=== PATIENT | female | born 1955 | race Caucasian/White ===

== ENCOUNTER 2017-11-25 13:11 | Emergency (ER) | payer OTHER, SELFPAY ==
--- NOTE | 2017-11-25 14:10 | XR_ITS ---
XR foot LT min 3V HISTORY: Left foot pain ITS.REASON: NO INJURY/PAIN ORDERING PHYSICIAN: Germán Penn PATIENT AGE: 62 years COMPARISON: 11/22/2013 FINDINGS: There is an old fracture of the proximal phalanx of the great toe distally. No acute fracture or dislocation. No lytic or blastic change. No fracture or dislocation.. There is a well-circumscribed oval lucency in the navicular which has developed since the previous exam. No other significant anomalies are evident. IMPRESSION: 1. Interval development of an 11 x 15 mm lucent lesion within the navicular bone. The lesion is well circumscribed but has developed since 11/22/2013. CT initially may be of further value to determine as there is any internal matrix and to better evaluate the margins of the lesion.. 2. Old proximal phalanx fracture of the great toe.
--- NOTE | 2017-11-25 14:11 | XR_ITS ---
XR ankle LT min 3V HISTORY: ITS.REASON: NO INJURY/PAIN ORDERING PHYSICIAN: Germán Penn PATIENT AGE: 62 years COMPARISON: None FINDINGS: No fracture or dislocation. No lytic or blastic change. There is normal mineralization.. The joint spaces are well-preserved. No significant degenerative/arthritic changes. No erosive changes evident. There is a well-circumscribed lucent lesion of the navicular as described in the foot report. IMPRESSION: 1. No acute finding of the ankle. 2. Cystic lesion of the navicular
--- NOTE | 2017-11-25 14:12 | XR_ITS ---
XR tibia fibula LT 2V CLINICAL INDICATION: ITS.REASON: NO INJURY/PAIN ORDERING PHYSICIAN: Germán Penn PATIENT AGE: 62 years COMPARISON: None FINDINGS: There are moderate osteoarthritic changes of the medial compartment and patellofemoral joint with mild osteoarthritis of the lateral compartment. The tibia and fibula have an otherwise unremarkable appearance. IMPRESSION: Osteoarthritis of the knee otherwise negative
[2017-11-25 14:43] VITALS: BP 113/72; PULSE 64; RESP 20; TEMP 37.1; O2SAT 97; BMI 43.8
--- NOTE | 2017-11-25 14:59 | HMH.EDUTC ---
[facility] [place] Disposition Clinical Impression: Lytic lesion of bone on x-ray Disposition: Still a Patient Condition on Discharge: Good Time of Disposition: 15:00 Medical Decision Making Vital Signs: 11/25/17 14:43 Temperature 98.7 F Temperature Source Temporal Artery Scan Pulse Rate [Left Radial] 64 Respiratory Rate 20 Blood Pressure [Right Arm] 113/72 Blood Pressure Mean [Right Arm] 85 02 Sat by Pulse Oximetry 97 Oxygen Delivery Method Room Air - Radiology Data #1 Image(s): Tib/Fib, Ankle, Foot/Toes Image Reviewed: Yes I have reviewed radiologist's interpretation Preliminary Findings: Abnormal lucent lesion within navicular bone. CT may be of further value to determine internal matrix and margins. - Maulik Inquiry Pt receiving controlled substance: No - Reevaluation(s) Time: 14:48 Reevaluation #1: Discussed abnormal xray with pt, spouse and daughter (an [facility] central sterile tech). Discussed CT. They want CT today and not outpatient. Aware that can not be ordered here in [facility] and would require transfer to ER and therefore, ER bill. Request transfer to ER. Report called to C.C. as no nurse available. Room 8 available. I then walked over and gave verbal report to Dr. Manjarrez, ER [facility] [place] HPI - General Stated complaint: left foot pain, no ao Time Seen by Provider: 11/25/17 14:45 Mode of Arrival: Wheelchair Source of Information: Patient Limitations: No Limitations Description of Symptoms (Recalled from Triage Doc. by RN): pt c/o left foot pain that started last night. pt denies injury. HEENT Symptoms (Recalled from RN notes): No Resp Symptoms (Recalled from RN notes): No Skin Symptoms (Recalled from RN notes): No MS Symptoms (Recalled from RN notes): Yes (left foot pain) Functional Status (Recalled from RN notes): na - History of Present Illness Provider Complaint: c/o pain center of left foot starting last night. Unable to bear weight due to severe pain that radiated up into leg. Denies N/T. Mild swelling on top of foot where pain primarily located. - Related Data Home Medications Medication Instructions Recorded Confirmed aspirin 81 mg tablet,delayed 81 mg PO tab 11/19/17 release dapagliflozin 10 mg tablet 10 mg PO QAM 11/19/17 ergocalciferol (vitamin D2) 50,000 50,000 unit PO 28 Days cap 11/19/17 unit capsule gabapentin 600 mg tablet 600 mg PO 30 Days tab 11/19/17 insulin aspar prot-insulin aspart 20 unit SUB-Q TID ml 11/19/17 100 unit/mL (70-30) subcutaneous pen isosorbide mononitrate ER 30 mg PO 30 Days #30 11/19/17 tablet,extended release 24 hr levothyroxine 75 mcg capsule 75 mcg PO cap 11/19/17 rosuvastatin 10 mg tablet 10 mg PO 30 Days tab 11/19/17 valsartan 160 1 tab PO ONCE 11/19/17 mg-hydrochlorothiazide 12.5 mg tablet Allergies Allergy/AdvReac Type Severity Reaction Status Date / Time No Known Allergies Allergy Verified 11/25/17 14:25 - Worker's Comp Is this a Worker's Comp case?: No [facility] History I have reviewed the patient's past medical history: Yes Medical History: Reports:: Diabetes Mellitus Type 2, Hyperlipidemia, Hypertension Denies:: Asthma, Atrial Fibrillation, Cancer, Congestive Heart Failure, Chronic Obstructive Pulmonary Disease (COPD), Diabetes Mellitus Type 1, MRSA, Osteoporosis, Renal Disease, Renal Insufficiency Other Medical History: Reports: Arthritis, Hypothyroidism, Other (neuropathy). Denies: Osteoporosis Laterality Cases: Right: Cataract, Total Knee Replacement, Bilateral: Tonsillectomy Amputation: No Fractures: No - Social History Smoking Status: Never smoker Alcohol Intake: never Occupational Status: retired - Psychiatric History Expresses thoughts of harming self/others: None Suicide Plan Description: No Plan Family Hx:: Heart Attack, Diabetes, Hyperlipidemia, Hypertension ROS Obtained: Yes Systems reviewed as appropriate & no additional complaints - Constitutional Constitutional: Denies fatigue, Denies
--- NOTE | 2017-11-25 15:03 | ED_ITS ---
[facility] [place] Disposition Clinical Impression: Lytic lesion of bone on x-ray Disposition: Still a Patient Condition on Discharge: Good Time of Disposition: 15:00 Medical Decision Making Vital Signs: 11/25/17 14:43 Temperature 98.7 F Temperature Source Temporal Artery Scan Pulse Rate [Left Radial] 64 Respiratory Rate 20 Blood Pressure [Right Arm] 113/72 Blood Pressure Mean [Right Arm] 85 02 Sat by Pulse Oximetry 97 Oxygen Delivery Method Room Air - Radiology Data #1 Image(s): Tib/Fib, Ankle, Foot/Toes Image Reviewed: Yes I have reviewed radiologist's interpretation Preliminary Findings: Abnormal lucent lesion within navicular bone. CT may be of further value to determine internal matrix and margins. - Maulik Inquiry Pt receiving controlled substance: No - Reevaluation(s) Time: 14:48 Reevaluation #1: Discussed abnormal xray with pt, spouse and daughter (an [facility] tax technician). Discussed CT. They want CT today and not outpatient. Aware that can not be ordered here in [facility] and would require transfer to ER and therefore, ER bill. Request transfer to ER. Report called to C.C. as no nurse available. Room 8 available. I then walked over and gave verbal report to Dr. Manjarrez, ER [facility] [place] HPI - General Stated complaint: left foot pain, no ao Time Seen by Provider: 11/25/17 14:45 Mode of Arrival: Wheelchair Source of Information: Patient Limitations: No Limitations Description of Symptoms (Recalled from Triage Doc. by RN): pt c/o left foot pain that started last night. pt denies injury. HEENT Symptoms (Recalled from RN notes): No Resp Symptoms (Recalled from RN notes): No Skin Symptoms (Recalled from RN notes): No MS Symptoms (Recalled from RN notes): Yes (left foot pain) Functional Status (Recalled from RN notes): na - History of Present Illness Provider Complaint: c/o pain center of left foot starting last night. Unable to bear weight due to severe pain that radiated up into leg. Denies N/T. Mild swelling on top of foot where pain primarily located. - Related Data Home Medications Medication Instructions Recorded Confirmed aspirin 81 mg tablet,delayed 81 mg PO tab 11/19/17 release dapagliflozin 10 mg tablet 10 mg PO QAM 11/19/17 ergocalciferol (vitamin D2) 50,000 50,000 unit PO 28 Days cap 11/19/17 unit capsule gabapentin 600 mg tablet 600 mg PO 30 Days tab 11/19/17 insulin aspar prot-insulin aspart 20 unit SUB-Q TID ml 11/19/17 100 unit/mL (70-30) subcutaneous pen isosorbide mononitrate ER 30 mg PO 30 Days #30 11/19/17 tablet,extended release 24 hr levothyroxine 75 mcg capsule 75 mcg PO cap 11/19/17 rosuvastatin 10 mg tablet 10 mg PO 30 Days tab 11/19/17 valsartan 160 1 tab PO ONCE 11/19/17 mg-hydrochlorothiazide 12.5 mg tablet Allergies Allergy/AdvReac Type Severity Reaction Status Date / Time No Known Allergies Allergy Verified 11/25/17 14:25 - Worker's Comp Is this a Worker's Comp case?: No [facility] History I have reviewed the patient's past medical history: Yes Medical History: Reports:: Diabetes Mellitus Type 2, Hyperlipidemia, Hypertension Denies:: Asthma, Atrial Fibrillation, Cancer, Congestive Heart Failure, Chronic Obstructive Pulmonary Disease (COPD), Diabetes Mellitus Type 1, MRSA, Osteoporosis, Renal D
[2017-11-25 15:28] VITALS: BP 113/72; PULSE 64; RESP 20; TEMP 37.1; O2SAT 97; BMI 43.8
--- NOTE | 2017-11-25 15:48 | CT_ITS ---
CT foot LT wo con INDICATION: Left foot pain with inability to bear weight ITS.REASON: UNABLE TO BEAR WEIGHT ON LT. FOOT. ORDERING PHYSICIAN: Germán Penn PATIENT AGE: 62 years COMPARISON: Foot films from the same day TECHNIQUE: Axial images are obtained without contrast. Sagittal and coronal reformatted images are reviewed as well. FINDINGS: There is a well circumscribed lucent lesion involving the distal aspect of the talus. This measures 6 x 4 mm. In addition, there is a well-circumscribed cystic lesion involving the mid aspect of the navicular bone as seen on the plain films measuring 14 x 10 mm. The margins are well-circumscribed and geographic. There is no calcified internal matrix and no associated soft tissue abnormality. These lesions have a benign appearance. No fracture or dislocation. No aggressive lytic process is evident. There is an old fracture of the proximal phalanx of the great toe distally. Fracture line is still visible although there is some overlying callus formation. Fracture line does extend into the articular surface of the interphalangeal joint. No acute fracture or dislocation is evident. No evidence of abscess or abnormal soft tissue swelling. IMPRESSION: 1. Benign-appearing cystic lesions involving the distal aspect of the talus and the navicular bone as described above. 2. Healing fracture of the distal aspect of the proximal phalanx of the great toe. 3. No acute bony anomalies.
[2017-11-25 16:33] VITALS: BP 116/70; PULSE 87; RESP 189; O2SAT 97
--- NOTE | 2017-11-25 17:12 | HMH.EDGENADL ---
ED Disposition Clinical Impression: Bone cyst Foot pain Qualifiers: Laterality: left Qualified Code(s): M79.672 - Pain in left foot Disposition: Home, Self-Care Condition on Discharge: Good Instructions: DI for Foot Pain Referrals: Meka Waterman [Primary Care Provider] - Kathleen Lundberg DPM [Physician] - (Call tomorrow to schedule earliest available appointment) - Critical Care Critical Care Time: No Attestation: On 11/25/17, the high probability of a clinically significant, sudden or life threatening deterioration of the following system(s) required my full and direct attention, intervention and personal management. The time I documented below is in addition to time spent performing reported procedures but includes the following listed in this critical care notation. Medical Decision Making Vital Signs: 11/25/17 14:43 11/25/17 15:28 11/25/17 16:33 Temperature 98.7 F 98.7 F Temperature Source Temporal Artery Scan Temporal Artery Scan Pulse Rate [Left Radial] 64 64 87 Respiratory Rate 20 20 189 H Blood Pressure [Right Arm] 113/72 113/72 116/70 Blood Pressure Mean [Right Arm] 85 85 85 Blood Pressure Source [Right Arm] Automatic Cuff Automatic Cuff Blood Pressure Position [Right Arm] Sitting Sitting 02 Sat by Pulse Oximetry 97 97 97 Oxygen Delivery Method Room Air Room Air Room Air - CT Data CT Scan: Other (Foot) Time Received: 17:[address] Reviewed: Yes: I have viewed the radiologist's interpretation Findings Narrative: Benign appearing cystic lesions of talus and navicular. Healing fracture of proximal phalanx of great toe. - Maulik Inquiry Pt receiving controlled substance: No General Adult HPI - General Chief complaint: PAIN Stated complaint: left foot pain, no ao Time Seen by Provider: 11/25/17 14:45 Mode of Arrival: Wheelchair Limitations: No Limitations Description of Symptoms (Recalled from ER Triage Doc. by RN): pt states she has had left foot pain since lastnight. pt denies injury. - History of Present Illness HPI narrative: Patient is sent from the urgent treatment center where she was evaluated for foot pain. She had x-rays done which showed a questionable lesion and a CT was recommended. Patient complains of pain in her midfoot when she puts weight on it. 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 - Related Data Home Medications Medication Instructions Recorded Confirmed aspirin 81 mg tablet,delayed 81 mg PO DAILY tab 11/19/17 11/25/17 release dapagliflozin 10 mg tablet 10 mg PO QAM 11/19/17 11/25/17 ergocalciferol (vitamin D2) 50,000 50,000 unit PO DAILY 28 Days cap 11/19/17 11/25/17 unit capsule gabapentin 600 mg tablet 600 mg PO DAILY 30 Days tab 11/19/17 11/25/17 insulin aspar prot-insulin aspart 20 unit SUB-Q TID ml 11/19/17 11/25/17 100 unit/mL (70-30) subcutaneous pen isosorbide mononitrate ER 30 mg 30 mg PO DAILY 30 Days #30 11/19/17 11/25/17 tablet,extended release 24 hr levothyroxine 75 mcg capsule 75 mcg PO DAILY cap 11/19/17 11/25/17 rosuvastatin 10 mg tablet 10 mg PO DAILY 30 Days tab 11/19/17 11/25/17 valsartan 160 1 tab PO ONCE 11/19/17 11/25/17 mg-hydrochlorothiazide 12.5 mg tablet Allergies Allergy/AdvReac Type Severity Reaction Status Date / Time No Known Allergies Allergy Verified 11/25/17 14:25 [facility] History I have reviewed the patient's past medical history: Yes Medical History: Reports:: Diabetes Mellitus Type 2, Hyperlipidemia, Hypertension Denies:: Asthma, Atrial Fibrillation, Cancer, Congestive Heart Failure, Chronic Obstructive Pulmonary Disease (COPD), Diabetes Mellitus Type 1, MRSA, Osteoporosis, Renal Disease, Renal Insufficiency Other Medical History: Reports: Arthritis, Hypothyroidism, Other (neuropathy). Denies: Osteoporosis Laterality Cases: Right: Cataract, Total Knee Replacement, Bilateral: Tonsillectomy Amputation: No Fractures:
--- NOTE | 2017-11-25 17:15 | ED_ITS ---
ED Disposition Clinical Impression: Bone cyst Foot pain Qualifiers: Laterality: left Qualified Code(s): M79.672 - Pain in left foot Disposition: Home, Self-Care Condition on Discharge: Good Instructions: DI for Foot Pain Referrals: Meka Waterman [Primary Care Provider] - Kathleen Lundberg DPM [Physician] - (Call tomorrow to schedule earliest available appointment) - Critical Care Critical Care Time: No Attestation: On 11/25/17, the high probability of a clinically significant, sudden or life threatening deterioration of the following system(s) required my full and direct attention, intervention and personal management. The time I documented below is in addition to time spent performing reported procedures but includes the following listed in this critical care notation. Medical Decision Making Vital Signs: 11/25/17 14:43 11/25/17 15:28 11/25/17 16:33 Temperature 98.7 F 98.7 F Temperature Source Temporal Artery Scan Temporal Artery Scan Pulse Rate [Left Radial] 64 64 87 Respiratory Rate 20 20 189 H Blood Pressure [Right Arm] 113/72 113/72 116/70 Blood Pressure Mean [Right Arm] 85 85 85 Blood Pressure Source [Right Arm] Automatic Cuff Automatic Cuff Blood Pressure Position [Right Arm] Sitting Sitting 02 Sat by Pulse Oximetry 97 97 97 Oxygen Delivery Method Room Air Room Air Room Air - CT Data CT Scan: Other (Foot) Time Received: 17:[address] Reviewed: Yes: I have viewed the radiologist's interpretation Findings Narrative: Benign appearing cystic lesions of talus and navicular. Healing fracture of proximal phalanx of great toe. - Maulik Inquiry Pt receiving controlled substance: No General Adult HPI - General Chief complaint: PAIN Stated complaint: left foot pain, no ao Time Seen by Provider: 11/25/17 14:45 Mode of Arrival: Wheelchair Limitations: No Limitations Description of Symptoms (Recalled from ER Triage Doc. by RN): pt states she has had left foot pain since lastnight. pt denies injury. - History of Present Illness HPI narrative: Patient is sent from the urgent treatment center where she was evaluated for foot pain. She had x-rays done which showed a questionable lesion and a CT was recommended. Patient complains of pain in her midfoot when she puts weight on it. 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 - Related Data Home Medications Medication Instructions Recorded Confirmed aspirin 81 mg tablet,delayed 81 mg PO DAILY tab 11/19/17 11/25/17 release dapagliflozin 10 mg tablet 10 mg PO QAM 11/19/17 11/25/17 ergocalciferol (vitamin D2) 50,000 50,000 unit PO DAILY 28 Days cap 11/19/17 unit capsule gabapentin 600 mg tablet 600 mg PO DAILY 30 Days tab 11/19/17 11/25/17 insulin aspar prot-insulin aspart 20 unit SUB-Q TID ml 11/19/17 11/25/17 100 unit/mL (70-30) subcutaneous pen isosorbide mononitrate ER 30 mg 30 mg PO DAILY 30 Days #30 11/19/17 11/25/17 tablet,extended release 24 hr levothyroxine 75 mcg capsule 75 mcg PO DAILY cap 11/19/17 11/25/17 rosuvastatin 10 mg tablet 10 mg PO DAILY 30 Days tab 11/19/17 11/25/17 valsartan 160 1 tab PO ONCE 11/19/17 11/25/17 mg-hydrochlorothiazide 12.5 mg tablet Allergies Allergy/AdvReac Type Sev
[2017-11-25 17:33] VITALS: BP 128/75; PULSE 60; RESP 18; TEMP 36.6; O2SAT 96
== END 2017-11-25 17:33 | disposition home or self-care (01) ==
LOC: UTC 15:00 → ER 15:02
PROVIDERS: Emergency Provider Nurse Practitioner Family; PCP Family Medicine
DX: M85.60 Other cyst of bone, unspecified site (principal); M79.672 Pain in left foot; E11.9 Type 2 diabetes mellitus without complications; Z79.4 Long term (current) use of insulin; I10 Essential (primary) hypertension; E78.5 Hyperlipidemia, unspecified; E03.9 Hypothyroidism, unspecified; Z79.82 Long term (current) use of aspirin; Z96.651 Presence of right artificial knee joint
CPT/HCPCS: 73590; 73610; 73630; 73700; 99283

== ENCOUNTER → 2018-04-15 13:20 | Outpatient (CLI) | payer SELFPAY ==
[2018-04-15 15:05] LABS: Erythrocyte Sedimentation Rate 21 mm/hr (0-30)
[2018-04-15 16:09] LABS: C-Reactive Protein 0.3 mg/L (0.0-0.9)
== END ==
PROVIDERS: Visit Provider Nurse Practitioner Family
DX: M35.3 Polymyalgia rheumatica (principal)
CPT/HCPCS: 36415; 85651; 86140

== ENCOUNTER → 2018-06-29 09:51 | Outpatient (CLI) | payer OTHER, SELFPAY ==
--- NOTE | 2018-06-29 09:55 | MM_ITS ---
MM Dig screening mamm BI w/CAD ORDERING PHYSICIAN : Meka Waterman PATIENT AGE: 62 years GENDER: Female COMPARISON: Outside studies from [facility] have arrived dated June 2015, July 2016, April 2014 INDICATION: ITS.REASON: SCREENING no hormones. No new complaints. Family history noncontributory TECHNIQUE: Standard CC and MLO images were obtained. R2 CAD reviewed. FINDINGS: Large breasts with diffuse fatty replacement. . No significant new findings. Scattered axillary nodes both breasts appears stable. No suspicious mass nor dominant mass, nor suspicious calcifications, nor architectural distortion. RIGHT BREAST: A few punctate benign-appearing calcifications at the deep breast and axillary breast.. Benign appearance these can be followed. Recommend recommended and encouraged follow up one year LEFT BREAST:No significant new findings at the left breast.. Follow-up in one year IMPRESSION: ... No new areas of significant concern. No suspicious new findings. . Generalized fatty replacement with lower density breast. A few tiny punctate benign-appearing calcifications right breast. Recommend and encourage follow-up in one year BI-RADS Category: 2 Benign Finding(s) RECOMMENDED FOLLOW-UP: 1YR 1 YEAR FOLLOW-UP (A letter has been sent to the patient regarding results of the study.)
== END ==
PROVIDERS: PCP Family Medicine; Visit Provider Family Medicine
DX: Z12.31 Encounter for screening mammogram for malignant neoplasm of breast (principal)
CPT/HCPCS: 77067

== ENCOUNTER → 2018-08-20 11:11 | Outpatient (CLI) | payer OTHER, SELFPAY | PROVIDERS: PCP Family Medicine; Visit Provider Family Medicine | DX: R06.02 Shortness of breath (principal); R05 Cough | CPT/HCPCS: 94060; 94640; 94726; 94729 ==

== ENCOUNTER → 2018-09-07 12:59 | Outpatient (CLI) | payer OTHER, SELFPAY | PROVIDERS: PCP Family Medicine; Visit Provider Family Medicine | DX: R06.81 Apnea, not elsewhere classified (principal); I51.7 Cardiomegaly; R06.02 Shortness of breath ==

== ENCOUNTER → 2018-09-15 11:07 | Outpatient (CLI) | payer OTHER, SELFPAY | PROVIDERS: PCP Family Medicine; Visit Provider Family Medicine | DX: R06.81 Apnea, not elsewhere classified (principal); I51.7 Cardiomegaly; R06.02 Shortness of breath | CPT/HCPCS: 95806 ==

== ENCOUNTER 2018-09-22 15:01 | Inpatient (IN) ==
--- NOTE | 2018-09-22 15:08 | Emergency Department Note ---
ED Disposition Clinical Impression: Delirium Community acquired pneumonia Qualifiers: Laterality: right Lung location: lower lobe of lung Qualified Code(s): J18.1 - Lobar pneumonia, unspecified organism Disposition: Still a Patient Condition on Discharge: Serious Instructions: DI for Altered Mental Status Referrals: Provider,Referral, [Referring] - - Critical Care Critical Care Time: No Attestation: On , the high probability of a clinically significant, sudden or life threatening deterioration of the following system(s) required my full and direct attention, intervention and personal management. The time I documented below is in addition to time spent performing reported procedures but includes the following listed in this critical care notation. Medical Decision Making - Maulik Inquiry Pt receiving controlled substance: No Vital Signs: 09/22/18 15:01 09/22/18 15:23 09/22/18 15:31 Temperature 101.2 F H Temperature Source Oral Pulse Rate 115 H Pulse Rate [Left Radial] 64 107 H Respiratory Rate 20 Blood Pressure [Right Arm] 202/92 H 189/97 H Blood Pressure Mean [Right Arm] 128 127 Blood Pressure Source [Right Arm] Automatic Cuff Automatic Cuff Blood Pressure Position [Right Arm] Sitting Sitting 02 Sat by Pulse Oximetry 97 93 L Oxygen Delivery Method Room Air - Lab Data Lab Results 09/22/18 15:15: WBC 12.3 H, RBC 4.38, Hgb 13.2, Hct 40.9, MCV 93.4, MCH 30.1, MCHC 32.2, RDW 13.2, Plt Count 273, MPV 7.4, Neut % (Auto) 87.5 H, Lymph % (Auto) 6.7 L, [place] % (Auto) 5.1, Eos % (Auto) 0.2, Baso % (Auto) 0.5, Neut # (Auto) 10.8 H, Lymph # (Auto) 0.8, [place] # (Auto) 0.6, Eos # (Auto) 0.0, Baso # (Auto) 0.1, Total Counted 100, Neutrophils % (Manual) 83 H, Lymphocytes % (Manual) 9 L, Atypical Lymphs % 2.0, Monocytes % (Manual) 6, Platelet Estimate N ormal, RBC Morphology Normal 09/22/18 15:15: Sodium 136, Potassium 3.3 L, Chloride 96 L, Carbon Dioxide 28, Anion Gap 15.3 H, BUN 11, Creatinine 1.19 H, Estimated Creat Clear 46, Estimated GFR 46 L, Est GFR ( Amer) 55 L, Glucose 230 H, Calcium 8.7, Total Bilirubin 0.5, AST 16, ALT 23, Alkaline Phosphatase 98, Troponin I 0.04, Total Protein 7.2, Albumin 3.2 L, Globulin 4.0 H, Albumin/Globulin Ratio 0.8 L, Amylase 27, Acetone Level None detected 09/22/18 15:15: Lactate 3.3 H 09/22/18 15:28: Specimen Source L brachial, O2 % 3lpm, ABG pH 7.49 H, ABG pCO2 37.7, ABG pO2 63.1 L, ABG HCO3 28.3 H, ABG Total CO2 29.5 H, ABG O2 Saturation 93, ABG Base Excess 5.1 H 09/22/18 15:55: Influenza Type A Ag Positive A, Influenza Type B Ag Negative 09/22/18 16:47: Urine Color Yellow, Urine Appearance Sl cloudy, Urine pH 6.0, Ur Specific [place] >= 1.030, Urine Protein 1+, Urine Glucose (UA) 1+, Urine Ketones 1+, Urine Blood 1+, Urine Nitrate Positive, Urine Bilirubin Negative, Urine Urobilinogen 0.2, Ur Leukocyte Esterase Negative Result diagrams: 09/22/18 15:15 09/22/18 15:15 Orders (Tests/Meds): ED MEDICATIONS Generic Name Dose Route Start Last Admin Trade Name Freq PRN Reason Stop Dose Admin Ceftriaxone Sodium 1 gm/ 50 mls @ 100 mls/hr 09/22/18 16:00 09/22/18 15:45 Sodium Chloride IV 10/06/18 15:59 100 mls/hr Q24H LORENA Administration Protocol Azithromycin 500 mg/ Sodium 250 mls @ 250 mls/hr 09/22/18 16:00 09/22/18 16:10 Chloride IV 10/06/18 15:59 250 mls/hr Q24H LORENA Administration Protocol Sodium Chloride 4,080 mls @ 2,040 mls/hr 09/22/18 16:48 Sod Chlor 0.9% 1000ml Bag 30 ml/kg infuse over 2 hr (4080 ml) 09/22/18 18:47 IV .Q2H ONE Sodium Chloride 3 ml 09/22/18 15:30 Sodium Chloride 3% 15ml [facility] 10/22/18 15:29 ONCE PRN INDUCE SPUTUM COLLECTION Discontinued Medications Generic Name Dose Route Start Last Admin Trade Name Jessica PRN Reason Stop Dose Admin Acetaminophen 650 mg 09/22/18 15:17 09/22/18 15:32 Acetaminophen 325mg Tab PO 09/22/18 15:18 650 mg ONCE ONE Administration Albuterol/Ipratropium 3 ml 09/22/18 15:23 09/22/18 15:23 Duoneb 3ml [facility] 09/22/18 15:24 3 ml ONCE ONE Administration ORDERS Category Date Time Status UA [Urinalysis and Microscopic] Stat Lab 09/22/18 16:47 Ordered Blood Culture Stat Micro 09/22/18 15:16 Ordered Sputum Culture & Gram Stain Stat Micro 09/22/18 15:31 Ordered - Radiology Data #1 Image(s): Chest Image Reviewed: Yes I reviewed the patient's radiology image, Yes I discussed the image results w/the radiologist Poor inspiration. Right perihilar infiltrate. - ECG Data Tracing #1 EKG interpreted by Travis Manjarrez MD: Rhythm: sinus tachycardia Rate: 117 [place]: normal Ectopy: none Conduction: normal ST Segment Changes: none T Wave Changes: Nonspecific Q Waves: none No evidence of acute ischemia or injury - Tissue Perfus/Sepsis Re-Eval Reperfusion Exam Performed: Yes Date Performed: 09/22/18 Time Performed: 16:52 Sepsis Follow-Up: Yes: Respiratory exam, Cardiovascular exam, Capillary refill, Peripheral pulse strength, Peripheral pulse location, Skin exam, Vital Signs General Adult HPI - General Chief complaint: Altered Mental Status Stated complaint: AMS Time Seen by Provider: 09/22/18 15:30 Mode of Arrival: Ambulatory Limitations: No Limitations Description of Symptoms (Recalled from ER Triage Doc. by RN): states that pt was talking out of her head earlier and just wasnt herself. States her sugar was in the 300s about 1 hour ago. Has had a cough and congestion and has started coughing up mucus - History of Present Illness HPI narrative: Patient is confused and is therefore a poor historian. does not know much about her condition or what has been going on with her as he has been at work the past couple of days. most information is obtained from the . 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 She is supposed to see a wire wrapping machine operator in October. She has been getting worse and for the past couple of days he says she has a bad cough, markedly increased sputum production. During the night he heard her get up and thought that she was talking out of her head. That has persisted today. He says that she went back to bed after getting up this morning and when he got her up again he noticed that she felt hot. Not medicated for fever at home. She has had a slight sore throat. No rhinorrhea. No vomiting or diarrhea although he thinks that she was nauseated and trying to vomit during the night. He says that she did not use her insulin at all last night and does not think that she used it today, because she did not feel well. He gave her 30 units of insulin before bringing her to the emergency room. No urinary symptoms that he is aware of except that he believes that she did not urinate during the night, which is not normal for her. Her primary care doctors in [facility]. states that when she gets admitted here Dr. Solomon normally takes care of her. - Related Data Home Medications Medication Instructions Recorded Confirmed aspirin 81 mg tablet,delayed 81 mg PO DAILY tab 11/19/17 09/16/18 release dapagliflozin 10 mg tablet 10 mg PO DAILY 11/19/17 09/16/18 ergocalciferol (vitamin D2) 50,000 50,000 unit PO DAILY 28 Days cap 11/19/17 09/16/18 unit capsule gabapentin 600 mg tablet 600 mg PO DAILY 30 Days tab 11/19/17 09/16/18 insulin aspar prot-insulin aspart 20 unit SUB-Q TID ml 11/19/17 09/16/18 100 unit/mL (70-30) subcutaneous pen isosorbide mononitrate ER 30 mg 30 mg PO DAILY 30 Days #30 11/19/17 09/16/18 tablet,extended release 24 hr levothyroxine 75 mcg capsule 75 mcg PO DAILY cap 11/19/17 09/16/18 rosuvastatin 10 mg tablet 10 mg PO DAILY 30 Days tab 11/19/17 09/16/18 valsartan 160 1 tab PO DAILY 11/19/17 09/16/18 mg-hydrochlorothiazide 12.5 mg tablet prednisone 5 mg tablet 5 mg PO DAILY 19 Days #60 04/01/18 09/16/18 Previous Rx's Medication Instructions Recorded Potassium Chloride 20 meq PO DAILY #5 tablet.er 05/07/18 Allergies Allergy/AdvReac Type Severity Reaction Status Date / Time No Known Allergies Allergy Verified 09/16/18 11:00 [facility] History - Hepatitis A Screen Drug use history?: No High risk sexual behaviors?: No History of sexually transmitted infection?: No Currently employed?: No Childcare worker?: No Do you have indoor plumbing?: No Do you have electricity?: No Attestation statement:: This patient has been screened for Hepatitis A risk factors. I have reviewed the patient's past medical history: Yes Medical History: Reports:: Diabetes Mellitus Type 2, Hyperlipidemia, Hypertension Denies:: Asthma, Atrial Fibrillation, Cancer, Congestive Heart Failure, Chronic Obstructive Pulmonary Disease (COPD), Diabetes Mellitus Type 1, MRSA, Osteoporosis, Renal Disease, Renal Insufficiency Other Medical History: Reports: Arthritis, Hypothyroidism, Other (neuropathy). Denies: Osteoporosis Comment: Stents Laterality Cases: Bilateral: Tonsillectomy Other Surgeries: Yes: Amputation: No Fractures: No Comment: 1 STENT HEART, CHOLECYSTECTOMY, - Social History Smoking Status: Current every day smoker Alcohol Intake: never Alcohol Intake Frequency:: other Occupational Status: retired - Psychiatric History Expresses thoughts of harming self/others: None Suicide Plan Description: No Plan Family Hx:: Heart Attack, Diabetes, Hyperlipidemia, Hypertension ROS Obtained: Yes unobtainable due to mental status Physical Exam - General General appearance: alert Comment: Awake and alert, but disoriented - Head Head exam: atraumatic, normocephalic - Eye Eye exam: Present: PERRL, EOMI - ENT ENT exam: Present: normal exam, mucous membranes moist, TM's normal bilaterally - Neck Neck exam: Present: normal inspection, trachea midline. Absent: meningismus - Chest Chest inspection: Present: normal inspection, symmetric chest wall rise - Respiratory Respiratory exam: Present: normal lung sounds bilaterally. Absent: respiratory distress - Cardiovascular Cardiovascular exam: Present: regular rate, normal rhythm, normal heart sounds - Abdominal Exam Abdominal exam: Present: soft. Absent: distention, tenderness - Extremities Exam Extremities exam: Present: normal inspection - Neurological Exam Neurological exam: Present: alert, CN II-XII intact. Absent: oriented X3, motor sensory deficit - Psychiatric Psychiatric exam: Present: anxious - Skin Skin exam: Present: warm, dry
[2018-09-22 15:30] LABS: ABG Base Excess 5.1 mmol/L (-2.4-2.3); ABG HCO3 28.3 mmhg (22.0-26.0); ABG Oxygen Saturation 93 % (90-100); ABG PCO2 37.7 mmhg (35.0-45.0); ABG PH 7.49 mmol/L (7.35-7.45); ABG PO2 63.1 mmhg (80-100); ABG TCO2 29.5 mmhg (23-27)
[2018-09-22 15:32] LABS: Oxygen 3LPM %
[2018-09-22 15:34] LABS: Basophils # 0.1 K/mm3 (0-0.2); Basophils % 0.5 % (0.1-2.0); Eosinophils % 0.2 % (0.1-12.0); Hematocrit 40.9 % (37.0-47.0); Hemoglobin 13.2 g/dL (12.2-16.2); Lymphocytes # 0.8 K/mm3 (0.7-4.5); Lymphocytes % 6.7 % (10-50); Mean Corpuscular HGB Conc 32.2 g/dL (31.8-35.4); Mean Corpuscular Hemoglobin 30.1 pg (27.0-31.2); Mean Corpuscular Volume 93.4 fl (81-99); Mean Platelet Volume 7.4 fl (7.4-10.4); Monocytes # 0.6 K/mm3 (0.1-1.0); Monocytes % 5.1 % (1.7-9.3); Neutrophils # 10.8 K/mm3 (1.8-7.8); Neutrophils % 87.5 % (37.0-80.0); Platelet Count 273 K/mm3 (142-424); Red Blood Count 4.38 M/mm3 (4.20-5.40); Red Cell Distribution Width 13.2 % (11.5-17.5); White Blood Count 12.3 K/mm3 (4.8-10.8)
[2018-09-22 15:46] LABS: Lymphocytes % 9 % (10-50); Monocytes % 6 % (2-9); Neutrophils % 83 % (42-76); RBC Morphology Normal; Total Cells Counted 100
[2018-09-22 15:51] LABS: Alanine Aminotransferase 23 U/L (12-78); Albumin Level 3.2 gm/dL (3.4-5.0); Albumin/Globulin Ratio 0.8 (1.1-1.8); Alkaline Phosphatase 98 U/L (46-116); Amylase 27 U/L (25-115); Anion Gap 15.3 mEq/L (5-15); Aspartate Amino Transferase 16 U/L (15-37); Bilirubin,Total 0.5 mg/dL (0.2-1.0); Blood Urea Nitrogen 11 mg/dL (7-18); Calcium 8.7 mg/dL (8.5-10.1); Carbon Dioxide 28 mmol/L (21.0-32.0); Chloride 96 mmol/L (98-107); Glucose 230 mg/dL (74-106); Potassium 3.3 mmoL/L (3.5-5.1); Sodium 136 mmol/L (136-145); Total Protein,Serum 7.2 gm/dL (6.4-8.2)
[2018-09-22 15:53] LABS: Acetone, Serum (Rapid) None Detected (None Detect)
[2018-09-22 16:49] LABS: Microscopic, Urine URINE MICROSCOPIC (MICROSCOPIC)
[2018-09-22 16:51] LABS: Appearance,Urine SL CLOUDY (Clear); Bilirubin,Urine Negative (Negative); Blood, Urine 1+ (Negative); Color,Urine YELLOW (Yellow); Glucose,Urine (UA) 1+ (Negative); Ketones,Urine 1+ (Negative); Leukocyte Esterase,Urine Negative (Negative); Protein,Urine 1+ (Negative); Specific Gravity, Urine >= 1.030 (1.005-1.030); Urobilinogen,Urine 0.2 EU/dl (0.2)
[2018-09-22 17:20] LABS: Amorphous Sediment,Urine 3+ /lpf; RBC,Urine Occasional #/hpf (0-3); WBC,Urine Occasional #/hpf (0-3)
[2018-09-22 17:29] LABS: Free Thyroxine Index 2.8 ug/dL (5.93-13.13); Thyroid Stimulating Hormone 1.09 uIU/ml (0.358-3.740)
--- NOTE | 2018-09-23 07:49 | Pharmacy Consult Notes ---
[facility] Pharmacy VTE Monitoring - Patient Demographics Admission date: 09/22/18 Report Date: 09/23/18 Time: 07:49 Allergies/Adverse Reactions: Patient Allergies No Known Allergies Allergy (Verified 09/16/18 11:00) Height: 1.7 m Weight: 142.116 kg Patient Problems: Current Active Problems Community acquired pneumonia (Acute) Delirium (Acute) - VTE Risk Labs: VTE Related Lab Results Hgb 13.2 g/dL (12.2-16.2) 09/22/18 15:15 Hct 40.9 % (37.0-47.0) 09/22/18 15:15 Plt Count 273 K/mm3 (142-424) 09/22/18 15:15 BUN 11 mg/dL (7-18) 09/22/18 15:15 Creatinine 1.19 mg/dL (0.55-1.02) H 09/22/18 15:15 Estimated Creat Clear 46 mL/min (50-200) 09/22/18 15:15 Was VTE Risk Assessment Performed: Yes VTE Score: 6 VTE Risk Level: Moderate Risk - Prophylaxis VTE Prophylaxis Ordered?: Yes Types of VTE Prophylaxis: TEDS Knee High Location of Applied Device: Bilateral Lower Extremeties - VTE Diagnosis Confirmed Treatment or plan recommended: Continue Current Treatment
--- NOTE | 2018-09-23 09:53 | History & Physical Report ---
*Admission Date: 09/22/18 *Chief complaint: MS changes, pneumonia *History of present illness: 63-year-old white female who is afflicted with morbid obesity and chronic immunodeficiency and a host of other medical problems who saw her primary care physician in [place], [place] and was diagnosed with bronchitis on Thursday of this week. She was placed on azithromycin but did not start the medication and that night became somewhat obtunded, febrile and had chills. Her finally persuaded her to come to the emergency department early this morning and she was admitted with pulmonary infiltrates and a positive influenza serologic test for influenza A. Of note she reports taking influenza vaccination in July of this year. After IV fluids and antibiotics she felt much better and this morning is alert and oriented. [facility] History I have reviewed the patient's past medical history: Yes Medical History: Reports:: Diabetes Mellitus Type 2, Hyperlipidemia, Hypertension Denies:: Asthma, Atrial Fibrillation, Cancer, Congestive Heart Failure, Chronic Obstructive Pulmonary Disease (COPD), Diabetes Mellitus Type 1, MRSA, Osteoporosis, Renal Disease, Renal Insufficiency Other Medical History: Reports: Arthritis, Hypothyroidism, Other (neuropathy). Denies: Osteoporosis Laterality Cases: Right: Arthroscopy Knee, Bilateral: Tonsillectomy Other Surgeries: Yes: Cholecystectomy, Amputation: No Fractures: No - *Social History Educational Level: Completed High School Smoking Status: Never smoker Alcohol Intake: never Alcohol Intake Frequency:: other Occupational Status: retired Household Members: spouse - Psychiatric History Expresses thoughts of harming self/others: None Suicide Plan Description: No Plan *Family Hx:: Heart Attack, Diabetes, Hyperlipidemia, Hypertension Review of Systems - Review of Systems Review of systems:: pertinent systems reviewed and negative unless documented below - Constitutional Reports chills, Reports lack of energy, Reports malaise, Denies anorexia, Denies body ache(s) - Eyes Denies blind spots, Denies blurry vision, Denies change in vision - ENT Denies abnormal hearing, Denies bleeding gums - *Cardiovascular Reports shortness of breath, Reports shortness of breath with activity, Denies chest pain, Denies chest pain at rest, Denies irregular heart rhythm, Denies leg swelling - *Respiratory Reports change in phlegm color, Reports chest congestion, Reports cough - *Gastrointestinal Denies abdominal pain, Denies belching, Denies bloating - *Musculoskeletal Reports abnormal walking, Reports joint pain, Denies decreased muscle mass - Integumentary/Breasts Denies hair loss, Denies bleeding lesions - *Neurologic Reports abnormal walking, Reports behavioral changes, Reports dizziness Meds Home Medications Medication Instructions Recorded Confirmed Type aspirin 81 mg tablet,delayed 81 mg PO DAILY tab 11/19/17 09/22/18 History release ergocalciferol (vitamin D2) 50,000 50,000 unit PO DAILY 28 Days cap 11/19/17 09/22/18 History unit capsule gabapentin 600 mg tablet 600 mg PO DAILY 30 Days tab 11/19/17 09/22/18 History insulin aspar prot-insulin aspart 20 unit SUB-Q TID ml 11/19/17 09/22/18 History 100 unit/mL (70-30) subcutaneous pen isosorbide mononitrate ER 30 mg 30 mg PO DAILY 30 Days #30 11/19/17 09/22/18 His tory tablet,extended release 24 hr levothyroxine 75 mcg capsule 75 mcg PO DAILY cap 11/19/17 09/22/18 History rosuvastatin 10 mg tablet 10 mg PO HS 30 Days tab 11/19/17 09/22/18 History valsartan 160 1 tab PO DAILY 11/19/17 09/22/18 History mg-hydrochlorothiazide 12.5 mg tablet prednisone 5 mg tablet 5 mg PO DAILY 19 Days #60 04/01/18 09/22/18 History Allergies Allergy/AdvReac Type Severity Reaction Status Date / Time No Known Allergies Allergy Verified 09/16/18 11:00 Exam Vital signs and Labs for Last 24 Hours: Temp Pulse Resp BP Pulse Ox 98.2 F 100 H 20 166/81 H 94 L 09/23/18 08:00 09/23/18 08:00 09/23/18 08:00 09/23/18 08:00 09/23/18 08:00 Laboratory Results - last 24 hr 09/22/18 15:15: WBC 12.3 H, RBC 4.38, Hgb 13.2, Hct 40.9, MCV 93.4, MCH 30.1, MCHC 32.2, RDW 13.2, Plt Count 273, MPV 7.4, Neut % (Auto) 87.5 H, Lymph % (Auto) 6.7 L, [place] % (Auto) 5.1, Eos % (Auto) 0.2, Baso % (Auto) 0.5, Neut # (Auto) 10.8 H, Lymph # (Auto) 0.8, [place] # (Auto) 0.6, Eos # (Auto) 0.0, Baso # (Auto) 0.1, Total Counted 100, Neutrophils % (Manual) 83 H, Lymphocytes % (Manual) 9 L, Atypical Lymphs % 2.0, Monocytes % (Manual) 6, Platelet Estimate Normal, RBC Morphology Normal 09/22/18 15:15: Sodium 136, Potassium 3.3 L, Chloride 96 L, Carbon Dioxide 28, Anion Gap 15.3 H, BUN 11, Creatinine 1.19 H, Estimated Creat Clear 46, Estimated GFR 46 L, Est GFR ( Amer) 55 L, Glucose 230 H, Calcium 8.7, Total Bilirubin 0.5, AST 16, ALT 23, Alkaline Phosphatase 98, Troponin I 0.04, Total Protein 7.2, Albumin 3.2 L, Globulin 4.0 H, Albumin/Globulin Ratio 0.8 L, Amylase 27, Acetone Level None detected 09/22/18 15:15: Lactate 3.3 H 09/22/18 15:15: TSH 1.09 D, Free T4 Index 2.8 L, Thyroxine (T4) 8.0, T3 Uptake 35 09/22/18 15:28: Specimen Source L brachial, O2 % 3lpm, ABG pH 7.49 H, ABG pCO2 37.7, ABG pO2 63.1 L, ABG HCO3 28.3 H, ABG Total CO2 29.5 H, ABG O2 Saturation 93, ABG Base Excess 5.1 H 09/22/18 15:55: Influenza Type A Ag Positive A, Influenza Type B Ag Negative 09/22/18 16:47: Urine Color Yellow, Urine Appearance Sl cloudy, Urine pH 6.0, Ur Specific [place] >= 1.030, Urine Protein 1+, Urine Glucose (UA) 1+, Urine Ketones 1+, Urine Blood 1+, Urine Nitrate Positive, Urine Bilirubin Negative, Urine Urobilinogen 0.2, Ur Leukocyte Esterase Negative, Urine RBC Occasional, Urine WBC Occasional, Ur Squamous Epith Cells 10-20, Amorphous Sediment 3+ 09/22/18 19:34: Lactate 1.7 09/22/18 20:51: POC Glucose 271 H 09/23/18 06:28: POC Glucose 300 H I & O for Last 24 hours: Intake & Output 09/20/18 09/21/18 09/22/18 09/23/18 11:59 11:59 11:59 11:59 Output Total 3175 / 3175 Balance -3175 / -3175 Weight 313 lb 5 oz Narrative: Morbid obesity limits her exam accuracy and complicates all aspects of her care. Lungs have some rhonchi but she has symmetric air entry. Heart rate is regular. Abdomen is obese but soft. She has no ankle edema. Moves all extremities well. Is alert, oriented x3. Assessment and Plan (1) Influenza A with pneumonia Current visit: Yes Status: Acute Category: Medical Code(s): J09.X1 - Influenza due to identified novel influenza A virus with pneumonia Begin Tamiflu given her immune compromised status. Patient has improved with supportive care. Potentially discharge tomorrow (2) Community acquired pneumonia Current visit: Yes Status: Acute Qualifiers: Laterality: right Lung location: lower lobe of lung Qualified Code(s): J18.1 - Lobar pneumonia, unspecified organism Category: Medical Code(s): J18.9 - Pneumonia, unspecified organism Continue treatment for community acquired pneumonia but most likely etiology is influenza. (3) Delirium Current visit: Yes Status: Resolved Category: Medical Code(s): R41.0 - Disorientation, unspecified Improving with supportive care (4) Hypoglycemia Current visit: No Status: Acute Category: Medical Code(s): E16.2 - Hypoglycemia, unspecified Improving with supportive care
[2018-09-24 06:21] LABS: Hemoglobin 12.2 g/dL (12.2-16.2); Lymphocytes # 0.6 K/mm3 (0.7-4.5); Lymphocytes % 2.4 % (10-50); Mean Corpuscular HGB Conc 31.3 g/dL (31.8-35.4); Mean Corpuscular Hemoglobin 30.4 pg (27.0-31.2); Mean Corpuscular Volume 97.1 fl (81-99); Mean Platelet Volume 7.5 fl (7.4-10.4); Monocytes # 0.5 K/mm3 (0.1-1.0); Neutrophils # 24.7 K/mm3 (1.8-7.8); Neutrophils % 95.6 % (37.0-80.0); Platelet Count 316 K/mm3 (142-424); Red Blood Count 4.01 M/mm3 (4.20-5.40); Red Cell Distribution Width 13.2 % (11.5-17.5); White Blood Count 25.9 K/mm3 (4.8-10.8)
[2018-09-24 06:27] LABS: Albumin Level 2.7 gm/dL (3.4-5.0); Albumin/Globulin Ratio 0.7 (1.1-1.8); Anion Gap 11.6 mEq/L (5-15); Bilirubin,Total 0.3 mg/dL (0.2-1.0); Globulin 3.7 gm/dl (1.3-3.2); Potassium 3.6 mmoL/L (3.5-5.1); Total Protein,Serum 6.4 gm/dL (6.4-8.2)
[2018-09-24 06:44] LABS: Calcium 7.7 mg/dL (8.5-10.1)
--- NOTE | 2018-09-24 08:08 | Discharge Summary ---
General - General Admission date:: 09/22/18 Discharge date: 09/24/18 HPI HPI: 63-year-old white female who is afflicted with morbid obesity and chronic immunodeficiency and a host of other medical problems who saw her primary care physician in [place], [place] and was diagnosed with bronchitis on Thursday of this week. She was placed on azithromycin but did not start the medication and that night became somewhat obtunded, febrile and had chills. Her finally persuaded her to come to the emergency department early this morning and she was admitted with pulmonary infiltrates and a positive influenza serologic test for influenza A. Of note she reports taking influenza vaccination in July of this year. After IV fluids and antibiotics she felt much better and this morning is alert and oriented. Hospital Course Hospital Course: Patient was admitted to hospital. Started on appropriate antibiotics for community-acquired pneumonia but noted to have a positive influenza A serology certainly would explain her symptoms of sudden onset of pneumonitis. I started Tamiflu although she was slightly out of the 48-hour window given her significant illness and mental status change I felt this would be beneficial. She is tolerated the medication well and over the last 24 hours has improved nicely. She did have a significant leukocytosis this morning, but I feel this is from D marginalization/steroid effect and do not feel this reference worsening infection. The patient looks much better today. Alert, oriented, doing a lot of self-care activities. Has a cough but has no respiratory distress. She does have a minimal oxygen requirement. We will assess her need for home O2 before discharge. Of note our respiratory therapy folks have told me that her primary physician in [place] had worked her up for sleep apnea and that she had a strongly positive sleep study. We will make sure that she is hooked up with the appropriate CPAP supplies for home use. Plan will be to discharge home on Tamiflu, nonnarcotic-based cough suppressant and finishing up her antibiotics previously prescribed. I will have her see her physician 4-5 days. I would recommend that she have a repeat CBC and BMP at that visit to document which direction her white count is going. Objective Vital signs: Temp Pulse Resp BP Pulse Ox 97.7 F 67 20 123/63 92 L 09/24/18 04:03 09/24/18 07:05 09/24/18 04:03 09/24/18 04:03 09/24/18 07:05 Narrative: Patient is up in the chair. Alert. Pleasant. Talkative. Morbid obesity limits her exam accuracy. Lungs sound much better with excellent air movement. Only minimal rhonchi, vastly improved. Oropharynx clear. No JVD. Heart rate regular. No edema, close cyanosis, no visible rash. Moves all extremities well. No cranial nerve deficits. Results Labs on day of discharge: Labs from last 24 hours 09/24/18 09/24/18 09/24/18 05:35 05:29 05:29 WBC 25.9 H* D RBC 4.01 L Hgb 12.2 Hct 39.0 MCV 97.1 MCH 30.4 MCHC 31.3 L RDW 13.2 Plt Count 316 MPV 7.5 Neut % (Auto) 95.6 H Lymph % (Auto) 2.4 L [place] % (Auto) 2.0 Eos % (Auto) 0.0 L Baso % (Auto) 0.0 L Neut # (Auto) 24.7 H Lymph # (Auto) 0.6 L [place] # (Auto) 0.5 Eos # (Auto) 0.0 Baso # (Auto) 0.0 Sodium 135 L Potassium 3.6 Chloride 99 Carbon Dioxide 28 Anion Gap 11.6 BUN 28 H D Creatinine 1.20 H Estimated Creat Clear 46 Estimated GFR 45 L Est GFR ( Amer) 55 L Glucose 397 H POC Glucose 376 H* Calcium 7.7 L D Total Bilirubin 0.3 AST 31 D ALT 26 Alkaline Phosphatase 88 Total Protein 6.4 Albumin 2.7 L Globulin 3.7 H Albumin/Globulin Ratio 0.7 L 09/23/18 09/23/18 09/23/18 20:56 16:48 12:14 WBC RBC Hgb Hct MCV MCH MCHC RDW Plt Count MPV Neut % (Auto) Lymph % (Auto) [place] % (Auto) Eos % (Auto) Baso % (Auto) Neut # (Auto) Lymph # (Auto) [place] # (Auto) Eos # (Auto) Baso # (Auto) Sodium Potassium Chloride Carbon Dioxide Anion Gap BUN Creatinine Estimated Creat Clear Estimated GFR Est GFR ( Amer) Glucose POC Glucose 389 H* 455 H* 435 H* Calcium Total Bilirubin AST ALT Alkaline Phosphatase Total Protein Albumin Globulin Albumin/Globulin Ratio DS: Diagnosis - Discharge Diagnosis (1) Influenza A with pneumonia Status: Acute (2) Community acquired pneumonia Status: Acute (3) Delirium Status: Resolved (4) Hypoglycemia Status: Acute Discharge Plan - Patient Discharge Instructions ACTIVITY: Continue current activity DIET: continue same diet - Follow up Plan Follow up with: Meka Waterman [Primary Care Provider] - 09/29/18 Disposition: Home, Self-Half-Way Medications: Home Medications Medication Instructions Recorded Confirmed Type aspirin 81 mg tablet,delayed 81 mg PO DAILY tab 11/19/17 09/22/18 History release ergocalciferol (vitamin D2) 50,000 50,000 unit PO DAILY 28 Days cap 11/19/17 09/22/18 History unit capsule gabapentin 600 mg tablet 600 mg PO TID 30 Days tab 11/19/17 09/23/18 History insulin aspar prot-insulin aspart 20 unit SUB-Q TID ml 11/19/17 09/22/18 History 100 unit/mL (70-30) subcutaneous pen isosorbide mononitrate ER 30 mg 30 mg PO DAILY 30 Days #30 11/19/17 09/22/18 History tablet,extended release 24 hr prednisone 5 mg tablet 5 mg PO DAILY 19 Days #60 04/01/18 09/22/18 History Levothyroxine Sodium 75 mcg PO DAILY 09/23/18 09/23/18 History [Levothyroxine 75mcg (0.075mg) Tab] Losartan/Hydrochlorothiazide 1 tab PO DAILY 09/23/18 09/23/18 History [Losartan-Hctz 100-12.5 mg Tab] Rosuvastatin Calcium [Crestor] 10 mg PO HS 09/23/18 09/23/18 History Benzonatate [Tessalon Perle 100mg 200 mg PO TIDP PRN #30 cap 09/24/18 Rx Cap] Oseltamivir Phosphate [Tamiflu 75 mg PO BID #10 capsule 09/24/18 Rx 75mg Capsule] Prescriptions/Medication Reconciliation: New Benzonatate [Tessalon Perle 100mg Cap] 200 mg PO TIDP PRN #30 cap PRN Reason: Cough Oseltamivir Phosphate [Tamiflu 75mg Capsule] 75 mg PO BID #10 capsule Continue gabapentin 600 mg tablet 600 mg PO TID 30 Days tab ergocalciferol (vitamin D2) 50,000 unit capsule 50,000 unit PO DAILY 28 Days cap aspirin 81 mg tablet,delayed release 81 mg PO DAILY tab isosorbide mononitrate ER 30 mg tablet,extended release 24 hr 30 mg PO DAILY 30 Days #30 prednisone 5 mg tablet 5 mg PO DAILY 19 Days #60 Losartan/Hydrochlorothiazide [Losartan-Hctz 100-12.5 mg Tab] 1 tab PO DAILY Rosuvastatin Calcium [Crestor] 10 mg PO HS Levothyroxine Sodium [Levothyroxine 75mcg (0.075mg) Tab] 75 mcg PO DAILY No Action insulin aspar prot-insulin aspart 100 unit/mL (70-30) subcutaneous pen 20 unit SUB-Q TID ml
[2018-09-24 09:31] LABS: Lymphocytes % 3 % (10-50); Monocytes % 1 % (2-9); Neutrophils % 96 % (42-76); RBC Morphology Normal; Total Cells Counted 100
== END 2018-09-24 13:08 | disposition home or self-care (01) ==
LOC: ER 15:01 → 2ND 15:01 → OBSVTOIN 18:41 → 2ND 18:43
PROVIDERS: ADMIT Emergency Medicine; ATTEND Internal Medicine Adolescent Medicine

== ENCOUNTER → 2018-09-30 11:54 | Outpatient (CLI) | payer OTHER, SELFPAY ==
--- NOTE | 2018-09-30 11:59 | XR_ITS ---
XR chest 2V HISTORY: ITS.REASON: COUGH,PNA,SOB ORDERING PHYSICIAN: Meka Waterman PATIENT AGE: 63 years Technique: ... PA and lateral chest COMPARISON: May 07, 2018. Also January 2017 . CTA chest June 2017 FINDINGS:. Slight increased markings in density density towards the right infrahilar region and right lung base noted but I believe are stable since prior studies from May 2018. Previous CT showed some generous vascular structures in this region and into density towards right base similar appearance also seen January 2017 CXR Thus I believe overall stable baseline character towards right base with no definitive acute infiltrate or features otherwise.. No pleural effusion. No pneumothorax. Mild hyperexpansion most evident at the upper lung [place]. Mild cardiomegaly again noted but no CHF. Louise and mediastinal structures appear similar, stable. Chest wall unremarkable. T-spine unchanged mild degenerative features. IMPRESSION Nothing definitely acute Mild chronic changes most evident toward right base Mild cardiomegaly .
== END ==
PROVIDERS: PCP Family Medicine; Visit Provider Family Medicine
DX: R05 Cough (principal); R06.02 Shortness of breath; J18.9 Pneumonia, unspecified organism
CPT/HCPCS: 71046

== ENCOUNTER → 2018-10-01 15:00 | Outpatient (CLI) | payer OTHER, SELFPAY ==
--- NOTE | 2018-10-01 | CT_ITS ---
CT angio chest Ordering Physician: Meka Waterman Patient Age: 63 years: Female HISTORY: ITS.REASON: COUGH, SOA Short of breathcough several weeks. TECHNIQUE: Helical CT scanning performed at of the chest following bolus administration of 70 cc Isovue-370 followed x 40 mL normal saline. The acquired thin sections reconstructed axial images as well as thick MIP P. Avinash and sagittal images performedAll on independent workstation CT scans at this facility used one or more dose reduction techniques , viz: automatic exposure control, ma/Kv adjustment per patient's size, (including targeted exam where dose matched to the indication; i.e. head); or iterative reconstruction technique COMPARISON :June 2017 CTA chest. FINDINGS The pulmonary arteries are fairly well-visualized with no pulmonary embolism identified. No intraluminal thrombus evident no discrete filling defects. Aorta is normal in caliber with no aneurysm or dissection. Mild Atherosclerotic calcification aortic arch in the descending aorta. Near sternum. No mediastinal adenopathy or mass. No significant hilar adenopathy. Heart.. Mild cardiomegaly.. Scant pericardial fluid along its inferior anterior margin similar to the 2017 study. Minimal. Minimal coronary artery calcification at the left main. Generous caliber LAD. Probable stent at the right coronary No focal pneumonia [Borderline airway thickening. Only very slight pulmonary prominence. But No overt CHF.. No pleural effusion. Trace pleural thickening at the posterior sulcus and posterior left chest is stable. . Uppermost abdomen. Adrenals stable with slightly small benign adrenal nodule on right 11 mm. No significant change. Visualized portions of the liver spleen and pancreas unremarkable. Cholecystectomy. Osseous structures. Mild ductal scoliosis T-spine Vertebral bodies satisfactory with no discrete lesion evident. Anterior marginal osteophytes the throughout spine . IMPRESSION: No pulmonary embolism evident. Satisfactory enhancement & appearance of pulmonary arteries Aorta satisfactory as well No pneumonia evident . Borderline airway thickening could reflect mild bronchitis. . cardiomegaly again observed Only minor subtle vascular engorgement. No overt CHF . No pleural effusion. Scant stable pericardial effusion again noted .
--- NOTE | 2018-10-01 15:04 | NVE_ITS ---
Venous Exam Indications: 729.5 Pain in limb. 782.3 Edema. IMPRESSIONS 1. There is no evidence of significant Reflux. 2. No evidence of deep or superficial vein thrombosis involving the right lower extremity and left lower extremity Complete lower extremity venous duplex evaluation. Doppler flow study including spectral analysis, color and polanco scale imaging. Location: Vascular laboratory. Patient status: Outpatient. CRITICAL FINDINGS - Reported to: dr cuadra - Read back and verified. - 10/01/18 - 1550 - Neg Tables: Venous flow and imaging: + +-------+ + Location Overall Flow properties + +-------+ + Right common femoral Patent Normal phasicity; spontaneous; normal augmentation; compressible + +-------+ + Right saphenofemoral junction Patent Compressible + +-------+ + Right profunda femoral Patent Compressible + +-------+ + Right femoral Patent Normal phasicity; spontaneous; normal augmentation; compressible; no reflux + +-------+ + Right greater saphenous Patent Normal phasicity; spontaneous; normal augmentation; compressible + +-------+ + Right popliteal Patent Normal phasicity; spontaneous; normal augmentation; compressible + +-------+ + Right posterior tibial Patent Compressible + +-------+ + Right peroneal Patent Compressible + +-------+ + Right gastrocnemius Patent Compressible + +-------+ + Right soleal Patent Compressible + +-------+ + Left common femoral Patent Normal phasicity; spontaneous; normal augmentation; compressible + +-------+ + Left saphenofemoral junction Patent Compressible + +-------+ + Left profunda femoral Patent Compressible + +-------+ + Left femoral Patent Normal phasicity; spontaneous; normal augmentation; compressible + +-------+ + Left greater saphenous Patent Normal phasicity; spontaneous; normal augmentation; compressible + +-------+
== END ==
PROVIDERS: PCP Family Medicine; Visit Provider Family Medicine
DX: R07.9 Chest pain, unspecified (principal); R60.9 Edema, unspecified; R06.02 Shortness of breath; R79.1 Abnormal coagulation profile
CPT/HCPCS: 71275; 93970; Q9967

== ENCOUNTER → 2018-11-02 11:05 | Outpatient (POV) | payer OTHER, SELFPAY ==
[2018-11-02 11:17] VITALS: BP 116/59; PULSE 91; RESP 18; O2SAT 99
--- NOTE | 2018-11-02 12:34 | HMH.PMCON ---
Assessment and Plan (1) Back pain Current visit: Yes Status: Chronic Category: Medical Code(s): M54.9 - Dorsalgia, unspecified - Assessment and plan all Dx Assessment and Plan for all problems:: We will get an MRI to determine pathology however symptomology eludes to spinal stenosis with neurogenic claudication. Patient may be a vertical flex candidate. Dr. Kinsey has reviewed this note and agrees with this plan of care. This note was dictated using voice recognition software and may contain errors or omissions HPI - Data of Consult Consult date: 11/02/18 Requesting Physician: Shante Vizcarra APRN Primary Care Provider: Meka Waterman - Consult Narrative Reason for consult: Back pain History of present illness: Ms. Bahena is a 63 year old female who presents today for consultation in regards to her low back and leg pain. Patient states when she sitting she does not have any pain however whenever she is walking she finds herself having to lean forward. Patient is unable to walk for long periods of time. She denies any numbness and tingling in her bilateral extremities. Patient has done chiropractic therapy with limited results. Patient also had gabapentin with limited results. Patient rates her pain a 5 out of 10 today. Any increased activity makes it worse well rest decreases it. Patient does not have any current imaging. CC: Shante Vizcarra APRN [facility] History I have reviewed the patient's past medical history: Yes Medical History: Reports:: Diabetes Mellitus Type 2, Hyperlipidemia, Hypertension Denies:: Asthma, Atrial Fibrillation, Cancer, Congestive Heart Failure, Chronic Obstructive Pulmonary Disease (COPD), Diabetes Mellitus Type 1, MRSA, Osteoporosis, Renal Disease, Renal Insufficiency Have you ever received a pneumonia vaccine?: No Have you received a flu vaccine this season?: No Other Medical History: Reports: Arthritis, Hypothyroidism, Other (neuropathy). Denies: Osteoporosis Laterality Cases: Right: Arthroscopy Knee, Bilateral: Tonsillectomy Other Surgeries: Yes: Cholecystectomy, Amputation: No Fractures: No - *Social History Smoking Status: Never smoker Alcohol Intake: never Alcohol Intake Frequency:: other Occupational Status: retired Housing: house Household Members: spouse Travel in the last 8 weeks: None - Psychiatric History Expresses thoughts of harming self/others: None Suicide Plan Description: No Plan *Family Hx:: Heart Attack, Diabetes, Hyperlipidemia, Hypertension Review of Systems - Review of Systems ROS General: no recent weight change, no fever, no sleep disturbances Respiratory: no cough, no shortness of air, no recurring pulmonary infections Cardiovascular/Peripheral Vascular: No chest pain, No palpitations, no edema, no shortness of breath. Gastrointestinal: no incontinence, normal bowel movements reported Genitourinary: no incontinence Musculoskeletal: Back pain, leg pain Psychiatric: normal mood/ affect Neurological: [denies weakness in extremities], [denies balance issues] Meds Home Medications Medication Instructions Recorded Confirmed Type aspirin 81 mg tablet,delayed 81 mg PO DAILY tab 11/19/17 09/22/18 History release ergocalciferol (vitamin D2) 50,000 50,000 unit PO DAILY 28 Days cap 11/19/17 09/22/18 History unit capsule gabapentin 600 mg tablet 600 mg PO TID 30 Days tab 11/19/17 09/23/18 History insulin aspar prot-insulin aspart 20 unit SUB-Q TID ml 11/19/17 09/22/18 History 100 unit/mL (70-30) subcutaneous pen isosorbide mononitrate ER 30 mg 30 mg PO DAILY 30 Days #30 11/19/17 09/22/18 History tablet,extended release 24 hr prednisone 5 mg tablet 5 mg PO DAILY 19 Days #60 04/01/18 09/22/18 History Levothyroxine Sodium 75 mcg PO DAILY 09/23/18 09/23/18 History [Levothyroxine 75mcg (0.075mg) Tab] Losartan/Hydrochlorothiazide 1 tab PO DAILY 09/23/18 09/23/18 History [Losartan-Hctz 100-12.5 mg Tab]
--- NOTE | 2018-11-02 12:37 | P.CONS_ITS ---
Assessment and Plan (1) Back pain Current visit: Yes Status: Chronic Category: Medical Code(s): M54.9 - Dorsalgia, unspecified - Assessment and plan all Dx Assessment and Plan for all problems:: We will get an MRI to determine pathology however symptomology eludes to spinal stenosis with neurogenic claudication. Patient may be a vertical flex candidate. Dr. Kinsey has reviewed this note and agrees with this plan of care. This note was dictated using voice recognition software and may contain errors or omissions HPI - Data of Consult Consult date: 11/02/18 Requesting Physician: Shante Vizcarra APRN Primary Care Provider: Meka Waterman - Consult Narrative Reason for consult: Back pain History of present illness: Ms. Bahena is a 63 year old female who presents today for consultation in regards to her low back and leg pain. Patient states when she sitting she does not have any pain however whenever she is walking she finds herself having to lean forward. Patient is unable to walk for long periods of time. She denies any numbness and tingling in her bilateral extremities. Patient has done chiropractic therapy with limited results. Patient also had gabapentin with limited results. Patient rates her pain a 5 out of 10 today. Any increased activity makes it worse well rest decreases it. Patient does not have any current imaging. CC: Shante Vizcarra APRN [facility] History I have reviewed the patient's past medical history: Yes Medical History: Reports:: Diabetes Mellitus Type 2, Hyperlipidemia, Hypertension Denies:: Asthma, Atrial Fibrillation, Cancer, Congestive Heart Failure, Chronic Obstructive Pulmonary Disease (COPD), Diabetes Mellitus Type 1, MRSA, Osteoporosis, Renal Disease, Renal Insufficiency Have you ever received a pneumonia vaccine?: No Have you received a flu vaccine this season?: No Other Medical History: Reports: Arthritis, Hypothyroidism, Other (neuropathy). Denies: Osteoporosis Laterality Cases: Right: Arthroscopy Knee, Bilateral: Tonsillectomy Other Surgeries: Yes: Cholecystectomy, Amputation: No Fractures: No - *Social History Smoking Status: Never smoker Alcohol Intake: never Alcohol Intake Frequency:: other Occupational Status: retired Housing: house Household Members: spouse Travel in the last 8 weeks: None - Psychiatric History Expresses thoughts of harming self/others: None Suicide Plan Description: No Plan *Family Hx:: Heart Attack, Diabetes, Hyperlipidemia, Hypertension Review of Systems - Review of Systems ROS General: no recent weight change, no fever, no sleep disturbances Respiratory: no cough, no shortness of air, no recurring pulmonary infections Cardiovascular/Peripheral Vascular: No chest pain, No palpitations, no edema, no shortness of breath. Gastrointestinal: no incontinence, normal bowel movements reported Genitourinary: no incontinence Musculoskeletal: Back pain, leg pain Psychiatric: normal mood/ affect Neurological: [denies weakness in extremities], [denies balance issues] Meds Home Medications Medication Instructions Recorded Confirmed Type aspirin 81 mg tablet,delayed 81 mg PO DAILY tab 11/19/17 09/22/18 History release ergocalciferol (vitamin D2) 50,000 50,000 unit PO DAILY 28 Days cap 11/19/17 09/22/18 History unit capsule gabapentin 600 mg tablet 600 mg PO TID 30 Days tab 11/19/17 09/23/18 History insulin aspar prot-ins
== END ==
PROVIDERS: PCP Family Medicine; Visit Provider Clinical Nurse Specialist Family Health
DX: M54.9 Dorsalgia, unspecified (principal)
CPT/HCPCS: 99202

== ENCOUNTER → 2018-12-07 09:39 | Outpatient (POV) | payer OTHER, SELFPAY ==
[2018-12-07 09:58] VITALS: BP 157/78; PULSE 84; RESP 18; O2SAT 98; BMI 47.0
--- NOTE | 2018-12-07 10:10 | XR_ITS ---
EXAM: XR lumbar spine min 4V HISTORY: ITS.REASON: WORSENING BACK PAIN ORDERING PHYSICIAN: Shante Vizcarra PATIENT AGE: 63 years COMPARISON: None FINDINGS: Normal alignment. No fracture or dislocation. No lytic or blastic change. The disc spaces are well-preserved. There are mild facet arthritic/sclerotic changes at L5-S1:. Surgical clips are present in the right upper quadrant. Incidental vascular calcification noted IMPRESSION: Mild facet arthritic changes at L5-S1 otherwise negative
--- NOTE | 2018-12-07 10:10 | XR_ITS ---
XR pelvis 1-2V HISTORY: Worsening pain ITS.REASON: WORSENING BACK PAIN ORDERING PHYSICIAN: Shante Vizcarra PATIENT AGE: 63 years Comparison: None FINDINGS: No fracture or dislocation is evident. No significant degenerative change. No lytic or blastic change. The SI joints have an unremarkable appearance. Unremarkable soft tissues. IMPRESSION: Negative pelvis.
--- NOTE | 2018-12-07 12:21 | HMH.PAINSOAP ---
[facility] Pain Management SOAP Note Subjective:: Patient is a pleasant 63-year-old white female who presents today for follow-up. Patient was denied by her insurance for an MRI. Patient is having significant pain in her low back and down her legs. Patient is finding it difficult to walk even short distances. Patient finds herself always bending forward for relief. Patient is unable to do her daily activity. She rates her pain a 9 out of 10. Patient is continuing a home stretching program at home she is also been seen by chiropractor. Patient has been doing this for over 3 months. With no relief she is also on anti-inflammatories however it is not beneficial at this time. She is also been on these for over 3 months. Patient's not on any anticoagulation therapy. ROS General: no recent weight change, no fever, no sleep disturbances Respiratory: no cough, no shortness of air, no recurring pulmonary infections Cardiovascular/Peripheral Vascular: No chest pain, No palpitations, no edema, no shortness of breath. Gastrointestinal: no incontinence, normal bowel movements reported Genitourinary: no incontinence Musculoskeletal: Back pain, leg pain Psychiatric: normal mood/ affect Neurological: [denies weakness in extremities], [denies balance issues] Objective:: Physical Exam General: Alert and oriented x3, no acute distress, pleasant and cooperative, [on room air] Lungs: Resps E/U, Symmetrical chest expansion, Eyes: PERRL Musculoskeletal: Flexion and extension of lumbar spine somewhat guarded secondary to pain, deep tendon reflexes normal, strength in upper and left lower extremities [5/5] and right lower extremity 4/5, [abnormal gait noted] Neurological: speech clear, 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 If it is not I believe it would be beneficial to have an MRI. I will follow-up with the patient after her injection.
--- NOTE | 2018-12-07 12:24 | P.CONS_ITS ---
[facility] Pain Management SOAP Note Subjective:: Patient is a pleasant 63-year-old white female who presents today for follow-up. Patient was denied by her insurance for an MRI. Patient is having significant pain in her low back and down her legs. Patient is finding it difficult to walk even short distances. Patient finds herself always bending forward for relief. Patient is unable to do her daily activity. She rates her pain a 9 out of 10. Patient is continuing a home stretching program at home she is also been seen by chiropractor. Patient has been doing this for over 3 months. With no relief she is also on anti-inflammatories however it is not beneficial at this time. She is also been on these for over 3 months. Patient's not on any anticoagulation therapy. ROS General: no recent weight change, no fever, no sleep disturbances Respiratory: no cough, no shortness of air, no recurring pulmonary infections Cardiovascular/Peripheral Vascular: No chest pain, No palpitations, no edema, no shortness of breath. Gastrointestinal: no incontinence, normal bowel movements reported Genitourinary: no incontinence Musculoskeletal: Back pain, leg pain Psychiatric: normal mood/ affect Neurological: [denies weakness in extremities], [denies balance issues] Objective:: Physical Exam General: Alert and oriented x3, no acute distress, pleasant and cooperative, [on room air] Lungs: Resps E/U, Symmetrical chest expansion, Eyes: PERRL Musculoskeletal: Flexion and extension of lumbar spine somewhat guarded secondary to pain, deep tendon reflexes normal, strength in upper and left lower extremities [5/5] and right lower extremity 4/5, [abnormal gait noted] Neurological: speech clear, 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 If it is not I believe it would be beneficial to have an MRI. I will follow-up with the patient after her injection.
== END ==
PROVIDERS: PCP Family Medicine; Visit Provider Clinical Nurse Specialist Family Health
DX: M51.16 Intervertebral disc disorders with radiculopathy, lumbar region (principal); M54.9 Dorsalgia, unspecified
CPT/HCPCS: 72110; 72170; 99213

== ENCOUNTER → 2018-12-21 13:58 | Outpatient (CLI) | payer OTHER, SELFPAY | PROVIDERS: PCP Family Medicine; Visit Provider Specialist | DX: G47.33 Obstructive sleep apnea (adult) (pediatric) (principal) | CPT/HCPCS: 94762 ==

== ENCOUNTER 2018-12-31 12:37 | Observation (INO) ==
--- NOTE | 2018-12-31 13:03 | Emergency Department Note ---
ED Disposition Clinical Impression: Elevated troponin I level, Chest pain, HHD (hypertensive heart disease) Disposition: Admitted as Observation Condition on Discharge: Fair Time of Disposition: 14:35 - Critical Care Critical Care Time: No Attestation: On 12/31/18, the high probability of a clinically significant, sudden or life threatening deterioration of the following system(s) required my full and direct attention, intervention and personal management. The time I documented below is in addition to time spent performing reported procedures but includes the following listed in this critical care notation. Medical Decision Making - Medical Records Medical records reviewed: Yes: I reviewed the patient's medical records. - Maulik Inquiry Pt receiving controlled substance: No Maulik was queried for this patient: No Vital Signs: 12/31/18 12:51 Temperature 98 F Temperature Source Oral Pulse Rate [Left Radial] 74 Respiratory Rate 22 Blood Pressure [Right Arm] 167/96 H Blood Pressure Mean [Right Arm] 119 Blood Pressure Source [Right Arm] Automatic Cuff Blood Pressure Position [Right Arm] Sitting 02 Sat by Pulse Oximetry 94 L Oxygen Delivery Method Room Air - Lab Data Lab results reviewed: Yes: I reviewed the patient's lab results. Lab Results 12/31/18 13:05: WBC 9.8, RBC 4.18 L, Hgb 12.5, Hct 39.3, MCV 94.0, MCH 29.8, MCHC 31.7 L, RDW 13.8, Plt Count 301, MPV 7.4, Neut % (Auto) 77.0, Lymph % (Auto) 15.7, [place] % (Auto) 4.4, Eos % (Auto) 1.9, Baso % (Auto) 0.9, Neut # (Auto) 7.6, Lymph # (Auto) 1.5, [place] # (Auto) 0.4, Eos # (Auto) 0.2, Baso # (Auto) 0.1 12/31/18 13:05: Sodium 142, Potassium 4.0, Chloride 104, Carbon Dioxide 28, Anion Gap 14.0, BUN 16, Creatinine 1.11 H, Estimated Creat Clear 50, Estimated GFR 49 L, Est GFR ( Amer) 60, Glucose 235 H, Calcium 9.2, Troponin I 0.14 H 12/31/18 13:05: B-Natriuretic Peptide 19 Result diagrams: 12/31/18 13:05 12/31/18 13:05 Orders (Tests/Meds): ED MEDICATIONS Generic Name Dose Route Start Last Admin Trade Name Freq PRN Reason Stop Dose Admin Diphenhydramine HCl 50 mg 12/31/18 14:34 Benadryl 50mg/1ml Vial IV 12/31/18 14:35 ONCE ONE Fentanyl Citrate 50 mcg 12/31/18 14:34 Fentanyl 100mcg/2ml Vial IV 01/01/19 14:35 Q3MINP PRN Moderate to Severe Pain Fentanyl Citrate 25 mcg 12/31/18 14:34 Fentanyl 100mcg/2ml Vial IV 01/01/19 14:35 Q3MINP PRN Moderate to Severe Pain Flumazenil 0.2 mg 12/31/18 14:34 Romazicon 0.1mg/Ml 5ml Vial IV 12/31/18 23:00 NEEDED PRN Sedation Heparin Sodium (Porcine) 10,000 unit 12/31/18 14:34 Heparin 1,000 Units/Ml 10ml Vial (Industrial Maintenance Electrician) IV 12/31/18 18:34 NEEDED PRN Emergency Box Aircraft Landing Gear Inspector Heparin Sodium/Sodium Chloride 3,000 unit 12/31/18 14:34 Heparin 1000 Units/500ml Ns (Industrial Maintenance Electrician) IV 12/31/18 14:35 ONCE ONE Sodium Chloride 1,000 mls @ 25 mls/hr 12/31/18 14:45 Sod Chlor 0.9% 1000ml Bag IV 01/01/19 14:34 .Q25H LORENA Lidocaine HCl 20 ml 12/31/18 14:34 Lidocaine 1% 20ml Mdv IJ 12/31/18 14:35 ONCE ONE Midazolam HCl 1 mg 12/31/18 14:34 Midazolam 2mg/2ml Vial IV 01/01/19 14:34 Q3MINP PRN Sedation Midazolam HCl 1 mg 12/31/18 14:34 Midazolam 1mg/Ml 5ml Vial IV 01/01/19 14:34 Q3MINP PRN Sedation Naloxone HCl 0.4 mg 12/31/18 14:34 Narcan 0.4mg/Ml Vial IV 01/01/19 14:34 Q5MINP PRN Decreased respirations Nitroglycerin 800 mcg 12/31/18 14:34 Nitroglycerin 800mcg/8ml Syr (Industrial Maintenance Electrician) IV 01/01/19 14:34 NEEDED PRN Emergency Box Aircraft Landing Gear Inspector Sodium Chloride 10 ml 12/31/18 14:34 Saline Flush 10ml Syringe IV 01/30/19 14:33 NEEDED PRN Maintain IV Site Sodium Chloride 10 ml 12/31/18 14:34 Saline Flush 10ml Syringe IV 01/30/19 14:33 NEEDED PRN Maintain IV Site Verapamil HCl 2.5 mg 12/31/18 14:34 Verapamil 2.5mg/Ml 2ml Vial IV 12/31/18 14:35 ONCE ONE Discontinued Medications Generic Name Dose Route Start Last Admin Trade Name Jessica PRN Reason Stop Dose Admin Aspirin 324 mg 12/31/18 14:02 12/31/18 14:21 Aspirin 81mg Chewable Tablet PO 12/31/18 14:03 324 mg ONCE ONE Administration Nitroglycerin 1 gm 12/31/18 14:34 Nitroglycerin 1 Inch Oint Udp TD 12/31/18 14:35 ONCE ONE General Adult HPI - General Chief complaint: Chest Pain Stated complaint: swollen feet, heavy chest, headache, soa Time Seen by Provider: 12/31/18 13:20 Mode of Arrival: Ambulatory Source of Information: Patient Limitations: No Limitations Description of Symptoms (Recalled from ER Triage Doc. by RN): to ed per pvt car with c/o chest heaviness starting today. pt also c/o lower extremity swelling, h/a and sob states seen patient access registrar for same thursday and given new medication. pt denies any radiation of chest heaviness, nausea, or diaphoresis. cpta 81 mg asa - Related Data Home Medications Medication Instructions Recorded Confirmed aspirin 81 mg tablet,delayed 81 mg PO DAILY tab 11/19/17 12/31/18 release ergocalciferol (vitamin D2) 50,000 50,000 unit PO DAILY 28 Days cap 11/19/17 12/31/18 unit capsule gabapentin 600 mg tablet 600 mg PO TID 30 Days tab 11/19/17 12/31/18 isosorbide mononitrate ER 30 mg 30 mg PO DAILY 30 Days #30 11/19/17 12/31/18 tablet,extended release 24 hr Levothyroxine Sodium 75 mcg PO DAILY 09/23/18 12/31/18 [Levothyroxine 75mcg (0.075mg) Tab] Losartan/Hydrochlorothiazide 1 tab PO DAILY 09/23/18 12/31/18 [Losartan-Hctz 100-12.5 mg Tab] Rosuvastatin Calcium [Crestor] 10 mg PO HS 09/23/18 12/31/18 insulin aspar prot-insulin aspart 85 unit SQ AM ml 12/27/18 12/31/18 100 unit/mL (70-30) subcutaneous pen prednisone 1 mg tablet 1 mg PO BID 30 Days #60 tab 12/27/18 12/31/18 Bisoprolol Fumarate [Bisoprolol 5 mg PO HS 12/31/18 12/31/18 5mg Tablet] Allergies Allergy/AdvReac Type Severity Reaction Status Date / Time No Known Allergies Allergy Verified 12/27/18 11:54 [facility] History - Hepatitis A Screen Drug use history?: No High risk sexual behaviors?: No History of sexually transmitted infection?: No Currently employed?: No Childcare worker?: No Do you have indoor plumbing?: Yes Do you have electricity?: Yes Attestation statement:: This patient has been screened for Hepatitis A risk factors. Medical History: Reports:: Coronary Artery Disease, Diabetes Mellitus Type 2, Hyperlipidemia, Hypertension Other Medical History: Reports: Arthritis, Hypothyroidism, Other (neuropathy) Comment: ROSS Laterality Cases: Right: Arthroscopy Knee, Bilateral: Tonsillectomy Other Surgeries: Yes: Cardiac Catheterization, Cardiac Surgery, Cholecystectomy, Coronary Stent, Amputation: No Fractures: No Comment: 1 STENT HEART, CHOLECYSTECTOMY, - Social History Smoking Status: Never smoker Alcohol Intake: never Alcohol Intake Frequency:: other Substance Use Type: denies use Occupational Status: retired Housing: house Household Members: spouse - Psychiatric History Expresses thoughts of harming self/others: None Suicide Plan Description: No Plan Family Hx:: Heart Attack, Diabetes, Hyperlipidemia, Hypertension, Coronary Artery Disease Comment: Father- of [place]@62 ROS Obtained: Yes All systems reviewed & no additional complaints Physical Exam - General General appearance: alert, in no apparent distress, obese - Head Head exam: atraumatic, normocephalic, normal inspection - Eye Eye exam: Present: normal appearance - ENT ENT exam: Present: normal exam - Chest Chest inspection: Present: normal inspection, symmetric chest wall rise. A bsent: tenderness - Respiratory Respiratory exam: Present: normal lung sounds bilaterally. Absent: respiratory distress - Cardiovascular Cardiovascular exam: Present: regular rate, normal rhythm. Absent: JVD - Abdominal Exam Abdominal exam: Present: soft, normal bowel sounds. Absent: distention, tenderness, guarding - Extremities Exam Extremities exam: Present: pedal edema - Neurological Exam Neurological exam: Present: alert - Psychiatric Psychiatric exam: Present: normal affect, normal mood - Skin Skin exam: Present: warm, dry, intact, normal color
[2018-12-31 13:26] LABS: Basophils # 0.1 K/mm3 (0-0.2); Basophils % 0.9 % (0.1-2.0); Eosinophils # 0.2 K/mm3 (0.0-0.4); Eosinophils % 1.9 % (0.1-12.0); Hematocrit 39.3 % (37.0-47.0); Hemoglobin 12.5 g/dL (12.2-16.2); Lymphocytes # 1.5 K/mm3 (0.7-4.5); Lymphocytes % 15.7 % (10-50); Mean Corpuscular HGB Conc 31.7 g/dL (31.8-35.4); Mean Corpuscular Hemoglobin 29.8 pg (27.0-31.2); Mean Platelet Volume 7.4 fl (7.4-10.4); Monocytes # 0.4 K/mm3 (0.1-1.0); Monocytes % 4.4 % (1.7-9.3); Neutrophils # 7.6 K/mm3 (1.8-7.8); Platelet Count 301 K/mm3 (142-424); Red Blood Count 4.18 M/mm3 (4.20-5.40); Red Cell Distribution Width 13.8 % (11.5-17.5); White Blood Count 9.8 K/mm3 (4.8-10.8)
[2018-12-31 13:44] LABS: Calcium 9.2 mg/dL (8.5-10.1)
--- NOTE | 2018-12-31 14:43 | Consult Report ---
Addendum entered and electronically signed by SEN Miranda 12/31/18 16:30: Cardiac cath with RCA stent placement today. DAPT with ASA and brilinta. Continue BB and ARB with diuretic therapy. If symptoms of SOA continue then consider CTA of Chest to rule out PE. Recommend overnight stay due to elevated troponin and stent placement. Original Note: History of Present Illness Consult date: 12/31/18 Consult reason: chest pain Chief complaint: chest pain Additional Medical History:: 1. CAD A. History of RCA stent B. Abnormal stress myoview, 11/2015, anterior ischemia with EF 68% C. Cardiac cath, 11/2015, The left main artery normal. 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 The circumflex artery nondominant and normal. The right coronary artery is a dominant vessel and has a stent in the proximal segment which is widely patent free of in-stent restenosis. 2. DM 3. Obesity 4. History of supraventricular tachycardia, controlled on beta edyta therapy 5. Hyperlipidemia 6. Pulmonary problems, on steroids for one year, 2018 History of present illness: 63-year-old white female with known coronary artery disease, diabetes mellitus and pulmonary problems with steroid use for a year presented to the emergency department for continued chest discomfort with exertional pain and shortness of breath at about 15 feet. Patient relates symptoms have been present for about 4 months but increasingly problematic over the last week. She was seen earlier this week in our office with plans to obtain an echocardiogram and Lexiscan Myoview with institution of beta-edyta therapy. Initial EKG showed sinus rhythm with nonspecific ST-T abnormalities. Initial troponin noted to be elevated at 0.14 with patient complaining of continued chest discomfort. Cardiology consulted. Patient was given 4 baby aspirins and started on an inch of Nitropaste. Cardiac Surface To Air Weapons Officer was activated for cardiac catheterization today. [facility] History Medical History: Reports:: Coronary Artery Disease, Diabetes Mellitus Type 2, Hyperlipidemia, Hypertension *Have you ever received a pneumonia vaccine?: No *Have you received a flu vaccine this season?: No Other Medical History: Reports: Arthritis, Hypothyroidism, Other (neuropathy) Laterality Cases: Right: Arthroscopy Knee, Bilateral: Tonsillectomy Other Surgeries: Yes: Cardiac Catheterization, Cardiac Surgery, Cholecystectomy, Coronary Stent, Amputation: No Fractures: No - *Social History Smoking Status: Never smoker Alcohol Intake: never Alcohol Intake Frequency:: other Substance Use Type: denies use *Occupational Status:: retired Housing: house Household Members: spouse *Travel in the last 8 weeks: None - Psychiatric History Expresses thoughts of harming self/others: None Suicide Plan Description: No Plan Family Hx:: Heart Attack, Diabetes, Hyperlipidemia, Hypertension, Coronary Artery Disease Meds Home Medications Medication Instructions Recorded Confirmed Type aspirin 81 mg tablet,delayed 81 mg PO DAILY tab 11/19/17 12/31/18 History release ergocalciferol (vitamin D2) 50,000 50,000 unit PO DAILY 28 Days cap 11/19/17 12/31/18 History unit capsule gabapentin 600 mg tablet 600 mg PO TID 30 Days tab 11/19/17 12/31/18 History isosorbide mononitrate ER 30 mg 30 mg PO DAILY 30 Days #30 11/19/17 12/31/18 History tablet,extended release 24 hr Levothyroxine Sodium 75 mcg PO DAILY 09/23/18 12/31/18 History [Levothyroxine 75mcg (0.075mg) Tab] Losartan/Hydrochlorothiazide 1 tab PO DAILY 09/23/18 12/31/18 History [Losartan-Hctz 100-12.5 mg Tab] Rosuvastatin Calcium [Crestor] 10 mg PO HS 09/23/18 12/31/18 History insulin aspar prot-insulin aspart 85 unit SQ AM ml 12/27/18 12/31/18 History 100 unit/mL (70-30) subcutaneous pen prednisone 1 mg tablet 1 mg PO BID 30 Days #60 tab 12/27/18 12/31/18 History Bisoprolol Fumarate [Bisoprolol 5 mg PO HS 12/31/18 12/31/18 History 5mg Tablet] Allergies Allergy/AdvReac Type Severity Reaction Status Date / Time No Known Allergies Allergy Verified 12/27/18 11:54 Review of Systems - *Cardiovascular Reports chest pain, Reports chest pain with activity, Reports shortness of breath with activity - *Respiratory Reports shortness of breath, Reports shortness of breath with activity - *Gastrointestinal Denies abdominal pain, Denies loose stools - *Genitourinary Denies blood in urine - *Musculoskeletal Reports joint pain, Reports back pain - *Neurologic Reports dizziness, Reports headache(s), Denies unsteadiness Exam Vital signs and Labs for Last 24 Hours: Temp Pulse Resp BP Pulse Ox 98 F 74 22 167/96 H 94 L 12/31/18 12:51 12/31/18 12:51 12/31/18 12:51 12/31/18 12:51 12/31/18 12:51 Laboratory Results - last 24 hr 12/31/18 13:05: WBC 9.8, RBC 4.18 L, Hgb 12.5, Hct 39.3, MCV 94.0, MCH 29.8, MCHC 31.7 L, RDW 13.8, Plt Count 301, MPV 7.4, Neut % (Auto) 77.0, Lymph % (Auto) 15.7, [place] % (Auto) 4.4, Eos % (Auto) 1.9, Baso % (Auto) 0.9, Neut # (Auto) 7.6, Lymph # (Auto) 1.5, [place] # (Auto) 0.4, Eos # (Auto) 0.2, Baso # (Auto) 0.1 12/31/18 13:05: Sodium 142, Potassium 4.0, Chloride 104, Carbon Dioxide 28, A nion Gap 14.0, BUN 16, Creatinine 1.11 H, Estimated Creat Clear 50, Estimated GFR 49 L, Est GFR ( Amer) 60, Glucose 235 H, Calcium 9.2, Troponin I 0.14 H 12/31/18 13:05: B-Natriuretic Peptide 19 I & O for Last 24 hours: Intake & Output 12/29/18 12/30/18 12/31/18 01/01/19 11:59 11:59 11:59 11:59 Weight 300 lb - *Routine Neck Exam Present: supple. Absent: JVD, carotid bruit - *Routine Respiratory Exam Present: CTA bilaterally. Absent: accessory muscle use, rales, rhonchi, wheezes - *Routine Cardiovascular Exam Present: RRR. Absent: murmur, gallop, rubs - *Routine Abdominal Exam Present: soft. Absent: tenderness, distended, guarding - *Routine Extremities Exam Present: edema. Absent: calf tenderness - *Routine Neurological Exam Present: alert, oriented X3, moving all extremities Assessment and Plan (1) Non-ST elevation [place] (NSTEMI) Current visit: Yes Status: Acute Category: Medical Code(s): I21.4 - Non-ST elevation (NSTEMI) myocardial infarction (2) Morbid obesity with BMI of 45.0-49.9, adult Current visit: Yes Status: Acute Category: Medical Code(s): E66.01 - Morbid (severe) obesity due to excess calories; Z68.42 - Body mass index (BMI) 45.0-49.9, adult (3) Diabetes mellitus with polyneuropathy Current visit: No Status: Acute Category: Medical Code(s): E11.42 - Type 2 diabetes mellitus with diabetic polyneuropathy (4) Edema Current visit: No Status: Acute Qualifiers: Edema type: localized Qualified Code(s): R60.0 - Localized edema Category: Medical Code(s): R60.9 - Edema, unspecified (5) CAD (coronary artery disease) Current visit: No Status: Chronic Qualifiers: Coronary Disease-Associated Artery/Lesion type: [place] artery [place] vs. transplanted heart: [place] heart Associated angina: without angina Qualified Code(s): I25.10 - Atherosclerotic heart disease of [place] coronary artery without angina pectoris Category: Medical Code(s): I25.10 - Atherosclerotic heart disease of [place] coronary artery without angina pectoris (6) HLD (hyperlipidemia) Current visit: No Status: Chronic Qualifiers: Hyperlipidemia type: mixed hyperlipidemia Qualified Code(s): E78.2 - Mixed hyperlipidemia Category: Medical Code(s): E78.5 - Hyperlipidemia, unspecified (7) History of paroxysmal supraventricular tachycardia Current visit: No Status: Chronic Category: Medical Code(s): Z86.79 - Personal history of other diseases of the circulatory system - Assessment and plan all Dx Assessment and Plan for all problems:: 1. Left heart catheterization today with further recommendations to follow.
--- NOTE | 2018-12-31 16:15 | Pharmacy Consult Notes ---
[facility] Pharmacy VTE Monitoring - Patient Demographics Admission date: 12/31/18 Report Date: 12/31/18 Time: 16:15 Allergies/Adverse Reactions: Patient Allergies No Known Allergies Allergy (Verified 12/27/18 11:54) Height: 1.7 m Weight: 136.078 kg Patient Problems: Current Active Problems Elevated troponin I level (Acute) Chest pain (Acute) Non-ST elevation [place] (NSTEMI) (Acute) Morbid obesity with BMI of 45.0-49.9, adult (Acute) HHD (hypertensive heart disease) (Chronic) - VTE Risk Labs: VTE Related Lab Results Hgb 12.5 g/dL (12.2-16.2) 12/31/18 13:05 Hct 39.3 % (37.0-47.0) 12/31/18 13:05 Plt Count 301 K/mm3 (142-424) 12/31/18 13:05 BUN 16 mg/dL (7-18) 12/31/18 13:05 Creatinine 1.11 mg/dL (0.55-1.02) H 12/31/18 13:05 Estimated Creat Clear 50 mL/min (50-200) 12/31/18 13:05 - Prophylaxis VTE Prophylaxis Ordered?: Yes Types of VTE Prophylaxis: TEDS Knee High, Pharmacological Location of Applied Device: Bilateral Lower Extremeties Pharmacologic Type: Other (BRILINTA) - VTE Diagnosis Confirmed Treatment or plan recommended: Continue Current Treatment
--- NOTE | 2018-12-31 16:38 | History & Physical Report ---
*Admission Date: 12/31/18 <Marcie Bedoya - 12/31/18 16:43> *Chief complaint: chest pain <Marcie Bedoya 12/31/18 16:43> *History of present illness: Further to the dictated history and for clarification, the patient does NOT have an autoimmune pulmonary disease but has been on long-term steroid treatment for polymyalgia rheumatica. She follows with a payment processor and has recently weaned down to prednisone 1 mg daily. <Johny Vargas - 12/31/18 17:29> Ms. Bahena is a 63-year-old white female with known coronary artery disease, diabetes mellitus, and an autoimmune pulmonary disease with steroid use for a year who presented to the emergency department for continued chest discomfort with exertional pain and shortness of breath. She states the symptoms have been present for about 4 months but increasingly problematic over the last week. She was seen by cardiology on Thursday and was started on bisoprolol and an echocardiogram and Lexiscan Myoview were ordered. She states the chest "heaviness" became so bad this am that she went to the ER. Her initial EKG showed sinus rhythm with nonspecific ST-T abnormalities. Her initial troponin was elevated at 0.14. Cardiology was consulted and took her directly for a heart cath. She received one stent. <Marcie Bedoya 12/31/18 16:43> [facility] History Medical History: Reports:: Atrial Fibrillation, Coronary Artery Disease, Diabetes Mellitus Type 2, Hyperlipidemia, Hypertension Denies:: Cancer, Diabetes Mellitus Type 1, MRSA <Marcie Bedoya 12/31/18 16:43> *Have you ever received a pneumonia vaccine?: Yes <Marcie Bedoya 12/31/18 16:43> *Have you received a flu vaccine this season?: Yes <Marcie Bedoya 12/31/18 16:43> Other Medical History: Reports: Other (Polymyalgia rheumatica) <Johny Vargas - 12/31/18 17:29> Reports: Arthritis, Hypothyroidism, Other (neuropathy, autoimmune pulmonary disease) <Marcie Bedoya 12/31/18 16:43> Laterality Cases: Right: Arthroscopy Knee, Bilateral: Cataract, Tonsillectomy <Marcie Bedoya 12/31/18 16:43> Other Surgeries: Yes: Cardiac Catheterization, Cardiac Surgery, Cholecystectomy, Coronary Stent, <Marcie Bedoya 12/31/18 16:43> Amputation: No <Marcie Bedoya 12/31/18 16:43> Fractures: No <AurelianoMarcie 12/31/18 16:43> - *Social History Educational Level: Completed High School <Marcie Bedoya 12/31/18 16:43> Smoking Status: Never smoker <Marcie Bedoya 12/31/18 16:43> Alcohol Intake: never <Marcie Bedoya 12/31/18 16:43> Alcohol Intake Frequency:: other <Marcie Bedoya 12/31/18 16:43> Substance Use Type: denies use <Marcie Bedoya 12/31/18 16:43> *Occupational Status:: retired <Marcie Bedoya 12/31/18 16:43> Housing: house <Marcie Bedoya 12/31/18 16:43> Household Members: spouse <Marcie Bedoya 12/31/18 16:43> *Travel in the last 8 weeks: None <AurelianoMarcie 12/31/18 16:43> - Psychiatric History Expresses thoughts of harming self/others: None <aMrcie Bedoya 12/31/18 16:43> Suicide Plan Description: No Plan <Marcie Bedoya 12/31/18 16:43> Family Hx:: Heart Attack, Diabetes, Hyperlipidemia, Hypertension, Coronary Artery Disease <Marcie Bedoya 12/31/18 16:43> Review of Systems - Constitutional Reports weakness, Denies chills, Denies fever(s) <Marcie Bedoya 12/31/18 16:43> - Eyes Denies blurry vision, Denies double vision <Marcie Bedoya 12/31/18 16:43> - ENT Denies nasal congestion, Denies sore throat <Marcie Bedoya 12/31/18 16:43> - *Cardiovascular Reports chest pain, Reports shortness of breath with activity <Marcie Bedoya 12/31/18 16:43> - *Respiratory Reports shortness of breath, Denies cough <Marcie Bedoya 12/31/18 16:43> - *Gastrointestinal Denies abdominal pain, Denies loose stools, Denies nausea, Denies vomiting <Marcie Bedoya - 12/31/18 16:43> - *Genitourinary Denies difficulty urinating, Denies painful urination <Marcie Bedoya - 12/31/18 16:43> - *Musculoskeletal Denies joint pain <Marcie Bedoya - 12/31/18 16:43> - *Neurologic Reports dizziness, Reports headache(s), Denies unsteadiness <Marcie Bedoya - 12/31/18 16:43> Meds Home Medications Medication Instructions Recorded Confirmed Type aspirin 81 mg tablet,delayed 81 mg PO DAILY tab 11/19/17 12/31/18 History release ergocalciferol (vitamin D2) 50,000 50,000 unit PO DAILY 28 Days cap 11/19/17 12/31/18 History unit capsule gabapentin 600 mg tablet 600 mg PO TID 30 Days tab 11/19/17 12/31/18 History isosorbide mononitrate ER 30 mg 30 mg PO DAILY 30 Days #30 11/19/17 12/31/18 History tablet,extended release 24 hr Levothyroxine Sodium 75 mcg PO DAILY 09/23/18 12/31/18 History [Levothyroxine 75mcg (0.075mg) Tab] Losartan/Hydrochlorothiazide 1 tab PO DAILY 09/23/18 12/31/18 History [Losartan-Hctz 100-12.5 mg Tab] Rosuvastatin Calcium [Crestor] 10 mg PO HS 09/23/18 12/31/18 History insulin aspar prot-insulin aspart 85 unit SQ AM ml 12/27/18 12/31/18 History 100 unit/mL (70-30) subcutaneous pen prednisone 1 mg tablet 1 mg PO BID 30 Days #60 tab 12/27/18 12/31/18 History Bisoprolol Fumarate [Bisoprolol 5 mg PO HS 12/31/18 12/31/18 History 5mg Tablet] <Johny Vargas - 12/31/18 17:29> Allergies Allergy/AdvReac Type Severity Reaction Status Date / Time No Known Allergies Allergy Verified 12/27/18 11:54 <Johny Vargas - 12/31/18 17:29> Exam Vital signs and Labs for Last 24 Hours: Temp Pulse Resp BP Pulse Ox 98 F 65 16 97/61 L 95 12/31/18 14:42 12/31/18 15:45 12/31/18 15:45 12/31/18 15:45 12/31/18 15:45 Laboratory Results - last 24 hr 12/31/18 13:05: WBC 9.8, RBC 4.18 L, Hgb 12.5, Hct 39.3, MCV 94.0, MCH 29.8, MCHC 31.7 L, RDW 13.8, Plt Count 301, MPV 7.4, Neut % (Auto) 77.0, Lymph % (Auto) 15.7, [place] % (Auto) 4.4, Eos % (Auto) 1.9, Baso % (Auto) 0.9, Neut # (Auto) 7.6, Lymph # (Auto) 1.5, [place] # (Auto) 0.4, Eos # (Auto) 0.2, Baso # (Auto) 0.1 12/31/18 13:05: Sodium 142, Potassium 4.0, Chloride 104, Carbon Dioxide 28, Anion Gap 14.0, BUN 16, Creatinine 1.11 H, Estimated Creat Clear 50, Estimated GFR 49 L, Est GFR ( Amer) 60, Glucose 235 H, Calcium 9.2, Troponin I 0.14 H 12/31/18 13:05: B-Natriuretic Peptide 12/31/18 13:05: D-Dimer 287 <Johny Vargas - 12/31/18 17:29> Temp Pulse Resp BP Pulse Ox 98 F 65 16 97/61 L 95 12/31/18 14:42 12/31/18 15:45 12/31/18 15:45 12/31/18 15:45 12/31/18 15:45 Laboratory Results - last 24 hr 12/31/18 13:05: WBC 9.8, RBC 4.18 L, Hgb 12.5, Hct 39.3, MCV 94.0, MCH 29.8, MCHC 31.7 L, RDW 13.8, Plt Count 301, MPV 7.4, Neut % (Auto) 77.0, Lymph % (Auto) 15.7, [place] % (Auto) 4.4, Eos % (Auto) 1.9, Baso % (Auto) 0.9, Neut # (Auto) 7.6, Lymph # (Auto) 1.5, [place] # (Auto) 0.4, Eos # (Auto) 0.2, Baso # (Auto) 0.1 12/31/18 13:05: Sodium 142, Potassium 4.0, Chloride 104, Carbon Dioxide 28, Anion Gap 14.0, BUN 16, Creatinine 1.11 H, Estimated Creat Clear 50, Estimated GFR 49 L, Est GFR ( Amer) 60, Glucose 235 H, Calcium 9.2, Troponin I 0.14 H 12/31/18 13:05: B-Natriuretic Peptide 19 [facility] 12/[facility] 16:43> I & O for Last 24 hours: Intake & Output 12/29/18 12/30/18 12/31/18 01/01/19 11:59 11:59 11:59 11:59 Weight 300 lb <Johny Vargas - 12/31/18 17:29> Intake & Output 12/29/18 12/30/18 12/31/18 01/01/19 11:59 11:59 11:59 11:59 Weight 300 lb [facility] 12/31/18 16:43> - Constitutional no acute distress <[facility] 12/31/18 16:43> - *Routine HEENT Exam Head: Present: normocephalic <[facility] 12/31/18 16:43> Eye: Present: EOMI, PERRL <[facility] 12/31/18 16:43> ENT: Present: mucous membranes moist [facility] 16:43> - *Routine Neck Exam Present: supple. Absent: lymphadenopathy [facility] 12/31/18 16:43> - *Routine Respiratory Exam Present: decreased breath sounds, CTA bilaterally [facility] 12/31/18 16:43> - *Routine Cardiovascular Exam Present: RRR [facility] 12/31/18 16:43> - *Routine Abdominal Exam Present: soft, normoactive bowel sounds. Absent: tenderness <Marcie Bedoya 12/31/18 16:43> - *Routine Extremities Exam Present: edema (trace bilateral LE's). Absent: cyanosis, clubbing <Marcie Bedoya 12/31/18 16:43> - *Routine Skin Exam Present: warm. Absent: rash <Marcie eBdoya 12/31/18 16:43> - *Routine Neurological Exam Present: alert, oriented X3 <Marcie Bedoya 12/31/18 16:43> H&P: Result - Impressions CXR - Limited study with underpenetration of the lung bases with cardiomegaly Cardiac Cath 1. Elevated troponin and acute coronary syndrome with infarct vessel most likely being the distal dominant right coronary artery with successful stenting of this vessel with culprit stenosis reduced to 0% with 1 drug-eluting stent 2. Normal ejection fraction 3. Mildly elevated LVEDP PLAN: 1. Brilinta and aspirin 2. LDL less than 55 3. I would consider evaluating patient for pulmonary embolism with a PA CTA gram 4. Cardiac rehabilitation 5. Low-dose diuretics for diastolic dysfunction 6. Avoidance of tobacco products 7. Beta blockers yanick inhibitors should be started if hemodynamically tolerable <Marcie Bedoya 12/31/18 16:43> Assessment and Plan (1) Non-ST elevation [place] (NSTEMI) Current visit: Yes Status: Acute Category: Medical Code(s): I21.4 - Non-ST elevation (NSTEMI) myocardial infarction (2) Morbid obesity with BMI of 45.0-49.9, adult Current visit: Yes Status: Acute Category: Medical Code(s): E66.01 - Morbid (severe) obesity due to excess calories; Z68.42 - Body mass index (BMI) 45.0-49.9, adult (3) Diabetes mellitus with polyneuropathy Current visit: No Status: Acute Category: Medical Code(s): E11.42 - Type 2 diabetes mellitus with diabetic polyneuropathy (4) Edema Current visit: No Status: Acute Qualifiers: Edema type: localized Qualified Code(s): R60.0 - Localized edema Category: Medical Code(s): R60.9 - Edema, unspecified (5) CAD (coronary artery disease) Current visit: No Status: Chronic Qualifiers: Coronary Disease-Associated Artery/Lesion type: [place] artery [place] vs. transplanted heart: [place] heart Associated angina: without angina Qualified Code(s): I25.10 - Atherosclerotic heart disease of [place] coronary artery without angina pectoris Category: Medical Code(s): I25.10 - Atherosclerotic heart disease of [place] coronary artery without angina pectoris (6) HLD (hyperlipidemia) Current visit: No Status: Chronic Qualifiers: Hyperlipidemia type: mixed hyperlipidemia Qualified Code(s): E78.2 - Mixed hyperlipidemia Category: Medical Code(s): E78.5 - Hyperlipidemia, unspecified (7) History of paroxysmal supraventricular tachycardia Current visit: No Status: Chronic Category: Medical Code(s): Z86.79 - Personal history of other diseases of the circulatory system (8) Status post coronary artery stent placement Current visit: Yes Status: Acute Category: Surgical Code(s): Z95.5 - Presence of coronary angioplasty implant and graft (9) Pulmonary disease Current visit: Yes Status: Chronic Category: Medical Code(s): J98.4 - Other disorders of lung (10) SOB (shortness of breath) Current visit: No Status: Acute Category: Medical Code(s): R06.02 - Shortness of breath <Marcie Bedoya - 12/31/18 16:35> (1) Non-ST elevation [place] (NSTEMI) Current visit: Yes Status: Acute Category: Medical Code(s): I21.4 - Non-ST elevation (NSTEMI) myocardial infarction (2) Morbid obesity with BMI of 45.0-49.9, adult Current visit: Yes Status: Acute Category: Medical Code(s): E66.01 - Morbid (severe) obesity due to excess calories; Z68.42 - Body mass index (BMI) 45.0-49.9, adult (3) Diabetes mellitus with polyneuropathy Current visit: No Status: Acute Category: Medical Code(s): E11.42 - Type 2 diabetes mellitus with diabetic polyneuropathy (4) Edema Current visit: No Status: Acute Qualifiers: Edema type: localized Qualified Code(s): R60.0 - Localized edema Category: Medical Code(s): R60.9 - Edema, unspecified (5) CAD (coronary artery disease) Current visit: No Status: Chronic Qualifiers: Coronary Disease-Associated Artery/Lesion type: [place] artery [place] vs. transplanted heart: [place] heart Associated angina: without angina Qualified Code(s): I25.10 - Atherosclerotic heart disease of [place] coronary artery without angina pectoris Category: Medical Code(s): I25.10 - Atherosclerotic heart disease of [place] coronary artery without angina pectoris (6) HLD (hyperlipidemia) Current visit: No Status: Chronic Qualifiers: Hyperlipidemia type: mixed hyperlipidemia Qualified Code(s): E78.2 - Mixed hyperlipidemia Category: Medical Code(s): E78.5 - Hyperlipidemia, unspecified (7) History of paroxysmal supraventricular tachycardia Current visit: No Status: Chronic Category: Medical Code(s): Z86.79 - Personal history of other diseases of the circulatory system (8) Status post coronary artery stent placement Current visit: Yes Status: Acute Category: Surgical Code(s): Z95.5 - Presence of coronary angioplasty implant and graft (9) SOB (shortness of breath) Current visit: No Status: Acute Category: Medical Code(s): R06.02 - Shortness of breath (10) Polymyalgia rheumatica Current visit: Yes Status: Acute Category: Medical Code(s): M35.3 - Polymyalgia rheumatica (11) Obstructive sleep apnea Current visit: Yes Status: Acute Category: Medical Code(s): G47.33 - Obstructive sleep apnea (adult) (pediatric) <Johny Vargas - 12/31/18 17:29> - Assessment and plan all Dx Assessment and Plan for all problems:: Patient is seen and examined. History is reviewed and clarified above. She does not have an autoimmune pulmonary disease but is seeing a payment processor for polymyalgia rheumatica. At present she denies shortness of breath at rest. O2 sat is 100% with nasal oxygen. She does use CPAP at night and her family will bring in her unit. We will await results of her d-dimer and if her hypoxia persists, consider pulmonary CTA. <Johny Vargas - 12/31/18 17:29> Cardiology recommends DAPT with ASA and Brilinta and the patient has already been given a rx for the brilinta. They felt she should continue her BB and ARB with diuretic therapy. They also felt if her symptoms of SOA continued, she may need a CTA to r/o PE. Will get a D-dimer from the blood drawn in the ER. She will need to stay overnight for monitoring. <Marcie Bedoya - 12/31/18 16:43>
[2019-01-01 05:56] LABS: Basophils # 0.1 K/mm3 (0-0.2); Basophils % 0.7 % (0.1-2.0); Eosinophils # 0.2 K/mm3 (0.0-0.4); Eosinophils % 2.4 % (0.1-12.0); Hematocrit 37.8 % (37.0-47.0); Hemoglobin 12.1 g/dL (12.2-16.2); Lymphocytes # 1.5 K/mm3 (0.7-4.5); Lymphocytes % 14.6 % (10-50); Mean Corpuscular HGB Conc 32.1 g/dL (31.8-35.4); Mean Corpuscular Hemoglobin 29.5 pg (27.0-31.2); Mean Platelet Volume 7.3 fl (7.4-10.4); Monocytes # 0.4 K/mm3 (0.1-1.0); Monocytes % 3.9 % (1.7-9.3); Neutrophils # 7.9 K/mm3 (1.8-7.8); Neutrophils % 78.4 % (37.0-80.0); Platelet Count 259 K/mm3 (142-424); Red Blood Count 4.11 M/mm3 (4.20-5.40); Red Cell Distribution Width 13.6 % (11.5-17.5)
[2019-01-01 06:09] LABS: Anion Gap 12.8 mEq/L (5-15); Calcium 8.7 mg/dL (8.5-10.1); Chol/HDL Ratio 4.5 (1-3.5); Potassium 3.8 mmoL/L (3.5-5.1)
--- NOTE | 2019-01-01 09:04 | Progress Note ---
Internal Medicine - PN: Subj Interval history: She is sitting up in the chair this morning and feels fairly well. She remains on 1 L of nasal oxygen with sats in the upper 90s. She had an episode early in the night of shortness of breath when she was up to the bathroom but attributed this to anxiety as her O2 sats and vital signs remained normal. Dr. Sarmiento was contacted and prescribed a dose of oxazepam. Following this she slept fairly well. She has no unusual complaints this morning. Exam Vital signs and Labs for Last 24 Hours: Temp Pulse Resp BP Pulse Ox 98.4 F 61 18 153/86 H 96 01/01/19 04:00 01/01/19 06:00 01/01/19 06:00 01/01/19 06:00 01/01/19 06:00 Laboratory Results - last 24 hr 12/31/18 13:05: WBC 9.8, RBC 4.18 L, Hgb 12.5, Hct 39.3, MCV 94.0, MCH 29.8, MCHC 31.7 L, RDW 13.8, Plt Count 301, MPV 7.4, Neut % (Auto) 77.0, Lymph % (Auto) 15.7, [place] % (Auto) 4.4, Eos % (Auto) 1.9, Baso % (Auto) 0.9, Neut # (Auto) 7.6, Lymph # (Auto) 1.5, [place] # (Auto) 0.4, Eos # (Auto) 0.2, Baso # (Auto) 0.1 12/31/18 13:05: Sodium 142, Potassium 4.0, Chloride 104, Carbon Dioxide 28, Anion Gap 14.0, BUN 16, Creatinine 1.11 H, Estimated Creat Clear 50, Estimated GFR 49 L, Est GFR ( Amer) 60, Glucose 235 H, Calcium 9.2, Troponin I 0.14 H 12/31/18 13:05: B-Natriuretic Peptide 19 12/31/18 13:05: D-Dimer 287 12/31/18 19:01: POC Glucose 191 H 12/31/18 20:13: POC Glucose 176 H 01/01/19 05:40: Sodium 144, Potassium 3.8, Chloride 105, Carbon Dioxide 30, Anion Gap 12.8, BUN 14, Creatinine 1.06 H, Estimated Creat Clear 52, Estimated GFR 52 L, Est GFR ( Amer) 63, Glucose 172 H D, Calcium 8.7, Triglycerides 283 H, Cholesterol 116 L, LDL Cholesterol 33, VLDL Cholesterol 57 H, HDL Cholesterol 26 L, Cholesterol/HDL Ratio 4.5 H 01/01/19 05:40: WBC 10.0, RBC 4.11 L, Hgb 12.1 L, Hct 37.8, MCV 92.0, MCH 29.5, MCHC 32.1, RDW 13.6, Plt Count 259, MPV 7.3 L, Neut % (Auto) 78.4, Lymph % (Auto) 14.6, [place] % (Auto) 3.9, Eos % (Auto) 2.4, Baso % (Auto) 0.7, Neut # (Auto) 7.9 H, Lymph # (Auto) 1.5, [place] # (Auto) 0.4, Eos # (Auto) 0.2, Baso # (Auto) 0.1 I & O for Last 24 hours: Intake & Output 12/29/18 12/30/18 12/31/18 01/01/19 11:59 11:59 11:59 11:59 Intake Total 1318 / 1318 Balance 1318 / 1318 Weight 300 lb Narrative: She is sitting up in the chair and is alert and oriented. Color is normal. Lungs are clear to auscultation. Heart tones are distant but regular. Lower extremities show trace pretibial edema with ARIANNA hose in place. Assessment and Plan (1) Non-ST elevation [place] (NSTEMI) Current visit: Yes Status: Acute Category: Medical Code(s): I21.4 - Non-ST elevation (NSTEMI) myocardial infarction (2) Morbid obesity with BMI of 45.0-49.9, adult Current visit: Yes Status: Acute Category: Medical Code(s): E66.01 - Morbid (severe) obesity due to excess calories; Z68.42 - Body mass index (BMI) 45.0-49.9, adult (3) Diabetes mellitus with polyneuropathy Current visit: No Status: Acute Category: Medical Code(s): E11.42 - Type 2 diabetes mellitus with diabetic polyneuropathy (4) Edema Current visit: No Status: Acute Qualifiers: Edema type: localized Qualified Code(s): R60.0 - Localized edema Category: Medical Code(s): R60.9 - Edema, unspecified (5) CAD (coronary artery disease) Current visit: No Status: Chronic Qualifiers: Coronary Disease-Associated Artery/Lesion type: [place] artery [place] vs. transplanted heart: [place] heart Associated angina: without angina Qualified Code(s): I25.10 - Atherosclerotic heart disease of [place] coronary artery without angina pectoris Category: Medical Code(s): I25.10 - Atherosclerotic heart disease of [place] coronary artery without angina pectoris (6) HLD (hyperlipidemia) Current visit: No Status: Chronic Qualifiers: Hyperlipidemia type: mixed hyperlipidemia Qualified Code(s): E78.2 - Mixed hyperlipidemia Category: Medical Code(s): E78.5 - Hyperlipidemia, unspecified (7) History of paroxysmal supraventricular tachycardia Current visit: No Status: Chronic Category: Medical Code(s): Z86.79 - Personal history of other diseases of the circulatory system (8) Status post coronary artery stent placement Current visit: Yes Status: Acute Category: Surgical Code(s): Z95.5 - Presence of coronary angioplasty implant and graft (9) SOB (shortness of breath) Current visit: No Status: Acute Category: Medical Code(s): R06.02 - Shortness of breath (10) Polymyalgia rheumatica Current visit: Yes Status: Acute Category: Medical Code(s): M35.3 - Polymyalgia rheumatica (11) Obstructive sleep apnea Current visit: Yes Status: Acute Category: Medical Code(s): G47.33 - Obstructive sleep apnea (adult) (pediatric) - Assessment and plan all Dx Assessment and Plan for all problems:: Her blood pressure is a bit elevated this morning but has not had her morning meds. She will be weaned to room air this morning and allowed to ambulate in the room to monitor her O2 saturations. If she desaturates, we will consider a pulmonary CTA. Of note her d-dimer was normal last night.
--- NOTE | 2019-01-02 13:33 | Discharge Summary ---
General - General Admission date:: 12/31/18 <Johny Vargas - 01/05/19 09:11> 12/31/18 <Marcie Bedoya - 01/02/19 13:40> Discharge date: 01/01/19 <Marcie Bedoya - 01/02/19 13:40> HPI HPI: Ms. Bahena is a 63-year-old white female with known coronary artery disease, diabetes mellitus, and polymyalgia rheumatica with steroid use for a year who presented to the emergency department for continued chest discomfort with exertional pain and shortness of breath. 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 She states the symptoms have been present for about 4 months but increasingly problematic over the last week. She was seen by cardiology on Thursday and was started on bisoprolol and an echocardiogram and Lexiscan Myoview were ordered. She states the chest "heaviness" became so bad this am that she went to the ER. Her initial EKG showed sinus rhythm with nonspecific ST-T abnormalities. Her initial troponin was elevated at 0.14. Cardiology was consulted and took her directly for a heart cath. She received one stent. <Marcie Bedoya - 01/02/19 13:40> Hospital Course Hospital Course: Cardiology recommended DAPT with ASA and Brilinta and the patient was already been given a rx for the brilinta. They felt she should continue her BB and ARB with diuretic therapy. They also felt if her symptoms of SOA continued, she may need a CTA to r/o PE. A d-dimer was ordered. She was kept overnight for monitoring. Her d-dimer was normal. They next day she was sitting up in the chair feeling fairly well. She remained on 1 L of nasal oxygen with sats in the upper 90s. She had an episode early in the night of shortness of breath when she was up to the bathroom but attributed this to anxiety as her O2 sats and vital signs remained normal. Dr. Sarmiento was contacted and prescribed a dose of oxazepam. Following this she slept fairly well. She had no unusual complaints and was able to be weaned to room air with oxgyen sats in the mid 90's and no SOA. She tolerated activity in the room and was stable for discharged. She will f/u with Dr. Ramesh in 1 week. <Marcie Bedoya - 01/02/19 13:40> Objective Vital signs: Temp Pulse Resp BP Pulse Ox 98.4 F 64 22 123/74 94 L 01/01/19 04:00 01/01/19 10:00 01/01/19 10:00 01/01/19 10:00 01/01/19 10:00 <Johny Vargas - 01/05/19 09:11> Temp Pulse Resp BP Pulse Ox 98.4 F 64 22 123/74 94 L 01/01/19 04:00 01/01/19 10:00 01/01/19 10:00 01/01/19 10:00 01/01/19 10:00 <Marcie Bedoya - 01/02/19 13:40> Narrative: - Constitutional no acute distress - *Routine HEENT Exam Head: Present: normocephalic Eye: Present: EOMI, PERRL ENT: Present: mucous membranes moist - *Routine Neck Exam Present: supple. Absent: lymphadenopathy - *Routine Respiratory Exam Present: decreased breath sounds, CTA bilaterally - *Routine Cardiovascular Exam Present: RRR - *Routine Abdominal Exam Present: soft, normoactive bowel sounds. Absent: tenderness - *Routine Extremities Exam Present: edema (trace bilateral LE's). Absent: cyanosis, clubbing - *Routine Skin Exam Present: warm. Absent: rash - *Routine Neurological Exam Present: alert, oriented X3 <Marcie Bedoya - 01/02/19 13:40> DS: Diagnosis - Discharge Diagnosis (1) Non-ST elevation RI (NSTEMI) Status: Acute (2) Morbid obesity with BMI of 45.0-49.9, adult Status: Acute (3) Diabetes mellitus with polyneuropathy Status: Acute (4) Edema Status: Acute (5) CAD (coronary artery disease) Status: Chronic (6) HLD (hyperlipidemia) Status: Chronic (7) History of paroxysmal supraventricular tachycardia Status: Chronic (8) Status post coronary artery stent placement Status: Acute (9) SOB (shortness of breath) Status: Acute (10) Polymyalgia rheumatica Status: Acute (11) Obstructive sleep apnea Status: Acute <AurelianoMarcie - 01/02/19 13:26> (1) Non-ST elevation RI (NSTEMI) Status: Acute (2) Morbid obesity with BMI of 45.0-49.9, adult Status: Acute (3) Diabetes mellitus with polyneuropathy Status: Acute (4) Edema Status: Acute (5) CAD (coronary artery disease) Status: Chronic (6) HLD (hyperlipidemia) Status: Chronic (7) History of paroxysmal supraventricular tachycardia Status: Chronic (8) Status post coronary artery stent placement Status: Acute (9) SOB (shortness of breath) Status: Acute (10) Polymyalgia rheumatica Status: Acute (11) Obstructive sleep apnea Status: Acute <Johny Vargas - 01/05/19 09:11> Discharge Plan - Patient Discharge Instructions ACTIVITY: Continue current activity <Marcie Bedoya - 01/02/19 13:40> DIET: continue same diet <Marcie Bedoya - 01/02/19 13:40> Patient Instructions: DI for Heart Attack, Heart-Healthy Diet, DI for Cardiac Catheterization, DI for Coronary Stenting, DI for Surgical Site Infection <Johny Vargas - 01/05/19 09:11> Forms: <Johny Vargas - 01/05/19 09:11> - Follow up Plan Follow up with: Meka Waterman [Primary Care Provider] - ( ) Meño Ramesh MD [Staff Physician] - 1 week <Johny Vargas - 01/05/19 09:11> Disposition: Home, Self-Care <Johny Vargas - 01/05/19 09:11> Home Medications: Home Medications Medication Instructions Recorded Confirmed Type aspirin 81 mg tablet,delayed 81 mg PO DAILY tab 11/19/17 12/31/18 History release ergocalciferol (vitamin D2) 50,000 50,000 unit PO DAILY 28 Days cap 11/19/17 12/31/18 History unit capsule gabapentin 600 mg tablet 600 mg PO TID 30 Days tab 11/19/17 12/31/18 History isosorbide mononitrate ER 30 mg 30 mg PO DAILY 30 Days #30 11/19/17 12/31/18 History tablet,extended release 24 hr RX: Levothyroxine Sodium 75 mcg PO DAILY 09/23/18 12/31/18 History [Levothyroxine 75mcg (0.075mg) Tab] RX: Losartan/Hydrochlorothiazide 1 tab PO DAILY 09/23/18 12/31/18 History [Losartan-Hctz 100-12.5 mg Tab] RX: Rosuvastatin Calcium [Crestor] 10 mg PO HS 09/23/18 12/31/18 History insulin aspar prot-insulin aspart 85 unit SQ AM ml 12/27/18 12/31/18 History 100 unit/mL (70-30) subcutaneous pen prednisone 1 mg tablet 1 mg PO DAILY 30 Days #60 tab 12/27/18 12/31/18 History RX: Bisoprolol Fumarate 5 mg PO HS 12/31/18 12/31/18 History [Bisoprolol 5mg Tablet] ticagrelor 90 mg tablet 90 mg PO BID #60 tab 01/03/19 Rx <Johny Vargas - 01/05/19 09:11> Prescriptions/Medication Reconciliation: Continue gabapentin 600 mg tablet 600 mg PO TID 30 Days tab ergocalciferol (vitamin D2) 50,000 unit capsule 50,000 unit PO DAILY 28 Days cap aspirin 81 mg tablet,delayed release 81 mg PO DAILY tab prednisone 1 mg tablet 1 mg PO DAILY 30 Days #60 tab insulin aspar prot-insulin aspart 100 unit/mL (70-30) subcutaneous pen 85 unit SQ AM ml isosorbide mononitrate ER 30 mg tablet,extended release 24 hr 30 mg PO DAILY 30 Days #30 RX: Losartan/Hydrochlorothiazide [Losartan-Hctz 100-12.5 mg Tab] 1 tab PO DAILY RX: Rosuvastatin Calcium [Crestor] 10 mg PO HS RX: Levothyroxine Sodium [Levothyroxine 75mcg (0.075mg) Tab] 75 mcg PO DAILY RX: Bisoprolol Fumarate [Bisoprolol 5mg Tablet] 5 mg PO HS No Action ticagrelor 90 mg tablet 90 mg PO BID #60 tab <Johny Vargas - 01/05/19 09:11> - Additional Information Additional Information: Concur with above plan for discharge. <Johny Vargas - 01/05/19 09:11>
== END 2019-01-01 11:43 | disposition home or self-care (01) ==
LOC: ER 12:37 → CATHLAB 14:34 → INTOOBSV 15:47 → 2ND 15:47
PROVIDERS: ADMIT Family Medicine; ATTEND Family Medicine
CPT/HCPCS: 36415; 71010; 71045; 80048; 80061; 82962; 83880; 84484; 85025; 85378; 92928; 93005; 93458; 99152; 99153; 99284; C1725; C1769; C1876; C9600; G0378; J1644; Q9967

== ENCOUNTER → 2019-01-06 11:41 | Outpatient (CLI) | payer OTHER, SELFPAY ==
[2019-01-06 12:03] LABS: Hematocrit 39.6 % (37.0-47.0); Hemoglobin 12.7 g/dL (12.2-16.2)
[2019-01-06 14:14] LABS: Blood Urea Nitrogen 16 mg/dL (7-18); Creatinine,Serum 1.16 mg/dL (0.55-1.02); Estimated Glomerular Filt Rate 47 ml/min (>60); GFR (African American) 57 ML/MIN (>60)
== END ==
PROVIDERS: Visit Provider Internal Medicine
DX: R06.02 Shortness of breath (principal); R60.0 Localized edema; I50.31 Acute diastolic (congestive) heart failure; I27.20 Pulmonary hypertension, unspecified
CPT/HCPCS: 36415; 82565; 84520; 85014; 85018

== ENCOUNTER 2019-01-13 08:56 | Outpatient (RCR) | payer OTHER, SELFPAY | END 2019-04-15 13:14 | disposition home or self-care (01) | LOC: PT 08:56 | PROVIDERS: Visit Provider Internal Medicine | DX: Z95.5 Presence of coronary angioplasty implant and graft (principal) | CPT/HCPCS: 93798 ==

== ENCOUNTER → 2019-01-25 13:34 | Outpatient (CLI) | payer OTHER, SELFPAY ==
--- NOTE | 2019-01-25 13:35 | CA_ITS ---
PROCEDURE: 2-D M-mode and color Doppler study INDICATIONS FOR THE TEST: Chest pain COPDX Heart Murmur Tobacco Smoking Palpitations Fatigue Syncope EdemaX HypertensionXDiabetes MellitusX Rheumatic Fever SOBXDOE ObesityXHyperlipidemiaX Family History HD Additional History MORBID OBESITY,ROSS,SVT,AF,PHTN,CHF PATIENT INFORMATION HEIGHT: 67 WEIGHT:318 GENDER: Female B/P:154/70 2-D/M-MODE INTERPRETATION: 2-D MEASUREMENTS OBSERVED VALUES IN CMS Right Ventricular Dimension (RVDd) 3.2 Interventricular Septum (Thickness)(IVsd) 1.2 Left Ventricular Internal Dimensions(LVIDd) 6.0 Left Ventricular Posterior Wall (Thickness)(LVPWd) 1.1 Aortic Root 2.5 Aortic Cusp Separation 1.5 Left Atrial Dimensions (LAD) 3.3 2D 1. Left atrium is mildly enlarged, left ventricle is mildly dilated, mild concentric left ventricular hypertrophy, visually estimated ejection fraction 55% with no regional wall motion abnormality. 2. The right atrium and right ventricle are mildly enlarged with normal contractility. 3. The aortic valve is minimally thickened and fibrosed. 4. The mitral valve has mitral calcification, leaflets are minimally thickened. 5. The tricuspid valve is grossly normal. 6. The pulmonic valve is poorly visualized. 7. No significant pericardial effusion noted. DOPPLER INTERROGATION: Doppler interrogation of the aortic, mitral and tricuspid valvular presence of mild mitral and tricuspid regurgitation, tricuspid regurgitation jet velocity is inadequate for calculation of the systolic pressure, grade 1 diastolic dysfunction seen with tissue Doppler evidence of raised left atrial pressure. CONCLUSION: 1. Mildly enlarged left atrium, mildly dilated left ventricle, mild concentric left ventricular hypertrophy, visually estimated ejection fraction of 55% with no regional wall motion abnormality, grade 1 diastolic dysfunction seen with tissue Doppler evidence of raised left atrial pressure. 2. Mildly enlarged right ventricle with normal contractility. 3. Mild mitral and tricuspid regurgitation 4. No significant pericardial effusion noted.
== END ==
PROVIDERS: PCP Family Medicine; Visit Provider Internal Medicine
DX: R06.02 Shortness of breath (principal); R07.89 Other chest pain; I25.10 Atherosclerotic heart disease of native coronary artery without angina pectoris
CPT/HCPCS: 93306

== ENCOUNTER → 2019-02-03 13:21 | Outpatient (CLI) | payer OTHER, SELFPAY ==
[2019-02-03 14:47] LABS: Anion Gap 9.9 mEq/L (5-15); Blood Urea Nitrogen 17 mg/dL (7-18); Calcium 9.1 mg/dL (8.5-10.1); Carbon Dioxide 34 mmol/L (21.0-32.0); Chloride 101 mmol/L (98-107); Creatinine,Serum 1.23 mg/dL (0.55-1.02); Estimated Glomerular Filt Rate 44 ml/min (>60); GFR (African American) 53 ML/MIN (>60); Glucose 208 mg/dL (74-106); Potassium 3.9 mmoL/L (3.5-5.1); Sodium 141 mmol/L (136-145)
== END ==
PROVIDERS: Visit Provider Nurse Practitioner Family
DX: R06.02 Shortness of breath (principal); I11.9 Hypertensive heart disease without heart failure; I25.10 Atherosclerotic heart disease of native coronary artery without angina pectoris; R60.9 Edema, unspecified
CPT/HCPCS: 36415; 80048; 83880

== ENCOUNTER 2019-02-28 19:14 | Emergency (ER) | payer OTHER, SELFPAY ==
[2019-02-28 19:20] VITALS: BP 136/65; PULSE 90; RESP 15; TEMP 36.8; O2SAT 94; BMI 47.0
[2019-02-28 19:23] VITALS: BP 136/65; PULSE 90; RESP 18; TEMP 36.8; O2SAT 95; BMI 22.6
--- NOTE | 2019-02-28 19:32 | HMH.EDUTC ---
[facility] [place] Clinical Impression: Cough Sinusitis Qualifiers: Sinusitis location: unspecified location Chronicity: unspecified Qualified Code(s): J32.9 - Chronic sinusitis, unspecified Disposition: Home, Self-Care Condition on Discharge: Good Instructions: Sinusitis, Sinus Headache, Cough, DI for Sinusitis, Doxycycline, Benzonatate Additional Instructions: *Monitor Temp, Over the counter Motrin or Tylenol as directed/as needed Tylenol every 4 hours and Motrin every 6 hours (as long as your family doctor has told you that you can take it) for fever or pain. and straight to ER if unable to lower temp less than 101.0 after medication given *Warm salt water gargles may help to soothe the throat *Throat Lozenges *Warm fluids *Sleep elevated *Humidifier/Vaporizer will help with cough and throat irritation *Flonase 2 sprays in each nostril daily but be aware that it may take 2-3 days before you notice improvement Stop taking amoxicillin Start Doxycycline as prescribed Tessalone Perrles as prescribed for cough Return if needed Follow up with family doctor if no improvement or any worsening of symptoms in the next 48-72 hours or sooner Follow up IMMEDIATELY for new or worsening symptoms or no Noticeable improvement over the next 48-72 hours. 911 for difficulty breathing or swallowing Prescriptions: Doxycycline Monohydrate [Doxycycline [place] 100mg Tab] 100 mg PO BID 7 Days #14 tab Benzonatate [Tessalon Perle 100mg Cap] 100 mg PO BID PRN #10 cap PRN Reason: Cough Referrals: Meka Waterman [Primary Care Provider] - As needed Time of Disposition: 19:50 Medical Decision Making - Maulik Inquiry Pt receiving controlled substance: No Maulik was queried for this patient: No Vital Signs: 02/28/19 19:20 02/28/19 19:23 Temperature 98.3 F 98.3 F Temperature Source Oral Oral Pulse Rate [Right Brachial] 90 90 Respiratory Rate 15 18 Blood Pressure [Right Arm] 136/65 136/65 Blood Pressure Mean [Right Arm] 88 88 02 Sat by Pulse Oximetry 94 L 95 Oxygen Delivery Method Room Air [place] [facility] [place] - General Stated complaint: cough,chest congestion,ears Time Seen by Provider: 02/28/19 19:33 Mode of Arrival: Ambulatory Source of Information: Patient Limitations: No Limitations Description of Symptoms (Recalled from Triage Doc. by RN): PT C/O COUGH, CONGESTION, MARIE, DIZZINESS HEENT Symptoms (Recalled from RN notes): Yes Resp Symptoms (Recalled from RN notes): Yes Skin Symptoms (Recalled from RN notes): No MS Symptoms (Recalled from RN notes): No Functional Status (Recalled from RN notes): N/A - History of Present Illness Provider Complaint: Patient state that she was seen by her family doctor and started on Amoxicillin State that she has been having sinus pain and pressure along with sinus headache and dry cough and feeling like she has fluid in her ears State that when she moves quickly sometimes the fluid in her ears feels like it moves and makes her dizzy State that she has been using flonase but feels like it isn't helping much and feels like the antibiotic isn't working - Related Data Home Medications Medication Instructions Recorded Confirmed aspirin 81 mg tablet,delayed 81 mg PO DAILY tab 11/19/17 01/07/19 release ergocalciferol (vitamin D2) 50,000 50,000 unit PO DAILY 28 Days cap 11/19/17 01/07/19 unit capsule gabapentin 600 mg tablet 600 mg PO TID 30 Days tab 11/19/17 01/07/19 Levothyroxine Sodium 75 mcg PO DAILY 09/23/18 01/07/19 [Levothyroxine 75mcg (0.075mg) Tab] Rosuvastatin Calcium [Crestor] 10 mg PO HS 09/23/18 01/07/19 insulin aspar prot-insulin aspart 85 unit SQ AM ml 12/27/18 01/07/19 100 unit/mL (70-30) subcutaneous pen Previous Rx's Medication Instructions Recorded clopidogrel 75 mg tablet 75 mg PO DAILY #30 tab 01/07/19 furosemide 40 mg tablet 40 mg PO DAILY #30 tab 01/07/19 losartan 100 mg tablet 100 mg PO DAILY #30 tab 01/07/19 metoprolol succinate ER 25 mg 25 mg
--- NOTE | 2019-02-28 19:40 | ED_ITS ---
[facility] [place] Disposition Clinical Impression: Cough Sinusitis Qualifiers: Sinusitis location: unspecified location Chronicity: unspecified Qualified Code(s): J32.9 - Chronic sinusitis, unspecified Disposition: Home, Self-Care Condition on Discharge: Good Instructions: Sinusitis, Sinus Headache, Cough, DI for Sinusitis, Doxycycline, Benzonatate Additional Instructions: *Monitor Temp, Over the counter Motrin or Tylenol as directed/as needed Tylenol every 4 hours and Motrin every 6 hours (as long as your family doctor has told you that you can take it) for fever or pain. and straight to ER if unable to lower temp less than 101.0 after medication given *Warm salt water gargles may help to soothe the throat *Throat Lozenges *Warm fluids *Sleep elevated *Humidifier/Vaporizer will help with cough and throat irritation *Flonase 2 sprays in each nostril daily but be aware that it may take 2-3 days before you notice improvement Stop taking amoxicillin Start Doxycycline as prescribed Tessalone Perrles as prescribed for cough Return if needed Follow up with family doctor if no improvement or any worsening of symptoms in the next 48-72 hours or sooner Follow up IMMEDIATELY for new or worsening symptoms or no Noticeable improvement over the next 48-72 hours. 911 for difficulty breathing or swallowing Prescriptions: Doxycycline Monohydrate [Doxycycline [place] 100mg Tab] 100 mg PO BID 7 Days #14 tab Benzonatate [Tessalon Perle 100mg Cap] 100 mg PO BID PRN #10 cap PRN Reason: Cough Referrals: Meka Waterman [Primary Care Provider] - As needed Time of Disposition: 19:50 Medical Decision Making - Maulik Inquiry Pt receiving controlled substance: No Maulik was queried for this patient: No Vital Signs: 02/28/19 19:20 02/28/19 19:23 Temperature 98.3 F 98.3 F Temperature Source Oral Oral Pulse Rate [Right Brachial] 90 90 Respiratory Rate 15 18 Blood Pressure [Right Arm] 136/65 136/65 Blood Pressure Mean [Right Arm] 88 88 02 Sat by Pulse Oximetry 94 L 95 Oxygen Delivery Method Room Air Room Air [facility] [place] HPI - General Stated complaint: cough,chest congestion,ears Time Seen by Provider: 02/28/19 19:33 Mode of Arrival: Ambulatory Source of Information: Patient Limitations: No Limitations Description of Symptoms (Recalled from Triage Doc. by RN): PT C/O COUGH, CONGESTION, MARIE, DIZZINESS HEENT Symptoms (Recalled from RN notes): Yes Resp Symptoms (Recalled from RN notes): Yes Skin Symptoms (Recalled from RN notes): No MS Symptoms (Recalled from RN notes): No Functional Status (Recalled from RN notes): N/A - History of Present Illness Provider Complaint: Patient state that she was seen by her family doctor and started on Amoxicillin State that she has been having sinus pain and pressure along with sinus headache and dry cough and feeling like she has fluid in her ears State that when she moves quickly sometimes the fluid in her ears feels like it moves and makes her dizzy State that she has been using flonase but feels like it isn't helping much and feels like the antibiotic isn't working - Related Data Home Medications Medication Instructions Recorded Confirmed aspirin 81 mg tablet,delayed 81 mg PO DAILY tab 11/19/17 01/07/19 release ergocalciferol (vitamin D2) 50,000 50,000 unit PO DAILY 28 Days cap 11/19/17 01/07/19 unit capsule gabapentin 600
[2019-02-28 20:04] VITALS: BP 126/66; PULSE 65; RESP 18; TEMP 36.6; O2SAT 100
== END 2019-02-28 20:04 | disposition home or self-care (01) ==
LOC: UTC 19:50
PROVIDERS: Emergency Provider Nurse Practitioner; PCP Family Medicine
DX: J32.9 Chronic sinusitis, unspecified (principal); E11.9 Type 2 diabetes mellitus without complications; I48.91 Unspecified atrial fibrillation; J44.9 Chronic obstructive pulmonary disease, unspecified; E03.9 Hypothyroidism, unspecified; I10 Essential (primary) hypertension; E78.5 Hyperlipidemia, unspecified
CPT/HCPCS: 99201

== ENCOUNTER → 2019-03-10 14:43 | Outpatient (CLI) | payer OTHER, SELFPAY ==
[2019-03-10 18:20] LABS: Anion Gap 14.1 mEq/L (5-15); Blood Urea Nitrogen 25 mg/dL (7-18); Calcium 9.5 mg/dL (8.5-10.1); Carbon Dioxide 29 mmol/L (21.0-32.0); Chloride 100 mmol/L (98-107); Creatinine,Serum 1.24 mg/dL (0.55-1.02); Estimated Glomerular Filt Rate 44 ml/min (>60); GFR (African American) 53 ML/MIN (>60); Glucose 362 mg/dL (74-106); Potassium 4.1 mmoL/L (3.5-5.1); Sodium 139 mmol/L (136-145)
== END ==
PROVIDERS: Visit Provider Nurse Practitioner Family
DX: I25.10 Atherosclerotic heart disease of native coronary artery without angina pectoris (principal); I50.32 Chronic diastolic (congestive) heart failure
CPT/HCPCS: 36415; 80048

== ENCOUNTER → 2019-03-18 08:12 | Outpatient (CLI) | payer OTHER, SELFPAY ==
[2019-03-18 09:39] LABS: Anion Gap 11.5 mEq/L (5-15); Blood Urea Nitrogen 22 mg/dL (7-18); Calcium 8.6 mg/dL (8.5-10.1); Carbon Dioxide 29 mmol/L (21.0-32.0); Chloride 99 mmol/L (98-107); Creatinine,Serum 1.29 mg/dL (0.55-1.02); Estimated Glomerular Filt Rate 42 ml/min (>60); GFR (African American) 50 ML/MIN (>60); Glucose 236 mg/dL (74-106); Potassium 4.5 mmoL/L (3.5-5.1); Sodium 135 mmol/L (136-145)
== END ==
PROVIDERS: Visit Provider Urology
DX: I10 Essential (primary) hypertension (principal)
CPT/HCPCS: 36415; 80048

== ENCOUNTER 2019-05-04 23:48 | Observation (INO) ==
[2019-05-05 00:14] LABS: Basophils # 0.1 K/mm3 (0-0.2); Basophils % 0.5 % (0.1-2.0); Eosinophils # 0.2 K/mm3 (0.0-0.4); Eosinophils % 1.6 % (0.1-12.0); Hematocrit 40.8 % (37.0-47.0); Hemoglobin 12.6 g/dL (12.2-16.2); Lymphocytes # 2.2 K/mm3 (0.7-4.5); Lymphocytes % 15.6 % (10-50); Mean Corpuscular HGB Conc 30.9 g/dL (31.8-35.4); Mean Platelet Volume 7.6 fl (7.4-10.4); Monocytes # 0.5 K/mm3 (0.1-1.0); Monocytes % 3.7 % (1.7-9.3); Neutrophils # 11.1 K/mm3 (1.8-7.8); Neutrophils % 78.6 % (37.0-80.0); Platelet Count 521 K/mm3 (142-424); Red Blood Count 4.44 M/mm3 (4.20-5.40); Red Cell Distribution Width 13.9 % (11.5-17.5); White Blood Count 14.1 K/mm3 (4.8-10.8)
[2019-05-05 00:26] LABS: Anion Gap 11.3 mEq/L (5-15); Blood Urea Nitrogen 18 mg/dL (7-18); Calcium 8.9 mg/dL (8.5-10.1); Carbon Dioxide 30 mmol/L (21.0-32.0); Chloride 98 mmol/L (98-107); Glucose 259 mg/dL (74-106); Sodium 136 mmol/L (136-145)
--- NOTE | 2019-05-05 01:24 | Emergency Department Note ---
ED Disposition Clinical Impression: Morbid obesity with BMI of 45.0-49.9, adult Chest pain Qualifiers: Chest pain type: precordial pain Qualified Code(s): R07.2 - Precordial pain CAD (coronary artery disease) Qualifiers: Coronary Disease-Associated Artery/Lesion type: unspecified vessel or lesion type [place] vs. transplanted heart: [place] heart Associated angina: angina presence unspecified Qualified Code(s): I25.10 - Atherosclerotic heart disease of [place] coronary artery without angina pectoris Diabetes mellitus with polyneuropathy Qualifiers: Diabetes mellitus type: type 1 Qualified Code(s): E10.42 - Type 1 diabetes mellitus with diabetic polyneuropathy Disposition: Admitted as Observation Condition on Discharge: Good - Critical Care Critical Care Time: No Attestation: On 05/04/19, the high probability of a clinically significant, sudden or life threatening deterioration of the following system(s) required my full and direct attention, intervention and personal management. The time I documented below is in addition to time spent performing reported procedures but includes the following listed in this critical care notation. Medical Decision Making - Medical Records Medical records reviewed: Yes: I reviewed the patient's medical records. - Maulik Inquiry Pt receiving controlled substance: No Vital Signs: 05/04/19 23:49 05/04/19 23:59 05/05/19 00:24 Temperature 98.3 F Temperature Source Oral Pulse Rate [Right] 100 H 97 H 91 H Respiratory Rate 18 18 20 Blood Pressure [Right Arm] 129/100 H 94/52 L 117/60 Blood Pressure Mean [Right Arm] 109 66 79 Blood Pressure Source [Right Arm] Automatic Cuff Automatic Cuff Blood Pressure Position [Right Arm] Supine Sitting 02 Sat by Pulse Oximetry 96 90 L 95 Oxygen Delivery Method Room Air Room Air 05/05/19 00:37 05/05/19 01:19 Temperature Temperature Source Pulse Rate [Right] 86 84 Respiratory Rate 22 18 Blood Pressure [Right Arm] 117/60 132/75 Blood Pressure Mean [Right Arm] 79 94 Blood Pressure Source [Right Arm] Automatic Cuff Blood Pressure Position [Right Arm] Sitting 02 Sat by Pulse Oximetry 94 L 97 Oxygen Delivery Method Room Air Room Air - Lab Data Lab results reviewed: Yes: I reviewed the patient's lab results. Lab Results 05/05/19 00:00: WBC 14.1 H, RBC 4.44, Hgb 12.6, Hct 40.8, MCV 92.0, MCH 28.4, MCHC 30.9 L, RDW 13.9, Plt Count 521 H, MPV 7.6, Neut % (Auto) 78.6, Lymph % (Auto) 15.6, Vance % (Auto) 3.7, Eos % (Auto) 1.6, Baso % (Auto) 0.5, Neut # (Auto) 11.1 H, Lymph # (Auto) 2.2, Vance # (Auto) 0.5, Eos # (Auto) 0.2, Baso # (Auto) 0.1 05/05/19 00:00: Sodium 136, Potassium 3.3 L, Chloride 98, Carbon Dioxide 30, Anion Gap 11.3, BUN 18, Creatinine 1.29 H, Estimated Creat Clear 43, Estimated GFR 42 L, Est GFR ( Amer) 50 L, Glucose 259 H, Calcium 8.9, Troponin I < 0.02 Result diagrams: 05/05/19 00:00 05/05/19 00:00 Orders (Tests/Meds): ED MEDICATIONS Generic Name Dose Route Start Last Admin Trade Name Freq PRN Reason Stop Dose Admin Sodium Chloride 1,000 mls @ 999 mls/hr 05/05/19 00:15 05/05/19 00:07 Sod Chlor 0.9% 1000ml Bag IV 05/05/19 01:15 999 mls/hr .Q1H1M LORENA Administration Discontinued Medications Generic Name Dose Route Start Last Admin Trade Name Freq PRN Reason Stop Dose Admin Aspirin 243 mg 05/05/19 00:05 05/05/19 00:07 Aspirin 81mg Chewable Tablet PO 05/05/19 00:06 243 mg ONCE ONE Administration Nitroglycerin 0.4 mg 05/05/19 00:04 05/05/19 00:07 Nitrostat 0.4mg Sl Tablet SL 05/05/19 00:05 1 tab ONCE ONE Administration Nitroglycerin 1 gm 05/05/19 00:44 05/05/19 00:47 Nitroglycerin 1 Inch Oint Udp TD 05/05/19 00:45 1 gm ONCE ONE Administration ORDERS Category Date Time Status XR chest 2V Stat Exams 05/05/19 00:01 Taken - Radiology Data #1 Image(s): Chest Image Reviewed: Yes I reviewed the patient's radiology image Preliminary Findings: Abnormal (cm) - ECG Data Tracing #1 Normal Sinus Rhythm: Yes Ischemic changes: non-specific ST-T wave changes ECG compared to prior tracings: there are no significant changes Chest Pain HPI - General Chief Complaint: Chest Pain Stated Complaint: chest pain Time Seen by Provider: 05/05/19 00:00 Mode of Arrival: Ambulatory Source of Information: Patient, Spouse, Medical Record Limitations: No Limitations Description of Symptoms (Recalled from ER Triage Doc. by RN): Pt states she started having Chest Pain about 2300 tonight - History of Present Illness HPI narrative: acute onset of lt ant chest pain with hx of cad with stents - MD complaint: chest pain indicative of cardiac Onset (ago): hour(s) Duration: now resolved Activity at onset: during rest Pain location: left chest Severity: moderate Quality: heaviness Relieving factors: nitroglycerin Associated symptoms: nausea Risk Factors for CAD: Family Hx of CAD Treatments prior to or on arrival for Cardiac Chest Pain: none - BENJAMIN Score for Non-Stemi Age of Patient: 60-69 years old Heart Rate: 90-109 bpm Systolic Blood Pressure: 120-139 mmhg Serum Creatinine: 1.20-1.59 mg/dl CHF [place] Class: I-No CHF Other Risk Factors: None Non-Stemi Risk Score: 117 - Related Data Prior Cardiac Testing/Procedures: Stenting On Oral Contraceptives: No Home Medications Medication Instructions Recorded Confirmed aspirin 81 mg tablet,delayed 81 mg PO DAILY tab 11/19/17 05/05/19 release ergocalciferol (vitamin D2) 50,000 50,000 unit PO DAILY 28 Days cap 11/19/17 05/05/19 unit capsule gabapentin 600 mg tablet 600 mg PO TID 30 Days tab 11/19/17 05/05/19 Levothyroxine Sodium 75 mcg PO DAILY 09/23/18 05/05/19 [Levothyroxine 75mcg (0.075mg) Tab] Rosuvastatin Calcium [Crestor] 10 mg PO HS 09/23/18 05/05/19 insulin aspar prot-insulin aspart 85 unit SQ BID ml 12/27/18 05/05/19 100 unit/mL (70-30) subcutaneous pen Clopidogrel Bisulfate [Plavix 75mg 75 mg PO DAILY 05/05/19 05/05/19 Tab] Loratadine [Allergy Relief] 10 mg PO DAILY 05/05/19 05/05/19 Losartan Potassium 100 mg PO DAILY 05/05/19 05/05/19 Meclizine HCl [Meclizine 25mg Tab] 25 mg PO QID PRN 05/05/19 05/05/19 Metoprolol Succinate 25 mg PO HS 05/05/19 05/05/19 Potassium Chloride [Pot Chlor 8 8 meq PO DAILY 05/05/19 05/05/19 mEq Tab] Spironolactone [Spironolactone 25 mg PO DAILY 05/05/19 05/05/19 25mg Tablet] Allergies Allergy/AdvReac Type Severity Reaction Status Date / Time No Known Allergies Allergy Verified 03/21/19 15:55 [facility] History - Hepatitis A Screen Drug use history?: No High risk sexual behaviors?: No History of sexually transmitted infection?: No Currently employed?: No Childcare worker?: No Do you have indoor plumbing?: Yes Do you have electricity?: Yes Attestation statement:: This patient has been screened for Hepatitis A risk factors. I have reviewed the patient's past medical history: Yes Medical History: Reports:: Atherosclerotic Heart Disease, Atrial Fibrillation, Chronic Obstructive Pulmonary Disease (COPD), Coronary Artery Disease, Diabetes Mellitus Type 2, Hyperlipidemia, Hypertension Denies:: Asthma, Cancer, Congestive Heart Failure, Diabetes Mellitus Type 1, MRSA, Osteoporosis, Renal Disease, Renal Insufficiency Other Medical History: Reports: Arthritis, Hypothyroidism, Other (Polymyalgia rheumatica). Denies: Osteoporosis Comment: ROSS Laterality Cases: Right: Arthroscopy Knee, Bilateral: Tonsillectomy Other Surgeries: Yes: Cardiac Catheterization, Cardiac Surgery, Cholecystectomy, Coronary Stent, Amputation: No Fractures: No Comment: 1 STENT HEART, CHOLECYSTECTOMY, - Social History Smoking Status: Never smoker Alcohol Intake: never Alcohol Intake Frequency:: other Substance Use Type: denies use Occupational Status: retired Housing: house Household Members: spouse Family Hx:: Heart Attack, Diabetes, Hyperlipidemia, Hypertension, Coronary Artery Disease Comment: Father- of [place]@62 ROS Obtained: Yes All systems reviewed & no additional complaints - Constitutional Constitutional: Denies fever(s) - Eyes Eyes: Denies change in vision - ENT Ears, Nose, Mouth, and Throat: Denies sore throat - Cardiovascular Cardiovascular: Reports as per HPI, Reports chest pain - Respiratory Respiratory: No cough - Gastrointestinal Gastrointestingal: Denies: abdominal pain - Genitourinary Female Genitourinary: Denies hematuria - Musculoskeletal Musculoskeletal: Denies joint pain - Integumentary/Breasts Skin/Breast: Denies rash - Neurologic Neurologic: Denies seizure-like activity Physical Exam - General General appearance: alert, obese - Head Head exam: normocephalic - Eye Eye exam: Present: PERRL, EOMI. Absent: scleral icterus - ENT ENT exam: Present: mucous membranes dry - Neck Neck exam: Present: trachea midline - Respiratory Respiratory exam: Present: normal lung sounds bilaterally. Absent: respiratory distress - Cardiovascular Cardiovascular exam: Present: regular rate, systolic murmur, +S4 - Abdominal Exam Abdominal exam: Present: soft - Extremities Exam Extremities exam: Absent: tenderness - Neurological Exam Neurological exam: Present: alert, oriented X3, CN II-XII intact - Psychiatric Psychiatric exam: Present: normal affect - Skin Skin exam: Absent: rash
[2019-05-05 05:27] LABS: Chol/HDL Ratio 4.8 (1-3.5)
--- NOTE | 2019-05-05 08:01 | Pharmacy Consult Notes ---
[facility] Pharmacy VTE Monitoring - Patient Demographics Admission date: 05/05/19 Report Date: 05/05/19 Time: 08:00 Allergies/Adverse Reactions: Patient Allergies No Known Allergies Allergy (Verified 03/21/19 15:55) Height: 1.7 m Weight: 138.034 kg Patient Problems: Current Active Problems Chest pain (Acute) Morbid obesity with BMI of 45.0-49.9, adult (Chronic) CAD (coronary artery disease) (Chronic) Diabetes mellitus with polyneuropathy (Chronic) - VTE Risk Labs: VTE Related Lab Results Hgb 12.6 g/dL (12.2-16.2) 05/05/19 00:00 Hct 40.8 % (37.0-47.0) 05/05/19 00:00 Plt Count 521 K/mm3 (142-424) H 05/05/19 00:00 BUN 18 mg/dL (7-18) 05/05/19 00:00 Creatinine 1.29 mg/dL (0.55-1.02) H 05/05/19 00:00 Estimated Creat Clear 43 mL/min (50-200) 05/05/19 00:00 VTE Score: 4 VTE Risk Level: Low Risk - Prophylaxis VTE Prophylaxis Ordered?: Yes Types of VTE Prophylaxis: TEDS Knee High Location of Applied Device: Bilateral Lower Extremeties - VTE Diagnosis Confirmed Treatment or plan recommended: Continue Current Treatment
--- NOTE | 2019-05-05 10:02 | Cardiology Report ---
PROCEDURE: 2-D M-mode and color Doppler study INDICATIONS FOR THE TEST: Chest pain X COPD Heart Murmur Tobacco Smoking Palpitations Fatigue Syncope Edema HypertensionXDiabetes Mellitus Rheumatic Fever SOB [place] ObesityXHyperlipidemiaX Family History HD Additional History TDS MORBID OBESITY PATIENT INFORMATION HEIGHT: 67 WEIGHT:295 GENDER: Female B/P:117/60 2-D/M-MODE INTERPRETATION: 2-D MEASUREMENTS OBSERVED VALUES IN CMS Right Ventricular Dimension (RVDd) 3.4 Interventricular Septum (Thickness)(IVsd) 1.3 Left Ventricular Internal Dimensions(LVIDd) 4.8 Left Ventricular Posterior Wall (Thickness)(LVPWd) 1.3 Aortic Root 3.7 Aortic Cusp Separation 1.6 Left Atrial Dimensions (LAD) 3.5 2D 1. Technically difficult study because of the patient's factor and poor acoustic windows 2. Left atrium is mildly enlarged, left ventricle is normal size, mild concentric left ventricular hypertrophy, visually estimated ejection fraction 55% with no regional wall motion abnormality. 3. The right atrium and right ventricle are mildly enlarged with normal contractility. 4. The mitral and tricuspid valve leaflets are grossly normal. 5. The pulmonic valve is poorly visualized. 6. No significant pericardial effusion noted. DOPPLER INTERROGATION: Doppler interrogation of the aortic, mitral and tricuspid valvular presence of mild mitral and tricuspid regurgitation, tricuspid regurgitation jet velocity is inadequate for calculation of the right ventricular systolic pressure, Doppler evidence of impaired LV relaxation seen, there is no tissue Doppler performed. CONCLUSION: 1. Technically difficult study because of the patient's factor and poor acoustic windows 2. Mild biatrial enlargement, normal left ventricular size, mild concentric left ventricular hypertrophy, visually estimated ejection fraction 55% with no regional wall motion abnormality. Doppler evidence of impaired LV relaxation seen 3. Mildly enlarged right ventricle with normal contractility. 4. No significant pericardial effusion noted.
--- NOTE | 2019-05-05 10:03 | Consult Report ---
History of Present Illness Consult date: 05/05/19 Chief complaint: chest pain Additional Medical History:: 1. CAD A. History of RCA stent B. Abnormal stress myoview, 11/2015, anterior ischemia with EF 68% C. Cardiac cath, 11/2015, The left main artery normal. The left anterior de scending artery is a large vessel and has no atherosclerotic disease however has a mid vessel myocardial bridge causing 50-60% systolic compression at rest. The circumflex artery nondominant and normal. The right coronary artery is a dominant vessel and has a stent in the proximal segment which is widely patent free of in- stent restenosis. D. NSTEMI, 12/2018, with cardiac cath, ANGIOGRAPHIC RESULTS: 1. The left main artery normal 2. The left anterior descending artery has a proximal eccentric 30% stenosis proximal to a large first diagonal artery. The remaining LAD is widely patent and normal 3. The circumflex artery is a nondominant vessel and normal 4. The right coronary artery is a large dominant vessel and has proximal 20% stenoses followed by a distal eccentric 60% stenosis preceded by a 30% stenosis 5. The DELEON ventriculogram reveals normal 65% 6. The left ventricular end-diastolic pressure 20 mmHg IMPRESSION: 1. Elevated troponin and acute coronary syndrome with infarct vessel most likely being the distal dominant right coronary artery with successful stenting of this vessel with culprit stenosis reduced to 0% with 1 drug-eluting stent 2. Normal ejection fraction 3. Mildly elevated LVEDP PLAN: 1. Brilinta and aspirin 2. LDL less than 55 3. I would consider evaluating patient for pulmonary embolism with a PA CTA gram 4. Cardiac rehabilitation 5. Low-dose diuretics for diastolic dysfunction 6. Avoidance of tobacco products 7. Beta blockers yanick inhibitors should be started if hemodynamically tolerable 2. DM 3. Obesity 4. History of supraventricular tachycardia, controlled on beta edyta therapy 5. Hyperlipidemia 6. Pulmonary problems, on steroids for one year, 2018 A. CTA of chest, 09/2018, No pulmonary embolism evident. Satisfactory enhancement & appearance of pulmonary arteries Aorta satisfactory as well No pneumonia evident. Borderline airway thickening could reflect mild bronchitis. cardiomegaly again observed Only minor subtle vascular engorgement. No overt CHF . No pleural effusion. Scant stable pericardial effusion again noted History of present illness: 63-year-old white female with known history of coronary artery disease was preparing to go to bed last evening when she developed substernal chest discomfort radiating right to left and back to the right side without associated shortness of breath, diaphoresis or nausea. Symptoms persisted despite changing position and patient became concerned enough to come to the ER for further evaluation. She has a recent diagnosis of a viral inner ear infection for which she was placed on meclizine. She denies any fever, chills, nausea or vomiting. She does have a nonproductive cough. She denies any GERD symptoms. Patient's activity is limited due to back pain for which she is awaiting clearance for epidural injections later this year. Due to her recent myocardial infarction in December of this year and subsequent right coronary artery stenting she must wait at least 6 months before holding aspirin and Plavix for the procedure. Patient was admitted for observation after being given a sublingual nitroglycerin with improvement but not resolution of symptoms. Nitroglycerin paste was applied and during the night the symptoms have resolved. Patient's troponins have returned normal x3 and EKG is sinus with no acute changes. Chest x-ray shows no evidence of congestive heart failure. Cardiology consulted for evaluation recommendations After the nitroglycerin is given patient's blood pressure did drop to the point of IV fluids were given with quick response to blood pressure. Patient is on metoprolol at home along with aspirin, Plavix and Avapro. [facility] History Medical History: Reports:: Atherosclerotic Heart Disease, Atrial Fibrillation, Chronic Obstructive Pulmonary Disease (COPD), Coronary Artery Disease, Diabetes Mellitus Type 2, Hyperlipidemia, Hypertension Denies:: Asthma, Cancer, Congestive Heart Failure, Diabetes Mellitus Type 1, MRSA, Osteoporosis, Renal Disease, Renal Insufficiency *Have you ever received a pneumonia vaccine?: Yes *Have you received a flu vaccine this season?: Yes Other Medical History: Reports: Arthritis, Hypothyroidism, Other (Polymyalgia rheumatica). Denies: Osteoporosis Laterality Cases: Right: Arthroscopy Knee, Bilateral: Tonsillectomy Other Surgeries: Yes: Cardiac Catheterization, Cardiac Surgery, Cholecystectomy, Coronary Stent, Amputation: No Fractures: No - *Social History Educational Level: Completed High School Smoking Status: Never smoker Alcohol Intake: never Alcohol Intake Frequency:: other Substance Use Type: denies use *Occupational Status:: retired Housing: house Household Members: spouse *Travel in the last 8 weeks: None - Psychiatric History Expresses thoughts of harming self/others: None Suicide Plan Description: No Plan Family Hx:: Cancer, Coronary Artery Disease, Heart Attack Meds Home Medications Medication Instructions Recorded Confirmed Type aspirin 81 mg tablet,delayed 81 mg PO DAILY tab 11/19/17 05/05/19 History release ergocalciferol (vitamin D2) 50,000 50,000 unit PO DAILY 28 Days cap 11/19/17 05/05/19 History unit capsule gabapentin 600 mg tablet 600 mg PO TID 30 Days tab 11/19/17 05/05/19 History Levothyroxine Sodium 75 mcg PO DAILY 09/23/18 05/05/19 History [Levothyroxine 75mcg (0.075mg) Tab] Clopidogrel Bisulfate [Plavix 75mg 75 mg PO DAILY 05/05/19 05/05/19 History Tab] Furosemide [Furosemide 40MG tAB] 40 mg PO DAILY 05/05/19 05/05/19 History Insulin NPH Hum/Reg Insulin Hm 80 units SQ BID 05/05/19 05/05/19 History [Novolin 70-30 100 Unit/ml Vial] Loratadine [Allergy Relief] 10 mg PO DAILY 05/05/19 05/05/19 History Losartan Potassium 100 mg PO DAILY 05/05/19 05/05/19 History Meclizine HCl [Meclizine 25mg Tab] 25 mg PO QID PRN 05/05/19 05/05/19 History Metoprolol Succinate 25 mg PO HS 05/05/19 05/05/19 History Potassium Chloride [Pot Chlor 8 8 meq PO DAILY 05/05/19 05/05/19 History mEq Tab] Rosuvastatin Calcium 10 mg PO DAILY 05/05/19 05/05/19 History Spironolactone [Spironolactone 25 mg PO DAILY 05/05/19 05/05/19 History 25mg Tablet] Allergies Allergy/AdvReac Type Severity Reaction Status Date / Time No Known Allergies Allergy Verified 03/21/19 15:55 Review of Systems - *Cardiovascular Reports chest pain, Reports shortness of breath with activity - *Respiratory Reports cough, Reports shortness of breath with activity - *Gastrointestinal Denies abdominal pain, Denies nausea, Denies vomiting - *Genitourinary Denies blood in urine - *Musculoskeletal Reports back pain - *Neurologic Denies seizure-like activity Exam Vital signs and Labs for Last 24 Hours: Temp Pulse Resp BP Pulse Ox 97.5 F L 72 17 110/60 93 L 05/05/19 08:00 05/05/19 08:00 05/05/19 08:00 05/05/19 08:00 05/05/19 08:00 Laboratory Results - last 24 hr 05/05/19 00:00: WBC 14.1 H, RBC 4.44, Hgb 12.6, Hct 40.8, MCV 92.0, MCH 28.4, MCHC 30.9 L, RDW 13.9, Plt Count 521 H, MPV 7.6, Neut % (Auto) 78.6, Lymph % (Auto) 15.6, Bradford % (Auto) 3.7, Eos % (Auto) 1.6, Baso % (Auto) 0.5, Neut # (Auto) 11.1 H, Lymph # (Auto) 2.2, Bradford # (Auto) 0.5, Eos # (Auto) 0.2, Baso # (Auto) 0.1 05/05/19 00:00: Sodium 136, Potassium 3.3 L, Chloride 98, Carbon Dioxide 30, Anion Gap 11.3, BUN 18, Creatinine 1.29 H, Estimated Creat Clear 43, Estimated GFR 42 L, Est GFR ( Amer) 50 L, Glucose 259 H, Calcium 8.9, Troponin I < 0.02 05/05/19 04:35: Troponin I < 0.02 05/05/19 04:35: Triglycerides 166, Cholesterol 86 L, LDL Cholesterol 35, VLDL Cholesterol 33, HDL Cholesterol 18 L, Cholesterol/HDL Ratio 4.8 H 05/05/19 06:19: POC Glucose 258 H 05/05/19 07:28: Troponin I < 0.02 I & O for Last 24 hours: Intake & Output 05/02/19 05/03/19 05/04/19 05/05/19 11:59 11:59 11:59 11:59 Intake Total 1000 / 1000 Output Total 200 / 200 Balance 800 / 800 Weight 304 lb 5 oz - *Routine HEENT Exam Head: Present: normocephalic Eye: Present: EOMI, PERRL ENT: Present: mucous membranes moist - *Routine Neck Exam Present: supple. Absent: JVD, carotid bruit - *Routine Respiratory Exam Present: CTA bilaterally. Absent: accessory muscle use, rales, rhonchi, wheezes - *Routine Cardiovascular Exam Present: RRR. Absent: murmur, gallop, rubs - *Routine Abdominal Exam Present: soft. Absent: tenderness, distended, guarding - *Routine Extremities Exam Absent: edema, calf tenderness - *Routine Neurological Exam Present: alert, oriented X3, moving all extremities Assessment and Plan (1) Chest pain Current visit: Yes Status: Acute Qualifiers: Chest pain type: precordial pain Qualified Code(s): R07.2 - Precordial pain Category: Medical Code(s): R07.9 - Chest pain, unspecified (2) CAD (coronary artery disease) Current visit: Yes Status: Chronic Qualifiers: Coronary Disease-Associated Artery/Lesion type: unspecified vessel or lesion type [place] vs. transplanted heart: [place] heart Associated angina: angina presence unspecified Qualified Code(s): I25.10 - Atherosclerotic heart disease of [place] coronary artery without angina pectoris Category: Medical Code(s): I25.10 - Atherosclerotic heart disease of [place] coronary artery without angina pectoris (3) Diabetes mellitus with polyneuropathy Current visit: Yes Status: Chronic Qualifiers: Diabetes mellitus type: type 1 Qualified Code(s): E10.42 - Type 1 diabetes mellitus with diabetic polyneuropathy Category: Medical Code(s): E11.42 - Type 2 diabetes mellitus with diabetic polyneuropathy (4) Morbid obesity with BMI of 45.0-49.9, adult Current visit: Yes Status: Chronic Category: Medical Code(s): E66.01 - Morbid (severe) obesity due to excess calories; Z68.42 - Body mass index (BMI) 45.0-49.9, adult (5) Cough Current visit: No Status: Acute Category: Medical Code(s): R05 - Cough (6) Back pain Current visit: No Status: Chronic Category: Medical Code(s): M54.9 - Dorsalgia, unspecified (7) HHD (hypertensive heart disease) Current visit: No Status: Chronic Qualifiers: Heart failure presence: with heart failure Heart failure type: diastolic Heart failure chronicity: acute Qualified Code(s): I11.0 - Hypertensive heart disease with heart failure; I50.31 - Acute diastolic (congestive) heart failure Category: Medical Code(s): I11.9 - Hypertensive heart disease without heart failure (8) HLD (hyperlipidemia) Current visit: No Status: Chronic Qualifiers: Hyperlipidemia type: mixed hyperlipidemia Qualified Code(s): E78.2 - Mixed hyperlipidemia Category: Medical Code(s): E78.5 - Hyperlipidemia, unspecified (9) Obstructive sleep apnea Current visit: No Status: Chronic Category: Medical Code(s): G47.33 - Obstructive sleep apnea (adult) (pediatric) (10) Pulmonary hypertension Current visit: No Status: Chronic Category: Medical Code(s): I27.20 - Pulmonary hypertension, unspecified (11) Status post coronary artery stent placement Current visit: No Status: Chronic Category: Surgical Code(s): Z95.5 - Presence of coronary angioplasty implant and graft - Assessment and plan all Dx Assessment and Plan for all problems:: 1. Chest pain with normal troponins x3 and EKG without acute changes. Suspect that her chest pain is related to esophageal spasm or GERD. Will recommend discontinuing nitroglycerin paste due to headache and affect on blood pressure. We will give a GI cocktail, start on a PPI and add Ranexa 500 mg twice daily. If the patient has recurrent chest pain on these medications then we would proceed directly to cardiac catheterization. Lexiscan Myoview would be the only stress test option and would not be a good choice in this obese patient with back pain that limits her activity and ability to stay in one position for prolonged period of time. 2. Discussed with Dr[address] Rowe.
--- NOTE | 2019-05-05 14:14 | H&P/Discharge Summary ---
General - General Admission date:: 05/05/19 Discharge date: 05/05/19 *Admission Date: 05/05/19 *History of present illness: 63-year-old female patient sitting up in bed this sitting up on the side of bed this morning, denies any further chest pain during the night, does report shortness of breath during the night that quickly resolved and no further issues. She has had no further chest pain and is agreeable to discharge home today with follow-up with Dr. Ramesh and her primary care physician. 63-year-old white female with known history of coronary artery disease was preparing to go to bed last evening when she developed substernal chest discomfort radiating right to left and back to the right side without associated shortness of breath, diaphoresis or nausea. Symptoms persisted despite changing position and patient became concerned enough to come to the ER for further evaluation. She has a recent diagnosis of a viral inner ear infection for which she was placed on meclizine. She denies any fever, chills, nausea or vomiting. She does have a nonproductive cough. She denies any GERD symptoms. Patient's activity is limited due to back pain for which she is awaiting clearance for epidural injections later this year. Due to her recent myocardial infarction in December of this year and subsequent right coronary artery stenting she must wait at least 6 months before holding aspirin and Plavix for the procedure. Patient was admitted for observation after being given a sublingual nitroglycerin with improvement but not resolution of symptoms. Nitroglycerin paste was applied and during the night the symptoms have resolved. Patient's troponins have returned normal x3 and EKG is sinus with no acute changes. Chest x-ray shows no evidence of congestive heart failure. Cardiology consulted for evaluation recommendations After the nitroglycerin is given patient's blood pressure did drop to the point of IV fluids were given with quick response to blood pressure. Patient is on metoprolol at home along with aspirin, Plavix and Avapro. (Per Ulises Britt) [facility] History Medical History: Reports:: Atherosclerotic Heart Disease, Atrial Fibrillation, Chronic Obstructive Pulmonary Disease (COPD), Coronary Artery Disease, Diabetes Mellitus Type 2, Hyperlipidemia, Hypertension Denies:: Asthma, Cancer, Congestive Heart Failure, Diabetes Mellitus Type 1, MRSA, Osteoporosis, Renal Disease, Renal Insufficiency *Have you ever received a pneumonia vaccine?: Yes *Have you received a flu vaccine this season?: Yes Other Medical History: Reports: Arthritis, Hypothyroidism, Other (Polymyalgia rheumatica). Denies: Osteoporosis Laterality Cases: Right: Arthroscopy Knee, Bilateral: Tonsillectomy Other Surgeries: Yes: Cardiac Catheterization, Cardiac Surgery, Cholecystectomy, Coronary Stent, Amputation: No Fractures: No - *Social History Educational Level: Completed High School Smoking Status: Never smoker Alcohol Intake: never Alcohol Intake Frequency:: other Substance Use Type: denies use *Occupational Status:: retired Housing: house Household Members: spouse *Travel in the last 8 weeks: None - Psychiatric History Expresses thoughts of harming self/others: None Suicide Plan Description: No Plan Family Hx:: Cancer, Coronary Artery Disease, Heart Attack Review of Systems - Review of Systems Review of systems:: pertinent systems reviewed and negative unless documented below - Constitutional Denies body ache(s), Denies fever(s) - Eyes Denies blurry vision, Denies double vision - ENT Denies difficulty swallowing, Denies facial pain, Denies nasal discharge, Denies sinus pressure - *Cardiovascular Reports chest pain, Reports chest pain at rest, Reports shortness of breath with activity - *Respiratory Reports cough, Reports shortness of breath with activity - *Gastrointestinal Denies abdominal pain, Denies change in stools, Denies nausea, Denies vomiting - *Neurologic Denies seizure-like activity - Psychiatric Denies abnormal sleep pattern, Denies difficulty concentrating - Endocrine Denies cold intolerance, Denies heat intolerance - Hematologic/Lymphatic Denies enlarged lymph nodes Exam Vital signs and Labs for Last 24 Hours: Temp Pulse Resp BP Pulse Ox 98.0 F 71 18 115/54 L 95 05/05/19 11:56 05/05/19 11:56 05/05/19 11:56 05/05/19 11:56 05/05/19 11:56 Laboratory Results - last 24 hr 05/05/19 00:00: WBC 14.1 H, RBC 4.44, Hgb 12.6, Hct 40.8, MCV 92.0, MCH 28.4, MCHC 30.9 L, RDW 13.9, Plt Count 521 H, MPV 7.6, Neut % (Auto) 78.6, Lymph % (Auto) 15.6, [place] % (Auto) 3.7, Eos % (Auto) 1.6, Baso % (Auto) 0.5, Neut # (Auto) 11.1 H, Lymph # (Auto) 2.2, [place] # (Auto) 0.5, Eos # (Auto) 0.2, Baso # (Auto) 0.1 05/05/19 00:00: Sodium 136, Potassium 3.3 L, Chloride 98, Carbon Dioxide 30, Anion Gap 11.3, BUN 18, Creatinine 1.29 H, Estimated Creat Clear 43, Estimated GFR 42 L, Est GFR ( Amer) 50 L, Glucose 259 H, Calcium 8.9, Troponin I < 0.02 05/05/19 04:35: Troponin I < 0.02 05/05/19 04:35: Triglycerides 166, Cholesterol 86 L, LDL Cholesterol 35, VLDL Cholesterol 33, HDL Cholesterol 18 L, Cholesterol/HDL Ratio 4.8 H 05/05/19 06:19: POC Glucose 258 H 05/05/19 07:28: Troponin I < 0.02 05/05/19 11:46: POC Glucose 194 H I & O for Last 24 hours: Intake & Output 05/02/19 05/03/19 05/04/19 05/05/19 23:59 23:59 23:59 23:59 Intake Total 1240 / 1240 Output Total 200 / 200 Balance 1040 / 1040 Weight 295 lb 304 lb 5 oz - Constitutional no acute distress, cooperative - *Routine HEENT Exam Head: Present: normocephalic, atraumatic Eye: Present: EOMI, PERRL, normal accommodation ENT: Present: mucous membranes moist - *Routine Neck Exam Present: supple, full ROM. Absent: JVD - *Routine Respiratory Exam Present: CTA bilaterally. Absent: accessory muscle use, rhonchi, wheezes - *Routine Cardiovascular Exam Present: murmur - *Routine Abdominal Exam Present: soft, normoactive bowel sounds. Absent: tenderness, guarding - *Routine Extremities Exam Present: edema, full ROM. Absent: tenderness - Routine Back/Spine/Pelvis Exam Back/Spine: Present: full ROM. Absent: CVA tenderness, pain with flexion - *Routine Skin Exam Present: intact, warm, normal turgor. Absent: jaundice, ecchymosis - *Routine Neurological Exam Present: alert, oriented X3, CN II-XII intact - Routine Psychiatric Exam Present: normal affect. Absent: auditory hallucinations, visual hallucinations Hospital Course Hospital Course: 63-year-old female patient presented to the ED on 05/04/2019 with complaints of midsternal chest pain radiating into bilateral right/left chest. She reports she was going to bed sit down on the side of the bed and experienced chest pain, she does report she was slightly diaphoretic at that time and a little short of breath. After that she presented to the ED was given 1 nitro blood pressure was slightly hypotensive received fluid to resolve. She reports no further chest pain after that episode. Her EKG has been normal and her troponins x 3 have been negative. She was seen this morning, sitting on the side of the bed and denied further chest pain. She does report that she had some short of breath during the night which quickly resolved and no further episodes. She does have an extensive history of CAD a NSTEMI in December 2018 with a cardiac catheterization and receiving a stent in her right coronary artery. Cardiology has seen and the recommendations are started on a PPI and add Ranexa 500 mg twice daily if she does have recurrent chest pain she will proceed directly to cardiac catheterization. Her discharge was discussed with her and she is agreeable to being discharged today to home with follow-up with Dr. Ramesh in 2 weeks and her primary care physician within 2 weeks. 05/04/2019 CXR: IMPRESSION: Cardiomegaly without failure. 9 mm nodular opacity right midlung. Suggest follow-up chest x-ray. If this persists, CT may be needed for further evaluation.. Dictated By: Fady Franco MD 05/05/2019 2-D ECHO: CONCLUSION: 1. Technically difficult study because of the patient's factor and poor acoustic windows 2. Mild biatrial enlargement, normal left ventricular size, mild concentric left ventricular hypertrophy, visually estimated ejection fraction 55% with no regional wall motion abnormality. Doppler evidence of impaired LV relaxation seen 3. Mildly enlarged right ventricle with normal contractility. 4. No significant pericardial effusion noted. Dictated By: Dudley Rowe MD Results Labs on day of discharge: Labs from last 24 hours 05/05/19 05/05/19 05/05/19 11:46 07:28 06:19 WBC RBC Hgb Hct MCV MCH MCHC RDW Plt Count MPV Neut % (Auto) Lymph % (Auto) [place] % (Auto) Eos % (Auto) Baso % (Auto) Neut # (Auto) Lymph # (Auto) [place] # (Auto) Eos # (Auto) Baso # (Auto) Sodium Potassium Chloride Carbon Dioxide Anion Gap BUN Creatinine Estimated Creat Clear Estimated GFR Est GFR ( Amer) Glucose POC Glucose 194 H 258 H Calcium Troponin I < 0.02 Triglycerides Cholesterol LDL Cholesterol VLDL Cholesterol HDL Cholesterol Cholesterol/HDL Ratio 05/05/19 05/05/19 05/05/19 04:35 04:35 00:00 WBC RBC Hgb Hct MCV MCH MCHC RDW Plt Count MPV Neut % (Auto) Lymph % (Auto) [place] % (Auto) Eos % (Auto) Baso % (Auto) Neut # (Auto) Lymph # (Auto) [place] # (Auto) Eos # (Auto) Baso # (Auto) Sodium 136 Potassium 3.3 L Chloride 98 Carbon Dioxide 30 Anion Gap 11.3 BUN 18 Creatinine 1.29 H Estimated Creat Clear 43 Estimated GFR 42 L Est GFR ( Amer) 50 L Glucose 259 H POC Glucose Calcium 8.9 Troponin I < 0.02 < 0.02 Triglycerides 166 Cholesterol 86 L LDL Cholesterol 35 VLDL Cholesterol 33 HDL Cholesterol 18 L Cholesterol/HDL Ratio 4.8 H 05/05/19 00:00 WBC 14.1 H RBC 4.44 Hgb 12.6 Hct 40.8 MCV 92.0 MCH 28.4 MCHC 30.9 L RDW 13.9 Plt Count 521 H MPV 7.6 Neut % (Auto) 78.6 Lymph % (Auto) 15.6 [place] % (Auto) 3.7 Eos % (Auto) 1.6 Baso % (Auto) 0.5 Neut # (Auto) 11.1 H Lymph # (Auto) 2.2 [place] # (Auto) 0.5 Eos # (Auto) 0.2 Baso # (Auto) 0.1 Sodium Potassium Chloride Carbon Dioxide Anion Gap BUN Creatinine Estimated Creat Clear Estimated GFR Est GFR ( Amer) Glucose POC Glucose Calcium Troponin I Triglycerides Cholesterol LDL Cholesterol VLDL Cholesterol HDL Cholesterol Cholesterol/HDL Ratio DS: Diagnosis - Discharge Diagnosis (1) Chest pain Status: Acute (2) CAD (coronary artery disease) Status: Chronic (3) Diabetes mellitus with polyneuropathy Status: Chronic (4) Morbid obesity with BMI of 45.0-49.9, adult Status: Chronic (5) Cough Status: Acute (6) Back pain Status: Chronic (7) HHD (hypertensive heart disease) Status: Chronic (8) HLD (hyperlipidemia) Status: Chronic (9) Obstructive sleep apnea Status: Chronic (10) Pulmonary hypertension Status: Chronic (11) Status post coronary artery stent placement Status: Chronic Discharge Plan - Patient Discharge Instructions ACTIVITY: Continue current activity DIET: continue same diet Patient Instructions: Coronary Artery Disease, Angina, DI for Angina, DI for Coronary Artery Disease - Follow up Plan Follow up with: Meño Ramesh MD [Staff Physician] - 2 weeks Disposition: Home, Self-Longterm Medications: Home Medications Medication Instructions Recorded Confirmed Type aspirin 81 mg tablet,delayed 81 mg PO DAILY tab 11/19/17 05/05/19 History release ergocalciferol (vitamin D2) 50,000 50,000 unit PO DAILY 28 Days cap 11/19/17 05/05/19 History unit capsule gabapentin 600 mg tablet 600 mg PO TID 30 Days tab 11/19/17 05/05/19 History Levothyroxine Sodium 75 mcg PO DAILY 09/23/18 05/05/19 History [Levothyroxine 75mcg (0.075mg) Tab] Clopidogrel Bisulfate [Plavix 75mg 75 mg PO DAILY 05/05/19 05/05/19 History Tab] Furosemide [Furosemide 40MG tAB] 40 mg PO DAILY 05/05/19 05/05/19 History Insulin NPH Hum/Reg Insulin Hm 80 units SQ BID 05/05/19 05/05/19 History [Novolin 70-30 100 Unit/ml Vial] Loratadine [Allergy Relief] 10 mg PO DAILY 05/05/19 05/05/19 History Losartan Potassium 100 mg PO DAILY 05/05/19 05/05/19 History Meclizine HCl [Meclizine 25mg Tab] 25 mg PO QID PRN 05/05/19 05/05/19 History Metoprolol Succinate 25 mg PO HS 05/05/19 05/05/19 History Omeprazole Magnesium [Prilosec Otc 20 mg PO DAILY 30 Days #30 tab 05/05/19 Rx 20mg Tab] Potassium Chloride [Pot Chlor 8 8 meq PO DAILY 05/05/19 05/05/19 History mEq Tab] Ranolazine [Ranexa 500mg ER tablet] 500 mg PO BID 30 Days #60 05/05/19 Rx tab.er.12h Rosuvastatin Calcium 10 mg PO DAILY 05/05/19 05/05/19 History Spironolactone [Spironolactone 25 mg PO DAILY 05/05/19 05/05/19 History 25mg Tablet] Prescriptions/Medication Reconciliation: New Omeprazole Magnesium [Prilosec Otc 20mg Tab] 20 mg PO DAILY 30 Days #30 tab Ranolazine [Ranexa 500mg ER tablet] 500 mg PO BID 30 Days #60 tab.er.12h Continued gabapentin 600 mg tablet 600 mg PO TID 30 Days tab ergocalciferol (vitamin D2) 50,000 unit capsule 50,000 unit PO DAILY 28 Days cap aspirin 81 mg tablet,delayed release 81 mg PO DAILY tab Levothyroxine Sodium [Levothyroxine 75mcg (0.075mg) Tab] 75 mcg PO DAILY Loratadine [Allergy Relief] 10 mg PO DAILY Metoprolol Succinate 25 mg PO HS Spironolactone [Spironolactone 25mg Tablet] 25 mg PO DAILY Potassium Chloride [Pot Chlor 8 mEq Tab] 8 meq PO DAILY Meclizine HCl [Meclizine 25mg Tab] 25 mg PO QID PRN PRN Reason: dizzy Insulin NPH Hum/Reg Insulin Hm [Novolin 70-30 100 Unit/ml Vial] 80 units SQ BID Rosuvastatin Calcium 10 mg PO DAILY Furosemide [Furosemide 40MG tAB] 40 mg PO DAILY Clopidogrel Bisulfate [Plavix 75mg Tab] 75 mg PO DAILY Losartan Potassium 100 mg PO DAILY
== END 2019-05-05 17:04 | disposition home or self-care (01) ==
LOC: 2ND 23:48 → ER 23:48 → 2ND 05-05 02:08
PROVIDERS: ADMIT Emergency Medicine; ATTEND Emergency Medicine
CPT/HCPCS: 36415; 71020; 71046; 80048; 80061; 82962; 84484; 85025; 93005; 93306; 96365; 99284; G0378

== ENCOUNTER → 2019-05-16 12:40 | Outpatient (CLI) | payer OTHER, SELFPAY ==
--- NOTE | 2019-05-16 12:44 | XR_ITS ---
XR chest 2V HISTORY: ITS.REASON: COUGH, FU ABNORMAL CXR ORDERING PHYSICIAN: Meka Waterman PATIENT AGE: 63 years COMPARISON: 05/05/2019 FINDINGS: Mild cardiomegaly without failure. Previously noted nodularity in the right infrahilar region once again noted but may be due to overlapping vessel less apparent on one of the 2 PA views obtained. Lungs are otherwise clear. There are degenerative changes in the thoracic spine. IMPRESSION: Cardiomegaly, no acute finding. Nodular density previously noted in the right infrahilar region probably related to overlapping vessel
== END ==
PROVIDERS: PCP Family Medicine; Visit Provider Family Medicine
DX: R05 Cough (principal)
CPT/HCPCS: 71046

== ENCOUNTER → 2019-05-20 09:08 | Outpatient (CLI) | payer OTHER, SELFPAY ==
[2019-05-20 09:39] LABS: Basophils # 0.1 K/mm3 (0-0.2); Basophils % 0.6 % (0.1-2.0); Eosinophils # 0.3 K/mm3 (0.0-0.4); Eosinophils % 2.8 % (0.1-12.0); Hematocrit 36.9 % (37.0-47.0); Hemoglobin 11.8 g/dL (12.2-16.2); Lymphocytes # 1.6 K/mm3 (0.7-4.5); Lymphocytes % 16.4 % (10-50); Mean Corpuscular Hemoglobin 28.8 pg (27.0-31.2); Mean Corpuscular Volume 90.1 fl (81-99); Mean Platelet Volume 6.4 fl (7.4-10.4); Monocytes # 0.5 K/mm3 (0.1-1.0); Monocytes % 5.5 % (1.7-9.3); Neutrophils # 7.3 K/mm3 (1.8-7.8); Neutrophils % 74.8 % (37.0-80.0); Platelet Count 547 K/mm3 (142-424); Red Cell Distribution Width 14.2 % (11.5-17.5); White Blood Count 9.7 K/mm3 (4.8-10.8)
[2019-05-20 10:54] LABS: Ferritin 172 ng/mL (8-388)
[2019-05-21 08:20] LABS: Iron 56 ug/dL (27-139); UIBC 188 ug/dL (118-369)
[2019-05-22 16:29] LABS: Vitamin D 25 Hydroxy 42.8 ng/mL (30.0-100.0)
[2019-05-22 16:31] LABS: Iron Saturation 23 % (15-55)
[2019-05-22 16:33] LABS: Folate 4.9 ng/mL (>3.0); Vitamin B12 458 pg/mL (232-1245)
== END ==
PROVIDERS: Visit Provider Family Medicine
DX: D64.9 Anemia, unspecified (principal); R53.83 Other fatigue
CPT/HCPCS: 36415; 82607; 82652; 82728; 82746; 83540; 83550; 85025

== ENCOUNTER → 2019-06-06 08:31 | Outpatient (CLI) | payer OTHER, SELFPAY ==
[2019-06-06 08:37] LABS: Microscopic, Urine URINE MICROSCOPIC (MICROSCOPIC)
[2019-06-06 09:07] LABS: Appearance,Urine CLEAR (Clear); Bilirubin,Urine Negative (Negative); Blood, Urine Negative (Negative); Color,Urine YELLOW (Yellow); Glucose,Urine (UA) Negative (Negative); Ketones,Urine Negative (Negative); Leukocyte Esterase,Urine TRACE (Negative); Nitrate,Urine Negative (Negative); Protein,Urine Negative (Negative); Urobilinogen,Urine 0.2 EU/dl (0.2)
[2019-06-06 09:16] LABS: Anion Gap 15.4 mEq/L (5-15); Blood Urea Nitrogen 17 mg/dL (7-18); Calcium 9.1 mg/dL (8.5-10.1); Carbon Dioxide 28 mmol/L (21.0-32.0); Chloride 101 mmol/L (98-107); Creatinine,Serum 1.15 mg/dL (0.55-1.02); Estimated Glomerular Filt Rate 48 ml/min (>60); GFR (African American) 57 ML/MIN (>60); Glucose 220 mg/dL (74-106); Potassium 4.4 mmoL/L (3.5-5.1); Sodium 140 mmol/L (136-145)
[2019-06-06 10:48] LABS: Occult Blood,Stool Negative (Negative)
[2019-06-06 11:00] LABS: Bacteria,Urine Trace /lpf
== END ==
PROVIDERS: PCP Family Medicine; Visit Provider Internal Medicine Cardiovascular Disease
DX: D64.9 Anemia, unspecified (principal); E66.01 Morbid (severe) obesity due to excess calories; E78.5 Hyperlipidemia, unspecified; I11.9 Hypertensive heart disease without heart failure; I25.10 Atherosclerotic heart disease of native coronary artery without angina pectoris; I27.20 Pulmonary hypertension, unspecified; I50.30 Unspecified diastolic (congestive) heart failure; R60.9 Edema, unspecified; Z68.42 Body mass index [BMI] 45.0-49.9, adult; Z95.5 Presence of coronary angioplasty implant and graft
CPT/HCPCS: 36415; 80048; 81001; 82272; G0328

== ENCOUNTER → 2019-06-22 20:11 | Outpatient (CLI) | payer OTHER, SELFPAY | PROVIDERS: PCP Family Medicine; Visit Provider Nurse Practitioner Family | DX: G47.33 Obstructive sleep apnea (adult) (pediatric) (principal); I10 Essential (primary) hypertension; I25.9 Chronic ischemic heart disease, unspecified; I50.9 Heart failure, unspecified | CPT/HCPCS: 95811 ==

== ENCOUNTER → 2019-07-06 15:45 | Outpatient (CLI) | payer MEDICARE, SELFPAY | PROVIDERS: Visit Provider Nurse Practitioner Family | DX: G47.33 Obstructive sleep apnea (adult) (pediatric) (principal) | CPT/HCPCS: 94762 ==

== ENCOUNTER → 2019-09-15 13:14 | Outpatient (CLI) | payer MEDICARE, SELFPAY ==
[2019-09-15 15:30] LABS: Anion Gap 16.4 mEq/L (5-15); Blood Urea Nitrogen 23 mg/dL (7-18); Carbon Dioxide 27 mmol/L (21.0-32.0); Chloride 104 mmol/L (98-107); Creatinine,Serum 1.22 mg/dL (0.55-1.02); Estimated Glomerular Filt Rate 44 ml/min (>60); GFR (African American) 54 ML/MIN (>60); Glucose 111 mg/dL (74-106); Potassium 4.4 mmoL/L (3.5-5.1); Sodium 143 mmol/L (136-145)
== END ==
PROVIDERS: Visit Provider Internal Medicine Cardiovascular Disease
DX: I11.0 Hypertensive heart disease with heart failure (principal); I25.10 Atherosclerotic heart disease of native coronary artery without angina pectoris
CPT/HCPCS: 36415; 80048

== ENCOUNTER 2019-09-29 21:55 | Emergency (ER) | payer MEDICARE, OTHER, SELFPAY ==
[2019-09-29 22:02] VITALS: BP 148/71; PULSE 88; RESP 20; TEMP 36.7; O2SAT 98; BMI 46.6
--- NOTE | 2019-09-29 22:09 | CT_ITS ---
PROCEDURE: CT ABDOMEN PELVIS WO CON CLINICAL HISTORY: abd pain COMPARISON: No exams were available for comparison TECHNIQUE: Axial images obtained with sagittal and coronal reformats. All CT scans at the facility use one or more dose reduction, viz: automated exposure control, ma/kV adjustment per patient size (including targeted exams where dose is matched to indication, i.e. head), or iterative reconstruction technique. FINDINGS: In visualized lower lung [place] are clear. There is a small pericardial effusion primarily along the posterior aspect. Liver is normal. There are clips from cholecystectomy. Pancreas is normal except there is a mottled density likely some debris within a duodenal diverticula at the level of the head of the pancreas. There is no pancreatic or biliary ductal dilatation. Spleen and adrenal glands are normal. Left kidney shows a 1 millimeter upper pole stone, and 2 millimeter stones in the mid and lower pole of the left kidney. There are no right-sided renal stones and no hydroureter or ureteral stone. There is however moderate perirenal stranding bilaterally. There is a left anterior lower abdominal wall/pelvic wall hernia containing fat and loops of small bowel. There is some stranding adjacent to the loop of small bowel. There is no definite bowel wall thickening, free air or dilatation. The fat containing hernia has a transverse diameter of 8.5 centimeters with the abdominal wall defect transverse diameter measuring 3.2 centimeters. There is a punctate urinary bladder air density. Uterus is unremarkable. There is a hypodense 4.3 centimeter right adnexal lesion. There is no acute osseous process. IMPRESSION: Anterior pelvic wall hernia which could be mildly complicated with some edema adjacent to the herniated loops of small bowel. Correlate with site of symptoms. Cholecystectomy. Nonobstructing left nephrolithiasis. There is evidence of bilateral perirenal stranding which could be from dependent edema although correlate to rule out acute diff right S bilaterally. Nonspecific possible cystic lesion right ovary measuring 4.3 centimeters. Because of the patient's age suggest follow-up ultrasound in 6 weeks. Urinary bladder punctate air density could be iatrogenic although correlate to rule out gas producing infection. Dictated by: Chao Fernández 09/30/2019 12:07 Electronically signed by Chao Fernández in [place] 09/30/2019 12:07
[2019-09-29 22:19] LABS: Basophils # 0.1 K/mm3 (0-0.2); Basophils % 0.4 % (0.1-2.0); Eosinophils # 0.2 K/mm3 (0.0-0.4); Hematocrit 40.8 % (37.0-47.0); Lymphocytes # 1.5 K/mm3 (0.7-4.5); Lymphocytes % 9.6 % (10-50); Mean Corpuscular Hemoglobin 29.8 pg (27.0-31.2); Mean Corpuscular Volume 93.3 fl (81-99); Mean Platelet Volume 7.2 fl (7.4-10.4); Monocytes # 0.6 K/mm3 (0.1-1.0); Monocytes % 3.5 % (1.7-9.3); Neutrophils # 13.5 K/mm3 (1.8-7.8); Neutrophils % 85.5 % (37.0-80.0); Platelet Count 415 K/mm3 (142-424); Red Blood Count 4.37 M/mm3 (4.20-5.40); Red Cell Distribution Width 14.8 % (11.5-17.5); White Blood Count 15.8 K/mm3 (4.8-10.8)
[2019-09-29 22:28] LABS: MANUAL DIFFERENTIAL MANUAL DIFFERENTIAL (MANUAL DIFF)
[2019-09-29 22:31] LABS: Amylase 32 U/L (25-115)
[2019-09-29 22:33] LABS: Alanine Aminotransferase 16 U/L (12-78); Albumin Level 3.3 gm/dL (3.4-5.0); Albumin/Globulin Ratio 0.8 (1.1-1.8); Alkaline Phosphatase 101 U/L (46-116); Anion Gap 15.6 mEq/L (5-15); Aspartate Amino Transferase 17 U/L (15-37); Bilirubin,Total 0.2 mg/dL (0.2-1.0); Blood Urea Nitrogen 22 mg/dL (7-18); Carbon Dioxide 29 mmol/L (21.0-32.0); Chloride 101 mmol/L (98-107); Creatinine Clearance Estimated 47 mL/min (50-200); Creatinine,Serum 1.15 mg/dL (0.55-1.02); Estimated Glomerular Filt Rate 47 ml/min (>60); GFR (African American) 57 ML/MIN (>60); Globulin 4.3 gm/dl (1.3-3.2); Glucose 139 mg/dL (74-106); Lipase 146 u/L (73-393); Potassium 4.6 mmoL/L (3.5-5.1); Sodium 141 mmol/L (136-145); Total Protein,Serum 7.6 gm/dL (6.4-8.2)
[2019-09-29 22:39] LABS: Hypersegmented Neutrophils 1+; Lymphocytes % 9 % (10-50); Monocytes % 1 % (2-9); Neutrophils % 89 % (42-76); Platelet Estimate Normal; RBC Morphology Normal; Total Cells Counted 100
[2019-09-29 22:56] LABS: Microscopic, Urine URINE MICROSCOPIC (MICROSCOPIC)
[2019-09-29 22:58] LABS: Appearance,Urine CLEAR (Clear); Bilirubin,Urine Negative (Negative); Blood, Urine Negative (Negative); Color,Urine YELLOW (Yellow); Glucose,Urine (UA) Negative (Negative); Ketones,Urine Negative (Negative); Leukocyte Esterase,Urine Negative (Negative); Nitrate,Urine Negative (Negative); PH,Urine 8.5 (5.0-8.5); Protein,Urine Negative (Negative); Specific Gravity, Urine 1.015 (1.005-1.030)
[2019-09-29 23:09] LABS: Squamous Epithelial Cell,Urine 50-100 #/hpf (0-5)
[2019-09-29 23:42] VITALS: BP 146/78; PULSE 84; RESP 18; O2SAT 96
--- NOTE | 2019-09-30 00:05 | HMH.EDNVD ---
ED Disposition Clinical Impression: Incarcerated ventral hernia Disposition: Home, Self-Care Condition on Discharge: Good Instructions: DI for Acute Abdomen Additional Instructions: see pcp and surg for follow up Referrals: Meka Waterman [Primary Care Provider] - - Critical Care Critical Care Time: No Attestation: On 09/29/19, the high probability of a clinically significant, sudden or life threatening deterioration of the following system(s) required my full and direct attention, intervention and personal management. The time I documented below is in addition to time spent performing reported procedures but includes the following listed in this critical care notation. Medical Decision Making - Medical Records Medical records reviewed: Yes: I reviewed the patient's medical records. - Maulik Inquiry Pt receiving controlled substance: No Vital Signs: 09/29/19 22:02 09/29/19 23:42 Temperature 98.0 F Temperature Source Oral Pulse Rate [Right Brachial] 88 84 Respiratory Rate 20 18 Blood Pressure [Right Arm] 148/71 H 146/78 H Blood Pressure Mean [Right Arm] 96 100 Blood Pressure Source [Right Arm] Automatic Cuff Automatic Cuff Blood Pressure Position [Right Arm] Sitting Sitting 02 Sat by Pulse Oximetry 98 96 Oxygen Delivery Method Room Air Room Air - Lab Data Lab results reviewed: Yes: I reviewed the patient's lab results. Lab Results 09/29/19 22:10: Amylase 32 09/29/19 22:10: WBC 15.8 H, RBC 4.37, Hgb 13.0, Hct 40.8, MCV 93.3, MCH 29.8, MCHC 32.0, RDW 14.8, Plt Count 415, MPV 7.2 L, Neut % (Auto) 85.5 H, Lymph % (Auto) 9.6 L, [place] % (Auto) 3.5, Eos % (Auto) 1.0, Baso % (Auto) 0.4, Neut # (Auto) 13.5 H, Lymph # (Auto) 1.5, [place] # (Auto) 0.6, Eos # (Auto) 0.2, Baso # (Auto) 0.1, Total Counted 100, Neutrophils % (Manual) 89 H, Band Neutrophils % 1.0, Lymphocytes % (Manual) 9 L, Monocytes % (Manual) 1 L, Hypersegmented Neuts 1+, Platelet Estimate Normal, RBC Morphology Normal 09/29/19 22:10: Sodium 141, Potassium 4.6, Chloride 101, Carbon Dioxide 29, Anion Gap 15.6 H, BUN 22 H, Creatinine 1.15 H, Estimated Creat Clear 47, Estimated GFR 47 L, Est GFR ( Amer) 57 L, Glucose 139 H, Calcium 9.0, Total Bilirubin 0.2, AST 17, ALT 16, Alkaline Phosphatase 101, Total Protein 7.6, Albumin 3.3 L, Globulin 4.3 H, Albumin/Globulin Ratio 0.8 L, Lipase 146 09/29/19 22:50: Urine Color Yellow, Urine Appearance Clear, Urine pH 8.5, Ur Specific [place] 1.015, Urine Protein Negative, Urine Glucose (UA) Negative, Urine Ketones Negative, Urine Blood Negative, Urine Nitrate Negative, Urine Bilirubin Negative, Urine Urobilinogen 1.0, Ur Leukocyte Esterase Negative, Urine WBC 3-5, Ur Squamous Epith Cells 50-100 Result diagrams: 09/29/19 22:10 09/29/19 22:10 Orders (Tests/Meds): ED MEDICATIONS Generic Name Dose Route Start Last Admin Trade Name Freq PRN Reason Stop Dose Admin Sodium Chloride 1,000 mls @ 999 mls/hr 09/29/19 22:15 09/29/19 22:35 Sod Chlor 0.9% 1000ml Bag IV 09/29/19 23:15 999 mls/hr .[id number] LORENA Administration Discontinued Medications Generic Name Dose Route Start Last Admin Trade Name Freq PRN Reason Stop Dose Admin Ketorolac Tromethamine 30 mg 09/29/19 22:10 09/29/19 22:34 Toradol 30mg/Ml Vial IV 09/29/19 22:11 30 mg ONCE ONE Administration Ondansetron HCl 4 mg 09/29/19 22:10 09/29/19 22:34 Zofran 4mg/2ml Vial IV 09/29/19 22:11 4 mg ONCE ONE Administration ORDERS Category Date Time Status CT abdomen pelvis wo con Stat Cat Scan 09/29/19 22:09 Taken Lactic Acid Stat Lab 09/30/19 00:30 Received - CT Data CT Scan: Abdomen, Pelvis Time Received: 00:[address] Reviewed: Yes: I have viewed the radiologist's interpretation Preliminary Findings: Abnormal (incarcerated ventral hernia ) - Physician Consults Physician Consulted: gianni Reason -: Pt condition Nausea/Vomiting/Diarrhea HPI - General Chief complaint: Abdominal Pain Stated complaint: Abd p
[2019-09-30 02:20] VITALS: BP 137/86; PULSE 84; RESP 17; TEMP 36.7; O2SAT 97
== END 2019-09-30 02:20 | disposition home or self-care (01) ==
PROVIDERS: Emergency Provider Emergency Medicine; PCP Family Medicine
DX: K43.9 Ventral hernia without obstruction or gangrene (principal); I25.10 Atherosclerotic heart disease of native coronary artery without angina pectoris; J44.9 Chronic obstructive pulmonary disease, unspecified; E78.5 Hyperlipidemia, unspecified; I10 Essential (primary) hypertension; I48.20 Chronic atrial fibrillation, unspecified; Z90.09 Acquired absence of other part of head and neck; Z90.49 Acquired absence of other specified parts of digestive tract; Z95.5 Presence of coronary angioplasty implant and graft; E11.65 Type 2 diabetes mellitus with hyperglycemia; Z79.4 Long term (current) use of insulin; Z79.899 Other long term (current) drug therapy
CPT/HCPCS: 74176; 80053; 81001; 82150; 83605; 83690; 85007; 85025; 96365; 96375; 99283; J2405

== ENCOUNTER → 2019-10-10 15:06 | Outpatient (CLI) | payer MEDICARE, OTHER, SELFPAY ==
[2019-10-10 15:59] LABS: Basophils # 0.1 K/mm3 (0-0.2); Basophils % 0.7 % (0.1-2.0); Eosinophils # 0.3 K/mm3 (0.0-0.4); Eosinophils % 2.1 % (0.1-12.0); Hemoglobin 12.5 g/dL (12.2-16.2); Lymphocytes % 15.9 % (10-50); Mean Corpuscular HGB Conc 30.4 g/dL (31.8-35.4); Mean Corpuscular Hemoglobin 29.4 pg (27.0-31.2); Mean Corpuscular Volume 96.5 fl (81-99); Mean Platelet Volume 7.4 fl (7.4-10.4); Monocytes # 0.5 K/mm3 (0.1-1.0); Neutrophils # 9.9 K/mm3 (1.8-7.8); Neutrophils % 77.4 % (37.0-80.0); Platelet Count 460 K/mm3 (142-424); Red Blood Count 4.25 M/mm3 (4.20-5.40); Red Cell Distribution Width 14.3 % (11.5-17.5); White Blood Count 12.8 K/mm3 (4.8-10.8)
[2019-10-10 16:35] LABS: Anion Gap 16.4 mEq/L (5-15); Blood Urea Nitrogen 23 mg/dL (7-18); Calcium 8.9 mg/dL (8.5-10.1); Carbon Dioxide 28 mmol/L (21.0-32.0); Chloride 101 mmol/L (98-107); Creatinine,Serum 1.39 mg/dL (0.55-1.02); Estimated Glomerular Filt Rate 38 ml/min (>60); GFR (African American) 46 ML/MIN (>60); Glucose 118 mg/dL (74-106); Potassium 4.4 mmoL/L (3.5-5.1); Sodium 141 mmol/L (136-145)
== END ==
PROVIDERS: Visit Provider Physician Assistant
DX: E78.5 Hyperlipidemia, unspecified (principal); I11.9 Hypertensive heart disease without heart failure; I25.10 Atherosclerotic heart disease of native coronary artery without angina pectoris; I27.20 Pulmonary hypertension, unspecified; I50.30 Unspecified diastolic (congestive) heart failure; R53.83 Other fatigue; R60.9 Edema, unspecified; K43.6 Other and unspecified ventral hernia with obstruction, without gangrene
CPT/HCPCS: 36415; 80048; 85025

== ENCOUNTER → 2020-01-03 13:36 | Outpatient (CLI) | payer MEDICARE, OTHER, SELFPAY | PROVIDERS: Visit Provider Nurse Practitioner Family | DX: G47.33 Obstructive sleep apnea (adult) (pediatric) (principal) | CPT/HCPCS: 94762 ==

== ENCOUNTER → 2020-03-19 12:44 | Outpatient (POV) | payer MEDICARE, OTHER, SELFPAY ==
--- NOTE | 2020-03-19 13:24 | HMH.PAINSOAP ---
[facility] Pain Management SOAP Note Subjective:: Patient is a pleasant 64-year-old white female who presents today for follow-up. Patient has low back pain rating it a 9 out of 10. She has difficulty walking and difficulty with activities of daily living. Patient's been to [facility] where she received medial branch blocks and trigger point injections with no relief. Most of her pain is in her low back radiating into her legs. She does not have an MRI. Patient and I discussed ordering an MRI to help determine pathology. ROS General: no recent weight change, no fever, no sleep disturbances Respiratory: no cough, no shortness of air, no recurring pulmonary infections Cardiovascular/Peripheral Vascular: No chest pain, No palpitations, no edema, no shortness of breath. Gastrointestinal: no new onset incontinence, normal bowel movements reported Genitourinary: no new onset incontinence Musculoskeletal: Back pain, leg pain Psychiatric: normal mood/ affect Neurological: [denies new onset weakness in extremities], [denies new onset balance issues] Objective:: Physical Exam General: Alert and oriented x3, no acute distress, pleasant and cooperative, [on room air] Lungs: Resps E/U, Symmetrical chest expansion, Eyes: PERRL Musculoskeletal: Flexion and extension of lumbar spine somewhat guarded secondary to pain, deep tendon reflexes normal, strength in upper and lower extremities [5/5], [abnormal gait noted] Neurological: speech clear, manager wind equal, no gross sensory deficits Assessment:: Degenerative disc disease lumbar spine lumbar radiculopathy, back pain Plan:: We will schedule the patient for a lumbar MRI to help determine pathology. I will follow-up with her afterwards reassess her symptoms at that time she has been instructed to call the office if she has any issues prior to her next appointment. Dr. Kinsey has reviewed this note and agrees with this plan of care. This note was dictated using voice recognition software and may contain errors or omissions [facility] History I have reviewed the patient's past medical history: Yes Medical History: Reports:: Atherosclerotic Heart Disease, Atrial Fibrillation, Chronic Obstructive Pulmonary Disease (COPD), Coronary Artery Disease, Diabetes Mellitus Type 2, Hyperlipidemia, Hypertension, Osteoporosis Denies:: Asthma, Cancer, Congestive Heart Failure, Diabetes Mellitus Type 1, MRSA, Renal Disease, Renal Insufficiency *Have you ever received a pneumonia vaccine?: Yes *Have you received a flu vaccine this season?: Yes Other Medical History: Reports: Arthritis, Hypothyroidism, Osteoporosis, Other (Polymyalgia rheumatica) Laterality Cases: Right: Arthroscopy Knee, Bilateral: Tonsillectomy Other Surgeries: Yes: Cardiac Catheterization, Cardiac Surgery, Cholecystectomy, Coronary Stent, Amputation: No Fractures: No - *Social History Smoking Status: Never smoker Alcohol Intake: never Alcohol Intake Frequency:: other Substance Use Type: denies use *Occupational Status:: other Housing: house Household Members: spouse *Travel in the last 8 weeks: None Family Hx:: Cancer, Coronary Artery Disease, Heart Attack
[2020-03-19 13:42] VITALS: BP 116/57; PULSE 98; RESP 18; TEMP 36.8; O2SAT 99; BMI 42.5
== END ==
PROVIDERS: PCP Family Medicine; Visit Provider Clinical Nurse Specialist Family Health
DX: M51.16 Intervertebral disc disorders with radiculopathy, lumbar region (principal)
CPT/HCPCS: 99212

== ENCOUNTER → 2020-03-26 07:56 | Outpatient (CLI) | payer MEDICARE, OTHER, SELFPAY ==
--- NOTE | 2020-03-26 08:02 | MR_ITS ---
PROCEDURE: MR LUMBAR SPINE WO CON CLINICAL INDICATION: BACK PAIN COMPARISON: [id number] XR lumbar spine min 4V from 12/07/2018 TECHNIQUE: Standard multiplanar multiecho sequences are performed without contrast. 3-D MIP and myelographic images are also rendered and reviewed FINDINGS: There is good alignment of bony structures. There is uniform fat marrow signal hyperintensity. The spinal cord and conus medullaris is unremarkable. At the T11-T12 disc space there is no significant spinal stenosis. At the T12-L1 disc space there is no significant spinal stenosis. At the L1-2 disc space there is no significant spinal stenosis. At the L2-3 disc space there is mild facet arthropathy without significant spinal stenosis. At the L3-4 disc space there is mild facet arthropathy without significant spinal stenosis. At the L4-5 disc space there is mild facet arthropathy without significant spinal stenosis. At the L5-S1 disc space there is mild facet arthropathy without significant spinal stenosis The sacrum and bilateral paravertebral structures are unremarkable. IMPRESSION: No significant spinal stenosis. Dictated by: Singh Cruz 03/26/2020 17:14 Electronically signed by Singh Cruz in [place] 03/26/2020 17:14
== END ==
PROVIDERS: PCP Family Medicine; Visit Provider Clinical Nurse Specialist Family Health
DX: M54.5 Low back pain (principal)
CPT/HCPCS: 72148; 76376

== ENCOUNTER → 2020-03-29 11:15 | Outpatient (POV) | payer MEDICARE, OTHER, SELFPAY ==
[2020-03-29 11:21] VITALS: BP 97/51; PULSE 68; RESP 18; O2SAT 99; BMI 42.5
--- NOTE | 2020-03-29 11:50 | HMH.PAINSOAP ---
[facility] Pain Management SOAP Note Subjective:: Patient is a pleasant 64-year-old white female who presents today for medication refills. She has been treated for low back pain with lumbar radiculopathy symptoms. Patient rates her pain a 5 out of 10 today. She has undergone multiple injective therapies at different pain management clinics. Patient did try to get approval with injective therapy within our clinic, however, due to insurance, issues she did follow-up at another clinic. She was also unable to get an MRI approved at the other pain management clinic and has since returned to our clinic. We did get approval for an MRI and she would like to review her MRI results today. The patient complains of mostly low back pain with radiation into her right leg. She says her right leg is heavy with weakness. She also has intermittent heaviness and weakness in her left leg. Patient says that she is having difficulty walking due to being worried that her legs are going to give out . She has had medial branch blocks and RFA's which did not give her any relief. She is continuing with water aerobics. She has tried physical therapy and continues with a home stretching program. She is also using ice and heat therapies. Patient is on Plavix that is prescribed per Dr. Ramesh's office. Patient says that she is willing to try injective therapy to try to get some relief. Patient says she was expecting to see spinal stenosis on her MRI, however, she says she has already reviewed her MRI and would like to discuss possible options. Review of Systems General: No recent weight changes, no fever, no sleep disturbances Respiratory: No cough, no shortness of air, no recurring pulmonary infections Cardiovascular/peripheral vascular: No chest pain, no palpitations, no edema, no shortness of breath Gastrointestinal: No new onset incontinence, normal bowel movements reported Genitourinary: No new onset incontinence Musculoskeletal: Low back pain, right leg pain Psychiatric: Normal mood/affect Neurological: [Denies weakness in extremities], [denies balance issues] Objective:: Physical exam General: Alert and oriented x3, no acute distress, pleasant and cooperative, [on room air] Lungs: Respirations even and unlabored, symmetrical chest expansion Eyes: PERRL Musculoskeletal: Flexion and extension of lumbar spine somewhat guarded secondary to pain, deep tendon reflexes normal, strength in upper and lower extremities [5/5], [abnormal gait noted] Neurological: Speech clear, mammography technologist equal, no gross sensory deficit Assessment:: Degenerative disc disease lumbar spine with lumbar radiculopathy symptoms, facet arthropathy Plan:: We will plan for a lumbar epidural steroid injection at L4-L5 with an epidurogram. Patient I did discuss her results of her MRI today. Patient would like to proceed with the injection. She is on anticoagulation therapy. We will seek approval per Dr. Ramesh's office to hold her Plavix for her procedure. She will continue with water aerobics and a home stretching program as well as ice and heat therapies. Patient does not take anti-inflammatories because she is on Plavix. She is also managed with gabapentin by her primary care provider. The patient and I specifically discussed risk factors for COVID19. These risks include, but are not limited to age greater than 60, heart or lung disease, diabetes, immunosuppression, and travel. We also discussed NSAIDs may worsen COVID19 infection or symptoms. Patient should not use NSAIDs to treat COVID19 signs or symptoms. Patient was also informed that any type of corticosteroid of any form (oral or injection) will decrease the patient's immune system response and may increase the likelihood of COVID19 infection and symptoms. Given the risks and benefits of the injection, the patient would still like to proceed with the injection. She has been instructed to contact the office if she has an
== END ==
PROVIDERS: PCP Family Medicine; Visit Provider Clinical Nurse Specialist Family Health
DX: M51.16 Intervertebral disc disorders with radiculopathy, lumbar region (principal); M12.88 Other specific arthropathies, not elsewhere classified, other specified site
CPT/HCPCS: 99212

== ENCOUNTER 2020-04-13 09:51 | Day surgery (SDC) | payer MEDICARE, OTHER, SELFPAY ==
[2020-04-13 10:25] VITALS: BP 144/58; PULSE 72; RESP 18; TEMP 36.7; O2SAT 97; BMI 42.3
[2020-04-13 10:44] LABS: POC Glucose,Bedside 226 (70-110)
--- NOTE | 2020-04-13 10:57 | HMH.PMPROC ---
- Procedure Date: 04/13/20 Time: 10:57 Anesthesiologist:: Fei Kinsey MD Complications:: None Pre-procedure Diagnosis:: Degenerative disc disease of lumbar spine with lumbar spondylosis and lumbar radiculopathy symptoms with spinal stenosis and neurogenic claudication symptoms Post-procedure Diagnosis:: Same Indications for Procedure:: Patient is a pleasant 64-year-old white female who we are treating for low back pain with lumbar radicular symptoms with spinal stenosis and neurogenic claudication symptoms. She has increasing pain while walking and standing. Her right leg is heavy with weakness. She does have intermittent heaviness of her left leg while walking. We will do lumbar epidural steroid injection to help her with her pain symptoms and epidurogram to assess stenosis today. Procedure Details:: Lumbar epidural Informed consent was obtained and the risk and benefits of the procedure was explained to the patient. The patient was taken to the procedure room. The patient was placed prone on the procedure table. The patient was prepped and draped in sterile fashion. C-arm fluoroscopy was used to view the lumbar spine. Skin and subcutaneous tissues were anesthetized using lidocaine. I placed an 18-gauge epidural needle and advanced into the L4-L5 interspace using fluoroscopic guidance and [id number] to air. After confirmation of needle placement in the epidural space with dye I injected 2 mL of lidocaine 1.5% with Depo-Medrol 80 mg. Patient tolerated the procedure well with no complications. Plan and Disposition:: Based on epidurogram she does have severe stenosis at L3-L4 and L4-L5. We will seek approval for minimally invasive lumbar decompression of L3-4 and L4-5 bilaterally.
[2020-04-13 10:58] VITALS: BP 144/58; PULSE 85; RESP 18
[2020-04-13 11:00] VITALS: BP 132/85; PULSE 79; RESP 18; O2SAT 98
[2020-04-13 11:15] VITALS: BP 166/72; PULSE 78; RESP 20; O2SAT 97
== END 2020-04-13 11:15 | disposition home or self-care (01) ==
LOC: SC.PAINP 09:52
PROVIDERS: PCP Family Medicine; Visit Provider Anesthesiology
DX: M51.16 Intervertebral disc disorders with radiculopathy, lumbar region (principal); M48.062 Spinal stenosis, lumbar region with neurogenic claudication; M47.816 Spondylosis without myelopathy or radiculopathy, lumbar region; I10 Essential (primary) hypertension; E78.5 Hyperlipidemia, unspecified; Z95.818 Presence of other cardiac implants and grafts; D89.89 Other specified disorders involving the immune mechanism, not elsewhere classified; Z87.39 Personal history of other diseases of the musculoskeletal system and connective tissue; Z90.89 Acquired absence of other organs; Z90.49 Acquired absence of other specified parts of digestive tract; Z79.82 Long term (current) use of aspirin; Z79.899 Other long term (current) drug therapy
CPT/HCPCS: 62323; 82962; J1040; Q9966

== ENCOUNTER → 2020-04-19 08:08 | Outpatient (CLI) | payer MEDICARE, OTHER, SELFPAY ==
[2020-04-19 08:31] LABS: Basophils # 0.1 K/mm3 (0-0.2); Basophils % 0.6 % (0.1-2.0); Eosinophils # 0.2 K/mm3 (0.0-0.4); Eosinophils % 1.2 % (0.1-12.0); Hematocrit 40.1 % (37.0-47.0); Hemoglobin 12.7 g/dL (12.2-16.2); Lymphocytes # 2.3 K/mm3 (0.7-4.5); Lymphocytes % 16.2 % (10-50); Mean Corpuscular HGB Conc 31.7 g/dL (31.8-35.4); Mean Corpuscular Volume 97.7 fl (81-99); Mean Platelet Volume 7.6 fl (7.4-10.4); Monocytes # 0.5 K/mm3 (0.1-1.0); Monocytes % 3.6 % (1.7-9.3); Neutrophils # 11.3 K/mm3 (1.8-7.8); Neutrophils % 78.4 % (37.0-80.0); Platelet Count 370 K/mm3 (142-424); White Blood Count 14.4 K/mm3 (4.8-10.8)
[2020-04-19 09:09] LABS: Anion Gap 11.6 mEq/L (5-15); Blood Urea Nitrogen 43 mg/dl (7-17); Calcium 8.7 mg/dl (8.4-10.2); Carbon Dioxide 29 mmol/L (22.0-30.0); Chloride 101 mmol/L (98-107); Estimated Glomerular Filt Rate 41 ml/min (>60); GFR (African American) 50 ML/MIN (>60); Glucose 264 mg/dl (74-100); Potassium 4.6 mmoL/L (3.5-5.1); Sodium 137 mmol/L (136-145)
[2020-04-19 09:23] LABS: Coronavirus 19 IgG Antibody Negative (Negative); Coronavirus 19 IgM Antibody Negative (Negative)
== END ==
PROVIDERS: Visit Provider Anesthesiology
DX: Z01.818 Encounter for other preprocedural examination (principal); M48.00 Spinal stenosis, site unspecified
CPT/HCPCS: 36415; 80048; 85025; 86328

== ENCOUNTER 2020-04-20 08:13 | Day surgery (SDC) | payer MEDICARE, OTHER, SELFPAY ==
[2020-04-20 08:29] VITALS: BMI 42.5
[2020-04-20 08:30] VITALS: BP 132/48; PULSE 65; RESP 18; TEMP 36.3; O2SAT 95
[2020-04-20 08:51] LABS: POC Glucose,Bedside 167 (70-110)
--- NOTE | 2020-04-20 09:04 | HMH.ANESCL ---
[facility] Anesthesia Checklist - Patient Identification Patient Identification: Arm Band - Structural Data Admitted From: Home Planned Operative Procedure/s: MILD Procedure under fluoroscopy Consent for Planned Operative Procedure(s) Verified: Yes Verified Documents: Surgical Consent, History and Physical - NPO Status Verified Time NPO: 00:00 - Additional verifications Anesthesia Reactions: No Hx Blood Transfusions: No - Airway Assessment C-Spine Mobility Assessed: Yes (mp2) TMJ Mobility Assessed: Yes Dentition: Good Dentition - Neurological Assessment Level of Consciousness: Awake, Alert - Anesthesia Plan Anesthesia Risk discussed: Yes Anesthesia Plan: Verified ASA Class: III Anesthesia Type: MAC [facility] History I have reviewed the patient's past medical history: Yes Medical History: Reports:: Atherosclerotic Heart Disease, Atrial Fibrillation, Chronic Obstructive Pulmonary Disease (COPD), Coronary Artery Disease, Diabetes Mellitus Type 2, Hyperlipidemia, Hypertension, Osteoporosis Denies:: Asthma, Cancer, Congestive Heart Failure, Diabetes Mellitus Type 1, MRSA, Renal Disease, Renal Insufficiency, Seizures *Have you ever received a pneumonia vaccine?: Yes *Have you received a flu vaccine this season?: Yes Other Medical History: Reports: Arthritis, Hypothyroidism, Osteoporosis, Other (Polymyalgia rheumatica) Anesthesia experience/problems:: nac Laterality Cases: Right: Arthroscopy Knee, Bilateral: Tonsillectomy Other Surgeries: Yes: Cardiac Catheterization, Cardiac Surgery, Cholecystectomy, Coronary Stent, Amputation: No Fractures: No - *Social History Last grade of school completed: High school graduate Smoking Status: Never smoker Alcohol Intake: never Alcohol Intake Frequency:: other Substance Use Type: denies use *Occupational Status:: retired Housing: house Household Members: spouse *Travel in the last 8 weeks: None Family Hx:: Cancer, Coronary Artery Disease, Heart Attack
--- NOTE | 2020-04-20 09:19 | P.OP_ITS ---
Date of procedure: 04/20/20 Pre-op Diagnosis:: Degenerative disc disease of lumbar spine with lumbar spondylosis and lumbar radiculopathy symptoms with spinal stenosis and neurogenic claudication symptoms Post-op Diagnosis:: Same Procedure performed:: Minimally invasive lumbar decompression of L3-L4 and L4-L5 bilaterally Surgeon:: Fei Kinsey MD GEOGRAPHIC INFORMATION SYSTEM ANALYST:: Yunier Peterson Anesthesia: MAC Estimated blood loss (mL): 5 Clinical Note:: This patient is a pleasant 64-year-old white female who we have been treating for low back pain with lumbar radicular symptoms with spinal stenosis and neurogenic claudication symptoms. She is failed all previous conservative therapy including physical therapy, injections and she is not a surgical candidate. She has significant pain while standing or walking. Her right leg is heavy with some weakness. She has significant stenosis on MRI and on epidurogram at L3-L4 and L4-L5. We will plan on bilateral minimally invasive lumbar decompression of L3-L4 L4-5 today. Operative findings:: None Operative note:: Informed consent was obtained and the risk and benefits of the procedure was explained to the patient. The patient was taken to the operating room and placed prone on the procedure table. The patient was prepped and draped in sterile fashion. C-arm fluoroscopy was used to view the lumbar spine. The skin and subcutaneous tissues were anesthetized using lidocaine. A epidural needle was inserted and advanced into the L3-L4 interspace. After confirmation of needle placement in the epidural space, dye was injected in a contralateral oblique view. There was an epidurogram seen at L3-L4 and L4-L5. Significant stenosis was seen at L3-L4 and L4-L5. The skin and subcutaneous tissues again were anesthetized using lidocaine. An incision was made and a access trocar was inserted and advanced to contact at the superior aspect of the L4 lamina on the left side. And a contralateral oblique view the side was viewed. Using a bone rongeur and tissue sculptor we debulked bone from the L3-L4 and L4-L5 interspace on the left side. We then used the tissue sculptor to debulk ligament at the L3-L4 and L4-L5 interspace on the left side. We then moved over to the right side and debulked bone and ligament from L3-L4 and L4-L5 on the right side. There is opening of the stenosis at L3-L4 and L4-L5 bilaterally. The access trocar was removed. A total of 3 mL's of dye was used. There is good spread of dye above and below this level as well. We injected 80 mg Depo-Medrol through the epidural needle. The epidural needle was removed and dressings were placed. This encounter for exam is for normal comparison and control in a clinical research program Patient was taken to recovery in stable condition. Patient was discharged home neurologically intact and with good relief of pain symptoms. Plan and disposition: We will follow-up with this patient in 2 weeks. Will reevaluate symptoms at that time. Condition: stable Disposition: PACU Complications:: None
[2020-04-20 10:45] VITALS: BP 105/55; PULSE 87; RESP 18; TEMP 36.8; O2SAT 95
[2020-04-20 11:00] VITALS: BP 113/54; PULSE 76; RESP 18; O2SAT 96
[2020-04-20 11:15] VITALS: BP 107/59; PULSE 69; RESP 18; O2SAT 96
[2020-04-20 11:30] VITALS: BP 109/50; PULSE 61; RESP 18; O2SAT 95
[2020-04-20 11:50] VITALS: BP 102/51; PULSE 61; RESP 18; O2SAT 96
--- NOTE | 2020-04-20 12:37 | PC.NURSE ---
erythromycin ointment applied to eye per MD order. Eye covering applied to protect eye. Pt instructed to use for 24 hrs. Instructed pt to notify her eye dr if symptoms did not improve.
== END 2020-04-20 11:50 | disposition home or self-care (01) ==
LOC: OR 08:15
PROVIDERS: PCP Family Medicine; Visit Provider Anesthesiology
DX: M48.062 Spinal stenosis, lumbar region with neurogenic claudication (principal); Z00.6 Encounter for examination for normal comparison and control in clinical research program; M51.16 Intervertebral disc disorders with radiculopathy, lumbar region; M47.896 Other spondylosis, lumbar region; I25.10 Atherosclerotic heart disease of native coronary artery without angina pectoris; I48.91 Unspecified atrial fibrillation; J44.9 Chronic obstructive pulmonary disease, unspecified; E11.9 Type 2 diabetes mellitus without complications; E78.5 Hyperlipidemia, unspecified; I10 Essential (primary) hypertension; M81.0 Age-related osteoporosis without current pathological fracture; E03.9 Hypothyroidism, unspecified
CPT/HCPCS: 0275T; 82962; 96374; C1889; J1040; J3370; Q9967

== ENCOUNTER → 2020-05-07 11:44 | Outpatient (POV) | payer MEDICARE, OTHER, SELFPAY ==
[2020-05-07 11:55] VITALS: BP 132/88; PULSE 79; RESP 18; O2SAT 98; BMI 43.8
--- NOTE | 2020-05-07 13:10 | P.CONS_ITS ---
[facility] Pain Management SOAP Note Subjective:: Patient is a pleasant 64-year-old white female who presents today for follow-up after minimally invasive lumbar decompression. Patient rates her pain today a 5 out of 10 she is standing better however she still having difficulty with her walking. She seems to have some inflammation in her lower back. Patient has pain when she is sitting and when she is standing. Patient has had epidurals in the past with good relief. We will set her up for a lumbar epidural steroid injection. She is on anticoagulation therapy but she does have permission to come off prior to injective therapy. ROS General: no recent weight change, no fever, no sleep disturbances Respiratory: no cough, no shortness of air, no recurring pulmonary infections Cardiovascular/Peripheral Vascular: No chest pain, No palpitations, no edema, no shortness of breath. Gastrointestinal: no new onset incontinence, normal bowel movements reported Genitourinary: no new onset incontinence Musculoskeletal: Back pain, leg pain Psychiatric: normal mood/ affect Neurological: [denies new onset weakness in extremities], [denies new onset balance issues] Objective:: Physical Exam General: Alert and oriented x3, no acute distress, pleasant and cooperative, [on room air] Lungs: Resps E/U, Symmetrical chest expansion, Eyes: PERRL Musculoskeletal: Flexion and extension of lumbar spine somewhat guarded secondary to pain, deep tendon reflexes normal, strength in upper and lower extremities [5/5], [abnormal gait noted] Neurological: speech clear, wire wrapper machine operator equal, no gross sensory deficits Assessment:: Generative disc disease lumbar spine lumbar radiculopathy spinal stenosis neurogenic claudication Plan:: We will schedule L4-L5 lumbar epidural steroid injection for the patient. I believe given her symptomology it will be beneficial for her. I will follow-up with her afterwards reassess her symptoms at that time she has been instructed to call the office if she has any issues prior to her next appointment. Dr. Kinsey has reviewed this note and agrees with this plan of care. This note was dictated using voice recognition software and may contain errors or omissions [facility] History I have reviewed the patient's past medical history: Yes Medical History: Reports:: Atherosclerotic Heart Disease, Atrial Fibrillation, Chronic Obstructive Pulmonary Disease (COPD), Coronary Artery Disease, Diabetes Mellitus Type 2, Hyperlipidemia, Hypertension, Osteoporosis Denies:: Asthma, Cancer, Congestive Heart Failure, Diabetes Mellitus Type 1, MRSA, Renal Disease, Renal Insufficiency, Seizures *Have you ever received a pneumonia vaccine?: Yes *Have you received a flu vaccine this season?: Yes Other Medical History: Reports: Arthritis, Hypothyroidism, Osteoporosis, Other (Polymyalgia rheumatica) Laterality Cases: Right: Arthroscopy Knee, Bilateral: Tonsillectomy Other Surgeries: Yes: Cardiac Catheterization, Cardiac Surgery, Cholecystectomy, Coronary Stent, Amputation: No Fractures: No - *Social History Smoking Status: Never smoker Alcohol Intake: never Alcohol Intake Frequency:: other Substance Use Type: denies use *Occupational Status:: other Housing: house Household Members: spouse *Travel in the last 8 weeks: None Family Hx:: Cancer, Coronary Artery Disease, Heart Attack
== END ==
PROVIDERS: PCP Family Medicine; Visit Provider Clinical Nurse Specialist Family Health
DX: M51.16 Intervertebral disc disorders with radiculopathy, lumbar region (principal); M48.062 Spinal stenosis, lumbar region with neurogenic claudication
CPT/HCPCS: 99212

== ENCOUNTER 2020-05-11 07:49 | Day surgery (SDC) | payer MEDICARE, OTHER, SELFPAY ==
[2020-05-11] VITALS (11 sets, daily range): BP systolic 98–120; BP diastolic 49–81; PULSE 59–73; RESP 16–20; TEMP 36.6; O2SAT 93–97; BMI 45.1
--- NOTE | 2020-05-11 | IR_ITS ---
APPROVED REPORT Patient Location: Outpatient Messenger Copy: LILY Rueda RT (R) PROCEDURES Right heart catheterization Left heart catheterization Left ventriculogram Selective coronary angiogram INDICATION Pulmonary hypertension, Known coronary artery disease, Typical angina pectoris with acceleration to class III-IV Informed consent was obtained prior to the procedure. COMPLICATIONS none Estimated Blood Loss: less than 10 mls TECHNIQUE One percent lidocaine was used to anesthetize the right anterior aspect of the right wrist. The right radial artery was accessed via the Seldinger technique and a 6 Faroese hydrophilic sheath was placed in the right radial artery. Following this one percent lidocaine was used to anesthetize the right anterior aspect of the right neck. The right internal jugular vein was accessed via the Seldinger technique and a 7 Faroese sheath was placed in the right internal jugular vein. Following this an arterial cocktail was administered using 5000U heparin, 2.5 mg verapamil, 1mg Lidocaine and 800mcg nitroglycerin into the right radial sheath. A trap catheter was used to perform left heart catheterization left ventriculogram and selective coronary angiography while a [place] catheter was used to perform right heart catheterization. Saturations were obtained in the pulmonary artery and right atrium. At the end of the procedure the arterial sheath was removed good hemostasis was achieved using Traclet band. Patient was transferred to the postop holding area in stable condition for venous sheath removal. ANGIOGRAPHIC RESULTS The left main artery Normal The left anterior descending artery Has a smooth eccentric 10 to 20% stenosis immediately proximal to the first diagonal artery. The remaining LAD and diagonal artery is free of atherosclerosis. 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 Distally there is a 20% stenosis along a tortuous bend The DELEON ventriculogram reveals Normal 65% The left ventricular end-diastolic pressure 10 mmHg Right atrial pressure 5 mmHg Pulmonary pressure 25/10 mmHg Pulmonary occlusion pressure 10 mmHg Right atrial saturation 72% Pulmonary artery saturation 73% IMPRESSION Coronary artery disease as described above Normal ejection fraction Essentially normal intra-cardiopulmonary filling pressures PLAN 1. Medical management 2. Consider empiric treatment for endothelial dysfunction 3. The myocardial bridge is clinically insignificant. Electronically signed by : Meño Ramesh, 05/11/2020 10:54:54
[2020-05-11 08:46] LABS: Basophils # 0.1 K/mm3 (0-0.2); Basophils % 0.5 % (0.1-2.0); Eosinophils # 0.5 K/mm3 (0.0-0.4); Eosinophils % 4.3 % (0.1-12.0); Hematocrit 38.5 % (37.0-47.0); Hemoglobin 12.9 g/dL (12.2-16.2); Lymphocytes # 1.8 K/mm3 (0.7-4.5); Lymphocytes % 16.5 % (10-50); Mean Corpuscular HGB Conc 33.4 g/dL (31.8-35.4); Mean Corpuscular Hemoglobin 31.6 pg (27.0-31.2); Mean Corpuscular Volume 94.6 fl (81-99); Mean Platelet Volume 7.4 fl (7.4-10.4); Monocytes # 0.4 K/mm3 (0.1-1.0); Monocytes % 3.9 % (1.7-9.3); Neutrophils # 8.3 K/mm3 (1.8-7.8); Neutrophils % 74.7 % (37.0-80.0); Platelet Count 328 K/mm3 (142-424); Red Blood Count 4.07 M/mm3 (4.20-5.40); Red Cell Distribution Width 13.7 % (11.5-17.5); White Blood Count 11.1 K/mm3 (4.8-10.8)
[2020-05-11 08:48] LABS: Chloride 100 mmol/L (98-107)
[2020-05-11 08:49] LABS: Potassium 4.7 mmoL/L (3.5-5.1); Sodium 137 mmol/L (136-145)
[2020-05-11 08:52] LABS: Anion Gap 15.7 mEq/L (5-15); Blood Urea Nitrogen 42 mg/dl (7-17); Calcium 9.1 mg/dl (8.4-10.2); Carbon Dioxide 26 mmol/L (22.0-30.0); Creatinine Clearance Estimated 34 mL/min (50-200); Estimated Glomerular Filt Rate 32 ml/min (>60); GFR (African American) 39 ML/MIN (>60); Glucose 156 mg/dl (74-100)
[2020-05-11 14:26] LABS: CATHL Arterial O2 SAT 73.4 % (90-100); CATHL Venous O2 SAT 72.2 % (75-80)
== END 2020-05-11 13:37 | disposition home or self-care (01) ==
PROVIDERS: PCP Family Medicine; Visit Provider Internal Medicine
DX: I27.20 Pulmonary hypertension, unspecified (principal); I25.118 Atherosclerotic heart disease of native coronary artery with other forms of angina pectoris; E11.9 Type 2 diabetes mellitus without complications; Z79.4 Long term (current) use of insulin; E78.5 Hyperlipidemia, unspecified; E03.9 Hypothyroidism, unspecified; I11.0 Hypertensive heart disease with heart failure; I50.31 Acute diastolic (congestive) heart failure; Z79.899 Other long term (current) drug therapy
CPT/HCPCS: 80048; 82810; 85025; 93460; 99152; C1725; C1760; C1769; C1894; J1644; Q9967

== ENCOUNTER 2020-05-25 12:29 | Day surgery (SDC) | payer MEDICARE, OTHER, SELFPAY ==
[2020-05-25 13:04] VITALS: BP 178/61; PULSE 77; RESP 18; TEMP 36.5; O2SAT 96; BMI 42.3
[2020-05-25 13:22] VITALS: BP 142/78; PULSE 78; RESP 18
[2020-05-25 13:23] VITALS: BP 138/78; PULSE 74; RESP 18; O2SAT 99
--- NOTE | 2020-05-25 13:26 | P.PCN_ITS ---
- Procedure Date: 05/25/20 Time: 13:26 Anesthesiologist:: Fei Kinsey MD Complications:: None Pre-procedure Diagnosis:: Degenerative disc disease of lumbar spine with lumbar radiculopathy symptoms Post-procedure Diagnosis:: Same Indications for Procedure:: Patient is a pleasant 64-year-old white female who we are treating for low back pain with lumbar radiculopathy symptoms she has increasing pain in her low back and now down her left leg. She is status post minimally invasive lumbar decompression which did help some however she still has some increasing pain while standing and walking. We will do a lumbar epidural steroid injection today to help her with her pain symptoms. She has been off her Plavix for 7 days. Procedure Details:: Lumbar epidural steroid injection under fluoroscopy Informed consent was obtained and the risk and benefits of the procedure was explained to the patient. The patient was taken to the procedure room. The patient was placed prone on the procedure table. The patient was prepped and draped in sterile fashion. C-arm fluoroscopy was used to view the lumbar spine. Skin and subcutaneous tissues were anesthetized using lidocaine. I placed an 18-gauge epidural needle and advanced into the L4-L5 interspace using fluoroscopic guidance and [id number] to air. After confirmation of needle placement in the epidural space with dye I injected 2 mL of lidocaine 1.5% with Depo-Medrol 80 mg. Patient tolerated the procedure well with no complications. Plan and Disposition:: We will follow-up with her in 2 weeks. Will reevaluate her symptoms at that time. She can resume her Plavix tomorrow. This patient may be a candidate for spinal cord stimulation therapy to get some long-term relief of her symptoms. We will go ahead and seek approval for spinal cord stimulator trial to help with her low back pain and leg pain. She will need to be off of her Plavix for 10 to 14 days for the trial. This will be a [employer] spinal cord stimulator trial.
[2020-05-25 13:29] LABS: POC Glucose,Bedside 109 (70-110)
[2020-05-25 13:35] VITALS: BP 128/59; PULSE 81; RESP 20; O2SAT 96
== END 2020-05-25 13:35 | disposition home or self-care (01) ==
LOC: SC.PAINP 12:29
PROVIDERS: PCP Family Medicine; Visit Provider Anesthesiology
DX: M51.16 Intervertebral disc disorders with radiculopathy, lumbar region (principal); E11.8 Type 2 diabetes mellitus with unspecified complications; I10 Essential (primary) hypertension; E78.5 Hyperlipidemia, unspecified; E66.9 Obesity, unspecified; I25.10 Atherosclerotic heart disease of native coronary artery without angina pectoris; Z72.0 Tobacco use; Z95.818 Presence of other cardiac implants and grafts; Z99.81 Dependence on supplemental oxygen; D89.89 Other specified disorders involving the immune mechanism, not elsewhere classified; Z90.89 Acquired absence of other organs; Z87.39 Personal history of other diseases of the musculoskeletal system and connective tissue
CPT/HCPCS: 62323; 82962; J1040; Q9966

== ENCOUNTER 2020-06-08 11:38 | Inpatient (IN) | payer MEDICARE, OTHER, SELFPAY ==
[2020-06-08] VITALS (8 sets, daily range): BP systolic 99–122; BP diastolic 48–71; PULSE 79–94; RESP 18–24; TEMP 36.9–37.2; O2SAT 92–100; BMI 42.3; BMI 44.3
--- NOTE | 2020-06-08 11:47 | HMH.EDGENADL ---
ED Disposition Clinical Impression: Acute kidney injury Community acquired pneumonia Qualifiers: Laterality: right Lung location: lower lobe of lung Qualified Code(s): J18.9 - Pneumonia, unspecified organism Disposition: Admitted As Inpatient Condition on Discharge: Good Referrals: Meka Waterman [Primary Care Provider] - - Critical Care Critical Care Time: No Attestation: On , the high probability of a clinically significant, sudden or life threatening deterioration of the following system(s) required my full and direct attention, intervention and personal management. The time I documented below is in addition to time spent performing reported procedures but includes the following listed in this critical care notation. Medical Decision Making - Medical Records Medical records reviewed: Yes: I reviewed the patient's medical records. - Maulik Inquiry Pt receiving controlled substance: No Vital Signs: 06/08/20 11:39 06/08/20 12:09 06/08/20 12:30 Temperature 98.6 F Temperature Source Oral Pulse Rate [Left Radial] 88 81 94 H Respiratory Rate 19 20 Blood Pressure [Right Arm] 118/60 99/65 L 122/71 Blood Pressure Mean [Right Arm] 79 76 88 Blood Pressure Source [Right Arm] Automatic Cuff Automatic Cuff Blood Pressure Position [Right Arm] Sitting Supine Sitting 02 Sat by Pulse Oximetry 92 L 96 97 Oxygen Delivery Method Room Air Nasal Cannula Nasal Cannula Oxygen Flow Rate (LPM) 2 2 - Lab Data Lab results reviewed: Yes: I reviewed the patient's lab results. Lab Results 06/08/20 11:50: WBC 14.9 H, RBC 3.60 L, Hgb 11.3 L, Hct 33.1 L, MCV 92.0, MCH 31.3 H, MCHC 34.0, RDW 13.2, Plt Count 563 H, MPV 7.2 L, Neut % (Auto) 87.9 H, Lymph % (Auto) 6.8 L, [place] % (Auto) 4.0, Eos % (Auto) 1.0, Baso % (Auto) 0.5, Neut # (Auto) 13.1 H, Lymph # (Auto) 1.0, [place] # (Auto) 0.6, Eos # (Auto) 0.2, Baso # (Auto) 0.1, Total Counted 100, Neutrophils % (Manual) 83 H, Lymphocytes % (Manual) 14, Monocytes % (Manual) 3, Platelet Estimate Marked inc, Giant Platelets 1+, RBC Morphology Normal 06/08/20 11:50: Sodium 135 L, Potassium 4.0, Chloride 101, Carbon Dioxide 25, Anion Gap 13.0, BUN 64 H, Creatinine 2.20 H, Estimated Creat Clear 25, Estimated GFR 22 L, Est GFR ( Amer) 27 L, Glucose 114 H, Calcium 9.1 06/08/20 11:50: Lactate 1.0 Result diagrams: 06/08/20 11:50 06/08/20 11:50 Orders (Tests/Meds): ED MEDICATIONS Generic Name Dose Route Start Last Admin Trade Name Freq PRN Reason Stop Dose Admin Piperacillin Sod/Tazobactam 50 mls @ 100 mls/hr 06/08/20 13:00 Sod 3.375 gm/ Sodium Chloride IV 06/22/20 12:59 Q6H [facility] Protocol Miscellaneous 1 each 06/08/20 13:00 Vancomycin Consult Request * 07/08/20 12:59 [facility] Discontinued Medications Generic Name Dose Route Start Last Admin Trade Name Freq PRN Reason Stop Dose Admin Acetaminophen 650 mg 06/08/20 12:44 06/08/20 12:54 Acetaminophen 325mg Tab PO 06/08/20 12:45 650 mg ONCE ONE Administration Sodium Chloride 1,000 mls @ 999 mls/hr 06/08/20 12:00 06/08/20 11:54 Sod Chlor 0.9% 1000ml Bag IV 06/08/20 13:00 999 mls/hr .Q1H1M [facility] Administration Ondansetron HCl 4 mg 06/08/20 11:50 06/08/20 11:54 Zofran 4mg/2ml Vial IV 06/08/20 11:51 4 mg ONCE ONE Administration Oxycodone HCl 5 mg 06/08/20 13:07 Oxyir 5mg Tablet PO 06/08/20 13:08 ONCE ONE ORDERS Category Date Time Status Urinalysis and Microscopic Stat Lab 06/08/20 11:50 Ordered Blood Culture Stat Micro 06/08/20 11:50 Received Medical Decision Narrative: 64-year-old female presenting with generalized weakness and shortness of breath and outside labs demonstrating leukocytosis and JAMES. Hypoxic to 88% on room air here but satting well on 2 L by nasal cannula. Chest x-ray was obtained and shows a right lower lobe pneumonia. She has a leukocytos here stable white blood cell count as compared to the outside labs and a
--- NOTE | 2020-06-08 11:49 | XR_ITS ---
PROCEDURE: XR CHEST PORTABLE CLINICAL HISTORY: COUGH COMPARISON: CR CXR2V XR chest 2V from 09/30/[address] angio chest from 10/01/2018 CR CXR1VP XR chest portable from 12/31/2018 CR Chest from 05/05/2019 FINDINGS: The lung braswell are fairly well expanded. The patient is slightly rotated to the left however there does appear to be mild generalized cardiomegaly. There is no pulmonary congestion. There is slightly accentuated bronchovascular markings in the right infrahilar region and right lower lobe. This could be a confluence of vascular markings but an early in pneumonic infiltrate cannot be entirely excluded. IMPRESSION: Mild cardiomegaly, possible mild ill-defined pneumonic infiltrate right lower lobe versus confluence of vascular shadows and suggest clinical correlation Dictated by: Dr. Yuval Simons MD 06/08/2020 12:14 Dr. Yuval Simons MD in [place] 06/08/2020 12:14
[2020-06-08 12:04] LABS: Basophils # 0.1 K/mm3 (0-0.2); Basophils % 0.5 % (0.1-2.0); Eosinophils # 0.2 K/mm3 (0.0-0.4); Hematocrit 33.1 % (37.0-47.0); Hemoglobin 11.3 g/dL (12.2-16.2); Lymphocytes % 6.8 % (10-50); Mean Corpuscular Hemoglobin 31.3 pg (27.0-31.2); Mean Platelet Volume 7.2 fl (7.4-10.4); Monocytes # 0.6 K/mm3 (0.1-1.0); Neutrophils # 13.1 K/mm3 (1.8-7.8); Neutrophils % 87.9 % (37.0-80.0); Platelet Count 563 K/mm3 (142-424); Red Cell Distribution Width 13.2 % (11.5-17.5); White Blood Count 14.9 K/mm3 (4.8-10.8)
[2020-06-08 12:09] LABS: Chloride 101 mmol/L (98-107); Sodium 135 mmol/L (136-145)
[2020-06-08 12:12] LABS: Blood Urea Nitrogen 64 mg/dl (7-17); Carbon Dioxide 25 mmol/L (22.0-30.0); Creatinine Clearance Estimated 25 mL/min (50-200); Estimated Glomerular Filt Rate 22 ml/min (>60); GFR (African American) 27 ML/MIN (>60); MANUAL DIFFERENTIAL MANUAL DIFFERENTIAL (MANUAL DIFF)
[2020-06-08 12:13] LABS: Calcium 9.1 mg/dl (8.4-10.2); Glucose 114 mg/dl (74-100)
[2020-06-08 12:21] LABS: Lymphocytes % 14 % (10-50); Monocytes % 3 % (2-9); Neutrophils % 83 % (42-76); Total Cells Counted 100
[2020-06-08 12:22] LABS: Giant Platelets 1+; RBC Morphology Normal
--- NOTE | 2020-06-08 13:06 | PC.NURSE ---
DR KEARNS SPEAKING WITH DR YUAN FOR POSSIBLE ADMISSION FOR P[facility]ONIA
--- NOTE | 2020-06-08 13:11 | PC.NURSE ---
Alexa Mckeon contacted in CM for pt admission
--- NOTE | 2020-06-08 14:28 | PC.NURSE ---
Report called to Amarilys
--- NOTE | 2020-06-08 14:32 | P.CONPHA_ITS ---
- Pharmacy Consult Date: 06/08/20 Time: 14:32 Referring provider: DR. YUAN Reason for Consult:: VANCOMYCIN DOSING Allergies and ADEs:: Allergies Allergy/AdvReac Type Severity Reaction Status Date / Time oxycodone AdvReac Anxiety Verified 06/08/20 13:10 Home Medications:: Home Medications Medication Instructions Recorded Confirmed Type aspirin 81 mg tablet,delayed 81 mg PO DAILY tab 11/19/17 06/08/20 History release gabapentin 600 mg tablet 600 mg PO TID 30 Days tab 11/19/17 06/08/20 History Insulin NPH Hum/Reg Insulin Hm 100 units SQ BID 05/05/19 06/08/20 History [Novolin 70-30 100 Unit/ml Vial] Loratadine [Allergy Relief] 10 mg PO DAILY 05/05/19 06/08/20 History metoprolol succinate 25 mg 25 mg PO HS #90 tab 06/16/19 06/08/20 Rx tablet,extended release 24 hr levothyroxine 88 mcg tablet 88 mcg PO DAILY tab 10/10/19 06/08/20 History Clopidogrel Bisulfate [Plavix 75mg 75 mg PO DAILY 04/13/20 06/08/20 History Tab] atorvastatin 40 mg tablet 40 mg PO DAILY tab 05/04/20 06/08/20 History losartan 100 mg tablet 100 mg PO DAILY tab 05/04/20 06/08/20 History semaglutide 0.5 mg SQ QWEEK ml 05/04/20 06/08/20 History furosemide 40 mg tablet 40 mg PO DAILY #30 tab 05/28/20 06/08/20 Rx Spironolactone [Spironolactone 25 mg PO DAILY 06/08/20 06/08/20 History 25mg Tablet] Height: 1.7 m Weight: 122.47 kg Laboratory Results:: Laboratory Results - last 24 hr 06/08/20 11:50: WBC 14.9 H, RBC 3.60 L, Hgb 11.3 L, Hct 33.1 L, MCV 92.0, MCH 31.3 H, MCHC 34.0, RDW 13.2, Plt Count 563 H, MPV 7.2 L, Neut % (Auto) 87.9 H, Lymph % (Auto) 6.8 L, [place] % (Auto) 4.0, Eos % (Auto) 1.0, Baso % (Auto) 0.5, Neut # (Auto) 13.1 H, Lymph # (Auto) 1.0, [place] # (Auto) 0.6, Eos # (Auto) 0.2, Baso # (Auto) 0.1, Total Counted 100, Neutrophils % (Manual) 83 H, Lymphocytes % (Manual) 14, Monocytes % (Manual) 3, Platelet Estimate Marked inc, Giant Platelets 1+, RBC Morphology Normal 06/08/20 11:50: Sodium 135 L, Potassium 4.0, Chloride 101, Carbon Dioxide 25, Anion Gap 13.0, BUN 64 H, Creatinine 2.20 H, Estimated Creat Clear 25, Estimated GFR 22 L, Est GFR ( Amer) 27 L, Glucose 114 H, Calcium 9.1 06/08/20 11:50: Lactate 1.0 Medical History: Reports:: Atherosclerotic Heart Disease, Atrial Fibrillation, Chronic Obstructive Pulmonary Disease (COPD), Coronary Artery Disease, Diabetes Mellitus Type 2, Hyperlipidemia, Hypertension, Osteoporosis Denies:: Asthma, Cancer, Congestive Heart Failure, Diabetes Mellitus Type 1, MRSA, Renal Disease, Renal Insufficiency, Seizures Assessment and Plan - Assessment and plan all Dx Assessment and Plan for all problems:: STARTING WITH VANCOMYCIN 1500 MG Q24H AT THIS TIME. PATIENT ALSO RECEIVING ZOSYN 3.375 GM Q6H PER ER MD.
[2020-06-08 14:34] LABS: Microscopic, Urine URINE MICROSCOPIC (MICROSCOPIC)
[2020-06-08 14:36] LABS: Appearance,Urine CLOUDY (Clear); Bilirubin,Urine Negative (Negative); Blood, Urine Negative (Negative); Color,Urine YELLOW (Yellow); Glucose,Urine (UA) Negative (Negative); Ketones,Urine Negative (Negative); Leukocyte Esterase,Urine TRACE (Negative); Nitrate,Urine Negative (Negative); PH,Urine 5.5 (5.0-8.5); Protein,Urine Negative (Negative); Urobilinogen,Urine 0.2 EU/dl (0.2)
[2020-06-08 14:46] LABS: Bacteria,Urine 3+ /lpf; Squamous Epithelial Cell,Urine 20-50 #/hpf (0-5); WBC,Urine Occasional #/hpf (0-3)
[2020-06-08 15:13] LABS: Coronavirus 19 IgG Antibody Negative (Negative); Coronavirus 19 IgM Antibody Negative (Negative)
--- NOTE | 2020-06-08 17:16 | HMH.HP ---
*Admission Date: 06/08/20 *Chief complaint: Weakness *History of present illness: 64-year-old female with hypertension, diabetes, vascular disease presented to the emergency department after being instructed by her primary care physician, Dr. Michelle Fierro, to present to an ER due to some abnormal labs drawn in her PCPs office. Patient tells me for the last 3 days she has felt abnormally weak with episodes of chills but no known fever. She had developed shaking in her extremities because she was so weak and became concerned that she was coming down with an acute case of parkinsonism. She saw her primary care physician who ordered some labs. The labs were abnormal and patient was contacted and told she had an elevated white blood cell count concerning for bacterial infection and to either go to the nearest ER or begin taking some strong oral antibiotics. Patient opted to come to the emergency department. Work-up in the emergency department confirmed an elevated white blood cell count along with elevated creatinine indicating acute kidney injury. Patient also had mild oxygen requirement with lowest O2 sat of 88% and responded well to application of nasal cannula at 2 L/min further work-up was highly suspicious for right lower lobe pneumonia and patient was admitted and started on IV antibiotics. Patient herself denies the respiratory symptoms of any nasal congestion, sore throat, cough, shortness of breath, wheezing, chest pain. In addition she denies loss of taste or smell, diarrhea. She does endorse poor appetite due to her malaise. [facility] History I have reviewed the patient's past medical history: Yes Medical History: Reports:: Atherosclerotic Heart Disease, Atrial Fibrillation, Chronic Obstructive Pulmonary Disease (COPD), Coronary Artery Disease, Diabetes Mellitus Type 2, Hyperlipidemia, Hypertension, Osteoporosis Denies:: Asthma, Cancer, Congestive Heart Failure, Diabetes Mellitus Type 1, MRSA, Renal Disease, Renal Insufficiency, Seizures *Have you ever received a pneumonia vaccine?: No *Have you received a flu vaccine this season?: No Other Medical History: Reports: Arthritis, Hypothyroidism, Osteoporosis, Other (Polymyalgia rheumatica) Laterality Cases: Right: Arthroscopy Knee, Bilateral: Tonsillectomy Other Surgeries: Yes: Cardiac Catheterization, Cardiac Surgery, Cholecystectomy, Coronary Stent, Amputation: No Fractures: No - *Social History Last grade of school completed: Advanced degree Smoking Status: Current some day smoker Alcohol Intake: never Alcohol Intake Frequency:: other Substance Use Type: denies use *Occupational Status:: retired Housing: house Household Members: spouse *Travel in the last 8 weeks: None Family Hx:: Unable to obtain Review of Systems - Constitutional Reports anorexia, Reports body ache(s), Reports chills, Denies excessive sweating, Denies fever(s), Denies weakness - *Cardiovascular Denies chest pain, Denies chest pain at rest, Denies shortness of breath, Denies shortness of breath with activity - *Respiratory Denies change in phlegm color, Denies chest congestion, Denies cough, Denies shortness of breath, Denies shortness of breath with activity - *Gastrointestinal Denies abdominal pain Meds Home Medications Medication Instructions Recorded Confirmed Type aspirin 81 mg tablet,delayed 81 mg PO DAILY tab 11/19/17 06/08/20 History release gabapentin 600 mg tablet 600 mg PO TID 30 Days tab 11/19/17 06/08/20 History Insulin NPH Hum/Reg Insulin Hm 100 units SQ BID 05/05/19 06/08/20 History [Novolin 70-30 100 Unit/ml Vial] Loratadine [Allergy Relief] 10 mg PO DAILY 05/05/19 06/08/20 History metoprolol succinate 25 mg 25 mg PO HS #90 tab 06/16/19 06/08/20 Rx tablet,extended release 24 hr levothyroxine 88 mcg tablet 88 mcg PO DAILY tab 10/10/19 06/08/20 History Clopidogrel Bisulfate [Plavix 75mg 75 mg PO DAILY 04/13/20 06/08/20 History Tab] atorvastatin 40 mg tablet 40
--- NOTE | 2020-06-08 17:22 | PC.NURSE ---
pt admitted this shift from ED. Is A&Ox4. Did not trigger for sepsis as she has 1 SIRS and [address] Sexton rounded this evening and ordered 1L NS bolus and then maintenance fluids of NS @ 125mL/hr. No other issues noted.
[2020-06-08 17:29] LABS: NT Pro Brain Natriuretic Pep. 1160 pg/mL (0-125)
[2020-06-08 17:34] LABS: Hemoglobin A1C 7.5 % (4.0-6.0)
--- NOTE | 2020-06-08 19:10 | PC.NURSE ---
report given to noah
[2020-06-08 20:31] LABS: POC Glucose,Bedside 91 (70-110)
[2020-06-09] VITALS (8 sets, daily range): BP systolic 90–141; BP diastolic 52–64; PULSE 80–103; RESP 18–25; TEMP 36.7–37.8; O2SAT 90–96; BMI 45.6
--- NOTE | 2020-06-09 03:26 | PC.NURSE ---
A&OX4. PT HAS TOLERATED 2L NC WELL THROUGHOUT SHIFT. PT HAS WORN HOME CPAP INTERMITTENTLY WHILE SLEEPING. RESPIRATIONS REGULAR AND UNLABORED. LUNG SOUNDS BILATERALLY CLEAR. NO COUGH NOTED. +2 PULSES NOTED. NO EDEMA NOTED. ACTIVE BOWEL SOUNDS HEARD IN ALL 4 QUADRANTS. SOFT AND NONTENDER ABDOMEN. NO BM THUS FAR. PT AMBULATES TO THE RESTROOM W STANDBY ASSISTANCE. CLEAR YELLOW URINE NOTED IN MEASURING HAT. PT HAS REPORTED PAIN 7/10 IN MIDSTERNAL CHEST AND PAIN 8/10 IN POSTERIOR NECK. TRANSCRIBING MACHINE MECHANIC MD WAS NOTIFIED AND ACETAMINOPHEN 500MG WAS ADMINISTERED. PT REPORTED A HEADACHE LATER IN THE SHIFT AND SPIKED A LOW GRADE FEVER OF 100. ACETAMINOPHEN WAS ADMINISTERED AGAIN. PT IS CURRENTLY RESTING WELL IN BED W CALL LIGHT WITHIN REACH. BED IN LOWEST POSITION. VSS. WILL CONTINUE TO MONITOR.
[2020-06-09 05:43] LABS: POC Glucose,Bedside 125 (70-110)
[2020-06-09 06:56] LABS: Basophils # 0.1 K/mm3 (0-0.2); Basophils % 0.4 % (0.1-2.0); Eosinophils # 0.2 K/mm3 (0.0-0.4); Hematocrit 31.1 % (37.0-47.0); Lymphocytes % 6.3 % (10-50); Mean Corpuscular HGB Conc 32.5 g/dL (31.8-35.4); Mean Corpuscular Hemoglobin 31.2 pg (27.0-31.2); Mean Platelet Volume 7.2 fl (7.4-10.4); Monocytes # 0.8 K/mm3 (0.1-1.0); Monocytes % 5.6 % (1.7-9.3); Neutrophils % 86.7 % (37.0-80.0); Platelet Count 445 K/mm3 (142-424); Red Blood Count 3.24 M/mm3 (4.20-5.40); Red Cell Distribution Width 13.2 % (11.5-17.5); White Blood Count 14.9 K/mm3 (4.8-10.8)
[2020-06-09 07:00] LABS: MANUAL DIFFERENTIAL MANUAL DIFFERENTIAL (MANUAL DIFF)
[2020-06-09 07:03] LABS: Chloride 106 mmol/L (98-107); Potassium 4.3 mmoL/L (3.5-5.1); Sodium 136 mmol/L (136-145)
[2020-06-09 07:06] LABS: Anion Gap 10.3 mEq/L (5-15); Blood Urea Nitrogen 54 mg/dl (7-17); Calcium 8.3 mg/dl (8.4-10.2); Carbon Dioxide 24 mmol/L (22.0-30.0); Creatinine Clearance Estimated 29 mL/min (50-200); Estimated Glomerular Filt Rate 28 ml/min (>60); GFR (African American) 34 ML/MIN (>60); Glucose 140 mg/dl (74-100)
--- NOTE | 2020-06-09 07:42 | HMH.ACPN2 ---
Internal Medicine - PN: Subj *Date: 06/09/20 *Time: 07:42 Interval history: Patient had low-grade fever overnight 100 degrees. She used her home CPAP intermittently. While she only has a minor cough and she denies shortness of breath she complains of some neck pain this morning especially when trying to lean forward and headache. Both of her pains respond to Tylenol. Exam Vital signs and Labs for Last 24 Hours: Temp Pulse Resp BP Pulse Ox 98.5 F 80 22 90/57 L 92 L 06/09/20 04:00 06/09/20 04:00 06/09/20 04:00 06/09/20 04:00 06/09/20 04:00 Laboratory Results - last 24 hr 06/08/20 11:10: Hemoglobin A1c 7.5 H 06/08/20 11:10: NT-Pro-B Natriuret Pep 1160 H 06/08/20 11:50: WBC 14.9 H, RBC 3.60 L, Hgb 11.3 L, Hct 33.1 L, MCV 92.0, MCH 31.3 H, MCHC 34.0, RDW 13.2, Plt Count 563 H, MPV 7.2 L, Neut % (Auto) 87.9 H, Lymph % (Auto) 6.8 L, [place] % (Auto) 4.0, Eos % (Auto) 1.0, Baso % (Auto) 0.5, Neut # (Auto) 13.1 H, Lymph # (Auto) 1.0, [place] # (Auto) 0.6, Eos # (Auto) 0.2, Baso # (Auto) 0.1, Total Counted 100, Neutrophils % (Manual) 83 H, Lymphocytes % (Manual) 14, Monocytes % (Manual) 3, Platelet Estimate Marked inc, Giant Platelets 1+, RBC Morphology Normal 06/08/20 11:50: Sodium 135 L, Potassium 4.0, Chloride 101, Carbon Dioxide 25, Anion Gap 13.0, BUN 64 H, Creatinine 2.20 H, Estimated Creat Clear 25, Estimated GFR 22 L, Est GFR ( Amer) 27 L, Glucose 114 H, Calcium 9.1 06/08/20 11:50: Urine Color Yellow, Urine Appearance Cloudy, Urine pH 5.5, Ur Specific [place] 1.020, Urine Protein Negative, Urine Glucose (UA) Negative, Urine Ketones Negative, Urine Blood Negative, Urine Nitrate Negative, Urine Bilirubin Negative, Urine Urobilinogen 0.2, Ur Leukocyte Esterase Trace, Urine WBC Occasional, Ur Squamous Epith Cells 20-50, Urine Bacteria 3+ 06/08/20 11:50: Lactate 1.0 06/08/20 11:50: SARS-CoV-2 IgG Ab (Rapid) Negative, SARS-CoV-2 IgM Ab (Rapid) Negative 06/08/20 20:11: POC Glucose 91 06/09/20 05:15: POC Glucose 125 H 06/09/20 06:29: WBC 14.9 H, RBC 3.24 L, Hct 31.1 L, MCV 96.0, MCH 31.2, MCHC 32.5, RDW 13.2, Plt Count 445 H, MPV 7.2 L, Neut % (Auto) 86.7 H, Lymph % (Auto) 6.3 L, [place] % (Auto) 5.6, Eos % (Auto) 1.0, Baso % (Auto) 0.4, Neut # (Auto) 13.0 H, Lymph # (Auto) 1.0, [place] # (Auto) 0.8, Eos # (Auto) 0.2, Baso # (Auto) 0.1 06/09/20 06:29: Sodium 136, Potassium 4.3, Chloride 106, Carbon Dioxide 24, Anion Gap 10.3, BUN 54 H, Creatinine 1.80 H, Estimated Creat Clear 29, Estimated GFR 28 L, Est GFR ( Amer) 34 L D, Glucose 140 H D, Calcium 8.3 L I & O for Last 24 hours: Intake & Output 06/06/20 06/07/20 06/08/20 06/09/20 11:59 11:59 11:59 11:59 Intake Total 4251 / 4251 Output Total 800 / 800 Balance 3451 / 3451 Weight 270 lb 290 lb 8 oz Microbiology Reports for the Last 24 Hours: Microbiology 06/08/20 11:50 Urine,Clean Catch Urine Culture - Preliminary Narrative: Patient does not look ill, but does look tired. Neck exam reveals bilateral trapezius tenderness, with reproducible pain with cervical flexion. Lungs have faint rales in the right posterior lateral base. Heart has a regular rate and rhythm. Abdomen is soft. Assessment and Plan (1) Community acquired pneumonia Current visit: Yes Status: Acute Qualifiers: Laterality: right Lung location: lower lobe of lung Qualified Code(s): J18.9 - Pneumonia, unspecified organism Category: Medical Code(s): J18.9 - Pneumonia, unspecified organism Continue Rocephin and azithromycin. Repeat CBC in a.m. (2) Acute kidney injury Current visit: Yes Status: Acute Category: Medical Code(s): N17.9 - Acute kidney failure, unspecified Creatinine improving. Decrease IV fluid rate. (3) BMI 40.0-44.9, adult Current visit: Yes Status: Acute Category: Medical Code(s): Z68.41 - Body mass index (BMI) 40.0-44.9, adult (4) Type 2 diabetes mellitus Current visit: No Status: Chronic Qualifiers: Diabetes m
[2020-06-09 09:00] LABS: Eosinophils % 3 % (0-3); Lymphocytes % 13 % (10-50); Monocytes % 4 % (2-9); Neutrophils % 80 % (42-76); Platelet Estimate Normal; RBC Morphology Normal; Total Cells Counted 100
--- NOTE | 2020-06-09 09:28 | P.CONPHA_ITS ---
[facility] Pharmacy VTE Monitoring - Patient Demographics Admission date: 06/08/20 Report Date: 06/09/20 Time: 09:28 Allergies/Adverse Reactions: Patient Allergies oxycodone Adverse Reaction (Verified 06/08/20 13:10) Anxiety Height: 1.7 m Weight: 131.769 kg Patient Problems: Current Active Problems Community acquired pneumonia (Acute) Acute kidney injury (Acute) BMI 40.0-44.9, adult (Acute) - VTE Risk Labs: VTE Related Lab Results Hgb 11.3 g/dL (12.2-16.2) L 06/08/20 11:50 Hct 31.1 % (37.0-47.0) L 06/09/20 06:29 Plt Count 445 K/mm3 (142-424) H 06/09/20 06:29 BUN 54 mg/dl (7-17) H 06/09/20 06:29 Creatinine 1.80 mg/dl (0.52-1.04) H 06/09/20 06:29 Estimated Creat Clear 29 mL/min (50-200) 06/09/20 06:29 Was VTE Risk Assessment Performed: No VTE Score: 3 VTE Risk Level: Low Risk - Prophylaxis VTE Prophylaxis Ordered?: Yes Types of VTE Prophylaxis: TEDS Knee High Location of Applied Device: Bilateral Lower Extremeties
[2020-06-09 09:40] LABS: Hemoglobin 10.1 g/dL (12.2-16.2)
--- NOTE | 2020-06-09 09:55 | HMH.PHAINT ---
HOME MEDICATIONS RECONCILED FROM CLINIC PHARMACY FILL LIST.
[2020-06-09 12:06] LABS: POC Glucose,Bedside 227 (70-110)
[2020-06-09 15:48] LABS: POC Glucose,Bedside 120 (70-110)
--- NOTE | 2020-06-09 16:23 | PC.NURSE ---
PT IS RESTING IN BED. TOLERATED SITTING UP IN THE CHAIR SEVERAL HOURS THIS SHIFT. ALERT AND ORIENTED X4. 02 SATURATION HAS MAINTAINED IN THE MID 90'S ON 2 L NC. LUNG SOUNDS HAVE FINE CRACKLES IN THE RT MIDDLE LOBE. BOWEL SOUNDS NORMAL. PT HAS BEEN AMBULATING TO THE BATHROOM. PT STATES SHE DOES NOT HAVE AN APPETITE BUT IS TOLERATING LIQUIDS. THIS MORNING PT ASKED IF SHE COULD HAVE SOMETHING FOR NAUSEA. PCP NOTIFIED AND ORDERED PHENERGAN 12.5 MG IV Q6H PRN. WILL CONTINUE TO MONITOR.
[2020-06-09 20:41] LABS: POC Glucose,Bedside 123 (70-110)
--- NOTE | 2020-06-09 23:44 | INFXCTL.NOTE ---
Pt stated she was lightheaded and disoriented during assessment. Pt educated on side effects of phenergan. Pt stated I do not want anymore of it . Pt does not c/o SOA, MAIRE, CP, or N/V. notified and gave orders for Zofran. Will monitor.
[2020-06-10] VITALS (7 sets, daily range): BP systolic 100–130; BP diastolic 54–77; PULSE 83–100; RESP 17–20; TEMP 36.7–38.3; O2SAT 90–100; BMI 45.6
--- NOTE | 2020-06-10 04:08 | PC.NURSE ---
Pt c/o being lightheaded and disoriented at start of shift. Pt educated on adverse effects of phenergan and pt stated she no longer wanted it. Pt was x2 assist to BSC d/t unsteady gait. tunnel elastic operator chainstitch paged and gave orders for zofran and to d/c phenergan.
--- NOTE | 2020-06-10 06:16 | PC.NURSE ---
Addendum entered by Lauro Barros RN 06/10/20 06:42: Pt unable to produce a sputum sample this shift. Will pass along in report to oncoming RN. Addendum entered by Lauro Barros RN 06/10/20 06:38: No acute changes since start of shift. Pt educated on use of IS. Best of 750 this shift. Pt states she is feeling much better this am. Original Note: pt showered at this time
[2020-06-10 06:54] LABS: Basophils # 0.1 K/mm3 (0-0.2); Basophils % 0.4 % (0.1-2.0); Eosinophils # 0.2 K/mm3 (0.0-0.4); Eosinophils % 0.9 % (0.1-12.0); Hematocrit 32.7 % (37.0-47.0); Lymphocytes # 1.1 K/mm3 (0.7-4.5); Lymphocytes % 6.6 % (10-50); Mean Corpuscular HGB Conc 33.8 g/dL (31.8-35.4); Mean Corpuscular Hemoglobin 31.7 pg (27.0-31.2); Mean Corpuscular Volume 93.7 fl (81-99); Mean Platelet Volume 7.5 fl (7.4-10.4); Monocytes # 0.7 K/mm3 (0.1-1.0); Monocytes % 3.8 % (1.7-9.3); Neutrophils # 15.1 K/mm3 (1.8-7.8); Neutrophils % 88.2 % (37.0-80.0); Platelet Count 507 K/mm3 (142-424); Red Blood Count 3.49 M/mm3 (4.20-5.40); Red Cell Distribution Width 13.3 % (11.5-17.5); White Blood Count 17.1 K/mm3 (4.8-10.8)
[2020-06-10 07:07] LABS: MANUAL DIFFERENTIAL MANUAL DIFFERENTIAL (MANUAL DIFF)
[2020-06-10 07:14] LABS: Anion Gap 13.1 mEq/L (5-15); Blood Urea Nitrogen 38 mg/dl (7-17); Carbon Dioxide 24 mmol/L (22.0-30.0); Chloride 107 mmol/L (98-107); Creatinine Clearance Estimated 35 mL/min (50-200); Estimated Glomerular Filt Rate 35 ml/min (>60); GFR (African American) 42 ML/MIN (>60); Potassium 4.1 mmoL/L (3.5-5.1); Sodium 140 mmol/L (136-145)
--- NOTE | 2020-06-10 07:14 | XR_ITS ---
PROCEDURE: XR CHEST 2V CLINICAL HISTORY: f/u right lower lobe pneumonia, increasing wbc COMPARISON: CT [facility]GCHEST CT angio chest from 10/01/2018 CR CXR1VP XR chest portable from 12/31/2018 CR Chest from 05/05/2019 CR XR CHEST PORTABLE from 06/08/2020 FINDINGS: The lung [place] are well expanded. Ill-defined pneumonic infiltrate is seen in the right perihilar region and right lower lobe. The left lung base is obscured by the enlarged left ventricle. There is moderate generalized cardiomegaly however there is no pulmonary congestion. The lateral chest film shows increased opacification in the retrocardiac location more so than would be expected for the ill-defined infiltrate right lower lobe and very likely is pneumonia involving the left lower lobe obscured on the PA projection by the large left ventricle. There is no definite pleural fluid. IMPRESSION: Persistent ill-defined right lower lobe pneumonic infiltrate with probable left lower lobe infiltrate as well in view of the rather diffuse and prominent opacity in the retrocardiac location on the lateral chest film, stable generalized cardiomegaly Dictated by: Dr. Yuval Simons MD 06/10/2020 09:01 Dr. Yuval Simons MD in [place] 06/10/2020 09:01
[2020-06-10 07:18] LABS: Glucose 95 mg/dl (74-100)
--- NOTE | 2020-06-10 07:22 | HMH.ACPN2 ---
Internal Medicine - PN: Subj *Date: 06/10/20 *Time: 07:22 Interval history: Patient reports feeling better. She has noticed improvement in the weakness she was experiencing that was causing slight tremors in her upper extremities. She still has shortness of breath with exertion. She has been unable to produce a quality sputum. She has been afebrile over the last 24 hours. Lowest recorded oxygen saturation is 90% Exam Vital signs and Labs for Last 24 Hours: Temp Pulse Resp BP Pulse Ox 98.0 F 87 17 124/77 90 L 06/10/20 04:00 06/10/20 04:00 06/10/20 04:00 06/10/20 04:00 06/10/20 04:15 Laboratory Results - last 24 hr 06/09/20 06:29: Hgb 10.1 L D, Total Counted 100, Neutrophils % (Manual) 80 H, Lymphocytes % (Manual) 13, Monocytes % (Manual) 4, Eosinophils % (Manual) 3, Platelet Estimate Normal, RBC Morphology Normal 06/09/20 11:57: POC Glucose 227 H 06/09/20 15:40: POC Glucose 120 H 06/09/20 20:30: POC Glucose 123 H 06/10/20 06:23: WBC 17.1 H, RBC 3.49 L, Hgb 11.0 L, Hct 32.7 L, MCV 93.7, MCH 31.7 H, MCHC 33.8, RDW 13.3, Plt Count 507 H, MPV 7.5, Neut % (Auto) 88.2 H, Lymph % (Auto) 6.6 L, [place] % (Auto) 3.8, Eos % (Auto) 0.9, Baso % (Auto) 0.4, Neut # (Auto) 15.1 H, Lymph # (Auto) 1.1, [place] # (Auto) 0.7, Eos # (Auto) 0.2, Baso # (Auto) 0.1 06/10/20 06:23: Sodium 140, Potassium 4.1, Chloride 107, Carbon Dioxide 24, Anion Gap 13.1, BUN 38 H D, Creatinine 1.50 H, Estimated Creat Clear 35, Estimated GFR 35 L, Est GFR ( Amer) 42 L D, Glucose 95 D, Calcium 9.0 I & O for Last 24 hours: Intake & Output 06/07/20 06/08/20 06/09/20 06/10/20 11:59 11:59 11:59 11:59 Intake Total 4731 / 4731 2555 / 2555 Output Total 800 / 800 1450 / 1450 Balance 3931 / 3931 1105 / 1105 Weight 270 lb 290 lb 8 oz 290 lb 8.014 oz Microbiology Reports for the Last 24 Hours: Microbiology 06/08/20 11:50 Urine,Clean Catch Urine Culture - Preliminary Narrative: Patient is awake and alert. Lungs this morning are clear. Heart has a regular rate and rhythm. Abdomen is soft. White blood cell count has increased to 17,000. Assessment and Plan (1) Community acquired pneumonia Current visit: Yes Status: Acute Qualifiers: Laterality: right Lung location: lower lobe of lung Qualified Code(s): J18.9 - Pneumonia, unspecified organism Category: Medical Code(s): J18.9 - Pneumonia, unspecified organism Rising white count is concerning. Repeat PA and lateral chest x-ray today. Patient continues to require inpatient admission. Await blood cultures (2) Acute kidney injury Current visit: Yes Status: Acute Category: Medical Code(s): N17.9 - Acute kidney failure, unspecified (3) BMI 40.0-44.9, adult Current visit: Yes Status: Acute Category: Medical Code(s): Z68.41 - Body mass index (BMI) 40.0-44.9, adult (4) Type 2 diabetes mellitus Current visit: No Status: Chronic Qualifiers: Diabetes mellitus senior care insulin use: with senior care use Diabetes mellitus complication status: with neurologic complications Diabetes mellitus complication detail: with polyneuropathy Qualified Code(s): E11.42 - Type 2 diabetes mellitus with diabetic polyneuropathy; Z79.4 - nursing home (current) use of insulin Category: Medical Code(s): E11.9 - Type 2 diabetes mellitus without complications (5) CAD (coronary artery disease) Current visit: No Status: Chronic Qualifiers: Coronary Disease-Associated Artery/Lesion type: [place] artery [place] vs. transplanted heart: [place] heart Associated angina: angina presence unspecified Qualified Code(s): I25.10 - Atherosclerotic heart disease of [place] coronary artery without angina pectoris Category: Medical Code(s): I25.10 - Atherosclerotic heart disease of [place] coronary artery without angina pectoris (6) Diabetes mellitus with polyneuropathy Current visit: No Status: Chronic Qualifiers: Diabetes mellitus type: typ
[2020-06-10 07:23] LABS: Lymphocytes % 8 % (10-50); Neutrophils % 86 % (42-76); Platelet Estimate Slight Increase; RBC Morphology Normal; Total Cells Counted 100
--- NOTE | 2020-06-10 18:15 | PC.NURSE ---
PT IS SITTING UP IN THE CHAIR. NO COMPLAINTS OF CP OR SOA. PT STATES SHE IS FEELING BETTER TODAY. O2 SATURATION HAS MAINTAINED 94-98% ON 2 L NC. LUNG SOUNDS DIMINISHED. BOWEL SOUNDS NORMAL. PT STATES SHE HAS NOT HAD A BOWEL MOVEMENT IN 3 DAYS. ABDOMEN SOFT WITH HYPOACTIVE BOWEL SOUNDS. AMBULATES TO THE BATHROOM. PT HAS BEEN USING INCENTIVE SPIROMETER. VSS. WILL CONTINUE TO MONITOR.
[2020-06-10 18:45] LABS: POC Glucose,Bedside 171 (70-110)
[2020-06-10 20:28] LABS: POC Glucose,Bedside 170 (70-110)
[2020-06-10 23:55] LABS: POC Glucose,Bedside 85 (70-110)
[2020-06-11] VITALS (7 sets, daily range): BP systolic 99–132; BP diastolic 52–68; PULSE 80–93; RESP 16–18; TEMP 36.6–38.1; O2SAT 92–95; BMI 44.9
--- NOTE | 2020-06-11 03:42 | PC.NURSE ---
Pt slept a few hours this shift. Pt sat up to chair after awakening. Denies pain, but does exhibit shortness of air with exertion. Os at 2L via nc continues. Pt refused metoprolol at 2099 stating her doctor has told her to hold it due to low blood pressure. BP at 1939 was 109/58.
[2020-06-11 06:13] LABS: POC Glucose,Bedside 74 (70-110)
[2020-06-11 06:38] LABS: Basophils # 0.1 K/mm3 (0-0.2); Basophils % 0.4 % (0.1-2.0); Eosinophils # 0.4 K/mm3 (0.0-0.4); Eosinophils % 2.4 % (0.1-12.0); Hematocrit 33.4 % (37.0-47.0); Hemoglobin 10.7 g/dL (12.2-16.2); Lymphocytes # 1.1 K/mm3 (0.7-4.5); Lymphocytes % 7.5 % (10-50); Mean Corpuscular HGB Conc 32.1 g/dL (31.8-35.4); Mean Corpuscular Hemoglobin 30.4 pg (27.0-31.2); Mean Corpuscular Volume 94.6 fl (81-99); Mean Platelet Volume 7.4 fl (7.4-10.4); Monocytes # 0.8 K/mm3 (0.1-1.0); Monocytes % 5.2 % (1.7-9.3); Neutrophils # 12.2 K/mm3 (1.8-7.8); Neutrophils % 84.5 % (37.0-80.0); Platelet Count 501 K/mm3 (142-424); Red Blood Count 3.53 M/mm3 (4.20-5.40); Red Cell Distribution Width 13.4 % (11.5-17.5); White Blood Count 14.4 K/mm3 (4.8-10.8)
[2020-06-11 06:45] LABS: Chloride 104 mmol/L (98-107); Potassium 3.9 mmoL/L (3.5-5.1); Sodium 138 mmol/L (136-145)
[2020-06-11 06:48] LABS: Blood Urea Nitrogen 32 mg/dl (7-17); Creatinine Clearance Estimated 40 mL/min (50-200); Estimated Glomerular Filt Rate 41 ml/min (>60); GFR (African American) 50 ML/MIN (>60)
[2020-06-11 06:49] LABS: Anion Gap 10.9 mEq/L (5-15); Calcium 8.9 mg/dl (8.4-10.2); Carbon Dioxide 27 mmol/L (22.0-30.0); Glucose 85 mg/dl (74-100)
--- NOTE | 2020-06-11 07:35 | HMH.ACPN2 ---
Internal Medicine - PN: Subj *Date: 06/11/20 *Time: 07:35 Interval history: Patient has no complaints this morning. She denies shortness of breath both at rest and with exertion. She did not sleep very well last night and found herself quite restless. She states she could not get comfortable in the bed. Patient did have a fever to 101 yesterday evening as well. When she had her fever she was noted to be disoriented and slightly confused according to her who is at bedside this morning. After patient's fever antibiotic adjustments were made and she was given Levaquin yesterday evening. Exam Vital signs and Labs for Last 24 Hours: Temp Pulse Resp BP Pulse Ox 97.9 F 80 16 113/61 94 L 06/11/20 04:21 06/11/20 04:21 06/11/20 04:21 06/11/20 04:21 06/11/20 04:21 Laboratory Results - last 24 hr 06/10/20 06:17: POC Glucose 85 06/10/20 17:12: POC Glucose 171 H 06/10/20 20:06: POC Glucose 170 H 06/11/20 06:00: POC Glucose 74 06/11/20 06:27: WBC 14.4 H, RBC 3.53 L, Hgb 10.7 L, Hct 33.4 L, MCV 94.6, MCH 30.4, MCHC 32.1, RDW 13.4, Plt Count 501 H, MPV 7.4, Neut % (Auto) 84.5 H, Lymph % (Auto) 7.5 L, [place] % (Auto) 5.2, Eos % (Auto) 2.4, Baso % (Auto) 0.4, Neut # (Auto) 12.2 H, Lymph # (Auto) 1.1, [place] # (Auto) 0.8, Eos # (Auto) 0.4, Baso # (Auto) 0.1 06/11/20 06:27: Sodium 138, Potassium 3.9, Chloride 104, Carbon Dioxide 27, Anion Gap 10.9, BUN 32 H, Creatinine 1.30 H, Estimated Creat Clear 40, Estimated GFR 41 L, Est GFR ( Amer) 50 L, Glucose 85, Calcium 8.9 I & O for Last 24 hours: Intake & Output 09/0406/09/20 06/10/20 06/11/20 11:59 11:59 11:59 11:59 Intake Total 4731 / 4731 2555 / 2555 350 / 350 Output Total 800 / 800 1450 / 1450 Balance 3931 / 3931 1105 / 1105 350 / 350 Weight 270 lb 290 lb 8 oz 290 lb 8.014 oz 286 lb 4 oz Microbiology Reports for the Last 24 Hours: Microbiology 06/08/20 11:50 Blood Blood Culture - Preliminary NO GROWTH AFTER 48 HOURS 06/08/20 11:50 Blood Blood Culture - Preliminary NO GROWTH AFTER 48 HOURS 06/10/20 10:30 Sputum - Expectorated Sputum Gram Stain - Final 06/08/20 11:50 Urine,Clean Catch Urine Culture - Preliminary Sputum culture showing both gram-positive cocci in chains and clusters - Constitutional no acute distress - *Routine Respiratory Exam Present: rales Comments: Faint and improved in the right lung. - *Routine Cardiovascular Exam Present: RRR Assessment and Plan (1) Community acquired pneumonia Current visit: Yes Status: Acute Qualifiers: Laterality: right Lung location: lower lobe of lung Qualified Code(s): J18.9 - Pneumonia, unspecified organism Category: Medical Code(s): J18.9 - Pneumonia, unspecified organism (2) Acute kidney injury Current visit: Yes Status: Acute Category: Medical Code(s): N17.9 - Acute kidney failure, unspecified (3) BMI 40.0-44.9, adult Current visit: Yes Status: Acute Category: Medical Code(s): Z68.41 - Body mass index (BMI) 40.0-44.9, adult (4) Type 2 diabetes mellitus Current visit: No Status: Chronic Qualifiers: Diabetes mellitus usp insulin use: with remote computer terminal operator use Diabetes mellitus complication status: with neurologic complications Diabetes mellitus complication detail: with polyneuropathy Qualified Code(s): E11.42 - Type 2 diabetes mellitus with diabetic polyneuropathy; 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 transplanted heart: [place] heart Associated angina: angina presence unspecified Qualified Code(s): I25.10 - Atherosclerotic heart disease of [place] coronary artery without angina pectoris Category: Med
--- NOTE | 2020-06-11 08:25 | HMH.PHACONS ---
- Pharmacy Consult Date: 06/11/20 Time: 08:25 Referring provider: DR. YUAN Reason for Consult:: VANCOMYCIN DOSING Allergies and ADEs:: Allergies Allergy/AdvReac Type Severity Reaction Status Date / Time oxycodone AdvReac Anxiety Verified 06/08/20 13:10 Home Medications:: Home Medications Medication Instructions Recorded Confirmed Type aspirin 81 mg tablet,delayed 81 mg PO DAILY tab 11/19/17 06/08/20 History release gabapentin 600 mg tablet 600 mg PO TID 30 Days tab 11/19/17 06/08/20 History Insulin NPH Hum/Reg Insulin Hm 50 units SQ BID 05/05/19 06/09/20 History [Novolin 70-30 100 Unit/ml Vial] Loratadine [Allergy Relief] 10 mg PO DAILY 05/05/19 06/08/20 History levothyroxine 88 mcg tablet 88 mcg PO DAILY tab 10/10/19 06/08/20 History Clopidogrel Bisulfate [Plavix 75mg 75 mg PO DAILY 04/13/20 06/08/20 History Tab] atorvastatin 40 mg tablet 40 mg PO DAILY tab 05/04/20 06/08/20 History losartan 100 mg tablet 100 mg PO DAILY tab 05/04/20 06/08/20 History semaglutide 0.5 mg SQ WEEKLY ml 05/04/20 06/09/20 History furosemide 40 mg tablet 40 mg PO DAILY #30 tab 05/28/20 06/08/20 Rx Spironolactone [Spironolactone 25 mg PO DAILY 06/08/20 06/08/20 History 25mg Tablet] Cefdinir [Omnicef 300mg Capsule] 300 mg PO DAILY 06/09/20 06/09/20 History Metoprolol Succinate [Metoprolol 25 mg PO HS 06/09/20 06/09/20 History Succinate 25mg Tablet*] Promethazine HCl [Phenergan 25mg 12.5 - 25 mg PO Q8HP PRN 06/09/20 06/09/20 History tablet] Height: 1.7 m Weight: 129.841 kg Laboratory Results:: Laboratory Results - last 24 hr 06/10/20 06:17: POC Glucose 85 06/10/20 17:12: POC Glucose 171 H 06/10/20 20:06: POC Glucose 170 H 06/11/20 06:00: POC Glucose 74 06/11/20 06:27: WBC 14.4 H, RBC 3.53 L, Hgb 10.7 L, Hct 33.4 L, MCV 94.6, MCH 30.4, MCHC 32.1, RDW 13.4, Plt Count 501 H, MPV 7.4, Neut % (Auto) 84.5 H, Lymph % (Auto) 7.5 L, [place] % (Auto) 5.2, Eos % (Auto) 2.4, Baso % (Auto) 0.4, Neut # (Auto) 12.2 H, Lymph # (Auto) 1.1, [place] # (Auto) 0.8, Eos # (Auto) 0.4, Baso # (Auto) 0.1 06/11/20 06:27: Sodium 138, Potassium 3.9, Chloride 104, Carbon Dioxide 27, Anion Gap 10.9, BUN 32 H, Creatinine 1.30 H, Estimated Creat Clear 40, Estimated GFR 41 L, Est GFR ( Amer) 50 L, Glucose 85, Calcium 8.9 Medical History: Reports:: Atherosclerotic Heart Disease, Atrial Fibrillation, Chronic Obstructive Pulmonary Disease (COPD), Coronary Artery Disease, Diabetes Mellitus Type 2, Hyperlipidemia, Hypertension, Osteoporosis Denies:: Asthma, Cancer, Congestive Heart Failure, Diabetes Mellitus Type 1, MRSA, Renal Disease, Renal Insufficiency, Seizures Assessment and Plan (1) Community acquired pneumonia Current visit: Yes Status: Acute Qualifiers: Laterality: right Lung location: lower lobe of lung Qualified Code(s): J18.9 - Pneumonia, unspecified organism Category: Medical Code(s): J18.9 - Pneumonia, unspecified organism (2) Acute kidney injury Current visit: Yes Status: Acute Category: Medical Code(s): N17.9 - Acute kidney failure, unspecified (3) BMI 40.0-44.9, adult Current visit: Yes Status: Acute Category: Medical Code(s): Z68.41 - Body mass index (BMI) 40.0-44.9, adult (4) Type 2 diabetes mellitus Current visit: No Status: Chronic Qualifiers: Diabetes mellitus fdc insulin use: with meterman use Diabetes mellitus complication status: with neurologic complications Diabetes mellitus complication detail: with polyneuropathy Qualified Code(s): E11.42 - Type 2 diabetes mellitus with diabetic polyneuropathy; Z79.4 - remote computer terminal operator (current) use of insulin Category: Medical Code(s): E11.9 - Type 2 diabetes mellitus without complications (5) CAD (coronary artery disease) Current visit: No Status: Chronic Qualifiers: Coronary Disease-Associated Artery/Lesion type: [place] artery [place] vs. transplanted heart: [place] heart Associated angina: angina prese
[2020-06-11 10:17] LABS: POC Glucose,Bedside 151 (70-110)
[2020-06-11 10:17] LABS: POC Glucose,Bedside 125 (70-110)
--- NOTE | 2020-06-11 15:25 | PC.NURSE ---
A&OX4. PT HAS TOLERATED 2L NC WELL THROUGHOUT SHIFT. RESPIRATIONS REGULAR AND UNLABORED. LUNG SOUNDS DIMINISHED THROUGHOUT. NO COUGH NOTED. ACTIVE BOWEL SOUNDS HEARD IN ALL 4 QUADRANTS. SOFT AND NONTENDER ABDOMEN. PT REPORTS HAVING HARD FORMED BM TODAY. PT VOIDS PER TOILET INDEPENDENTLY. STEADY GAIT NOTED. PT HAS REMAINED AFEBRILE THUS FAR. NO REPORTS OF PAIN OR SOB THUS FAR. PT'S IV STARTED LEAKING AND A NEW ONE WAS INSERTED IN HER LAC. PT'S HAS BEEN AT THE BEDSIDE MOST OF THE DAY. HAND COOKEE EQUAL. +2 PULSES NOTED THROUGHOUT. NONPITTING EDEMA NOTED TO BLE. PT HAS BEEN UP IN HER CHAIR MOST OF THE DAY. PT RECEIVED CEFEPIME AND VANCOMYCIN THIS SHIFT AND TOLERATED WELL. PT IS CURRENTLY SITTING IN HER CHAIR RESTING. CALL LIGHT WITHIN REACH. VSS. WILL CONTINUE TO MONITOR.
[2020-06-11 16:21] LABS: POC Glucose,Bedside 179 (70-110)
--- NOTE | 2020-06-11 17:00 | PC.NURSE ---
PT WAS TURNED DOWN TO 1L NC. PT IS CURRENTLY ON 95% 1L. PT TOLERATING WELL. WILL CONTINUE TO MONITOR.
--- NOTE | 2020-06-11 19:09 | PC.NURSE ---
report given given to noah
[2020-06-11 20:51] LABS: POC Glucose,Bedside 229 (70-110)
[2020-06-12 04:00] VITALS: BP 118/64; PULSE 83; RESP 16; TEMP 36.8; O2SAT 93
--- NOTE | 2020-06-12 04:08 | PC.NURSE ---
pt A&OX4 lungs diminished throughout. pt denies pain, SOA. Pt on 1L NC with sats 93%. pt has remained fever free this shift. pt has ambulated to BR independently. Pt has slept quietly in this shift.
[2020-06-12 05:21] VITALS: BMI 44.7
[2020-06-12 05:25] LABS: POC Glucose,Bedside 61 (70-110)
[2020-06-12 06:51] LABS: Basophils % 0.3 % (0.1-2.0); Eosinophils # 0.3 K/mm3 (0.0-0.4); Eosinophils % 2.1 % (0.1-12.0); Hematocrit 30.8 % (37.0-47.0); Hemoglobin 10.2 g/dL (12.2-16.2); Lymphocytes # 0.7 K/mm3 (0.7-4.5); Lymphocytes % 6.2 % (10-50); Mean Corpuscular HGB Conc 33.3 g/dL (31.8-35.4); Mean Corpuscular Hemoglobin 31.1 pg (27.0-31.2); Mean Corpuscular Volume 93.3 fl (81-99); Mean Platelet Volume 6.9 fl (7.4-10.4); Monocytes # 0.5 K/mm3 (0.1-1.0); Monocytes % 4.5 % (1.7-9.3); Neutrophils # 10.2 K/mm3 (1.8-7.8); Neutrophils % 86.9 % (37.0-80.0); Platelet Count 446 K/mm3 (142-424); Red Cell Distribution Width 13.2 % (11.5-17.5); White Blood Count 11.7 K/mm3 (4.8-10.8)
[2020-06-12 07:00] LABS: MANUAL DIFFERENTIAL MANUAL DIFFERENTIAL (MANUAL DIFF)
[2020-06-12 07:02] LABS: Chloride 102 mmol/L (98-107); Potassium 3.5 mmoL/L (3.5-5.1); Sodium 136 mmol/L (136-145)
[2020-06-12 07:05] LABS: Anion Gap 11.5 mEq/L (5-15); Blood Urea Nitrogen 28 mg/dl (7-17); Calcium 8.7 mg/dl (8.4-10.2); Carbon Dioxide 26 mmol/L (22.0-30.0); Creatinine Clearance Estimated 40 mL/min (50-200); Estimated Glomerular Filt Rate 41 ml/min (>60); GFR (African American) 50 ML/MIN (>60); Glucose 96 mg/dl (74-100)
--- NOTE | 2020-06-12 07:10 | HMH.DCSUM ---
General - General Admission date:: 06/08/20 Discharge date: 06/12/20 HPI HPI: 64-year-old female with hypertension, diabetes, vascular disease presented to the emergency department after being instructed by her primary care physician, Dr. Michelle Fierro, to present to an ER due to some abnormal labs drawn in her PCPs office. Patient tells me for the last 3 days she has felt abnormally weak with episodes of chills but no known fever. She had developed shaking in her extremities because she was so weak and became concerned that she was coming down with an acute case of parkinsonism. She saw her primary care physician who ordered some labs. The labs were abnormal and patient was contacted and told she had an elevated white blood cell count concerning for bacterial infection and to either go to the nearest ER or begin taking some strong oral antibiotics. Patient opted to come to the emergency department. Work-up in the emergency department confirmed an elevated white blood cell count along with elevated creatinine indicating acute kidney injury. Patient also had mild oxygen requirement with lowest O2 sat of 88% and responded well to application of nasal cannula at 2 L/min further work-up was highly suspicious for right lower lobe pneumonia and patient was admitted and started on IV antibiotics. Patient herself denies the respiratory symptoms of any nasal congestion, sore throat, cough, shortness of breath, wheezing, chest pain. In addition she denies loss of taste or smell, diarrhea. She does endorse poor appetite due to her malaise. Hospital Course Hospital Course: Patient was admitted and started on Rocephin and azithromycin for community-acquired pneumonia. Patient seemed to respond to the antibiotic in regards to her breathlessness improved and fevers initially improved. However patient spiked fever on day 3 of admission. Repeat chest x-ray showed persistence of right lower lobe pneumonia and questionable spread to the left lower lung. White count had elevated as well. Patient antibiotics were changed to Levaquin and cefepime. White blood cell count responded and patient continued to note physical improvement. By the day of discharge patient is O2 sats remained in the 90s on either 1 L or room air. While she continued to have a low-grade fever periodically she did not have the associated confusion with her fevers. In addition to this patient was quite uncomfortable in the hospital and requested discharge if possible. On June 12 the patient was discharged home. Patient will follow-up in the office on June 15. Patient had acute kidney injury on admission attributed to her level of illness along with continued use of spironolactone, furosemide, losartan. These medications were held until blood pressure improved and acute kidney injury had resolved. Objective Vital signs: Temp Pulse Resp BP Pulse Ox 98.2 F 83 16 118/64 93 L 06/12/20 04:00 06/12/20 04:00 06/12/20 04:00 06/12/20 04:00 06/12/20 04:00 no acute distress - *Routine Respiratory Exam Present: CTA bilaterally, rales (Bilateral bases with improved aeration) - *Routine Cardiovascular Exam Present: RRR, Normal S1, Normal S2 Results Labs on day of discharge: Labs from last 24 hours 06/12/20 06/12/20 06/12/20 06:15 06:15 05:14 WBC 11.7 H RBC 3.30 L Hgb 10.2 L Hct 30.8 L MCV 93.3 MCH 31.1 MCHC 33.3 RDW 13.2 Plt Count 446 H MPV 6.9 L Neut % (Auto) 86.9 H Lymph % (Auto) 6.2 L [place] % (Auto) 4.5 Eos % (Auto) 2.1 Baso % (Auto) 0.3 Neut # (Auto) 10.2 H Lymph # (Auto) 0.7 [place] # (Auto) 0.5 Eos # (Auto) 0.3 Baso # (Auto) 0.0 Sodium 136 Potassium 3.5 Chloride 102 Carbon Dioxide 26 Anion Gap 11.5 BUN 28 H Creatinine 1.30 H Estimated Creat Clear 40 Estimated GFR 41 L Est GFR ( Amer) 50 L Glucose 96 POC Glucose 6
[2020-06-12 07:42] LABS: Eosinophils % 2 % (0-3); Lymphocytes % 9 % (10-50); Monocytes % 4 % (2-9); Neutrophils % 85 % (42-76); Total Cells Counted 100
[2020-06-12 07:43] LABS: Platelet Estimate Slight Increase; RBC Morphology Normal
[2020-06-12 08:00] VITALS: BP 102/62; PULSE 90; RESP 16; TEMP 36.6; O2SAT 95
--- NOTE | 2020-06-12 08:06 | HMH.PHAINT ---
DISCHARGE COUNSELING COMPLETED.
--- NOTE | 2020-06-12 09:12 | PC.NURSE ---
pt's only IV started leaking around insertion site during infusion of Cefepime. She has gotten 1/2 bag of Cefepime. Dressing changed and IV flushed but it continues to leak. Informed pt that another IV will have to be inserted for her to receive remaining bag of Cefepime and bag of Vancomycin. She refused for me to start another IV. She states, I'm done and I'm going home .
== END 2020-06-12 10:18 | disposition home or self-care (01) | DRG 194 ==
LOC: ER 13:12 → 2ND 13:19
PROVIDERS: Admitting Provider Family Medicine; Emergency Provider Physician Assistant; PCP Family Medicine; Visit Provider Family Medicine
DX: J18.9 Pneumonia, unspecified organism (principal); I50.32 Chronic diastolic (congestive) heart failure; Z68.41 Body mass index [BMI] 40.0-44.9, adult; N17.9 Acute kidney failure, unspecified; I11.0 Hypertensive heart disease with heart failure; E11.42 Type 2 diabetes mellitus with diabetic polyneuropathy; Z79.4 Long term (current) use of insulin; E66.01 Morbid (severe) obesity due to excess calories; Z95.5 Presence of coronary angioplasty implant and graft; I48.91 Unspecified atrial fibrillation; I25.10 Atherosclerotic heart disease of native coronary artery without angina pectoris; J44.9 Chronic obstructive pulmonary disease, unspecified; E03.9 Hypothyroidism, unspecified; Z72.0 Tobacco use; G47.33 Obstructive sleep apnea (adult) (pediatric); I27.20 Pulmonary hypertension, unspecified
CPT/HCPCS: 36415; 71045; 71046; 80048; 81001; 82962; 83036; 83605; 83880; 85007; 85025; 86328; 87040; 87070; 87086; 87205; 96365; 96367; 96375; 99285; J0456; J1956; J2405; J2543; J3370

== ENCOUNTER 2020-06-17 10:52 | Inpatient (IN) | payer MEDICARE, OTHER, SELFPAY ==
[2020-06-17] VITALS (8 sets, daily range): BP systolic 98–117; BP diastolic 49–62; PULSE 73–96; RESP 18–26; TEMP 36.7–37.7; O2SAT 89–100; BMI 43.8; BMI 44.5; BMI 44.6
--- NOTE | 2020-06-17 11:16 | XR_ITS ---
PROCEDURE: XR CHEST PORTABLE CLINICAL HISTORY: sob; recent RLL PNA COMPARISON: CT AGCHEST CT angio chest from 10/01/2018 CR Chest from 05/05/2019 CR XR CHEST PORTABLE from 06/08/2020 CR XR CHEST 2V from 06/10/2020 FINDINGS: The patient is markedly obese somewhat degrading detailed evaluation. The lung [place] are well expanded. There has been interval partial clearing of the ill-defined pneumonic infiltrate right perihilar region and right lower lobe. Again the left lung base is obscured by the enlarged cardiac silhouette. The left upper lung field is clear. IMPRESSION: Interval partial clearing of the ill-defined right lower lobe pneumonia, suspected left lower lobe pneumonic infiltrate not adequately evaluated without a lateral projection Dictated by: Dr. Yuval Simons MD 06/17/2020 12:01 Dr. Yuval Simons MD in [place] 06/17/2020 12:01
--- NOTE | 2020-06-17 11:25 | HMH.EDGENADL ---
ED Disposition Clinical Impression: HCAP (healthcare-associated pneumonia), JAMES (acute kidney injury) Disposition: Admitted As Inpatient Condition on Discharge: Serious Referrals: Juan Sexton MD [Primary Care Provider] - - Critical Care Critical Care Time: No Attestation: On 06/17/20, the high probability of a clinically significant, sudden or life threatening deterioration of the following system(s) required my full and direct attention, intervention and personal management. The time I documented below is in addition to time spent performing reported procedures but includes the following listed in this critical care notation. Medical Decision Making - Medical Records Medical records reviewed: Yes: I reviewed the patient's medical records. - Maulik Inquiry Pt receiving controlled substance: No Vital Signs: 06/17/20 10:54 06/17/20 11:33 06/17/20 12:47 Temperature 99.9 F H Temperature Source Oral Pulse Rate [Left Radial] 96 H 95 H 83 Respiratory Rate 26 H 22 26 H Blood Pressure [Right Arm] 98/58 L 109/62 L 98/49 L Blood Pressure Mean [Right Arm] 71 77 65 Blood Pressure Source [Right Arm] Automatic Cuff Blood Pressure Position [Right Arm] Sitting Sitting Sitting 02 Sat by Pulse Oximetry 94 L 94 L 93 L Oxygen Delivery Method Nasal Cannula Nasal Cannula Oxygen Flow Rate (LPM) 4 4 - Lab Data Lab Results 06/17/20 11:15: WBC 20.5 H*, RBC 3.29 L, Hgb 10.1 L, Hct 30.4 L, MCV 92.2, MCH 30.6, MCHC 33.2, RDW 13.3, Plt Count 616 H, MPV 7.5, Neut % (Auto) 91.3 H, Lymph % (Auto) 2.7 L, [place] % (Auto) 5.3, Eos % (Auto) 0.6, Baso % (Auto) 0.2, Neut # (Auto) 18.8 H, Lymph # (Auto) 0.6 L, [place] # (Auto) 1.1 H, Eos # (Auto) 0.1, Baso # (Auto) 0.0, Total Counted 100, Neutrophils % (Manual) 93 H, Lymphocytes % (Manual) 5 L, Monocytes % (Manual) 2, Platelet Estimate Marked increase, RBC Morphology Normal 06/17/20 11:15: Sodium 130 L, Potassium 4.4, Chloride 96 L, Carbon Dioxide 25, Anion Gap 13.4, BUN 44 H, Creatinine 2.70 H, Estimated Creat Clear 20, Estimated GFR 18 L*, Est GFR ( Amer) 21 L, Glucose 175 H, Calcium 8.4, Total Bilirubin 0.5, AST 68 H, ALT 62, Alkaline Phosphatase 190 H, Troponin I < 0.01, NT-Pro-B Natriuret Pep 2370 H, Total Protein 6.1 L, Albumin 2.8 L, Globulin 3.3 H, Albumin/Globulin Ratio 0.8 L 06/17/20 11:15: Lactate 1.9 06/17/20 11:15: SARS-CoV-2 IgG Ab (Rapid) Negative, SARS-CoV-2 IgM Ab (Rapid) Negative 06/17/20 12:00: Specimen Source Right radial, O2 % 32% nasal cannula, ABG pH 7.46 H, ABG pCO2 34.2 L, ABG pO2 74.9 L, ABG HCO3 23.5, ABG Total CO2 24.6, ABG O2 Saturation 94, ABG Base Excess -0.4, Fady Test Acceptable Result diagrams: 06/17/20 11:15 06/17/20 11:15 Orders (Tests/Meds): ED MEDICATIONS Discontinued Medications Generic Name Dose Route Start Last Admin Trade Name Freq PRN Reason Stop Dose Admin Ondansetron HCl 4 mg 06/17/20 11:38 06/17/20 11:39 Zofran 4mg/2ml Vial IV 06/17/20 11:39 4 mg ONCE ONE Administration ORDERS Category Date Time Status Troponin I Q3H Lab 06/17/20 14:30 Ordered Troponin I Q3H Lab 06/17/20 17:30 Ordered Blood Culture Stat Micro 06/17/20 11:15 Received Arterial Blood Gas Stat RT 06/17/20 11:16 Ordered - CT Data CT Scan: Chest Time Received: 12:[address] Reviewed: Yes: I have reviewed the patient's CT results, I have viewed the radiologist's interpretation Findings Narrative: HEART AND MEDIASTINAL STRUCTURES: Generalized cardiomegaly with left ventricular prominence. There is a small to moderate size pericardial effusion. The pulmonary vascularity is normal. LUNGS AND PLEURAL SPACES: The right lung [place] well expanded. There is very minimal atelectasis right perihilar region otherwise the right lung field is clear. There is focal pleural scarring superior segment right lower lobe. There is no definite right pleural effusion. The left upper lobe is clear. There is dense consolidation left lower lobe prima
--- NOTE | 2020-06-17 11:29 | ECG_ITS ---
APPROVED REPORT Exam: Resting ECG HR:92 bpm ECG Measurements Heart Rate 92 AXES [place] 178 P 39 QRSd 78 QRS 72 QT 416 T 35 QTc 514 <Conclusion> Normal sinus rhythm Low voltage QRS Cannot rule out Anterior infarct, age undetermined Prolonged QT Abnormal ECG Electronically signed by : Juan Fuentes, 06/18/2020 08:35:34
[2020-06-17 11:31] LABS: Basophils % 0.2 % (0.1-2.0); Eosinophils # 0.1 K/mm3 (0.0-0.4); Eosinophils % 0.6 % (0.1-12.0); Hematocrit 30.4 % (37.0-47.0); Hemoglobin 10.1 g/dL (12.2-16.2); Lymphocytes # 0.6 K/mm3 (0.7-4.5); Lymphocytes % 2.7 % (10-50); Mean Corpuscular HGB Conc 33.2 g/dL (31.8-35.4); Mean Corpuscular Hemoglobin 30.6 pg (27.0-31.2); Mean Corpuscular Volume 92.2 fl (81-99); Mean Platelet Volume 7.5 fl (7.4-10.4); Monocytes # 1.1 K/mm3 (0.1-1.0); Monocytes % 5.3 % (1.7-9.3); Neutrophils # 18.8 K/mm3 (1.8-7.8); Neutrophils % 91.3 % (37.0-80.0); Platelet Count 616 K/mm3 (142-424); Red Blood Count 3.29 M/mm3 (4.20-5.40); Red Cell Distribution Width 13.3 % (11.5-17.5); White Blood Count 20.5 K/mm3 (4.8-10.8)
[2020-06-17 11:32] LABS: MANUAL DIFFERENTIAL MANUAL DIFFERENTIAL (MANUAL DIFF)
[2020-06-17 11:39] LABS: Potassium 4.4 mmoL/L (3.5-5.1); Sodium 130 mmol/L (136-145)
[2020-06-17 11:40] LABS: Chloride 96 mmol/L (98-107)
[2020-06-17 11:42] LABS: Alanine Aminotransferase 62 U/L (12-78); Albumin Level 2.8 g/dl (3.5-5.0); Albumin/Globulin Ratio 0.8 (1.1-1.8); Alkaline Phosphatase 190 U/L (38-126); Anion Gap 13.4 mEq/L (5-15); Aspartate Amino Transferase 68 U/L (14-36); Bilirubin,Total 0.5 mg/dl (0.2-1.3); Blood Urea Nitrogen 44 mg/dl (7-17); Calcium 8.4 mg/dl (8.4-10.2); Carbon Dioxide 25 mmol/L (22.0-30.0); Creatinine Clearance Estimated 20 mL/min (50-200); Estimated Glomerular Filt Rate 18 ml/min (>60); GFR (African American) 21 ML/MIN (>60); Globulin 3.3 g/dL (1.3-3.2); Glucose 175 mg/dl (74-100); Total Protein,Serum 6.1 g/dl (6.3-8.2)
[2020-06-17 11:43] LABS: Lactic Acid 1.9 mmol/L (0.7-2.1); Lymphocytes % 5 % (10-50); Monocytes % 2 % (2-9); Neutrophils % 93 % (42-76); Platelet Estimate Marked Increase; RBC Morphology Normal; Total Cells Counted 100
[2020-06-17 11:51] LABS: NT Pro Brain Natriuretic Pep. 2370 pg/mL (0-125)
--- NOTE | 2020-06-17 11:55 | CT_ITS ---
PROCEDURE: CT CHEST WO CON CLINICAL INDICATION: dyspnea SOB; recent RLL CAP; new LLL infilatrate COMPARISON: [facility] from 10/[facility]/2018 TECHNIQUE: Axial images obtained with sagittal and coronal reformats. All CT scans at the facility use one or more dose reduction, viz: automated exposure control, ma/kV adjustment per patient size (including targeted exams where dose is matched to indication, i.e. head), or iterative reconstruction technique. FINDINGS: HEART AND MEDIASTINAL STRUCTURES: Generalized cardiomegaly with left ventricular prominence. There is a small to moderate size pericardial effusion. The pulmonary vascularity is normal. LUNGS AND PLEURAL SPACES: The right lung braswell well expanded. There is very minimal atelectasis right perihilar region otherwise the right lung field is clear. There is focal pleural scarring superior segment right lower lobe. There is no definite right pleural effusion. The left upper lobe is clear. There is dense consolidation left lower lobe primarily posterior basilar segment with air bronchograms and there is a small to moderate size reactive pleural effusion left base and posterior gutter some of which may be partially loculated. BONY STRUCTURES: No acute bony abnormalities apparent. There are mild multilevel degenerate changes of the mid and lower thoracic spine. UPPER ABDOMEN: There is prominent stranding of Gerotas fascia about the visualized portions of the kidneys ADDITIONAL FINDINGS: No other significant abnormalities. IMPRESSION: Generalized cardiomegaly with left ventricular prominence along with small to moderate-sized pericardial effusion. Dense consolidation with air bronchograms posterior basal segment left lower lobe with reactive pleural effusion at the left base Dictated by: Dr. Yuval Simons MD 06/17/2020 12:41 Dr. Yuval Simons MD in [place] 06/17/2020 12:41
[2020-06-17 11:56] LABS: Troponin I < 0.01 ng/ml (0.00-0.034)
[2020-06-17 12:02] LABS: Coronavirus 19 IgG Antibody Negative (Negative); Coronavirus 19 IgM Antibody Negative (Negative)
[2020-06-17 12:08] LABS: ABG Base Excess -0.4 mmol/L (-2.4-2.3); ABG HCO3 23.5 mmhg (22.0-26.0); ABG Oxygen Saturation 94 % (90-100); ABG PCO2 34.2 mmhg (35.0-45.0); ABG PH 7.46 mmol/L (7.35-7.45); ABG PO2 74.9 mmhg (80-100); ABG TCO2 24.6 mmhg (23-27)
[2020-06-17 12:10] LABS: Allen's Test Acceptable; Source Right Radial
--- NOTE | 2020-06-17 12:50 | PC.NURSE ---
Dr Charley pulido
--- NOTE | 2020-06-17 14:26 | HMH.PHACONS ---
- Pharmacy Consult Date: 06/17/20 Time: 14:26 Referring provider: DR. YUAN Reason for Consult:: VANCOMYCIN DOSING Allergies and ADEs:: Allergies Allergy/AdvReac Type Severity Reaction Status Date / Time oxycodone AdvReac Anxiety Verified 06/08/20 13:10 Home Medications:: Home Medications Medication Instructions Recorded Confirmed Type aspirin 81 mg tablet,delayed 81 mg PO DAILY tab 11/19/17 06/17/20 History release gabapentin 600 mg tablet 600 mg PO TID 30 Days tab 11/19/17 06/17/20 History Insulin NPH Hum/Reg Insulin Hm 50 units SQ BID 05/05/19 06/17/20 History [Novolin 70-30 100 Unit/ml Vial] Loratadine [Allergy Relief] 10 mg PO DAILY 05/05/19 06/17/20 History levothyroxine 88 mcg tablet 88 mcg PO DAILY tab 10/10/19 06/17/20 History Clopidogrel Bisulfate [Plavix 75mg 75 mg PO DAILY 04/13/20 06/17/20 History Tab] atorvastatin 40 mg tablet 40 mg PO DAILY tab 05/04/20 06/17/20 History losartan 100 mg tablet 100 mg PO DAILY tab 05/04/20 06/17/20 History semaglutide 0.5 mg SQ WEEKLY ml 05/04/20 06/17/20 History furosemide 40 mg tablet 40 mg PO DAILY #30 tab 05/28/20 06/17/20 Rx Spironolactone [Spironolactone 25 mg PO DAILY 06/08/20 06/17/20 History 25mg Tablet] Metoprolol Succinate [Metoprolol 25 mg PO HS 06/09/20 06/17/20 History Succinate 25mg Tablet*] Promethazine HCl [Phenergan 25mg 12.5 - 25 mg PO Q8HP PRN 06/09/20 06/17/20 History tablet] levoFLOXacin [Levofloxacin 750MG 750 mg PO DAILY 06/17/20 06/17/20 History Tablet] Height: 1.7 m Weight: 128.934 kg Laboratory Results:: Laboratory Results - last 24 hr 06/17/20 11:15: WBC 20.5 H*, RBC 3.29 L, Hgb 10.1 L, Hct 30.4 L, MCV 92.2, MCH 30.6, MCHC 33.2, RDW 13.3, Plt Count 616 H, MPV 7.5, Neut % (Auto) 91.3 H, Lymph % (Auto) 2.7 L, [place] % (Auto) 5.3, Eos % (Auto) 0.6, Baso % (Auto) 0.2, Neut # (Auto) 18.8 H, Lymph # (Auto) 0.6 L, [place] # (Auto) 1.1 H, Eos # (Auto) 0.1, Baso # (Auto) 0.0, Total Counted 100, Neutrophils % (Manual) 93 H, Lymphocytes % (Manual) 5 L, Monocytes % (Manual) 2, Platelet Estimate Marked increase, RBC Morphology Normal 06/17/20 11:15: Sodium 130 L, Potassium 4.4, Chloride 96 L, Carbon Dioxide 25, Anion Gap 13.4, BUN 44 H, Creatinine 2.70 H, Estimated Creat Clear 20, Estimated GFR 18 L*, Est GFR ( Amer) 21 L, Glucose 175 H, Calcium 8.4, Total Bilirubin 0.5, AST 68 H, ALT 62, Alkaline Phosphatase 190 H, Troponin I < 0.01, NT-Pro-B Natriuret Pep 2370 H, Total Protein 6.1 L, Albumin 2.8 L, Globulin 3.3 H, Albumin/Globulin Ratio 0.8 L 06/17/20 11:15: Lactate 1.9 06/17/20 11:15: SARS-CoV-2 IgG Ab (Rapid) Negative, SARS-CoV-2 IgM Ab (Rapid) Negative 06/17/20 12:00: Specimen Source Right radial, O2 % 32% nasal cannula, ABG pH 7.46 H, ABG pCO2 34.2 L, ABG pO2 74.9 L, ABG HCO3 23.5, ABG Total CO2 24.6, ABG O2 Saturation 94, ABG Base Excess -0.4, Fady Test Acceptable Medical History: Reports:: Atherosclerotic Heart Disease, Atrial Fibrillation, Chronic Obstructive Pulmonary Disease (COPD), Coronary Artery Disease, Diabetes Mellitus Type 2, Hyperlipidemia, Hypertension, Osteoporosis Denies:: Asthma, Cancer, Congestive Heart Failure, Diabetes Mellitus Type 1, MRSA, Renal Disease, Renal Insufficiency, Seizures Assessment and Plan - Assessment and plan all Dx Assessment and Plan for all problems:: BASED ON PATIENT'S FACTORS, RECOMMEND STARTING WITH VANCOMYCIN 2000 MG Q36H AT THIS TIME. PHARMACY WILL FOLLOW DAILY AND ADJUST APPROPRIATE.
--- NOTE | 2020-06-17 15:10 | P.CONPHA_ITS ---
[facility] Pharmacy VTE Monitoring - Patient Demographics Admission date: 06/17/20 Report Date: 06/17/20 Time: 15:10 Allergies/Adverse Reactions: Patient Allergies oxycodone Adverse Reaction (Verified 06/08/20 13:10) Anxiety Height: 1.7 m Weight: 128.934 kg Patient Problems: Current Active Problems HCAP (healthcare-associated pneumonia) (Acute) JAMES (acute kidney injury) (Acute) - VTE Risk Labs: VTE Related Lab Results Hgb 10.1 g/dL (12.2-16.2) L 06/17/20 11:15 Hct 30.4 % (37.0-47.0) L 06/17/20 11:15 Plt Count 616 K/mm3 (142-424) H 06/17/20 11:15 BUN 44 mg/dl (7-17) H 06/17/20 11:15 Creatinine 2.70 mg/dl (0.52-1.04) H 06/17/20 11:15 Estimated Creat Clear 20 mL/min (50-200) 06/17/20 11:15 VTE Score: 6 VTE Risk Level: Moderate Risk - Prophylaxis Types of VTE Prophylaxis: TEDS Knee High (ARIANNA HOSE ORDER PLACED)
--- NOTE | 2020-06-17 17:16 | PC.NURSE ---
PT O2 SAT ON 3LNC 98%. O2 TITRATED TO 2LNC AT THIS TIME, CURRENTLY 95% WITH NO S/S OF DYSPNEA NOTED WILL CONTINUE TO MONITOR.
[2020-06-17 20:07] LABS: POC Glucose,Bedside 141 (70-110)
[2020-06-17 20:21] LABS: POC Glucose,Bedside 165 (70-110)
[2020-06-18] VITALS: BP 122/62; PULSE 82; RESP 16; TEMP 36.9; O2SAT 96
[2020-06-18 01:11] LABS: POC Glucose,Bedside 121 (70-110)
[2020-06-18 04:00] VITALS: BP 109/67; PULSE 80; RESP 18; TEMP 37.1; O2SAT 94
--- NOTE | 2020-06-18 04:22 | PC.NURSE ---
Pt A&OX4 lungs diminished in bases. pt on 1L NC sats 95%. pt denies SOA or pain. BS active in all quads. Pt sat in chair for several hours at beginning of shift. pt ambulated to BR with standy by assistance. Pt has rested quietly this shift VSS
[2020-06-18 05:00] VITALS: BMI 45.0
[2020-06-18 05:18] LABS: POC Glucose,Bedside 142 (70-110)
--- NOTE | 2020-06-18 07:07 | HMH.HP ---
*Admission Date: 06/17/20 *Chief complaint: Weakness *History of present illness: 64-year-old female with recent hospitalization at this facility for community-acquired pneumonia of the right lower lobe that progressed to the left lower lobe presented to the emergency department with increasing weakness and fatigue as well as increasing shortness of breath on exertion with low-grade fevers. Patient had been discharged from this facility on June 12 in stable condition. In follow-up in my office on June 15 patient reported low-grade fevers of unknown degree as well as periods of weakness. White blood cell count had risen compared to discharge from the hospital at that time. Antibiotic adjustments were made. On June 17 patient's weakness and shortness of breath had progressed and she returned to the hospital. Chest x-ray and CT scanning shows a left lower lobe pneumonia with clearing of the right lower lobe pneumonia seen previously. White count had increased to 20,000. Patient reports little to no sputum production. Shortness of breath is present on exertion. Patient was also found to have acute kidney injury again. [facility] History I have reviewed the patient's past medical history: Yes Medical History: Reports:: Arrhythmia, Atherosclerotic Heart Disease, Atrial Fibrillation, Congestive Heart Failure, Chronic Obstructive Pulmonary Disease (COPD), Coronary Artery Disease, Diabetes Mellitus Type 2, Hyperlipidemia, Hypertension, Osteoporosis Denies:: Asthma, Cancer, Diabetes Mellitus Type 1, MRSA, Renal Disease, Renal Insufficiency, Seizures *Have you ever received a pneumonia vaccine?: No *Have you received a flu vaccine this season?: Yes Other Medical History: Reports: Anemia, Arthritis, Cataracts, Hormone Therapy, Hypothyroidism, Osteoporosis, Other (Polymyalgia rheumatica) Laterality Cases: Right: Arthroscopy Knee, Bilateral: Tonsillectomy Other Surgeries: Yes: Cardiac Catheterization, Cardiac Surgery, Cholecystectomy, Coronary Stent, Amputation: No Fractures: No - *Social History Last grade of school completed: High school graduate Smoking Status: Current some day smoker Alcohol Intake: never Alcohol Intake Frequency:: other Substance Use Type: denies use *Occupational Status:: retired Housing: house Household Members: children *Travel in the last 8 weeks: None Family Hx:: Cancer, Diabetes, Heart Attack, Hyperlipidemia, Hypertension, Stroke Review of Systems - Constitutional Reports fatigue, Reports lack of energy, Reports malaise, Denies chills - *Cardiovascular Denies chest pain - *Respiratory Reports cough, Reports shortness of breath, Reports shortness of breath with activity, Denies coughing up blood, Denies pain with cough, Denies wheezing - *Gastrointestinal Denies abdominal pain - *Musculoskeletal Denies abnormal walking, Denies joint pain - Integumentary/Breasts Denies changing lesions, Denies lesions, Denies skin ulcer - *Neurologic Denies dizziness, Denies localized weakness, Denies frequent falls, Denies headache(s) - Psychiatric Reports change in appetite, Denies behavioral changes - Endocrine Denies cold intolerance, Denies excessive sweating, Denies flushing - Hematologic/Lymphatic Denies easy bleeding, Denies easy bruising - Allergic/Immunologic Denies itchy eyes, Denies lip swelling, Denies seasonal runny nose Meds Home Medications Medication Instructions Recorded Confirmed Type aspirin 81 mg tablet,delayed 81 mg PO DAILY tab 11/19/17 06/17/20 History release gabapentin 600 mg tablet 600 mg PO TID 30 Days tab 11/19/17 06/17/20 History Insulin NPH Hum/Reg Insulin Hm 50 units SQ BID 05/05/19 06/17/20 History [Novolin 70-30 100 Unit/ml Vial] Loratadine [Allergy Relief] 10 mg PO DAILY 05/05/19 06/17/20 History levothyroxine 88 mcg tablet 88 mcg PO DAILY tab 10/10/19 06/17/20 History Clopidogrel Bisulfate [Plavix 75mg 75 mg PO DAILY 04/13/20 06/17/20 History Tab*
[2020-06-18 07:15] LABS: Adenovirus F 40/41, stool Not Detected (NotDetected); Astrovirus Not Detected (NotDetected); Campylobacter Not Detected (NotDetected); Clostridium Difficile A/B, PCR Not Detected (NotDetected); Cryptosporidium Not Detected (NotDetected); Cyclospora Cayetanesis Not Detected (NotDetected); Entamoeba histolytica Not Detected (NotDetected); Enteroaggregative E coli Not Detected (NotDetected); Enteropathogenic E coli Not Detected (NotDetected); Enterotoxigenic E coli Not Detected (NotDetected); Giardia lamblia Not Detected (NotDetected); Norovirus Not Detected (NotDetected); Plesimonas Shigalloides, PCR Not Detected (NotDetected); Rotavirus A Not Detected (NotDetected); Salmonella, PCR Not Detected (NotDetected); Sapovirus Not Detected (NotDetected); Shiga-like toxin E coli Not Detected (NotDetected); Shigella Enterovasive E coli Not Detected (NotDetected); Vibrio Cholerae Not Detected (NotDetected); Vibrio, PCR Not Detected (NotDetected); Yersinia Entercolitica, PCR Not Detected (NotDetected)
[2020-06-18 07:45] VITALS: O2SAT 92
[2020-06-18 07:49] LABS: Chloride 99 mmol/L (98-107)
[2020-06-18 07:50] LABS: Potassium 4.3 mmoL/L (3.5-5.1); Sodium 131 mmol/L (136-145)
[2020-06-18 07:53] LABS: Anion Gap 14.3 mEq/L (5-15); Blood Urea Nitrogen 49 mg/dl (7-17); Calcium 8.3 mg/dl (8.4-10.2); Carbon Dioxide 22 mmol/L (22.0-30.0); Creatinine Clearance Estimated 28 mL/min (50-200); Estimated Glomerular Filt Rate 27 ml/min (>60); GFR (African American) 32 ML/MIN (>60); Glucose 188 mg/dl (74-100)
[2020-06-18 07:54] LABS: Basophils % 0.1 % (0.1-2.0); Eosinophils # 0.1 K/mm3 (0.0-0.4); Eosinophils % 0.3 % (0.1-12.0); Hematocrit 34.1 % (37.0-47.0); Lymphocytes # 0.4 K/mm3 (0.7-4.5); Lymphocytes % 1.6 % (10-50); Mean Corpuscular HGB Conc 32.7 g/dL (31.8-35.4); Mean Corpuscular Hemoglobin 30.5 pg (27.0-31.2); Mean Corpuscular Volume 93.2 fl (81-99); Mean Platelet Volume 7.2 fl (7.4-10.4); Monocytes # 0.8 K/mm3 (0.1-1.0); Monocytes % 3.3 % (1.7-9.3); Neutrophils # 21.7 K/mm3 (1.8-7.8); Neutrophils % 94.5 % (37.0-80.0); Platelet Count 651 K/mm3 (142-424); Red Blood Count 3.66 M/mm3 (4.20-5.40); Red Cell Distribution Width 13.2 % (11.5-17.5); White Blood Count 22.9 K/mm3 (4.8-10.8)
[2020-06-18 07:58] VITALS: BP 104/57; PULSE 101; RESP 18; TEMP 36.8; O2SAT 92
[2020-06-18 08:07] LABS: Hemoglobin 11.2 g/dL (12.2-16.2); MANUAL DIFFERENTIAL MANUAL DIFFERENTIAL (MANUAL DIFF)
--- NOTE | 2020-06-18 08:08 | HMH.PHAINT ---
MEDICATION RECONCILIATION COMPLETED ON PATIENT USING EXTERNAL FILL HISTORY FROM PHARMACY. -ELENI MOMIN, JANETHD
[2020-06-18 09:06] LABS: Hypochromasia 1+; Lymphocytes % 3 % (10-50); Monocytes % 3 % (2-9); Neutrophils % 89 % (42-76); Platelet Estimate Normal; Total Cells Counted 100
[2020-06-18 11:22] LABS: POC Glucose,Bedside 193 (70-110)
[2020-06-18 16:00] VITALS: BP 100/50; PULSE 89; RESP 18; TEMP 36.9; O2SAT 96
[2020-06-18 16:20] LABS: POC Glucose,Bedside 174 (70-110)
--- NOTE | 2020-06-18 16:35 | PC.NURSE ---
REASSESSMENT PERFORMED AT THIS TIME. A/0 X4. LUNGS DIMINISHED AND BOWEL SOUNDS ACTIVE X4. PULSES 2+ AND 2+ PITTING EDEMA NOTED TO BLE. TEDS OFF AT THIS TIME PER PATIENT REQUEST. PT REPORTS THAT HER RIGHT LEG KEEPS JERKING. IV INFUSING WITHOUT DIFFICULTY. REPORTS A COUGH, BUT NO SPUTUM PRODUCTION. CALL LIGHT WITHIN REACH. WILL CONTINUE TO MONITOR.
--- NOTE | 2020-06-18 19:15 | PC.NURSE ---
report given to noah
[2020-06-18 20:00] VITALS: BP 94/56; PULSE 72; RESP 18; TEMP 36.4; O2SAT 94
[2020-06-19] VITALS (10 sets, daily range): BP systolic 92–143; BP diastolic 52–68; PULSE 70–90; RESP 16–20; TEMP 36.5–37.1; O2SAT 90–95; BMI 46.0
[2020-06-19 00:41] LABS: POC Glucose,Bedside 156 (70-110)
--- NOTE | 2020-06-19 02:33 | PC.NURSE ---
Pt is A&Ox4 and has ambulated to the BR a few times this shift and tolerated well. Pt reports the most recent ambulation did not cause any SOB or fatigue. At the beginning of the shift, pt was very fatigued and fell asleep in between care. Pt's IV infiltrated and a new IV was successful placed after several attempts. Pt began to cry and visibly upset. Pt states I am so tired and frustrated with how weak and tired I am. The swelling won't go down in my feet. I know I need the IV but I just wish my veins were better. Therapeutic listening and comfort given to pt. Educated pt on the need for IV placement, encouraged IS usage. Pt exceeded goal 1,500ml and obtained several 2,000ml on IS. Pt encouraged to keep legs elevated d/t 2+ pitting edema. Pt will alternate BLE up and dependent d/t chronic back pain, Tylenol administered. IVF & ABX infusing gently d/t new IV placed of #22g RUE in attempt to keep new IV from collapsing or infiltrating. On lung auscultation, R side is clear, L lower has fine crackles and L anterior is diminished. Pt has continued on room air with SaO2 93-94%, and pt denies any SOB at rest or exertion thus far. VSS, call light within reach.
--- NOTE | 2020-06-19 04:56 | PC.NURSE ---
shift summary, no acute changes since prior nurse's note, on lung auscultation right side is clear, left side remains diminished, pt has rested on and off with eyes closed, pt did complain of swelling in feet, encouraged elevation, remains in chair with BLE elevated, pt has remained on room air, pt denies any SOB
[2020-06-19 06:09] LABS: POC Glucose,Bedside 150 (70-110)
[2020-06-19 06:10] LABS: Basophils % 0.2 % (0.1-2.0); Eosinophils # 0.1 K/mm3 (0.0-0.4); Eosinophils % 0.7 % (0.1-12.0); Hematocrit 31.2 % (37.0-47.0); Hemoglobin 10.2 g/dL (12.2-16.2); Lymphocytes # 0.6 K/mm3 (0.7-4.5); Lymphocytes % 3.1 % (10-50); Mean Corpuscular HGB Conc 32.8 g/dL (31.8-35.4); Mean Corpuscular Hemoglobin 30.8 pg (27.0-31.2); Mean Corpuscular Volume 93.9 fl (81-99); Mean Platelet Volume 6.9 fl (7.4-10.4); Monocytes # 0.9 K/mm3 (0.1-1.0); Neutrophils # 16.8 K/mm3 (1.8-7.8); Platelet Count 552 K/mm3 (142-424); Red Blood Count 3.32 M/mm3 (4.20-5.40); Red Cell Distribution Width 13.3 % (11.5-17.5); White Blood Count 18.4 K/mm3 (4.8-10.8)
[2020-06-19 06:16] LABS: MANUAL DIFFERENTIAL MANUAL DIFFERENTIAL (MANUAL DIFF)
[2020-06-19 06:19] LABS: Chloride 100 mmol/L (98-107); Potassium 3.9 mmoL/L (3.5-5.1); Sodium 132 mmol/L (136-145)
[2020-06-19 06:22] LABS: Anion Gap 11.9 mEq/L (5-15); Blood Urea Nitrogen 48 mg/dl (7-17); Carbon Dioxide 24 mmol/L (22.0-30.0); Creatinine Clearance Estimated 38 mL/min (50-200); Estimated Glomerular Filt Rate 38 ml/min (>60); GFR (African American) 46 ML/MIN (>60)
[2020-06-19 06:23] LABS: Calcium 8.4 mg/dl (8.4-10.2); Glucose 163 mg/dl (74-100)
--- NOTE | 2020-06-19 07:04 | HMH.ACPN2 ---
Internal Medicine - PN: Subj *Date: 06/19/20 *Time: 07:04 Interval history: Patient reports she feels better this morning. She is stronger when ambulating. She reports improvement in shortness of breath. Cough remains dry. Exam Vital signs and Labs for Last 24 Hours: Temp Pulse Resp BP Pulse Ox 97.9 F 83 16 108/60 L 94 L 06/19/20 04:00 06/19/20 04:00 06/19/20 04:00 06/19/20 04:00 06/19/20 04:00 Laboratory Results - last 24 hr 06/17/20 07:05: Stl Aeromonas (PCR) Not detected, Stl C. cayetanensis PCR Not detected, Stool Rotavirus (PCR) Not detected, Stl Adenov F 40/41 PCR Not detected, Stool Astrovirus (PCR) Not detected, Stool Campylobacter PCR Not detected, Stl C.difficile Tox PCR Not detected, Stool Cryptosporidium PCR Not detected, Stl E.coli Shiga Tox PCR Not detected, Stool E coli O157 PCR Not detected, Stl Enterotoxigenic E PCR Not detected, Stool EPEC (PCR) Not detected, Stool EAEC (PCR) Not detected, Stl E. histolytica PCR Not detected, Stool Giardia Lamblia PCR Not detected, Stool Salmonella PCR Not detected, Stool Sapovirus (PCR) Not detected, Stl P. shigelloides PCR Not detected, Stl Shigella/EIEC PCR Not detected, St Y.enterocolitica PCR Not detected, Stool Vibrio (PCR) Not detected, Stl Vibrio cholerae PCR Not detected, Stl Norovirus GI/GII PCR Not detected 06/18/20 07:38: WBC 22.9 H*, RBC 3.66 L, Hgb 11.2 L D, Hct 34.1 L, MCV 93.2, MCH 30.5, MCHC 32.7, RDW 13.2, Plt Count 651 H, MPV 7.2 L, Neut % (Auto) 94.5 H, Lymph % (Auto) 1.6 L, [place] % (Auto) 3.3, Eos % (Auto) 0.3, Baso % (Auto) 0.1, Neut # (Auto) 21.7 H, Lymph # (Auto) 0.4 L, [place] # (Auto) 0.8, Eos # (Auto) 0.1, Baso # (Auto) 0.0, Total Counted 100, Neutrophils % (Manual) 89 H, Band Neutrophils % 5.0, Lymphocytes % (Manual) 3 L, Monocytes % (Manual) 3, Platelet Estimate Normal, RBC Morphology Not Reportable, Hypochromasia 1+ 06/18/20 07:38: Sodium 131 L, Potassium 4.3, Chloride 99, Carbon Dioxide 22, Anion Gap 14.3, BUN 49 H, Creatinine 1.90 H D, Estimated Creat Clear 28, Estimated GFR 27 L, Est GFR ( Amer) 32 L D, Glucose 188 H, Calcium 8.3 L 06/18/20 10:59: POC Glucose 193 H 06/18/20 16:06: POC Glucose 174 H 06/18/20 21:21: POC Glucose 156 H 06/19/20 05:49: POC Glucose 150 H 06/19/20 05:50: WBC 18.4 H, RBC 3.32 L, Hgb 10.2 L, Hct 31.2 L, MCV 93.9, MCH 30.8, MCHC 32.8, RDW 13.3, Plt Count 552 H, MPV 6.9 L, Neut % (Auto) 91.0 H, Lymph % (Auto) 3.1 L, [place] % (Auto) 5.0, Eos % (Auto) 0.7, Baso % (Auto) 0.2, Neut # (Auto) 16.8 H, Lymph # (Auto) 0.6 L, [place] # (Auto) 0.9, Eos # (Auto) 0.1, Baso # (Auto) 0.0 06/19/20 05:50: Sodium 132 L, Potassium 3.9, Chloride 100, Carbon Dioxide 24, Anion Gap 11.9, BUN 48 H, Creatinine 1.40 H D, Estimated Creat Clear 38, Estimated GFR 38 L, Est GFR ( Amer) 46 L D, Glucose 163 H, Calcium 8.4 I & O for Last 24 hours: Intake & Output 06/16/20 06/17/20 06/18/20 06/19/20 11:59 11:59 11:59 11:59 Intake Total 2288 / 2288 2321 / 2321 Output Total 700 / 700 Balance 1588 / 1588 2321 / 2321 Weight 280 lb 287 lb 293 lb Narrative: Patient is sitting up in the chair and appears in no distress. Lung exam reveals decreased breath sounds at the left base consistent with the small pleural effusion seen on chest x-ray. Heart has a regular rate and rhythm. 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
[2020-06-19 07:55] LABS: Lymphocytes % 1 % (10-50); Monocytes % 1 % (2-9); Neutrophils % 97 % (42-76); Platelet Estimate Slight Increase; RBC Morphology Normal; Total Cells Counted 100
[2020-06-19 11:23] LABS: POC Glucose,Bedside 213 (70-110)
[2020-06-19 16:36] LABS: POC Glucose,Bedside 163 (70-110)
[2020-06-19 22:28] LABS: POC Glucose,Bedside 179 (70-110)
--- NOTE | 2020-06-20 03:40 | PC.NURSE ---
Pt is A&Ox4 and has ambulated to the a few times this shift and tolerated well. Pt denies any SOB with exertion on trips to BR or ambulating in room. On lung auscultation, R is clear and L is diminished, no crackles noted this shift. Pt has continued to utilize the IS goal met of 1750ml. Pt continues on room air with SaO2 90-94% this shift. ABD is soft, non-tender and active BS noted. Pt has remained up to chair t/o shift. Legs elevated as much as pt will tolerate d/t 2+ pitting edema to feet and lower legs. Tylenol administered 1x this shift for generalized discomfort. VSS, call light within reach, will continue to monitor.
[2020-06-20 04:00] VITALS: BP 109/58; PULSE 82; RESP 17; TEMP 37; O2SAT 93
[2020-06-20 05:00] VITALS: BMI 44.9
[2020-06-20 06:10] LABS: Basophils # 0.1 K/mm3 (0-0.2); Basophils % 0.3 % (0.1-2.0); Eosinophils # 0.2 K/mm3 (0.0-0.4); Hematocrit 29.5 % (37.0-47.0); Hemoglobin 9.9 g/dL (12.2-16.2); Lymphocytes # 0.7 K/mm3 (0.7-4.5); Lymphocytes % 4.6 % (10-50); Mean Corpuscular HGB Conc 33.7 g/dL (31.8-35.4); Mean Corpuscular Hemoglobin 30.7 pg (27.0-31.2); Mean Corpuscular Volume 91.2 fl (81-99); Mean Platelet Volume 7.6 fl (7.4-10.4); Monocytes # 0.8 K/mm3 (0.1-1.0); Monocytes % 5.4 % (1.7-9.3); Neutrophils # 13.9 K/mm3 (1.8-7.8); Neutrophils % 88.7 % (37.0-80.0); Platelet Count 617 K/mm3 (142-424); Red Blood Count 3.23 M/mm3 (4.20-5.40); Red Cell Distribution Width 13.7 % (11.5-17.5); White Blood Count 15.6 K/mm3 (4.8-10.8)
[2020-06-20 06:13] LABS: Chloride 99 mmol/L (98-107)
[2020-06-20 06:14] LABS: Potassium 4.4 mmoL/L (3.5-5.1); Sodium 133 mmol/L (136-145)
[2020-06-20 06:15] LABS: MANUAL DIFFERENTIAL MANUAL DIFFERENTIAL (MANUAL DIFF)
[2020-06-20 06:16] LABS: Blood Urea Nitrogen 43 mg/dl (7-17); Creatinine Clearance Estimated 38 mL/min (50-200); Estimated Glomerular Filt Rate 38 ml/min (>60); GFR (African American) 46 ML/MIN (>60)
[2020-06-20 06:17] LABS: Anion Gap 12.4 mEq/L (5-15); Calcium 8.7 mg/dl (8.4-10.2); Carbon Dioxide 26 mmol/L (22.0-30.0); Glucose 172 mg/dl (74-100)
[2020-06-20 07:00] LABS: POC Glucose,Bedside 173 (70-110)
[2020-06-20 07:11] LABS: Lymphocytes % 11 % (10-50); Monocytes % 4 % (2-9); Neutrophils % 85 % (42-76); Platelet Estimate Slight Increase; Total Cells Counted 100
[2020-06-20 07:12] LABS: Anisocytosis 1+; Hypochromasia 1+
--- NOTE | 2020-06-20 07:44 | HMH.ACPN2 ---
Internal Medicine - PN: Subj *Date: 06/20/20 *Time: 07:44 Interval history: Patient has no complaints this morning. She ambulated in her room back and forth to the bathroom multiple times yesterday although admits it somewhat difficult due to pain in her feet from the edema she is experiencing. Shortness of breath is improved. Appetite is improved. Exam Vital signs and Labs for Last 24 Hours: Temp Pulse Resp BP Pulse Ox 98.6 F 82 17 109/58 L 93 L 06/20/20 04:00 06/20/20 04:00 06/20/20 04:00 06/20/20 04:00 06/20/20 04:00 Laboratory Results - last 24 hr 06/19/20 05:50: Total Counted 100, Neutrophils % (Manual) 97 H, Band Neutrophils % 1.0, Lymphocytes % (Manual) 1 L, Monocytes % (Manual) 1 L, Platelet Estimate Slight increase, RBC Morphology Normal 06/19/20 11:04: POC Glucose 213 H 06/19/20 16:13: POC Glucose 163 H 06/19/20 22:05: POC Glucose 179 H 06/20/20 05:53: WBC 15.6 H, RBC 3.23 L, Hgb 9.9 L, Hct 29.5 L, MCV 91.2, MCH 30.7, MCHC 33.7, RDW 13.7, Plt Count 617 H, MPV 7.6, Neut % (Auto) 88.7 H, Lymph % (Auto) 4.6 L, [place] % (Auto) 5.4, Eos % (Auto) 1.0, Baso % (Auto) 0.3, Neut # (Auto) 13.9 H, Lymph # (Auto) 0.7, [place] # (Auto) 0.8, Eos # (Auto) 0.2, Baso # (Auto) 0.1, Total Counted 100, Neutrophils % (Manual) 85 H, Lymphocytes % (Manual) 11, Monocytes % (Manual) 4, Platelet Estimate Slight increase, Hypochromasia 1+, Anisocytosis 1+ 06/20/20 05:53: Sodium 133 L, Potassium 4.4, Chloride 99, Carbon Dioxide 26, Anion Gap 12.4, BUN 43 H, Creatinine 1.40 H, Estimated Creat Clear 38, Estimated GFR 38 L, Est GFR ( Amer) 46 L, Glucose 172 H, Calcium 8.7 06/20/20 06:48: POC Glucose 173 H I & O for Last 24 hours: Intake & Output 06/17/20 06/18/20 06/19/20 06/20/20 11:59 11:59 11:59 11:59 Intake Total 2288 / 2288 2681 / 2681 360 / 360 Output Total 700 / 700 860 / 860 Balance 1588 / 1588 2681 / 2681 -500 / -500 Weight 280 lb 287 lb 293 lb 286 lb 9.615 oz Microbiology Reports for the Last 24 Hours: Microbiology 06/17/20 11:15 Blood Blood Culture - Preliminary NO GROWTH AFTER 48 HOURS 06/17/20 11:15 Blood Blood Culture - Preliminary NO GROWTH AFTER 48 HOURS Narrative: Patient looks comfortable. Lungs have diminished breath sounds at the left base without rales. Heart has a regular rate and rhythm. Patient has 2+ pedal edema bilaterally Assessment and Plan (1) Pneumonia Current visit: Yes Status: Acute Qualifiers: Pneumonia type: due to unspecified organism Category: Medical Code(s): J18.9 - Pneumonia, unspecified organism Patient will continue cefepime and vancomycin. Levaquin will be discontinued today. Repeat CBC in a.m. 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 Origin of edema is the fluids patient received on admission as well as last hospitalization 1 week ago
[2020-06-20 07:57] VITALS: BP 128/78; PULSE 81; RESP 18; TEMP 36.8; O2SAT 96
--- NOTE | 2020-06-20 10:03 | DIET.NUTRFU ---
75% intakes, weight is stable. BG moderate-high- ~180. 2+ edema present. Pt is on no salt added diet in addition to diabetic diet. Pt has denied diet edu t/o stay, written edu given and pt encouraged to come to OP counseling.
--- NOTE | 2020-06-20 11:24 | HMH.ACPN ---
Internal Medicine - PN: Subj *Date: 06/20/20 *Time: 11:24 Exam Vital signs and Labs for Last 24 Hours: Temp Pulse Resp BP Pulse Ox 98.3 F 81 18 128/78 96 06/20/20 07:57 06/20/20 07:57 06/20/20 07:57 06/20/20 07:57 06/20/20 07:57 Laboratory Results - last 24 hr 06/19/20 16:13: POC Glucose 163 H 06/19/20 22:05: POC Glucose 179 H 06/20/20 05:53: WBC 15.6 H, RBC 3.23 L, Hgb 9.9 L, Hct 29.5 L, MCV 91.2, MCH 30.7, MCHC 33.7, RDW 13.7, Plt Count 617 H, MPV 7.6, Neut % (Auto) 88.7 H, Lymph % (Auto) 4.6 L, [place] % (Auto) 5.4, Eos % (Auto) 1.0, Baso % (Auto) 0.3, Neut # (Auto) 13.9 H, Lymph # (Auto) 0.7, [place] # (Auto) 0.8, Eos # (Auto) 0.2, Baso # (Auto) 0.1, Total Counted 100, Neutrophils % (Manual) 85 H, Lymphocytes % (Manual) 11, Monocytes % (Manual) 4, Platelet Estimate Slight increase, Hypochromasia 1+, Anisocytosis 1+ 06/20/20 05:53: Sodium 133 L, Potassium 4.4, Chloride 99, Carbon Dioxide 26, Anion Gap 12.4, BUN 43 H, Creatinine 1.40 H, Estimated Creat Clear 38, Estimated GFR 38 L, Est GFR ( Amer) 46 L, Glucose 172 H, Calcium 8.7 06/20/20 06:48: POC Glucose 173 H I & O for Last 24 hours: Intake & Output 06/17/20 06/18/20 06/19/20 06/20/20 23:59 23:59 23:59 23:59 Intake Total 707 / 707 3112 / 3212 1510 / 1510 620 / 620 Output Total 700 / 700 860 / 860 Balance 707 / 707 2412 / 2512 650 / 650 620 / 620 Weight 129 kg 130.181 kg 132.903 kg 130 kg Microbiology Reports for the Last 24 Hours: Microbiology 06/17/20 11:15 Blood Blood Culture - Preliminary NO GROWTH AFTER 48 HOURS 06/17/20 11:15 Blood Blood Culture - Preliminary NO GROWTH AFTER 48 HOURS Assessment and Plan (1) Pneumonia Current visit: Yes Status: Acute Qualifiers: Pneumonia type: due to unspecified organism Category: Medical Code(s): J18.9 - Pneumonia, unspecified organism (2) Acute kidney injury Current visit: No Status: Resolved Category: Medical Code(s): N17.9 - Acute kidney failure, unspecified (3) Obstructive sleep apnea Current visit: No Status: Chronic Category: Medical Code(s): G47.33 - Obstructive sleep apnea (adult) (pediatric) (4) Type 2 diabetes mellitus Current visit: No Status: Chronic Qualifiers: Diabetes mellitus continuous churn buttermaker insulin use: with continuous churn buttermaker use Diabetes mellitus complication status: with neurologic complications Diabetes mellitus complication detail: with polyneuropathy Qualified Code(s): E11.42 - Type 2 diabetes mellitus with diabetic polyneuropathy; Z79.4 - long-term (current) use of insulin Category: Medical Code(s): E11.9 - Type 2 diabetes mellitus without complications (5) Pedal edema Current visit: Yes Status: Acute Category: Medical Code(s): R60.0 - Localized edema The patient's infection will respond to the chosen ABx?: Yes Is the patient receiving the right drug, dose, and route?: Yes Could a more targeted ABx be ordered?: No
[2020-06-20 11:25] LABS: POC Glucose,Bedside 200 (70-110)
[2020-06-20 11:42] VITALS: BP 111/69; PULSE 72; RESP 18; TEMP 37.3; O2SAT 94
[2020-06-20 13:30] LABS: Vancomycin,Trough 11.7 ug/mL (5.0-10.0)
--- NOTE | 2020-06-20 14:11 | HMH.PHACONS ---
- Pharmacy Consult Date: 06/20/20 Time: 14:11 Referring provider: DR. YUAN Reason for Consult:: VANCOMYCIN TROUGH LEVEL Allergies and ADEs:: Allergies Allergy/AdvReac Type Severity Reaction Status Date / Time oxycodone AdvReac Anxiety Verified 06/08/20 13:10 Home Medications:: Home Medications Medication Instructions Recorded Confirmed Type aspirin 81 mg tablet,delayed 81 mg PO DAILY tab 11/19/17 06/17/20 History release gabapentin 600 mg tablet 600 mg PO TID 30 Days tab 11/19/17 06/17/20 History Insulin NPH Hum/Reg Insulin Hm 50 units SQ BID 05/05/19 06/17/20 History [Novolin 70-30 100 Unit/ml Vial] Loratadine [Allergy Relief] 10 mg PO DAILY 05/05/19 06/17/20 History levothyroxine 88 mcg tablet 88 mcg PO DAILY tab 10/10/19 06/17/20 History Clopidogrel Bisulfate [Plavix 75mg 75 mg PO DAILY 04/13/20 06/17/20 History Tab] atorvastatin 40 mg tablet 40 mg PO DAILY tab 05/04/20 06/17/20 History semaglutide 0.5 mg SQ WEEKLY ml 05/04/20 06/17/20 History furosemide 40 mg tablet 40 mg PO DAILY #30 tab 05/28/20 06/17/20 Rx Metoprolol Succinate [Metoprolol 25 mg PO HS 06/09/20 06/17/20 History Succinate 25mg Tablet*] Promethazine HCl [Phenergan 25mg 12.5 - 25 mg PO Q8HP PRN 06/09/20 06/17/20 History tablet] levoFLOXacin [Levofloxacin 750MG 750 mg PO DAILY 06/17/20 06/17/20 History Tablet] Losartan Potassium [Cozaar 100mg 100 mg PO DAILY 06/18/20 06/18/20 History Tablets] Spironolactone [Spironolactone 25 mg PO DAILY 06/18/20 06/18/20 History 25mg Tablet] Height: 1.7 m Weight: 130 kg Laboratory Results:: Laboratory Results - last 24 hr 06/19/20 16:13: POC Glucose 163 H 06/19/20 22:05: POC Glucose 179 H 06/20/20 05:53: WBC 15.6 H, RBC 3.23 L, Hgb 9.9 L, Hct 29.5 L, MCV 91.2, MCH 30.7, MCHC 33.7, RDW 13.7, Plt Count 617 H, MPV 7.6, Neut % (Auto) 88.7 H, Lymph % (Auto) 4.6 L, [place] % (Auto) 5.4, Eos % (Auto) 1.0, Baso % (Auto) 0.3, Neut # (Auto) 13.9 H, Lymph # (Auto) 0.7, [place] # (Auto) 0.8, Eos # (Auto) 0.2, Baso # (Auto) 0.1, Total Counted 100, Neutrophils % (Manual) 85 H, Lymphocytes % (Manual) 11, Monocytes % (Manual) 4, Platelet Estimate Slight increase, Hypochromasia 1+, Anisocytosis 1+ 06/20/20 05:53: Sodium 133 L, Potassium 4.4, Chloride 99, Carbon Dioxide 26, Anion Gap 12.4, BUN 43 H, Creatinine 1.40 H, Estimated Creat Clear 38, Estimated GFR 38 L, Est GFR ( Amer) 46 L, Glucose 172 H, Calcium 8.7 06/20/20 06:48: POC Glucose 173 H 06/20/20 11:16: POC Glucose 200 H 06/20/20 12:30: Vancomycin Trough 11.7 H Medical History: Reports:: Arrhythmia, Atherosclerotic Heart Disease, Atrial Fibrillation, Congestive Heart Failure, Chronic Obstructive Pulmonary Disease (COPD), Coronary Artery Disease, Diabetes Mellitus Type 2, Hyperlipidemia, Hypertension, Osteoporosis Denies:: Asthma, Cancer, Diabetes Mellitus Type 1, MRSA, Renal Disease, Renal Insufficiency, Seizures Assessment and Plan (1) Pneumonia Current visit: Yes Status: Acute Qualifiers: Pneumonia type: due to unspecified organism Category: Medical Code(s): J18.9 - Pneumonia, unspecified organism (2) Acute kidney injury Current visit: No Status: Resolved Category: Medical Code(s): N17.9 - Acute kidney failure, unspecified (3) Obstructive sleep apnea Current visit: No Status: Chronic Category: Medical Code(s): G47.33 - Obstructive sleep apnea (adult) (pediatric) (4) Type 2 diabetes mellitus Current visit: No Status: Chronic Qualifiers: Diabetes mellitus senior living insulin use: with terminal worker use Diabetes mellitus complication status: with neurologic complications Diabetes mellitus complication detail: with polyneuropathy Qualified Code(s): E11.42 - Type 2 diabetes mellitus with diabetic polyneuropathy; Z79.4 - predatory animal exterminator (current) use of insulin Category: Medical Code(s): E11.9 - Type 2 diabetes mellitus without complications (5) Pedal edema Current visit: Yes Status:
[2020-06-20 16:00] VITALS: BP 126/63; PULSE 67; RESP 18; TEMP 37.3; O2SAT 93
[2020-06-20 16:45] LABS: POC Glucose,Bedside 220 (70-110)
--- NOTE | 2020-06-20 18:30 | PC.NURSE ---
pt has done well today. no sob or cp voiced. pt has trouble getting comfortable in chair and bed. pt has ambulated multiple times to bathroom with no issues. staff encouraged pt to elevate legs, she has a couple times she stated. pt reports Leaking of her legs, minimal weeping noted. will cont. to monitor. pt currently has legs elevated.
--- NOTE | 2020-06-20 19:12 | PC.NURSE ---
report given to zainab
[2020-06-20 20:00] VITALS: BP 120/63; PULSE 85; RESP 20; TEMP 36.4; O2SAT 94
[2020-06-20 21:28] LABS: POC Glucose,Bedside 211 (70-110)
[2020-06-21] VITALS (10 sets, daily range): BP systolic 91–143; BP diastolic 51–82; PULSE 59–94; RESP 17–22; TEMP 36.6–38.5; O2SAT 90–99; BMI 44.9
--- NOTE | 2020-06-21 05:55 | PC.NURSE ---
Pt is A&Ox4 and has ambulated to the BR and in room several times this shift and pt tolerated fair d/t swelling in BLE. Lungs are CTA although LLL diminished, room air SaO2 93-94%. Pt has denied any SOA with exertion. However pt does c/o feeling smothered when attempting to sit in bed or lay back in chair/bed. Bariatric recliner chair moved into pt's room in attempt to make pt more comfortable. Pt reports she can't say wether it's helped or not, but I will keep trying to sit here with my legs up . Pt also states I don't think I'll ever get comfortable until I get home to my own bed and chair . Pt very anxious to go home although concerned about the continued edema in her legs and feet. Pt did diurese well on previous shift, however pitting edema remains and has had a few drops of clear, serous drainage from RLE. This was noted on previous shift and no new weeping noted on this shift. Pt has attempted to keep legs elevated as much as she can tolerate with her positioning in bed and chairs. ABD is soft, non-tender with active BS, and pt reports last BM was 06/19. Pt denies any N/V this shift. Tylenol medicated 2x this shift d/t generalized malaise. No redness or heat noted to BLE. PIPE LINE REPAIRER is WNL and pulses 1+. VSS, call light within reach, will continue to monitor.
[2020-06-21 05:59] LABS: Basophils # 0.1 K/mm3 (0-0.2); Basophils % 0.3 % (0.1-2.0); Eosinophils # 0.2 K/mm3 (0.0-0.4); Hemoglobin 10.1 g/dL (12.2-16.2); Lymphocytes # 0.5 K/mm3 (0.7-4.5); Mean Corpuscular HGB Conc 32.6 g/dL (31.8-35.4); Mean Platelet Volume 7.7 fl (7.4-10.4); Monocytes # 0.9 K/mm3 (0.1-1.0); Monocytes % 5.3 % (1.7-9.3); Neutrophils # 15.9 K/mm3 (1.8-7.8); Neutrophils % 90.4 % (37.0-80.0); Platelet Count 630 K/mm3 (142-424); Red Blood Count 3.37 M/mm3 (4.20-5.40); Red Cell Distribution Width 13.4 % (11.5-17.5); White Blood Count 17.6 K/mm3 (4.8-10.8)
[2020-06-21 06:09] LABS: MANUAL DIFFERENTIAL MANUAL DIFFERENTIAL (MANUAL DIFF)
[2020-06-21 07:05] LABS: POC Glucose,Bedside 187 (70-110)
--- NOTE | 2020-06-21 07:06 | HMH.ACPN2 ---
Internal Medicine - PN: Subj *Date: 06/21/20 *Time: 07:06 Interval history: Patient has no new complaints. She admits to trouble getting comfortable in the hospital bed as she normally sleeps on her side at home. She does note a smothering sensation when she tries to lay on her back but admits this is not necessarily new. Her cough is now productive of small amounts of clear sputum. She has not had any fevers. She feels like she responded well to Lasix. Exam Vital signs and Labs for Last 24 Hours: Temp Pulse Resp BP Pulse Ox 98.9 F 59 L 18 110/61 93 L 06/21/20 04:00 06/21/20 04:00 06/21/20 04:00 06/21/20 04:00 06/21/20 04:00 Laboratory Results - last 24 hr 06/20/20 05:53: Total Counted 100, Neutrophils % (Manual) 85 H, Lymphocytes % (Manual) 11, Monocytes % (Manual) 4, Platelet Estimate Slight increase, Hypochromasia 1+, Anisocytosis 1+ 06/20/20 11:16: POC Glucose 200 H 06/20/20 12:30: Vancomycin Trough 11.7 H 06/20/20 16:32: POC Glucose 220 H 06/20/20 20:42: POC Glucose 211 H 06/21/20 05:39: WBC 17.6 H, RBC 3.37 L, Hgb 10.1 L, Hct 31.0 L, MCV 92.0, MCH 30.0, MCHC 32.6, RDW 13.4, Plt Count 630 H, MPV 7.7, Neut % (Auto) 90.4 H, Lymph % (Auto) 3.0 L, [place] % (Auto) 5.3, Eos % (Auto) 1.0, Baso % (Auto) 0.3, Neut # (Auto) 15.9 H, Lymph # (Auto) 0.5 L, [place] # (Auto) 0.9, Eos # (Auto) 0.2, Baso # (Auto) 0.1 06/21/20 06:48: POC Glucose 187 H I & O for Last 24 hours: Intake & Output 06/18/20 06/19/20 06/20/20 06/21/20 11:59 11:59 11:59 11:59 Intake Total 2288 / 2288 2681 / 2681 980 / 980 1630 / 1630 Output Total 700 / 700 1660 / 1660 900 / 900 Balance 1588 / 1588 2681 / 2681 -680 / -680 730 / 730 Weight 287 lb 293 lb 286 lb 9.615 oz 286 lb 1 oz Narrative: Patient is tearful this morning. Lungs have persistence of diminished breath sounds in the left base with faint rales. Heart has a regular rate and rhythm. Lower extremities have persistent 2+ edema from the mid gomez to the ankles. There is a small open area that is weeping serous fluid on the right leg. Assessment and Plan (1) Pneumonia Current visit: Yes Status: Acute Qualifiers: Pneumonia type: due to unspecified organism Category: Medical Code(s): J18.9 - Pneumonia, unspecified organism White count has risen today and patient will be restarted on Levaquin along with her cefepime and vancomycin (2) Acute kidney injury Current visit: No Status: Resolved Category: Medical Code(s): N17.9 - Acute kidney failure, unspecified (3) Obstructive sleep apnea Current visit: No Status: Chronic Category: Medical Code(s): G47.33 - Obstructive sleep apnea (adult) (pediatric) (4) Type 2 diabetes mellitus Current visit: No Status: Chronic Qualifiers: Diabetes mellitus joint terminal attack controller insulin use: with joint terminal attack controller use Diabetes mellitus complication status: with neurologic complications Diabetes mellitus complication detail: with polyneuropathy Qualified Code(s): E11.42 - Type 2 diabetes mellitus with diabetic polyneuropathy; Z79.4 - medical terminologist (current) use of insulin Category: Medical Code(s): E11.9 - Type 2 diabetes mellitus without complications (5) Pedal edema Current visit: Yes Status: Acute Category: Medical Code(s): R60.0 - Localized edema (6) Edema Current visit: No Status: Acute Qualifiers: Edema type: localized Qualified Code(s): R60.0 - Localized edema Category: Medical Code(s): R60.9 - Edema, unspecified Increase Lasix to twice daily (7) Diabetes mellitus with polyneuropathy Current visit: No Status: Chronic Qualifiers: Diabetes mellitus type: type 1 Qualified Code(s): E10.42 - Type 1 diabetes mellitus with diabetic polyneuropathy Category: Medical Code(s): E11.42 - Type 2 diabetes mellitus with diabetic polyneuropathy (8) HHD (hypertensive heart disease) Current visit: No Status: Chronic Qualifiers: Heart failure presence: with heart failu
--- NOTE | 2020-06-21 07:40 | SW/DCPLANNER ---
Addendum entered by Alexa Moses 06/26/20 14:24: PATIENT CONTINUES TO BE IN THE ACUTE HOSPITAL WITH CONTINUED TESTING..SHE HAD A THORACENTESIS TODAY.. WILL FOLLOW UP AFTER DR YUAN SEE PATIENTS IN THE AM TO SEE IF THERE ARE ANY DISCHARGE PLANNING NEEDED...PATIENT IS NOT MEDICALLY READY FOR ANY DISPOSITION AT THIS TIME.. Addendum entered by Alexa Moses 06/22/20 13:56: PATIENT CONTINUES TO REMAIN IN THE HOSPITAL AND IS NOT MEDICALLY READY FOR DISPOSITION...CM WILL CONTINUE TO FOLLOW PATIENT AND ASSIST WITH ANY NEEDS SHE MAY HAVE WHEN READY FOR A DISPOSITION... Original Note: PATIENT ADMITTED TO [facility] AFTER BEING DISCHARGE LAST WEEK...PATIENTS ADMISSION DIAGNOSIS WITH A HOSPITAL ACQUIRED PNEUMONIA. PRIOR TO HOSPITALIZATION SHE WAS AT HOME WITH AND WAS DOING OK... HER PLANS ARE TO DISCHARGE BACK HOME ONCE MEDICALLY ABLE TO DO SO.. ANY TYPE OF HOME CARE THAT IS ORDERED WILL BE SET UP IF THERE IS A NEED...DISPOSITION SHOULD BE SOON.
[2020-06-21 08:28] LABS: Lymphocytes % 9 % (10-50); Monocytes % 3 % (2-9); Neutrophils % 87 % (42-76); Total Cells Counted 100
[2020-06-21 08:29] LABS: Platelet Estimate Slight Increase; RBC Morphology Normal
--- NOTE | 2020-06-21 11:00 | PC.NURSE ---
RT administered sodium chloride to try to induce sputum, pt began coughing at this time but still could not cough up a sample. Cup was left at bedside and will continue to monitor and encourage coughs.
[2020-06-21 11:40] LABS: POC Glucose,Bedside 207 (70-110)
--- NOTE | 2020-06-21 15:04 | PC.NURSE ---
RT checked on pt, still unable to produce a sputum at this time
[2020-06-21 16:52] LABS: POC Glucose,Bedside 160 (70-110)
--- NOTE | 2020-06-21 18:13 | PC.NURSE ---
Pt has been pleasant and cooperative this shift. A&O X4. No complaints of pain or SOA. Pt has occasional complaints of nausea and receives Zofran per MAR with favorable results. Pt's oral temperature noted to be 101.3 at 1600. After Tylenol administration, re-check noted to be 98.4. Pt remains on room air with sats. >90%. Lung sounds are noted to be diminished on the LT side. 2+ pitting edema noted to BLE. No weeping/drainage noted this shift. Pt is currently sitting on a donut pillow due to reports of gluteal soreness. Coccyx/Sacral skin assessed and noted to be C/D/I with no redness noted. Barrier cream applied per pt request. BLE elevated. Pt ambulates independently throughout the room and to/from the bathroom. Pt voids clear, yellow urine without issue. No BM this shift. An US-guided 20 G peripheral IV was inserted this shift to the RT forearm. FSBS results have been 207 and 160. IS at BS and frequent encouragement is given to use Q1HWA. VSS. Call light within reach. Will continue to monitor.
[2020-06-21 21:45] LABS: POC Glucose,Bedside 174 (70-110)
[2020-06-22] VITALS (16 sets, daily range): BP systolic 78–110; BP diastolic 47–68; PULSE 69–85; RESP 14–24; TEMP 36.5–37.1; O2SAT 90–97; BMI 44.7
--- NOTE | 2020-06-22 03:15 | PC.NURSE ---
Pt has rested well in recliner this shift. Pt continues to have +2 pitting edema at BLE with no weeping noted. Pt has been educated on the importance of elevating feet multiple times this shift. Pt verbalizes understanding, but legs will be hanging down in chair the next time this nurse enters pt's room. Lung sounds remain clear t/o right lung and are diminished t/o left lung. No bowel movement noted this shift. Pt continues to ambulate independently to and from bedside commode. Pt has used IS q1hwa this shift. VSS. No other acute changes this shift. Will continue to monitor.
[2020-06-22 05:47] LABS: POC Glucose,Bedside 150 (70-110)
[2020-06-22 06:11] LABS: Basophils # 0.1 K/mm3 (0-0.2); Basophils % 0.3 % (0.1-2.0); Eosinophils # 0.2 K/mm3 (0.0-0.4); Hematocrit 30.3 % (37.0-47.0); Lymphocytes # 0.7 K/mm3 (0.7-4.5); Lymphocytes % 3.2 % (10-50); Mean Corpuscular HGB Conc 33.1 g/dL (31.8-35.4); Mean Corpuscular Hemoglobin 30.7 pg (27.0-31.2); Mean Corpuscular Volume 92.7 fl (81-99); Mean Platelet Volume 7.3 fl (7.4-10.4); Monocytes % 4.7 % (1.7-9.3); Neutrophils # 18.5 K/mm3 (1.8-7.8); Neutrophils % 90.8 % (37.0-80.0); Platelet Count 679 K/mm3 (142-424); Red Blood Count 3.27 M/mm3 (4.20-5.40); Red Cell Distribution Width 13.5 % (11.5-17.5); White Blood Count 20.4 K/mm3 (4.8-10.8)
[2020-06-22 06:27] LABS: Chloride 97 mmol/L (98-107); MANUAL DIFFERENTIAL MANUAL DIFFERENTIAL (MANUAL DIFF); Sodium 130 mmol/L (136-145)
[2020-06-22 06:28] LABS: Potassium 4.3 mmoL/L (3.5-5.1)
[2020-06-22 06:30] LABS: Blood Urea Nitrogen 47 mg/dl (7-17); Creatinine Clearance Estimated 33 mL/min (50-200); Estimated Glomerular Filt Rate 32 ml/min (>60); GFR (African American) 39 ML/MIN (>60)
[2020-06-22 06:31] LABS: Anion Gap 12.3 mEq/L (5-15); Calcium 8.6 mg/dl (8.4-10.2); Carbon Dioxide 25 mmol/L (22.0-30.0); Glucose 157 mg/dl (74-100)
--- NOTE | 2020-06-22 07:14 | HMH.ACPN2 ---
Internal Medicine - PN: Subj *Date: 06/22/20 *Time: 07:14 Interval history: Patient complains of feeling weak this morning. She had a fever to 101.3 yesterday evening. She denies worsening shortness of breath. Cough is still only producing small amounts of clear sputum. She denies chest pain. Legs remain edematous although no longer weeping. Exam Vital signs and Labs for Last 24 Hours: Temp Pulse Resp BP Pulse Ox 98.3 F 69 17 106/55 L 92 L 06/22/20 04:00 06/22/20 04:00 06/22/20 04:00 06/22/20 04:00 06/22/20 04:00 Laboratory Results - last 24 hr 06/21/20 05:39: Total Counted 100, Neutrophils % (Manual) 87 H, Band Neutrophils % 1.0, Lymphocytes % (Manual) 9 L, Monocytes % (Manual) 3, Platelet Estimate Slight increase, RBC Morphology Normal 06/21/20 11:18: POC Glucose 207 H 06/21/20 16:38: POC Glucose 160 H 06/21/20 21:30: POC Glucose 174 H 06/22/20 05:37: POC Glucose 150 H 06/22/20 05:50: WBC 20.4 H*, RBC 3.27 L, Hgb 10.0 L, Hct 30.3 L, MCV 92.7, MCH 30.7, MCHC 33.1, RDW 13.5, Plt Count 679 H, MPV 7.3 L, Neut % (Auto) 90.8 H, Lymph % (Auto) 3.2 L, [place] % (Auto) 4.7, Eos % (Auto) 1.0, Baso % (Auto) 0.3, Neut # (Auto) 18.5 H, Lymph # (Auto) 0.7, [place] # (Auto) 1.0, Eos # (Auto) 0.2, Baso # (Auto) 0.1 06/22/20 05:50: Sodium 130 L, Potassium 4.3, Chloride 97 L, Carbon Dioxide 25, Anion Gap 12.3, BUN 47 H, Creatinine 1.60 H, Estimated Creat Clear 33, Estimated GFR 32 L, Est GFR ( Amer) 39 L, Glucose 157 H, Calcium 8.6 I & O for Last 24 hours: Intake & Output 06/19/20 06/20/20 06/21/20 06/22/20 11:59 11:59 11:59 11:59 Intake Total 2681 / 2681 980 / 980 1870 / 1870 935 / 935 Output Total 1660 / 1660 900 / 900 800 / 800 Balance 2681 / 2681 -680 / -680 970 / 970 135 / 135 Weight 293 lb 286 lb 9.615 oz 286 lb 1 oz 285 lb Narrative: Patient's affect is little flat this morning compared to previous mornings. She remains alert and oriented. Heart has a regular rate and rhythm. Lung exam has decreased breath sounds at the left base which continues to be consistent with the pleural effusion seen on her chest film and CT scan on admission. Assessment and Plan (1) Pneumonia Current visit: Yes Status: Acute Qualifiers: Pneumonia type: due to unspecified organism Laterality: left Lung location: lower lobe of lung Qualified Code(s): J18.9 - Pneumonia, unspecified organism Category: Medical Code(s): J18.9 - Pneumonia, unspecified organism (2) Acute kidney injury Current visit: No Status: Resolved Category: Medical Code(s): N17.9 - Acute kidney failure, unspecified (3) Obstructive sleep apnea Current visit: No Status: Chronic Category: Medical Code(s): G47.33 - Obstructive sleep apnea (adult) (pediatric) (4) Type 2 diabetes mellitus Current visit: No Status: Chronic Qualifiers: Diabetes mellitus director long term care insulin use: with director long term care use Diabetes mellitus complication status: with neurologic complications Diabetes mellitus complication detail: with polyneuropathy Qualified Code(s): E11.42 - Type 2 diabetes mellitus with diabetic polyneuropathy; Z79.4 - long term acute care registered nurse (current) use of insulin Category: Medical Code(s): E11.9 - Type 2 diabetes mellitus without complications (5) Pedal edema Current visit: Yes Status: Acute Category: Medical Code(s): R60.0 - Localized edema (6) Edema Current visit: No Status: Acute Qualifiers: Edema type: localized Qualified Code(s): R60.0 - Localized edema Category: Medical Code(s): R60.9 - Edema, unspecified (7) Diabetes mellitus with polyneuropathy Current visit: No Status: Chronic Qualifiers: Diabetes mellitus type: type 1 Qualified Code(s): E10.42 - Type 1 diabetes mellitus with diabetic polyneuropathy Category: Medical Code(s): E11.42 - Type 2 diabetes mellitus with diabetic polyneuropathy (8) HHD (hypertensive heart disease) Current visit: No Status: Chronic Qu
[2020-06-22 08:04] LABS: Eosinophils % 1 % (0-3); Lymphocytes % 4 % (10-50); Monocytes % 4 % (2-9); Neutrophils % 91 % (42-76); Platelet Estimate Moderate Increase; Total Cells Counted 100
[2020-06-22 08:05] LABS: RBC Morphology Normal
--- NOTE | 2020-06-22 09:15 | PC.NURSE ---
per Dr Pete, cancel chest xray and proceed with CT w/o contrast
--- NOTE | 2020-06-22 09:16 | CT_ITS ---
PROCEDURE: CT CHEST WO CON CLINICAL INDICATION: Pleural Effusion/Empyema COMPARISON: CT CT ABDOMEN PELVIS WO CON from 09/29/[address] CHEST WO CON from 06/17/2020 TECHNIQUE: Axial images obtained with sagittal and coronal reformats. All CT scans at the facility use one or more dose reduction, viz: automated exposure control, ma/kV adjustment per patient size (including targeted exams where dose is matched to indication, i.e. head), or iterative reconstruction technique. FINDINGS: There is moderate cardiomegaly with pericardial effusion. There is a small to medium-sized left pleural effusion with left lower lobe collapse. There is trace right pleural effusion with atelectatic changes in the right lung base. No mediastinal or hilar mass. No significant change compared to 06/17/2020. There is some mild stranding of the pericardial fat on the left. Upper abdominal images show moderate stranding of the perinephric renal fat on both sides as well as stranding of the fat in the left upper quadrant. No acute bony findings are evident. There is mild thoracic curvature convex right. IMPRESSION: 1. Cardiomegaly with pericardial effusion. 2. Left lower lobe collapse with small to medium-sized left pleural effusion and trace right effusion with atelectatic changes in the right lower lobe. 3. There is stranding of the fat in the left pericardial region and in the left upper quadrant. This is of unknown etiology and could be inflammatory or infectious in nature. There is also stranding of the perinephric renal fat which is nonspecific. These findings are not significantly changed. Dictated by: Fady Franco MD 06/22/2020 11:11 Fady Franco MD in [place] 06/22/2020 11:11
--- NOTE | 2020-06-22 09:49 | HMH.PULMCON ---
*Admission Date: 06/17/20 *Reason for consult:: Non-resolving pneumonia and parapneumonic effusion *History of present illness: Ms. Bahena is a 64-year-old female with a history of CAD status post stenting, non-smoker, obstructive sleep apnea on CPAP at home complaint presented to the emergency department on 17 June with worsening respiratory failure. To this presentation the patient was treated with community-acquired pneumonia for 5 days however she is not getting any better and since on presentation her antibiotics were escalated to cover hospital-acquired pneumonia with bank cefepime and levofloxacin. Patient leukocytosis slightly improved however started getting worse along with febrile episodes the pulmonary was consulted as there were concern for parapneumonic effusion and possible empyema. Along with pneumonia and shortness of breath patient also complains of significant orthopnea PND and lower extremity swelling. [facility] History Medical History: Reports:: Arrhythmia, Atherosclerotic Heart Disease, Atrial Fibrillation, Congestive Heart Failure, Chronic Obstructive Pulmonary Disease (COPD), Coronary Artery Disease, Diabetes Mellitus Type 2, Hyperlipidemia, Hypertension, Osteoporosis Denies:: Asthma, Cancer, Diabetes Mellitus Type 1, MRSA, Renal Disease, Renal Insufficiency, Seizures *Have you ever received a pneumonia vaccine?: No *Have you received a flu vaccine this season?: Yes Other Medical History: Reports: Anemia, Arthritis, Cataracts, Hormone Therapy, Hypothyroidism, Osteoporosis, Other (Polymyalgia rheumatica) Laterality Cases: Right: Arthroscopy Knee, Bilateral: Tonsillectomy Other Surgeries: Yes: Cardiac Catheterization, Cardiac Surgery, Cholecystectomy, Coronary Stent, Amputation: No Fractures: No - *Social History Last grade of school completed: High school graduate Smoking Status: Current some day smoker Alcohol Intake: never Alcohol Intake Frequency:: other Substance Use Type: denies use *Occupational Status:: retired Housing: house Household Members: children *Travel in the last 8 weeks: None Family Hx:: Cancer, Diabetes, Heart Attack, Hyperlipidemia, Hypertension, Stroke [facility] Pulmonology ROS - Review of Systems Review of systems:: other, pertinent systems reviewed and negative unless documented below - Constitutional Denies body ache(s), Denies chills - Eyes Denies blind spots - *Cardiovascular Reports shortness of breath with activity, Reports leg swelling, Denies chest pain, Denies chest pain at rest - *Respiratory Respiratory: Yes chest congestion, Yes cough, Yes non-productive cough, Yes dyspnea on exertion - *Gastrointestinal Gastrointestingal: Reports: system reviewed and no additional complaints, except as docu - *Musculoskeletal Musculoskeletal: Reports system reviewed and no additional complaints, except as docu - *Neurologic Denies abnormal walking, Denies behavioral changes, Denies dizziness, Denies localized weakness, Denies frequent falls, Denies headache(s) - Psychiatric Reports abnormal sleep pattern - Endocrine Denies cold intolerance, Denies excessive sweating - Hematologic/Lymphatic Denies easy bleeding Meds Home Medications Medication Instructions Recorded Confirmed Type aspirin 81 mg tablet,delayed 81 mg PO DAILY tab 11/19/17 06/17/20 History release gabapentin 600 mg tablet 600 mg PO TID 30 Days tab 11/19/17 06/17/20 History Insulin NPH Hum/Reg Insulin Hm 50 units SQ BID 05/05/19 06/17/20 History [Novolin 70-30 100 Unit/ml Vial] Loratadine [Allergy Relief] 10 mg PO DAILY 05/05/19 06/17/20 History levothyroxine 88 mcg tablet 88 mcg PO DAILY tab 10/10/19 06/17/20 History Clopidogrel Bisulfate [Plavix 75mg 75 mg PO DAILY 04/13/20 06/17/20 History Tab] atorvastatin 40 mg tablet 40 mg PO DAILY tab 05/04/20 06/17/20 History semaglutide 0.5 mg SQ WEEKLY ml 05/04/20 06/17/20 History furosemide 40 mg tablet 40 mg PO DAILY #30 tab 05/28/20 06/17/20
--- NOTE | 2020-06-22 10:39 | PC.NURSE ---
Received phone call from Dr Pete states that the pt will require a chest tube that is larger than an 8 israeli. States that surgeon needs to be consulted for chest tube placement. Order entered, and Martita in Dr Godinez's office notified of consult.
--- NOTE | 2020-06-22 11:04 | DIET.NUTRFU ---
Pt PO intake has declined with a 31% average at last four meals. POC running at 160, 174, 150. Will continue to monitor for PO intake improvement and answer any future question pt may have.
--- NOTE | 2020-06-22 11:05 | CA_ITS ---
APPROVED REPORT EXAM: Comprehensive 2D, Doppler, and color-flow Echocardiogram Bread Icer: Carrie Norris RDCS Ht: 5 ft 6 in Wt: 285lbs BSA: 2.32 BP: 104/63 mmHg Indications: SOA,AF,ROSS,OBESITY TDS OBESITY 2D Dimensions LVOT 1.70 cm (M/F) 1.5-2.5 M-Mode Dimensions RVDd 1.65 cm (0.9-2.6) LVDd 2.70 cm (3.5-5.7) LVDs 2.13 cm (3.5-5.7) IVSd 0.76 cm (0.6-1.1) PWd 0.80 cm (0.6-1.1) EF (Teich) 44.80% FS 21.10% EDV (Teich) 27.00 mL ESV (Teich) 14.90 mL Left Ventricle Left atrium is mildly enlarged, left ventricle is normal size, visually estimated ejection fraction 55% with no regional wall motion abnormality, endocardial surfaces are poorly visualized, diastolic parameters are inconclusive. Right Ventricle Right atrium and right ventricular normal size and contractility. Aortic Valve Aortic valve is minimally thickened and fibrosed, there is no aortic stenosis or aortic insufficiency. Mitral Valve Mitral valve is grossly normal, there is mild mitral regurgitation. Tricuspid Valve Tricuspid valve grossly normal, there is mild tricuspid regurgitation, tricuspid regurgitation jet velocity is inadequate for calculation of the right ventricular systolic pressure. Pulmonic Valve Pulmonic valve is poorly visualized. Great Vessels Aortic root is normal size. Pericardium Small pericardial effusion and anterior echo-free space seen. Conclusion 1. Technically difficult study because of the patient fact in poor acoustic windows. 2. Mildly enlarged left atrium, normal left ventricular size, visually estimated ejection fraction 55% with no regional wall motion abnormality, diastolic parameters inconclusive. 3. Mild mitral and tricuspid regurgitation. 4. Small pericardial effusion anterior echo-free space seen. Electronically signed by : Dudley Rowe, 06/22/2020 13:48:31
[2020-06-22 11:29] LABS: POC Glucose,Bedside 183 (70-110)
--- NOTE | 2020-06-22 11:32 | US_ITS ---
PROCEDURE: US THORACENTESIS CLINICAL INDICATION: left effusion COMPARISON: CT CT CHEST WO CON from 06/22/2020 TECHNIQUE: Pre thoracentesis ultrasound confirms left-sided pleural effusion with collapse lung. Informed consent was obtain prior to procedure. After appropriate Time out, under aseptic conditions and local anesthesia with 1% buffered lidocaine using sonographic guidance a 6 Malay [id number] catheter was inserted into the largest area of pleural effusion in the left posterior hemithorax. Approximately 600 mL of bloody non purulent fluid was drained. The patient tolerated the procedure well and left the radiology suite in stable condition. Post thoracentesis chest x-ray showed no evidence of pneumothorax FINDINGS: Left-sided pleural effusion. IMPRESSION: Successful sonographic guided thoracentesis without complication. Dictated by: Fady Franco MD 06/22/2020 16:28 Fady Franco MD in [place] 06/22/2020 16:28
--- NOTE | 2020-06-22 12:35 | HMH.GSCON ---
*Admission Date: 06/17/20 *Reason for consult:: Possible empyema *History of present illness: This is a 64-year-old female seen in consultation from Dr. Pete for possible chest tube placement for empyema. Please see a forwarded copy of the history of present illness from his note below. Forwarded from Pulmonary Medicine consult: Ms. Bahena is a 64-year-old female with a history of CAD status post stenting, non-smoker, obstructive sleep apnea on CPAP at home complaint presented to the emergency department on 17 June with worsening respiratory failure. To this presentation the patient was treated with community-acquired pneumonia for 5 days however she is not getting any better and since on presentation her antibiotics were escalated to cover hospital-acquired pneumonia with bank cefepime and levofloxacin. Patient leukocytosis slightly improved however started getting worse along with febrile episodes the pulmonary was consulted as there were concern for parapneumonic effusion and possible empyema. Along with pneumonia and shortness of breath patient also complains of significant orthopnea PND and lower extremity swelling. Review of Systems - Constitutional Denies chills - Eyes Denies pain - ENT Denies difficulty swallowing - *Cardiovascular Denies chest pain at rest - *Respiratory Reports shortness of breath - *Gastrointestinal Denies abdominal pain - *Genitourinary Denies difficulty urinating - *Musculoskeletal Denies tingling - Integumentary/Breasts Denies new lesions - *Neurologic Denies abnormal walking, Denies behavioral changes, Denies dizziness, Denies localized weakness, Denies frequent falls, Denies headache(s) - Psychiatric Denies anxiety - Endocrine Denies cold intolerance - Hematologic/Lymphatic Denies easy bleeding - Allergic/Immunologic Denies hives [facility] History Medical History: Reports:: Arrhythmia, Atherosclerotic Heart Disease, Atrial Fibrillation, Congestive Heart Failure, Chronic Obstructive Pulmonary Disease (COPD), Coronary Artery Disease, Diabetes Mellitus Type 2, Hyperlipidemia, Hypertension, Osteoporosis Denies:: Asthma, Cancer, Diabetes Mellitus Type 1, MRSA, Renal Disease, Renal Insufficiency, Seizures *Have you ever received a pneumonia vaccine?: No *Have you received a flu vaccine this season?: Yes Other Medical History: Reports: Anemia, Arthritis, Cataracts, Hormone Therapy, Hypothyroidism, Osteoporosis, Other (Polymyalgia rheumatica) Laterality Cases: Right: Arthroscopy Knee, Bilateral: Tonsillectomy Other Surgeries: Yes: Cardiac Catheterization, Cardiac Surgery, Cholecystectomy, Coronary Stent, Amputation: No Fractures: No - *Social History Last grade of school completed: High school graduate Smoking Status: Current some day smoker Alcohol Intake: never Alcohol Intake Frequency:: other Substance Use Type: denies use *Occupational Status:: retired Housing: house Household Members: children *Travel in the last 8 weeks: None Family Hx:: Cancer, Diabetes, Heart Attack, Hyperlipidemia, Hypertension, Stroke Meds Home Medications Medication Instructions Recorded Confirmed Type aspirin 81 mg tablet,delayed 81 mg PO DAILY tab 11/19/17 06/17/20 History release gabapentin 600 mg tablet 600 mg PO TID 30 Days tab 11/19/17 06/17/20 History Insulin NPH Hum/Reg Insulin Hm 50 units SQ BID 05/05/19 06/17/20 History [Novolin 70-30 100 Unit/ml Vial] Loratadine [Allergy Relief] 10 mg PO DAILY 05/05/19 06/17/20 History levothyroxine 88 mcg tablet 88 mcg PO DAILY tab 10/10/19 06/17/20 History Clopidogrel Bisulfate [Plavix 75mg 75 mg PO DAILY 04/13/20 06/17/20 History Tab] atorvastatin 40 mg tablet 40 mg PO DAILY tab 05/04/20 06/17/20 History semaglutide 0.5 mg SQ WEEKLY ml 05/04/20 06/17/20 History furosemide 40 mg tablet 40 mg PO DAILY #30 tab 05/28/20 06/17/20 Rx Metoprolol Succinate [Metoprolol 25 mg PO HS 06/09/20 06/17/20 History Succinate 2
--- NOTE | 2020-06-22 13:38 | XR_ITS ---
PROCEDURE: XR CHEST 2V CLINICAL HISTORY: POST THORACENTESIS COMPARISON: CR XR CHEST PORTABLE from 06/08/2020 CR XR CHEST 2V from 06/10/2020 CR XR CHEST PORTABLE from 06/17/[address] CHEST WO CON from 06/22/2020 FINDINGS: There is cardiomegaly without failure. There has been an interval left-sided thoracentesis with some decrease in size of the left-sided effusion. No evidence of pneumothorax. Patchy density is present in the right lower lobe suggesting pneumonia or atelectatic change. IMPRESSION: No evidence of pneumothorax. Cardiomegaly with right basilar atelectasis or infiltrate Dictated by: Fady Franco MD 06/22/2020 13:48 Fady Franco MD in [place] 06/22/2020 13:48
[2020-06-22 14:49] LABS: Lactate Dehydrogenase 225 U/L (313-618)
[2020-06-22 14:50] LABS: Alanine Aminotransferase 91 U/L (12-78); Albumin Level 2.7 g/dl (3.5-5.0); Albumin/Globulin Ratio 0.8 (1.1-1.8); Alkaline Phosphatase 209 U/L (38-126); Anion Gap 9.6 mEq/L (5-15); Aspartate Amino Transferase 105 U/L (14-36); Bilirubin,Total 0.4 mg/dl (0.2-1.3); Blood Urea Nitrogen 50 mg/dl (7-17); Calcium 8.5 mg/dl (8.4-10.2); Carbon Dioxide 25 mmol/L (22.0-30.0); Chloride 99 mmol/L (98-107); Creatinine Clearance Estimated 29 mL/min (50-200); Estimated Glomerular Filt Rate 28 ml/min (>60); GFR (African American) 34 ML/MIN (>60); Globulin 3.2 g/dL (1.3-3.2); Glucose 193 mg/dl (74-100); Potassium 4.6 mmoL/L (3.5-5.1); Sodium 129 mmol/L (136-145); Total Protein,Serum 5.9 g/dl (6.3-8.2)
--- NOTE | 2020-06-22 16:45 | XR_ITS ---
PROCEDURE: XR CHEST AP CLINICAL HISTORY: POST THORACENTESIS, ON EXPIRATION COMPARISON: CR XR CHEST 2V from 06/10/2020 CR XR CHEST PORTABLE from 06/17/[address] CHEST WO CON from 06/22/2020 CR XR CHEST AP from 06/22/2020 FINDINGS: Cardiomegaly. No CHF. There are low lung volumes. The study is obtained in expiration. No evidence of pneumothorax. Patchy density once again noted in the lower lobes consistent with atelectasis or infiltrate. IMPRESSION: No evidence of pneumothorax. Cardiomegaly with bibasilar airspace disease Dictated by: Fady Franco MD 06/22/2020 16:51 Fady Franco MD in [place] 06/22/2020 16:51
[2020-06-22 17:12] LABS: POC Glucose,Bedside 166 (70-110)
--- NOTE | 2020-06-22 18:27 | PC.NURSE ---
Pt has been pleasant and cooperative this shift. A&O X4. Pt has complained of occasional pain and received Tylenol per DEC. Pt received an US-guided thoracentesis today. Pt remains on room air with sats. >90%. Lung sounds are noted to be diminished on the LT side. 2+ pitting edema noted to BLE. No weeping/drainage noted this shift. Pt is currently laying in a bariatric bed and reports that she is comfortable. A donut pillow is still available at bedside, although not currently in use. Barrier cream at bedside and applied to coccyx area per pt request. BLE elevated with pillows. Pt ambulates independently throughout the room and to/from the bathroom. Pt voids clear, yellow urine without issue. No BM this shift. 20 G peripheral IV in the RT forearm is patent and SL. FSBS results have been 183 and 166. IS at BS and frequent encouragement is given to use Q1HWA. B/P noted to be slightly low this shift and other VSS. Call light within reach. Will continue to monitor.
--- NOTE | 2020-06-22 19:13 | PC.NURSE ---
report given to noah
[2020-06-22 21:19] LABS: POC Glucose,Bedside 187 (70-110)
[2020-06-23] VITALS (7 sets, daily range): BP systolic 107–149; BP diastolic 51–75; PULSE 75–99; RESP 17–24; TEMP 36.5–37.4; O2SAT 90–94; BMI 47.5
--- NOTE | 2020-06-23 05:30 | PC.NURSE ---
shift summary, pt has rested well t/o shift in bed, when asked how she is feeling pt states she is just exhausted, lung sounds are still diminished on the right side, while the right side sounds clear, pt remains on RA and sats have ranged from 91-92%, pt has no complaints of SOA, respirations have ranged from 20-24/min, did complain of a headache around 0310 and was treated successfully per DEC, output this shift 200 mL, pt encouraged to get OOB to use bathroom, pt attempted to use BSC with no results, pt educated on importance of IS use
[2020-06-23 06:05] LABS: POC Glucose,Bedside 151 (70-110)
--- NOTE | 2020-06-23 08:39 | HMH.ACPN2 ---
Internal Medicine - PN: Subj *Date: 06/23/20 *Time: 08:40 Interval history: Slept well overnight and reports feeling rested. Sleeping in a bariatric bed also improve the patient's edema. She did not have any fevers. Patient underwent successful ultrasound-guided thoracentesis yesterday which removed 600 mL's of bloody fluid. Testing of pleural fluid is in process. Exam Vital signs and Labs for Last 24 Hours: Temp Pulse Resp BP Pulse Ox 98.0 F 86 20 114/58 L 91 L 06/23/20 04:00 06/23/20 04:00 06/23/20 04:00 06/23/20 04:00 06/23/20 04:00 Laboratory Results - last 24 hr 06/22/20 11:10: POC Glucose 183 H 06/22/20 13:30: Lactate Dehydrogenase 225 L 06/22/20 14:30: Sodium 129 L, Potassium 4.6, Chloride 99, Carbon Dioxide 25, Anion Gap 9.6, BUN 50 H, Creatinine 1.80 H, Estimated Creat Clear 29, Estimated GFR 28 L, Est GFR ( Amer) 34 L, Glucose 193 H D, Calcium 8.5, Total Bilirubin 0.4, AST 105 H, ALT 91 H, Alkaline Phosphatase 209 H, Total Protein 5.9 L, Albumin 2.7 L, Globulin 3.2, Albumin/Globulin Ratio 0.8 L 06/22/20 16:57: POC Glucose 166 H 06/22/20 21:03: POC Glucose 187 H 06/23/20 05:56: POC Glucose 151 H I & O for Last 24 hours: Intake & Output 06/20/20 06/21/20 06/22/20 06/23/20 11:59 11:59 11:59 11:59 Intake Total 980 / 980 1870 / 1870 1295 / 1295 640 / 640 Output Total 1660 / 1660 900 / 900 800 / 800 200 / 200 Balance -680 / -680 970 / 970 495 / 495 440 / 440 Weight 286 lb 9.615 oz 286 lb 1 oz 285 lb 303 lb 2.17 oz Microbiology Reports for the Last 24 Hours: Microbiology 06/22/20 13:30 Thoracic Fluid Gram Stain - Final 06/17/20 11:15 Blood Blood Culture - Final NO GROWTH AFTER 5 DAYS 06/17/20 11:15 Blood Blood Culture - Final NO GROWTH AFTER 5 DAYS Narrative: Patient looks rested. Lungs have atelectatic crackles in the left base but improvement in aeration. Heart has a regular rate and rhythm. Edema is 2+ in the lower extremities Assessment and Plan (1) Pneumonia Current visit: Yes Status: Acute Qualifiers: Pneumonia type: due to unspecified organism Laterality: left Lung location: lower lobe of lung Qualified Code(s): J18.9 - Pneumonia, unspecified organism Category: Medical Code(s): J18.9 - Pneumonia, unspecified organism (2) Acute kidney injury Current visit: No Status: Resolved Category: Medical Code(s): N17.9 - Acute kidney failure, unspecified (3) Obstructive sleep apnea Current visit: No Status: Chronic Category: Medical Code(s): G47.33 - Obstructive sleep apnea (adult) (pediatric) (4) Type 2 diabetes mellitus Current visit: No Status: Chronic Qualifiers: Diabetes mellitus penitentiary insulin use: with penitentiary use Diabetes mellitus complication status: with neurologic complications Diabetes mellitus complication detail: with polyneuropathy Qualified Code(s): E11.42 - Type 2 diabetes mellitus with diabetic polyneuropathy; Z79.4 - detention (current) use of insulin Category: Medical Code(s): E11.9 - Type 2 diabetes mellitus without complications (5) Pedal edema Current visit: Yes Status: Acute Category: Medical Code(s): R60.0 - Localized edema (6) Edema Current visit: No Status: Acute Qualifiers: Edema type: localized Qualified Code(s): R60.0 - Localized edema Category: Medical Code(s): R60.9 - Edema, unspecified (7) Diabetes mellitus with polyneuropathy Current visit: No Status: Chronic Qualifiers: Diabetes mellitus type: type 1 Qualified Code(s): E10.42 - Type 1 diabetes mellitus with diabetic polyneuropathy Category: Medical Code(s): E11.42 - Type 2 diabetes mellitus with diabetic polyneuropathy (8) HHD (hypertensive heart disease) Current visit: No Status: Chronic Qualifiers: Heart failure presence: with heart failure Heart failure type: diastolic Heart failure chronic
--- NOTE | 2020-06-23 09:03 | HMH.GSPN ---
Subjective Patient reports: feels better (She states that she is breathing a little better after ultrasound-guided thoracentesis) Progress Note: A&P (1) Pneumonia Status: Acute Current Visit: Yes (2) Acute kidney injury Status: Resolved Current Visit: No (3) Obstructive sleep apnea Status: Chronic Current Visit: No (4) Type 2 diabetes mellitus Status: Chronic Current Visit: No (5) Pedal edema Status: Acute Current Visit: Yes (6) Edema Status: Acute Current Visit: No (7) Diabetes mellitus with polyneuropathy Status: Chronic Current Visit: No (8) HHD (hypertensive heart disease) Status: Chronic Current Visit: No (9) Pleural effusion, left Status: Acute Assessment and plan: Overall, slightly improved status post ultrasound-guided thoracentesis. Hold off on chest tube for now May require repeat ultrasound with potential repeat thoracentesis Still may require thoracic intervention Follow-up pleural fluid studies Current Visit: Yes (10) Diastolic CHF Status: Chronic Current Visit: No Exam Vital signs and Labs for Last 24 Hours: Temp Pulse Resp BP Pulse Ox 98.0 F 86 20 114/58 L 91 L 06/23/20 04:00 06/23/20 04:00 06/23/20 04:00 06/23/20 04:00 06/23/20 04:00 Laboratory Results - last 24 hr 06/22/20 11:10: POC Glucose 183 H 06/22/20 13:30: Lactate Dehydrogenase 225 L 06/22/20 14:30: Sodium 129 L, Potassium 4.6, Chloride 99, Carbon Dioxide 25, Anion Gap 9.6, BUN 50 H, Creatinine 1.80 H, Estimated Creat Clear 29, Estimated GFR 28 L, Est GFR ( Amer) 34 L, Glucose 193 H D, Calcium 8.5, Total Bilirubin 0.4, AST 105 H, ALT 91 H, Alkaline Phosphatase 209 H, Total Protein 5.9 L, Albumin 2.7 L, Globulin 3.2, Albumin/Globulin Ratio 0.8 L 06/22/20 16:57: POC Glucose 166 H 06/22/20 21:03: POC Glucose 187 H 06/23/20 05:56: POC Glucose 151 H I & O for Last 24 hours: Intake & Output 06/20/20 06/21/20 06/22/20 06/23/20 11:59 11:59 11:59 11:59 Intake Total 980 / 980 1870 / 1870 1295 / 1295 640 / 640 Output Total 1660 / 1660 900 / 900 800 / 800 200 / 200 Balance -680 / -680 970 / 970 495 / 495 440 / 440 Weight 286 lb 9.615 oz 286 lb 1 oz 285 lb 303 lb 2.17 oz Microbiology Reports for the Last 24 Hours: Microbiology 06/22/20 13:30 Thoracic Fluid Gram Stain - Final 06/17/20 11:15 Blood Blood Culture - Final NO GROWTH AFTER 5 DAYS 06/17/20 11:15 Blood Blood Culture - Final NO GROWTH AFTER 5 DAYS - Constitutional no acute distress - *Routine Respiratory Exam Absent: respiratory distress - *Routine Cardiovascular Exam Present: RRR
[2020-06-23 09:32] LABS: Basophils # 0.1 K/mm3 (0-0.2); Basophils % 0.5 % (0.1-2.0); Eosinophils # 0.2 K/mm3 (0.0-0.4); Eosinophils % 1.1 % (0.1-12.0); Hematocrit 33.4 % (37.0-47.0); Hemoglobin 10.6 g/dL (12.2-16.2); Lymphocytes # 0.4 K/mm3 (0.7-4.5); Lymphocytes % 2.2 % (10-50); Mean Corpuscular HGB Conc 31.8 g/dL (31.8-35.4); Mean Corpuscular Hemoglobin 30.6 pg (27.0-31.2); Mean Corpuscular Volume 96.2 fl (81-99); Mean Platelet Volume 7.6 fl (7.4-10.4); Monocytes # 0.8 K/mm3 (0.1-1.0); Monocytes % 4.3 % (1.7-9.3); Neutrophils # 17.4 K/mm3 (1.8-7.8); Neutrophils % 91.9 % (37.0-80.0); Platelet Count 690 K/mm3 (142-424); Red Blood Count 3.47 M/mm3 (4.20-5.40); Red Cell Distribution Width 13.5 % (11.5-17.5); White Blood Count 18.9 K/mm3 (4.8-10.8)
[2020-06-23 09:36] LABS: MANUAL DIFFERENTIAL MANUAL DIFFERENTIAL (MANUAL DIFF)
[2020-06-23 09:38] LABS: Chloride 98 mmol/L (98-107); Potassium 4.4 mmoL/L (3.5-5.1); Sodium 130 mmol/L (136-145)
[2020-06-23 09:41] LABS: Anion Gap 13.4 mEq/L (5-15); Blood Urea Nitrogen 59 mg/dl (7-17); Carbon Dioxide 23 mmol/L (22.0-30.0); Creatinine Clearance Estimated 26 mL/min (50-200); Estimated Glomerular Filt Rate 25 ml/min (>60); GFR (African American) 30 ML/MIN (>60)
[2020-06-23 09:42] LABS: Calcium 8.6 mg/dl (8.4-10.2); Glucose 204 mg/dl (74-100)
[2020-06-23 10:05] LABS: Vancomycin,Trough 22.5 ug/mL (5.0-10.0)
--- NOTE | 2020-06-23 10:22 | HMH.PHACONS ---
- Pharmacy Consult Date: 06/23/20 Time: 10:22 Referring provider: DR. YUAN Reason for Consult:: VANCOMYCIN TROUGH LEVEL AND DOSE HOLD Allergies and ADEs:: Allergies Allergy/AdvReac Type Severity Reaction Status Date / Time oxycodone AdvReac Anxiety Verified 06/08/20 13:10 Home Medications:: Home Medications Medication Instructions Recorded Confirmed Type aspirin 81 mg tablet,delayed 81 mg PO DAILY tab 11/19/17 06/17/20 History release gabapentin 600 mg tablet 600 mg PO TID 30 Days tab 11/19/17 06/17/20 History Insulin NPH Hum/Reg Insulin Hm 50 units SQ BID 05/05/19 06/17/20 History [Novolin 70-30 100 Unit/ml Vial] Loratadine [Allergy Relief] 10 mg PO DAILY 05/05/19 06/17/20 History levothyroxine 88 mcg tablet 88 mcg PO DAILY tab 10/10/19 06/17/20 History Clopidogrel Bisulfate [Plavix 75mg 75 mg PO DAILY 04/13/20 06/17/20 History Tab] atorvastatin 40 mg tablet 40 mg PO DAILY tab 05/04/20 06/17/20 History semaglutide 0.5 mg SQ WEEKLY ml 05/04/20 06/17/20 History furosemide 40 mg tablet 40 mg PO DAILY #30 tab 05/28/20 06/17/20 Rx Metoprolol Succinate [Metoprolol 25 mg PO HS 06/09/20 06/17/20 History Succinate 25mg Tablet*] Promethazine HCl [Phenergan 25mg 12.5 - 25 mg PO Q8HP PRN 06/09/20 06/17/20 History tablet] levoFLOXacin [Levofloxacin 750MG 750 mg PO DAILY 06/17/20 06/17/20 History Tablet] Losartan Potassium [Cozaar 100mg 100 mg PO DAILY 06/18/20 06/18/20 History Tablets] Spironolactone [Spironolactone 25 mg PO DAILY 06/18/20 06/18/20 History 25mg Tablet] Height: 1.7 m Weight: 137.5 kg Laboratory Results:: Laboratory Results - last 24 hr 06/22/20 11:10: POC Glucose 183 H 06/22/20 13:30: Lactate Dehydrogenase 225 L 06/22/20 14:30: Sodium 129 L, Potassium 4.6, Chloride 99, Carbon Dioxide 25, Anion Gap 9.6, BUN 50 H, Creatinine 1.80 H, Estimated Creat Clear 29, Estimated GFR 28 L, Est GFR ( Amer) 34 L, Glucose 193 H D, Calcium 8.5, Total Bilirubin 0.4, AST 105 H, ALT 91 H, Alkaline Phosphatase 209 H, Total Protein 5.9 L, Albumin 2.7 L, Globulin 3.2, Albumin/Globulin Ratio 0.8 L 06/22/20 16:57: POC Glucose 166 H 06/22/20 21:03: POC Glucose 187 H 06/23/20 05:56: POC Glucose 151 H 06/23/20 09:20: Sodium 130 L, Potassium 4.4, Chloride 98, Carbon Dioxide 23, Anion Gap 13.4, BUN 59 H, Creatinine 2.00 H, Estimated Creat Clear 26, Estimated GFR 25 L, Est GFR ( Amer) 30 L, Glucose 204 H, Calcium 8.6 06/23/20 09:20: Vancomycin Trough 22.5 H 06/23/20 09:20: WBC 18.9 H, RBC 3.47 L, Hgb 10.6 L, Hct 33.4 L, MCV 96.2, MCH 30.6, MCHC 31.8, RDW 13.5, Plt Count 690 H, MPV 7.6, Neut % (Auto) 91.9 H, Lymph % (Auto) 2.2 L, [place] % (Auto) 4.3, Eos % (Auto) 1.1, Baso % (Auto) 0.5, Neut # (Auto) 17.4 H, Lymph # (Auto) 0.4 L, [place] # (Auto) 0.8, Eos # (Auto) 0.2, Baso # (Auto) 0.1 Medical History: Reports:: Arrhythmia, Atherosclerotic Heart Disease, Atrial Fibrillation, Congestive Heart Failure, Chronic Obstructive Pulmonary Disease (COPD), Coronary Artery Disease, Diabetes Mellitus Type 2, Hyperlipidemia, Hypertension, Osteoporosis Denies:: Asthma, Cancer, Diabetes Mellitus Type 1, MRSA, Renal Disease, Renal Insufficiency, Seizures Assessment and Plan (1) Pneumonia Current visit: Yes Status: Acute Qualifiers: Pneumonia type: due to unspecified organism Laterality: left Lung location: lower lobe of lung Qualified Code(s): J18.9 - Pneumonia, unspecified organism Category: Medical Code(s): J18.9 - Pneumonia, unspecified organism (2) Acute kidney injury Current visit: No Status: Resolved Category: Medical Code(s): N17.9 - Acute kidney failure, unspecified (3) Obstructive sleep apnea Current visit: No Status: Chronic Category: Medical Code(s): G47.33 - Obstructive sleep apnea (adult) (pediatric) (4) Type 2 diabetes mellitus Current visit: No Status: Chronic Qualifiers: Diabetes mellitus manager long term care insulin use: with manager long term care use Diabetes m
[2020-06-23 10:51] LABS: POC Glucose,Bedside 194 (70-110)
[2020-06-23 11:18] LABS: Lymphocytes % 7 % (10-50); Monocytes % 2 % (2-9); Neutrophils % 90 % (42-76); Total Cells Counted 100
[2020-06-23 11:19] LABS: Platelet Estimate Slight Increase; RBC Morphology Normal
--- NOTE | 2020-06-23 11:24 | XR_ITS ---
PROCEDURE: XR CHEST PORTABLE PICC PLAC Referring Doctor: Juan Sexton Patient Age:64Y CLINICAL HISTORY: Confirm PICC line placement COMPARISON: CR XR CHEST PORTABLE from 06/17/[address] CHEST WO CON from 06/22/2020 CR XR CHEST AP from 06/22/2020 CR XR CHEST AP from 06/22/2020 FINDINGS: CXR for PICC line placement PICC line is seen entering from the left arm transversing the left subclavian vein entering the left brachycephalic vein with tip at least to midline at the brachycephalic vein I believe the tip of the PICC line is at the brachiocephalic vein just above, just proximal to its junction with the SVC. The patient's size, along with denser mediastinum and today's portable x-ray image technique limit visualization of detail beyond this region Cardiomegaly. Bibasilar airspace disease of again noted; most pronounced at the left base and similar to yesterday's CXR study. Small left pleural effusion contributes to density here.-The airspace disease and left pleural effusion obscure the obscure the left hemidiaphragm. Cardiomegaly. Prominence of upper lobe vessels of suggesting mild vascular engorgement and likely enhanced upper lobe vessels to the supine projection on this study.. IMPRESSION: PICC line enters from left arm and can be followed extending through the brachycephalic vein.-I believe the tip PICC line is at midline, and within brachiocephalic vein just proximal to its junction with SVC.. (Report was called to 2nd floor PICC linenurse) Today's p CXR basically stable since yesterday..- . Bibasilar airspace disease most pronounced at the left lung base,. Left pleural effusion. Together these features obscures the left hemidiaphragm . Cardiomegaly. . Mild vascular engorgement, with accentuation upper lobe vessels in part due to the supine projection Dictated by: Hosea Chaparro MD 06/23/2020 17:17 Hosea Chaparro MD in [place] 06/23/2020 17:17
[2020-06-23 17:09] LABS: POC Glucose,Bedside 233 (70-110)
[2020-06-23 18:21] LABS: Albumin, Body Fluid 1.9 g/dL (Not Estab.); Glucose, Body Fluid 172 mg/dL (.); LD, Body Fluid 268 IU/L (.); Protein, Body Fluid 3.4 g/dL (.)
--- NOTE | 2020-06-23 18:35 | PC.NURSE ---
ALERT AND ORIENTED X4. PT EXHIBITS S/S OF ANXIETY, TEARFUL, AND STAFF SPLITS AT TIMES. IV ACCESS LOST EARLY IN THE SHIFT, UNABLE TO REGAIN ACCESS AND ADMINISTER ANTIBIOTICS. DR. YUAN NOTIFIED, ORDERED PICC LINE AND INSTRUCTED TO RETIME IV ANTIBIOTICS WHEN PICC LINE IS PLACED. PICC LINE PLACED WITHOUT ISSUES AND MEDICATIONS ADMINISTERED PER MAR. LUNGS REMAIN DIMINISHED WITH FINE CRACKLES IN THE BASES. O2 SATURATION IN LOW TO MID 90'S ON RA. NO DISTRESS NOTED. ABDOMEN IS LARGE, ROUND, AND NON-TENDER WITH ACTIVE BS IN ALL QUADS. NO BM THIS SHIFT. PT VOIDS CLEAR RISA URINE VIA BSC AND COMMODE AND AMBULATES X1 ASSIST. TYLENOL ADMINISTERED X1 FOR MARIE, EFFECTIVE. EDUCATION PROVIDED ON IMPORTANCE OF GETTING OOB AND UP TO CHAIR, ENCOURAGEMENT NEEDED. VSS. SAFETY MEASURES IN PLACE, WILL CONTINUE TO MONITOR
[2020-06-23 20:41] LABS: POC Glucose,Bedside 193 (70-110)
[2020-06-24] VITALS (8 sets, daily range): BP systolic 103–140; BP diastolic 53–78; PULSE 79–98; RESP 16–22; TEMP 36.4–37.3; O2SAT 90–98; BMI 47.5
[2020-06-24 05:59] LABS: POC Glucose,Bedside 140 (70-110)
[2020-06-24 07:04] LABS: Basophils # 0.1 K/mm3 (0-0.2); Basophils % 0.3 % (0.1-2.0); Eosinophils # 0.3 K/mm3 (0.0-0.4); Eosinophils % 1.8 % (0.1-12.0); Lymphocytes # 0.6 K/mm3 (0.7-4.5); Lymphocytes % 3.5 % (10-50); Mean Corpuscular HGB Conc 32.7 g/dL (31.8-35.4); Mean Corpuscular Hemoglobin 30.1 pg (27.0-31.2); Mean Platelet Volume 7.4 fl (7.4-10.4); Monocytes # 1.7 K/mm3 (0.1-1.0); Monocytes % 10.7 % (1.7-9.3); Neutrophils # 13.6 K/mm3 (1.8-7.8); Neutrophils % 83.7 % (37.0-80.0); Platelet Count 553 K/mm3 (142-424); Red Blood Count 2.97 M/mm3 (4.20-5.40); Red Cell Distribution Width 13.8 % (11.5-17.5); White Blood Count 16.2 K/mm3 (4.8-10.8)
[2020-06-24 07:05] LABS: Hematocrit 27.3 % (37.0-47.0)
[2020-06-24 07:06] LABS: MANUAL DIFFERENTIAL MANUAL DIFFERENTIAL (MANUAL DIFF)
[2020-06-24 07:09] LABS: Chloride 97 mmol/L (98-107); Sodium 129 mmol/L (136-145)
[2020-06-24 07:10] LABS: Potassium 4.5 mmoL/L (3.5-5.1)
[2020-06-24 07:12] LABS: Anion Gap 12.5 mEq/L (5-15); Blood Urea Nitrogen 62 mg/dl (7-17); Carbon Dioxide 24 mmol/L (22.0-30.0); Creatinine Clearance Estimated 31 mL/min (50-200); Estimated Glomerular Filt Rate 30 ml/min (>60); GFR (African American) 36 ML/MIN (>60)
[2020-06-24 07:13] LABS: Calcium 8.3 mg/dl (8.4-10.2)
[2020-06-24 07:14] LABS: Eosinophils % 1 % (0-3); Lymphocytes % 5 % (10-50); Monocytes % 3 % (2-9); Neutrophils % 87 % (42-76); Platelet Estimate Moderate Increase; RBC Morphology Normal; Rouleaux 1+; Total Cells Counted 100
[2020-06-24 07:15] LABS: Glucose 136 mg/dl (74-100)
[2020-06-24 07:19] LABS: Hemoglobin 8.9 g/dL (12.2-16.2)
--- NOTE | 2020-06-24 08:23 | HMH.ACPN2 ---
Internal Medicine - PN: Subj *Date: 06/24/20 *Time: 08:23 Interval history: Patient did relatively well over the last 24 hours. She reports an episode of dyspnea with ambulation to the bathroom and back. She continues to have a slight cough although is not producing any sputum. Pedal edema has improved significantly. Exam Vital signs and Labs for Last 24 Hours: Temp Pulse Resp BP Pulse Ox 97.8 F 79 16 103/53 L 92 L 06/24/20 07:53 06/24/20 07:53 06/24/20 07:53 06/24/20 07:53 06/24/20 07:53 Laboratory Results - last 24 hr 06/22/20 13:30: Fluid Glucose 172, Fluid Total Protein 3.4, Fluid Albumin 1.9, Fluid LDH 268 06/23/20 09:20: Sodium 130 L, Potassium 4.4, Chloride 98, Carbon Dioxide 23, Anion Gap 13.4, BUN 59 H, Creatinine 2.00 H, Estimated Creat Clear 26, Estimated GFR 25 L, Est GFR ( Amer) 30 L, Glucose 204 H, Calcium 8.6 06/23/20 09:20: Vancomycin Trough 22.5 H 06/23/20 09:20: WBC 18.9 H, RBC 3.47 L, Hgb 10.6 L, Hct 33.4 L, MCV 96.2, MCH 30.6, MCHC 31.8, RDW 13.5, Plt Count 690 H, MPV 7.6, Neut % (Auto) 91.9 H, Lymph % (Auto) 2.2 L, [place] % (Auto) 4.3, Eos % (Auto) 1.1, Baso % (Auto) 0.5, Neut # (Auto) 17.4 H, Lymph # (Auto) 0.4 L, [place] # (Auto) 0.8, Eos # (Auto) 0.2, Baso # (Auto) 0.1, Total Counted 100, Neutrophils % (Manual) 90 H, Band Neutrophils % 1.0, Lymphocytes % (Manual) 7 L, Monocytes % (Manual) 2, Platelet Estimate Slight increase, RBC Morphology Normal 06/23/20 10:39: POC Glucose 194 H 06/23/20 17:01: POC Glucose 233 H 06/23/20 20:07: POC Glucose 193 H 06/24/20 05:52: POC Glucose 140 H 06/24/20 06:28: WBC 16.2 H, RBC 2.97 L, Hgb 8.9 L D, Hct 27.3 L, MCV 92.0, MCH 30.1, MCHC 32.7, RDW 13.8, Plt Count 553 H, MPV 7.4, Neut % (Auto) 83.7 H, Lymph % (Auto) 3.5 L, [place] % (Auto) 10.7 H, Eos % (Auto) 1.8, Baso % (Auto) 0.3, Neut # (Auto) 13.6 H, Lymph # (Auto) 0.6 L, [place] # (Auto) 1.7 H, Eos # (Auto) 0.3, Baso # (Auto) 0.1, Total Counted 100, Neutrophils % (Manual) 87 H, Band Neutrophils % 4.0, Lymphocytes % (Manual) 5 L, Monocytes % (Manual) 3, Eosinophils % (Manual) 1, Platelet Estimate Moderate increase, RBC Morphology Normal, Rouleaux 1+ 06/24/20 06:28: Sodium 129 L, Potassium 4.5, Chloride 97 L, Carbon Dioxide 24, Anion Gap 12.5, BUN 62 H, Creatinine 1.70 H, Estimated Creat Clear 31, Estimated GFR 30 L, Est GFR ( Amer) 36 L, Glucose 136 H D, Calcium 8.3 L I & O for Last 24 hours: Intake & Output 06/21/20 06/22/20 06/23/20 06/24/20 11:59 11:59 11:59 11:59 Intake Total 1870 / 1870 1295 / 1295 1000 / 1000 750 / 750 Output Total 900 / 900 800 / 800 200 / 200 620 / 620 Balance 970 / 970 495 / 495 800 / 800 130 / 130 Weight 286 lb 1 oz 285 lb 303 lb 2.17 oz 302 lb 14.642 oz Microbiology Reports for the Last 24 Hours: Microbiology 06/22/20 13:30 Thoracic Fluid Gram Stain - Final 06/22/20 13:30 Thoracic Fluid Body Fluid Culture - Preliminary NO GROWTH AFTER 24 HOURS Narrative: Patient is in no distress. She is not wearing oxygen. Oropharynx is moist. Heart has a regular rate and rhythm. Lungs are clear anteriorly with dry crackles at the left base consistent with the atelectasis that is persisting after thoracentesis Assessment and Plan (1) Pneumonia Current visit: Yes Status: Acute Qualifiers: Pneumonia type: due to unspecified organism Laterality: left Lung location: lower lobe of lung Qualified Code(s): J18.9 - Pneumonia, unspecified organism Category: Medical Code(s): J18.9 - Pneumonia, unspecified organism (2) Acute kidney injury Current visit: No Status: Resolved Category: Medical Code(s): N17.9 - Acute kidney failure, unspecified (3) Obstructive sleep apnea Current visit: No Status: Chronic Category: Medical Code(s): G47.33 - Obstructive sleep apnea (adult) (pediatric) (4) Type 2 diabetes mellitus Current visit: No Status: Chronic Qualifiers: Diabetes mellitus terminal operations manager insulin use: with
--- NOTE | 2020-06-24 09:11 | HMH.GSPN ---
Subjective Patient reports: feels better Progress Note: A&P (1) Pneumonia Status: Acute Current Visit: Yes (2) Acute kidney injury Status: Resolved Current Visit: No (3) Obstructive sleep apnea Status: Chronic Current Visit: No (4) Type 2 diabetes mellitus Status: Chronic Current Visit: No (5) Pedal edema Status: Acute Current Visit: Yes (6) Edema Status: Acute Current Visit: No (7) Diabetes mellitus with polyneuropathy Status: Chronic Current Visit: No (8) HHD (hypertensive heart disease) Status: Chronic Current Visit: No (9) Pleural effusion, left Status: Acute Assessment and plan: Overall, doing better after ultrasound-guided thoracentesis. Repeat ultrasound with possible repeat thoracentesis planned for tomorrow. Current Visit: Yes (10) Diastolic CHF Status: Chronic Current Visit: No Exam Vital signs and Labs for Last 24 Hours: Temp Pulse Resp BP Pulse Ox 97.8 F 79 16 103/53 L 92 L 06/24/20 07:53 06/24/20 07:53 06/24/20 07:53 06/24/20 07:53 06/24/20 07:53 Laboratory Results - last 24 hr 06/22/20 13:30: Fluid Glucose 172, Fluid Total Protein 3.4, Fluid Albumin 1.9, Fluid LDH 268 06/23/20 09:20: Sodium 130 L, Potassium 4.4, Chloride 98, Carbon Dioxide 23, Anion Gap 13.4, BUN 59 H, Creatinine 2.00 H, Estimated Creat Clear 26, Estimated GFR 25 L, Est GFR ( Amer) 30 L, Glucose 204 H, Calcium 8.6 06/23/20 09:20: Vancomycin Trough 22.5 H 06/23/20 09:20: WBC 18.9 H, RBC 3.47 L, Hgb 10.6 L, Hct 33.4 L, MCV 96.2, MCH 30.6, MCHC 31.8, RDW 13.5, Plt Count 690 H, MPV 7.6, Neut % (Auto) 91.9 H, Lymph % (Auto) 2.2 L, [place] % (Auto) 4.3, Eos % (Auto) 1.1, Baso % (Auto) 0.5, Neut # (Auto) 17.4 H, Lymph # (Auto) 0.4 L, [place] # (Auto) 0.8, Eos # (Auto) 0.2, Baso # (Auto) 0.1, Total Counted 100, Neutrophils % (Manual) 90 H, Band Neutrophils % 1.0, Lymphocytes % (Manual) 7 L, Monocytes % (Manual) 2, Platelet Estimate Slight increase, RBC Morphology Normal 06/23/20 10:39: POC Glucose 194 H 06/23/20 17:01: POC Glucose 233 H 06/23/20 20:07: POC Glucose 193 H 06/24/20 05:52: POC Glucose 140 H 06/24/20 06:28: WBC 16.2 H, RBC 2.97 L, Hgb 8.9 L D, Hct 27.3 L, MCV 92.0, MCH 30.1, MCHC 32.7, RDW 13.8, Plt Count 553 H, MPV 7.4, Neut % (Auto) 83.7 H, Lymph % (Auto) 3.5 L, [place] % (Auto) 10.7 H, Eos % (Auto) 1.8, Baso % (Auto) 0.3, Neut # (Auto) 13.6 H, Lymph # (Auto) 0.6 L, [place] # (Auto) 1.7 H, Eos # (Auto) 0.3, Baso # (Auto) 0.1, Total Counted 100, Neutrophils % (Manual) 87 H, Band Neutrophils % 4.0, Lymphocytes % (Manual) 5 L, Monocytes % (Manual) 3, Eosinophils % (Manual) 1, Platelet Estimate Moderate increase, RBC Morphology Normal, Rouleaux 1+ 06/24/20 06:28: Sodium 129 L, Potassium 4.5, Chloride 97 L, Carbon Dioxide 24, Anion Gap 12.5, BUN 62 H, Creatinine 1.70 H, Estimated Creat Clear 31, Estimated GFR 30 L, Est GFR ( Amer) 36 L, Glucose 136 H D, Calcium 8.3 L I & O for Last 24 hours: Intake & Output 06/21/20 06/22/20 06/23/20 06/24/20 11:59 11:59 11:59 11:59 Intake Total 1870 / 1870 1295 / 1295 1000 / 1000 750 / 750 Output Total 900 / 900 800 / 800 200 / 200 620 / 620 Balance 970 / 970 495 / 495 800 / 800 130 / 130 Weight 286 lb 1 oz 285 lb 303 lb 2.17 oz 302 lb 14.642 oz Microbiology Reports for the Last 24 Hours: Microbiology 06/22/20 13:30 Thoracic Fluid Gram Stain - Final 06/22/20 13:30 Thoracic Fluid Body Fluid Culture - Preliminary NO GROWTH AFTER 24 HOURS - Constitutional no acute distress - *Routine Respiratory Exam Absent: respiratory distress - *Routine Cardiovascular Exam Present: RRR
[2020-06-24 09:26] LABS: Vancomycin,Trough 14.2 ug/mL (5.0-10.0)
--- NOTE | 2020-06-24 10:26 | HMH.PHACONS ---
- Pharmacy Consult Date: 06/24/20 Time: 10:26 Referring provider: DR. YUAN Reason for Consult:: VANCOMYCIN TROUGH LEVEL AND DOSE CHANGE Allergies and ADEs:: Allergies Allergy/AdvReac Type Severity Reaction Status Date / Time oxycodone AdvReac Anxiety Verified 06/08/20 13:10 Home Medications:: Home Medications Medication Instructions Recorded Confirmed Type aspirin 81 mg tablet,delayed 81 mg PO DAILY tab 11/19/17 06/17/20 History release gabapentin 600 mg tablet 600 mg PO TID 30 Days tab 11/19/17 06/17/20 History Insulin NPH Hum/Reg Insulin Hm 50 units SQ BID 05/05/19 06/17/20 History [Novolin 70-30 100 Unit/ml Vial] Loratadine [Allergy Relief] 10 mg PO DAILY 05/05/19 06/17/20 History levothyroxine 88 mcg tablet 88 mcg PO DAILY tab 10/10/19 06/17/20 History Clopidogrel Bisulfate [Plavix 75mg 75 mg PO DAILY 04/13/20 06/17/20 History Tab] atorvastatin 40 mg tablet 40 mg PO DAILY tab 05/04/20 06/17/20 History semaglutide 0.5 mg SQ WEEKLY ml 05/04/20 06/17/20 History furosemide 40 mg tablet 40 mg PO DAILY #30 tab 05/28/20 06/17/20 Rx Metoprolol Succinate [Metoprolol 25 mg PO HS 06/09/20 06/17/20 History Succinate 25mg Tablet*] Promethazine HCl [Phenergan 25mg 12.5 - 25 mg PO Q8HP PRN 06/09/20 06/17/20 History tablet] levoFLOXacin [Levofloxacin 750MG 750 mg PO DAILY 06/17/20 06/17/20 History Tablet] Losartan Potassium [Cozaar 100mg 100 mg PO DAILY 06/18/20 06/18/20 History Tablets] Spironolactone [Spironolactone 25 mg PO DAILY 06/18/20 06/18/20 History 25mg Tablet] Height: 1.7 m Weight: 137.4 kg Laboratory Results:: Laboratory Results - last 24 hr 06/22/20 13:30: Fluid Glucose 172, Fluid Total Protein 3.4, Fluid Albumin 1.9, Fluid LDH 268 09/19/20 09:20: Total Counted 100, Neutrophils % (Manual) 90 H, Band Neutrophils % 1.0, Lymphocytes % (Manual) 7 L, Monocytes % (Manual) 2, Platelet Estimate Slight increase, RBC Morphology Normal 06/23/20 10:39: POC Glucose 194 H 06/23/20 17:01: POC Glucose 233 H 06/23/20 20:07: POC Glucose 193 H 06/24/20 05:52: POC Glucose 140 H 06/24/20 06:28: WBC 16.2 H, RBC 2.97 L, Hgb 8.9 L D, Hct 27.3 L, MCV 92.0, MCH 30.1, MCHC 32.7, RDW 13.8, Plt Count 553 H, MPV 7.4, Neut % (Auto) 83.7 H, Lymph % (Auto) 3.5 L, [place] % (Auto) 10.7 H, Eos % (Auto) 1.8, Baso % (Auto) 0.3, Neut # (Auto) 13.6 H, Lymph # (Auto) 0.6 L, [place] # (Auto) 1.7 H, Eos # (Auto) 0.3, Baso # (Auto) 0.1, Total Counted 100, Neutrophils % (Manual) 87 H, Band Neutrophils % 4.0, Lymphocytes % (Manual) 5 L, Monocytes % (Manual) 3, Eosinophils % (Manual) 1, Platelet Estimate Moderate increase, RBC Morphology Normal, Rouleaux 1+ 06/24/20 06:28: Sodium 129 L, Potassium 4.5, Chloride 97 L, Carbon Dioxide 24, Anion Gap 12.5, BUN 62 H, Creatinine 1.70 H, Estimated Creat Clear 31, Estimated GFR 30 L, Est GFR ( Amer) 36 L, Glucose 136 H D, Calcium 8.3 L 06/24/20 08:20: Vancomycin Trough 14.2 H Medical History: Reports:: Arrhythmia, Atherosclerotic Heart Disease, Atrial Fibrillation, Congestive Heart Failure, Chronic Obstructive Pulmonary Disease (COPD), Coronary Artery Disease, Diabetes Mellitus Type 2, Hyperlipidemia, Hypertension, Osteoporosis Denies:: Asthma, Cancer, Diabetes Mellitus Type 1, MRSA, Renal Disease, Renal Insufficiency, Seizures Assessment and Plan (1) Pneumonia Current visit: Yes Status: Acute Qualifiers: Pneumonia type: due to unspecified organism Laterality: left Lung location: lower lobe of lung Qualified Code(s): J18.9 - Pneumonia, unspecified organism Category: Medical Code(s): J18.9 - Pneumonia, unspecified organism (2) Acute kidney injury Current visit: No Status: Resolved Category: Medical Code(s): N17.9 - Acute kidney failure, unspecified (3) Obstructive sleep apnea Current visit: No Status: Chronic Category: Medical Code(s): G47.33 - Obstructive sleep apnea (adult) (pediatric) (4) Type 2 diabetes mellitus Current visit: No S
[2020-06-24 11:16] LABS: POC Glucose,Bedside 187 (70-110)
[2020-06-24 17:26] LABS: POC Glucose,Bedside 232 (70-110)
--- NOTE | 2020-06-24 17:29 | PC.NURSE ---
Pt has been pleasant and cooperative this shift. A&O X4. No complaints of pain or SOA. Pt received Ativan this AM and shortly after administration became weak/shaky. at bedside reports that pt became confused. Dr. Sexton contacted and received orders to DC Ativan. Pt is back to baseline at this time. Pt is currently wearing O2 @ 2 LPM via NC with sats. >90%. Lung sounds are noted to be diminished on the LT side. 1+ pitting edema noted to BLE. No weeping/drainage noted this shift. A donut pillow is available at bedside and pt uses it when sitting in the recliner. Pt sat in the recliner for about 6 hours this shift. BLE elevated with pillows. Pt ambulates with stand-by assistance to the BSC and voids clear, yellow urine without issue. No BM this shift. PICC line is in place to the LT upper arm. FSBS results have been 187 and 232, both of which required insulin coverage per sliding scale. IS at BS and frequent encouragement is given to use Q1HWA. VSS. Call light within reach. Will continue to monitor.
[2020-06-24 20:29] LABS: POC Glucose,Bedside 175 (70-110)
[2020-06-25 04:00] VITALS: BP 126/54; PULSE 81; RESP 24; TEMP 36.4; O2SAT 91
--- NOTE | 2020-06-25 04:35 | PC.NURSE ---
shift summary, pt has rested well t/o shift in bariatric bed, has had no complaints of pain or SOA, nasal cannula in place at 1 L, sats ranged from 91-93%, lungs diminished on left side, clear on right, pt did complain of nausea around 0335, treated successfully per DEC, 1+ pitting edema to BLE, no weeping or drainage noted, educated pt on elevating legs
[2020-06-25 05:21] VITALS: BMI 47.4
[2020-06-25 06:00] VITALS: O2SAT 90
[2020-06-25 06:07] LABS: POC Glucose,Bedside 150 (70-110)
--- NOTE | 2020-06-25 06:34 | PC.NURSE ---
pt had a BM and states I feel better now, IS at bedside and pt states she has been using it and can tell a difference from using it
--- NOTE | 2020-06-25 06:59 | PC.NURSE ---
PICC line in place in left upper arm, flushes well and has good blood return
--- NOTE | 2020-06-25 07:10 | HMH.ACPN2 ---
Internal Medicine - PN: Subj *Date: 06/25/20 *Time: 07:10 Interval history: Patient became confused after administration of Ativan late yesterday morning for anxiety associated with her prolonged hospitalization. She was confused, had changes in motor functions with difficulty operating her smart phone and needed significant assistance ambulating. Symptoms past as the day progressed. She reports this morning she is feeling better. Her confirms he thinks she is doing better. She still reports significant weakness with attempts to ambulate. She did not use incentive spirometry very much during the day due to her confusion. She tried to use IS more overnight. Exam Vital signs and Labs for Last 24 Hours: Temp Pulse Resp BP Pulse Ox 97.6 F 81 24 126/54 L 90 L 06/25/20 04:00 06/25/20 04:00 06/25/20 04:00 06/25/20 04:00 06/25/20 06:00 Laboratory Results - last 24 hr 06/24/20 06:28: Hgb 8.9 L D, Total Counted 100, Neutrophils % (Manual) 87 H, Band Neutrophils % 4.0, Lymphocytes % (Manual) 5 L, Monocytes % (Manual) 3, Eosinophils % (Manual) 1, Platelet Estimate Moderate increase, RBC Morphology Normal, Rouleaux 1+ 06/24/20 06:28: Sodium 129 L, Potassium 4.5, Chloride 97 L, Carbon Dioxide 24, Anion Gap 12.5, BUN 62 H, Creatinine 1.70 H, Estimated Creat Clear 31, Estimated GFR 30 L, Est GFR ( Amer) 36 L, Glucose 136 H D, Calcium 8.3 L 06/24/20 08:20: Vancomycin Trough 14.2 H 06/24/20 11:01: POC Glucose 187 H 06/24/20 16:41: POC Glucose 232 H 06/24/20 20:14: POC Glucose 175 H 06/25/20 05:58: POC Glucose 150 H I & O for Last 24 hours: Intake & Output 06/22/20 06/23/20 06/24/20 06/25/20 11:59 11:59 11:59 11:59 Intake Total 1295 / 1295 1000 / 1000 750 / 750 1310 / 1310 Output Total 800 / 800 200 / 200 620 / 620 675 / 675 Balance 495 / 495 800 / 800 130 / 130 635 / 635 Weight 285 lb 303 lb 2.17 oz 302 lb 14.642 oz 302 lb 0.533 oz Microbiology Reports for the Last 24 Hours: Microbiology 06/22/20 13:30 Thoracic Fluid Gram Stain - Final 06/22/20 13:30 Thoracic Fluid Body Fluid Culture - Preliminary NO GROWTH AFTER 48 HOURS - Constitutional no acute distress - *Routine Respiratory Exam Present: CTA bilaterally, rales (Left lung base) - *Routine Cardiovascular Exam Present: RRR - *Routine Abdominal Exam Present: soft, normoactive bowel sounds. Absent: tenderness - *Routine Extremities Exam Present: edema Assessment and Plan (1) Pneumonia Current visit: Yes Status: Acute Qualifiers: Pneumonia type: due to unspecified organism Laterality: left Lung location: lower lobe of lung Qualified Code(s): J18.9 - Pneumonia, unspecified organism Category: Medical Code(s): J18.9 - Pneumonia, unspecified organism (2) Acute kidney injury Current visit: No Status: Resolved Category: Medical Code(s): N17.9 - Acute kidney failure, unspecified (3) Obstructive sleep apnea Current visit: No Status: Chronic Category: Medical Code(s): G47.33 - Obstructive sleep apnea (adult) (pediatric) (4) Type 2 diabetes mellitus Current visit: No Status: Chronic Qualifiers: Diabetes mellitus skilled nursing insulin use: with long term care social worker use Diabetes mellitus complication status: with neurologic complications Diabetes mellitus complication detail: with polyneuropathy Qualified Code(s): E11.42 - Type 2 diabetes mellitus with diabetic polyneuropathy; Z79.4 - prison (current) use of insulin Category: Medical Code(s): E11.9 - Type 2 diabetes mellitus without complications (5) Pedal edema Current visit: Yes Status: Acute Category: Medical Code(s): R60.0 - Localized edema (6) Edema Current visit: No Status: Acute Qualifiers: Edema type: localized Qualified Code(s): R60.0 - Localized edema Category: Medical Code(s): R60.9 - Edema, unspecified (7) Diabetes mellitus with polyneuropathy Current visit: N
[2020-06-25 07:26] LABS: Basophils # 0.1 K/mm3 (0-0.2); Basophils % 0.5 % (0.1-2.0); Eosinophils # 0.2 K/mm3 (0.0-0.4); Hemoglobin 9.1 g/dL (12.2-16.2); Lymphocytes # 0.5 K/mm3 (0.7-4.5); Lymphocytes % 2.5 % (10-50); Mean Corpuscular HGB Conc 32.2 g/dL (31.8-35.4); Mean Corpuscular Volume 93.1 fl (81-99); Mean Platelet Volume 7.1 fl (7.4-10.4); Monocytes # 1.1 K/mm3 (0.1-1.0); Monocytes % 5.8 % (1.7-9.3); Neutrophils # 16.6 K/mm3 (1.8-7.8); Neutrophils % 90.2 % (37.0-80.0); Red Blood Count 3.05 M/mm3 (4.20-5.40); Red Cell Distribution Width 13.7 % (11.5-17.5); White Blood Count 18.4 K/mm3 (4.8-10.8)
[2020-06-25 07:28] LABS: Chloride 97 mmol/L (98-107); MANUAL DIFFERENTIAL MANUAL DIFFERENTIAL (MANUAL DIFF)
[2020-06-25 07:29] LABS: Hematocrit 28.4 % (37.0-47.0); Platelet Count 684 K/mm3 (142-424); Potassium 4.3 mmoL/L (3.5-5.1); Sodium 129 mmol/L (136-145)
[2020-06-25 07:32] LABS: Anion Gap 13.3 mEq/L (5-15); Blood Urea Nitrogen 68 mg/dl (7-17); Calcium 8.3 mg/dl (8.4-10.2); Carbon Dioxide 23 mmol/L (22.0-30.0); Creatinine Clearance Estimated 28 mL/min (50-200); Estimated Glomerular Filt Rate 27 ml/min (>60); GFR (African American) 32 ML/MIN (>60); Glucose 164 mg/dl (74-100)
[2020-06-25 08:00] VITALS: BP 133/60; PULSE 90; RESP 19; TEMP 36.5; O2SAT 93
[2020-06-25 08:00] LABS: Hypochromasia 1+; Lymphocytes % 6 % (10-50); Monocytes % 4 % (2-9); Neutrophils % 88 % (42-76); Platelet Estimate Slight Increase; Total Cells Counted 100
--- NOTE | 2020-06-25 08:26 | US_ITS ---
PROCEDURE: US CHEST CLINICAL INDICATION: Left Pleural effusion COMPARISON: US US THORACENTESIS from 06/22/2020 FINDINGS: Small left pleural effusion noted. Diffusion does appear slightly smaller than when compared to 06/22/2020 pre thoracentesis exam. Atelectatic lung is noted within the area of effusion. IMPRESSION: Small left pleural effusion with left lower lobe atelectasis Dictated by: Fady Franco MD 06/25/2020 12:50 Fady Franco MD in [facility] 06/25/2020 12:50
--- NOTE | 2020-06-25 08:52 | XR_ITS ---
PROCEDURE: XR CHEST 2V CLINICAL HISTORY: Shortness of air, pneumonia COMPARISON: CR XR CHEST 2V from 06/10/2020 CR XR CHEST AP from 06/22/2020 CR XR CHEST AP from 06/22/[address] CHEST WO CON from 06/22/2020 CR XR CHEST PORTABLE PICC PLAC from 06/23/2020 FINDINGS: There is cardiomegaly without failure. Left upper extremity PICC line has been placed. The tip in the region of the distal brachiocephalic vein. There are atelectatic changes in the left lower lobe Small left pleural effusion present. There is patchy density in the right lower lobe which may be due to atelectasis or infiltrate with trace effusion. IMPRESSION: Cardiomegaly with left-sided effusion with small left-sided pleural effusion and trace right effusion with atelectasis or infiltrate in the right lung base. Dictated by: Fady Franco MD 06/25/2020 12:52 Fady Franco MD in [place] 06/25/2020 12:52
--- NOTE | 2020-06-25 11:13 | DIET.NUTRFU ---
Pt PO intake has improved at the last few meals with 50 and 75% recorded. POC running at 232, 175, 150. Will continue to monitor and be available for any questions pt may have.
--- NOTE | 2020-06-25 11:58 | HMH.PTEV ---
Physical Therapy Evaluation Rehab PT IP Evaluation Start: 06/25/20 07:12 Freq: ONCE Status: Active Protocol: Document 06/25/20 11:39 RAY (Rec: 06/25/20 11:57 RAY [id number]) Subjective/History History History Pt. presents to the hospital with shortness of breath and generalized weakness. Subjective Subjective Pt. reports that she is feeling better and that this is the first time she feels back to normal and not talking out of my mind. Note done by [facility] Rehab PT IP Eval Objective Appearance Patient Behavior Appropriate,Cooperative Patient Orientation Person,Place,Time,Name, Birthday,Year Difficulty following instructions none Speech Pattern Clear,Appropriate,Coherent Ambulation Patient Able to Ambulate Yes Ambulation Observation IP General Gait Pattern Observation No Deviations/Normal Ambulation Distance (feet) 20 Ambulation Assistive Device Rolling Walker Ambulation Ability Contact Guard/Hand Hold Balance Ability to Arise Able, uses arms to help Sitting Balance Steady, safe Standing Balance Steady, wide stance Dynamic Sitting Balance Ability Normal Dynamic Standing Balance Ability Normal Transfers Chair Transfer Ability Supervision/Stand by Sit to Stand Bed Transfer Ability Contact Guard/Hand Hold Sit to Stand Chair Transfer Ability Contact Guard/Hand Hold ROM All Extremities PT ROM Status WFL MMT All Extremities PT MMT WFL Rehab PT IP prob,goals,plan Problems Date of Evaluation: 06/25/20 PT IP Problems Gait,Self care,Other Other Pt Problem deconditioning Rehab Potential Rehab Potential Good Equipment Needs Assistive Devices Rolling / Wheeled Walker Plan PT Intervention Plan Gait,Self care,Safety, Therapeutic Exercise PT Plan Frequency BID Duration LOS Discharge Goals Bed Transfer Ability Independent Sit to Stand Chair Transfer Ability Independent Ambulation Assistive Device Rolling Walker Ambulation Distance (feet) 35 Discharge Plan PT Discharge Plan Pt. would benefit from being discharged home with HHPT to allow for increased pulmonary function and self care. G -code Required No Eval Complexity Eval Charge Codes
[2020-06-25 12:00] VITALS: BP 98/52; PULSE 82; RESP 19; TEMP 36.6; O2SAT 94
[2020-06-25 12:36] LABS: POC Glucose,Bedside 184 (70-110)
[2020-06-25 16:00] VITALS: BP 102/51; PULSE 83; RESP 17; TEMP 37; O2SAT 95
[2020-06-25 16:36] LABS: Appearance,Body Fld. Bloody; RBC,Body Fluid 77000 cells/uL (< 10 X 10^3); TNC,Body Fluid 4521 cells/uL (< 1000)
[2020-06-25 16:40] LABS: Source, Body Fld. Pleural Fluid
[2020-06-25 16:42] LABS: Volume,Body Fld. 600 mL
--- NOTE | 2020-06-25 16:51 | HMH.PULMPN ---
Internal Medicine - PN: Subj *Date: 06/25/20 *Time: 16:51 Interval history: No acute events over the weekend. Patient respiratory status remained stable. Exam Vital signs and Labs for Last 24 Hours: Temp Pulse Resp BP Pulse Ox 97.8 F 82 19 98/52 L 94 L 06/25/20 12:00 06/25/20 12:00 06/25/20 12:00 06/25/20 12:00 06/25/20 12:00 Laboratory Results - last 24 hr 06/22/20 13:30: Fluid Source Pleural fluid, Fluid Volume 600, Fluid Appearance Bloody, Fluid RBC (Auto) 65827, Fld Tot Nucleated Cell 4521, Fld Polynuclear WBCs % , Fld Mononuclear WBCs % 06/24/20 16:41: POC Glucose 232 H 06/24/20 20:14: POC Glucose 175 H 06/25/20 05:58: POC Glucose 150 H 06/25/20 06:54: WBC 18.4 H, RBC 3.05 L, Hgb 9.1 L, Hct 28.4 L, MCV 93.1, MCH 30.0, MCHC 32.2, RDW 13.7, Plt Count 684 H, MPV 7.1 L, Neut % (Auto) 90.2 H, Lymph % (Auto) 2.5 L, [place] % (Auto) 5.8, Eos % (Auto) 1.0, Baso % (Auto) 0.5, Neut # (Auto) 16.6 H, Lymph # (Auto) 0.5 L, [place] # (Auto) 1.1 H, Eos # (Auto) 0.2, Baso # (Auto) 0.1, Total Counted 100, Neutrophils % (Manual) 88 H, Band Neutrophils % 2.0, Lymphocytes % (Manual) 6 L, Monocytes % (Manual) 4, Platelet Estimate Slight increase, RBC Morphology Not Reportable, Hypochromasia 1+ 06/25/20 06:54: Sodium 129 L, Potassium 4.3, Chloride 97 L, Carbon Dioxide 23, Anion Gap 13.3, BUN 68 H, Creatinine 1.90 H, Estimated Creat Clear 28, Estimated GFR 27 L, Est GFR ( Amer) 32 L, Glucose 164 H, Calcium 8.3 L 06/25/20 11:52: POC Glucose 184 H I & O for Last 24 hours: Intake & Output 06/22/20 06/23/20 06/24/20 06/25/20 23:59 23:59 23:59 23:59 Intake Total 1300 / 1300 750 / 750 1620 / 1620 410 / 410 Output Total 200 / 200 620 / 620 675 / 675 Balance 1100 / 1100 130 / 130 945 / 945 410 / 410 Weight 285 lb 303 lb 2.17 oz 302 lb 14.642 oz 302 lb 0.533 oz Microbiology Reports for the Last 24 Hours: Microbiology 06/22/20 13:30 Thoracic Fluid Gram Stain - Final 06/22/20 13:30 Thoracic Fluid Body Fluid Culture - Preliminary NO GROWTH AFTER 72 HOURS Radiology Reports for the Last 24 Hours: Repeat chest x-ray showed reaccumulation of the left-sided pleural effusion - *Routine HEENT Exam Head: Present: normocephalic, atraumatic. Absent: cushingoid faces - *Routine Neck Exam Absent: lymphadenopathy - *Routine Respiratory Exam Present: rhonchi. Absent: accessory muscle use - *Routine Cardiovascular Exam Present: Normal S1, Normal S2 - *Routine Abdominal Exam Present: soft, obese - *Routine Extremities Exam Present: edema. Absent: cyanosis, clubbing Assessment and Plan (1) Pneumonia Current visit: Yes Status: Acute Qualifiers: Pneumonia type: due to unspecified organism Laterality: left Lung location: lower lobe of lung Qualified Code(s): J18.9 - Pneumonia, unspecified organism Category: Medical Code(s): J18.9 - Pneumonia, unspecified organism (2) Acute kidney injury Current visit: No Status: Resolved Category: Medical Code(s): N17.9 - Acute kidney failure, unspecified (3) Obstructive sleep apnea Current visit: No Status: Chronic Category: Medical Code(s): G47.33 - Obstructive sleep apnea (adult) (pediatric) (4) Type 2 diabetes mellitus Current visit: No Status: Chronic Qualifiers: Diabetes mellitus snf insulin use: with snf use Diabetes mellitus complication status: with neurologic complications Diabetes mellitus complication detail: with polyneuropathy Qualified Code(s): E11.42 - Type 2 diabetes mellitus with diabetic polyneuropathy; Z79.4 - nursing home (current) use of insulin Category: Medical Code(s): E11.9 - Type 2 diabetes mellitus without complications (5) Pedal edema Current visit: Yes Status: Acute Category: Medical Code(s): R60.0 - Localized edema (6) Edema Current visit: No Status: Acute Qualifiers: Edema type: localized Qualified Code(s): R60.0 - Localized edema
[2020-06-25 16:56] LABS: POC Glucose,Bedside 165 (70-110)
--- NOTE | 2020-06-25 18:46 | PC.NURSE ---
PT IS SITTING UP IN THE CHAIR WITH FAMILY IN THE ROOM. PT STATES SHE FEELS BETTER THIS SHIFT. PT'S ONLY COMPLAINT THIS SHIFT IS HOW SORE HER BOTTOM IS BECAUSE OF HER HEMORRHOIDS. HYDROCORTISONE CREAM APPLIED X2 THIS SHIFT. AMBULATES TO THE BATHROOM WITH WALKER AND 1 ASSIST. LUNG SOUNDS DIMINISHED. BOWEL SOUNDS NORMAL. PT HAS HAD A COUPLE OF LOOSE BOWEL MOVEMENTS THIS SHIFT. VSS. 3+ PITTING EDEMA NOTED TO BLE. WILL CONTINUE TO MONITOR.
--- NOTE | 2020-06-25 19:10 | PC.NURSE ---
report given to zainab
[2020-06-25 20:00] VITALS: BP 109/57; PULSE 93; RESP 22; TEMP 37.2; O2SAT 93
[2020-06-25 20:19] LABS: POC Glucose,Bedside 232 (70-110)
--- NOTE | 2020-06-25 22:40 | PC.NURSE ---
Pt states she is SOA. No respiratory distress noted. RA sat noted at 93%. Raised HOB and applied 1 lnc at this time for comfort per pt request. Will continue to monitor.
[2020-06-26] VITALS (16 sets, daily range): BP systolic 92–137; BP diastolic 44–74; PULSE 75–94; RESP 17–28; TEMP 36.4–37.2; O2SAT 91–96; BMI 47.9
--- NOTE | 2020-06-26 02:38 | PC.NURSE ---
Unable to collect stool specimen due to cross contamination with urine in specimen collection container. Will reattempt with next bm.
--- NOTE | 2020-06-26 02:39 | PC.NURSE ---
Pt is alert and oriented x4. No acute changes noted from previous shift. PERRLA. Bilateral hand butt welder noted equal and strong. Cap refill < 3 seconds. Pt rested intermittently t/o shift. Tolerating 1 lnc well per request. O2 sats wnl. RR noted even and unlabored. Left lung sounds noted diminished t/o. Right lung sounds noted clear t/o upon auscultation. PICC dsg noted c/d/i, flushed well with adequate blood return. Active bowel sounds noted in all 4 quads upon auscultation. Denies pain upon abd palpation. Tolerating diet well with no complaints. +3 pitting edema noted to BLE with moderate weeping of the skin. Kept BLE elevated while lying in bed and while up to chair. Amb well with assist x1 and use of walker. Pt needed encouragement t/o shift for self care/amb. States she can't do it often to this RN. Refused TEDS. VSS. Remains safe. Call light within reach. Will continue to monitor.
[2020-06-26 05:38] LABS: POC Glucose,Bedside 204 (70-110)
[2020-06-26 06:33] LABS: Basophils # 0.1 K/mm3 (0-0.2); Basophils % 0.2 % (0.1-2.0); Eosinophils # 0.1 K/mm3 (0.0-0.4); Eosinophils % 0.5 % (0.1-12.0); Hemoglobin 8.8 g/dL (12.2-16.2); Lymphocytes # 0.4 K/mm3 (0.7-4.5); Lymphocytes % 1.9 % (10-50); Mean Corpuscular HGB Conc 31.6 g/dL (31.8-35.4); Mean Corpuscular Hemoglobin 29.9 pg (27.0-31.2); Mean Corpuscular Volume 94.8 fl (81-99); Mean Platelet Volume 6.9 fl (7.4-10.4); Monocytes # 1.1 K/mm3 (0.1-1.0); Monocytes % 5.4 % (1.7-9.3); Platelet Count 611 K/mm3 (142-424); Red Blood Count 2.96 M/mm3 (4.20-5.40); Red Cell Distribution Width 14.1 % (11.5-17.5); White Blood Count 20.6 K/mm3 (4.8-10.8)
[2020-06-26 06:43] LABS: Chloride 96 mmol/L (98-107)
[2020-06-26 06:44] LABS: Potassium 4.7 mmoL/L (3.5-5.1); Sodium 126 mmol/L (136-145)
[2020-06-26 06:46] LABS: Creatinine Clearance Estimated 22 mL/min (50-200); Estimated Glomerular Filt Rate 20 ml/min (>60); GFR (African American) 25 ML/MIN (>60)
[2020-06-26 06:47] LABS: Anion Gap 13.7 mEq/L (5-15); Calcium 8.2 mg/dl (8.4-10.2); Carbon Dioxide 21 mmol/L (22.0-30.0); Glucose 184 mg/dl (74-100)
[2020-06-26 06:53] LABS: MANUAL DIFFERENTIAL MANUAL DIFFERENTIAL (MANUAL DIFF)
[2020-06-26 07:00] LABS: Blood Urea Nitrogen 77 mg/dl (7-17)
--- NOTE | 2020-06-26 07:56 | HMH.ACPN2 ---
Internal Medicine - PN: Subj *Date: 06/26/20 *Time: 07:56 Interval history: Patient complains of being swollen this morning. She had an episode of shortness of breath overnight. I have spoken with lab and pleural fluid hematocrit was not able to be done on the pleural fluid sent to [facility] Exam Vital signs and Labs for Last 24 Hours: Temp Pulse Resp BP Pulse Ox 97.7 F 87 17 111/74 94 L 06/26/20 07:36 06/26/20 07:36 06/26/20 07:36 06/26/20 07:36 06/26/20 07:36 Laboratory Results - last 24 hr 06/22/20 13:30: Fluid Source Pleural fluid, Fluid Volume 600, Fluid Appearance Bloody, Fluid RBC (Auto) 94034, Fld Tot Nucleated Cell 4521, Fld Polynuclear WBCs % , Fld Mononuclear WBCs % 06/25/20 06:54: Total Counted 100, Neutrophils % (Manual) 88 H, Band Neutrophils % 2.0, Lymphocytes % (Manual) 6 L, Monocytes % (Manual) 4, Platelet Estimate Slight increase, RBC Morphology Not Reportable, Hypochromasia 1+ 06/25/20 11:52: POC Glucose 184 H 06/25/20 16:47: POC Glucose 165 H 06/25/20 20:08: POC Glucose 232 H 06/26/20 05:31: POC Glucose 204 H 06/26/20 05:42: WBC 20.6 H*, RBC 2.96 L, Hgb 8.8 L, Hct 28.0 L, MCV 94.8, MCH 29.9, MCHC 31.6 L, RDW 14.1, Plt Count 611 H, MPV 6.9 L, Neut % (Auto) 92.0 H, Lymph % (Auto) 1.9 L, [place] % (Auto) 5.4, Eos % (Auto) 0.5, Baso % (Auto) 0.2, Neut # (Auto) 19.0 H, Lymph # (Auto) 0.4 L, [place] # (Auto) 1.1 H, Eos # (Auto) 0.1, Baso # (Auto) 0.1 06/26/20 05:42: Sodium 126 L, Potassium 4.7, Chloride 96 L, Carbon Dioxide 21 L, Anion Gap 13.7, BUN 77 H, Creatinine 2.40 H D, Estimated Creat Clear 22, Estimated GFR 20 L, Est GFR ( Amer) 25 L D, Glucose 184 H, Calcium 8.2 L I & O for Last 24 hours: Intake & Output 06/23/20 06/24/20 06/25/20 06/26/20 11:59 11:59 11:59 11:59 Intake Total 1000 / 1000 750 / 750 1670 / 1670 320 / 320 Output Total 200 / 200 620 / 620 675 / 675 Balance 800 / 800 130 / 130 995 / 995 320 / 320 Weight 303 lb 2.17 oz 302 lb 14.642 oz 302 lb 0.533 oz 305 lb 5.443 oz Microbiology Reports for the Last 24 Hours: Microbiology 06/22/20 13:30 Thoracic Fluid Gram Stain - Final 06/22/20 13:30 Thoracic Fluid Body Fluid Culture - Preliminary NO GROWTH AFTER 72 HOURS Narrative: Patient looks depressed. Lungs are clear everywhere except for the left base which is diminished with faint crackles. Heart has a regular rate and rhythm. Patient has 1+ edema in her hands and 3+ edema in her lower extremities and ankles and feet Assessment and Plan (1) Pneumonia Current visit: Yes Status: Acute Qualifiers: Pneumonia type: due to unspecified organism Laterality: left Lung location: lower lobe of lung Qualified Code(s): J18.9 - Pneumonia, unspecified organism Category: Medical Code(s): J18.9 - Pneumonia, unspecified organism (2) Acute kidney injury Current visit: No Status: Resolved Category: Medical Code(s): N17.9 - Acute kidney failure, unspecified (3) Obstructive sleep apnea Current visit: No Status: Chronic Category: Medical Code(s): G47.33 - Obstructive sleep apnea (adult) (pediatric) (4) Type 2 diabetes mellitus Current visit: No Status: Chronic Qualifiers: Diabetes mellitus superintendent terminal insulin use: with superintendent terminal use Diabetes mellitus complication status: with neurologic complications Diabetes mellitus complication detail: with polyneuropathy Qualified Code(s): E11.42 - Type 2 diabetes mellitus with diabetic polyneuropathy; Z79.4 - intermediate manager (current) use of insulin Category: Medical Code(s): E11.9 - Type 2 diabetes mellitus without complications (5) Pedal edema Current visit: Yes Status: Acute Category: Medical Code(s): R60.0 - Localized edema (6) Edema Current visit: No Status: Acute Qualifiers: Edema type: localized Qualified Code(s): R60.0 - Localized edema Category: Medical Code(s): R60.9 - Edema, unspecified (7) Diabetes mellitus with marvin
[2020-06-26 08:10] LABS: Eosinophils % 2 % (0-3); Lymphocytes % 4 % (10-50); Monocytes % 2 % (2-9); Neutrophils % 92 % (42-76); Platelet Estimate Marked Increase; RBC Morphology Normal; Total Cells Counted 100
--- NOTE | 2020-06-26 09:02 | US_ITS ---
PROCEDURE: US THORACENTESIS CLINICAL INDICATION: recurrent pleural effusion, susp. hemothorax COMPARISON: No exams were available for comparison FINDINGS: Following obtaining informed consent and time-out procedure under aseptic condition and local anesthesia with 1 percent buffered lidocaine using sonographic guidance, a 20 gauge spinal needle was inserted into the pleural space in the left posterior hemithorax at the same position a recent thoracentesis was performed. Approximately 10 cc of bloody fluid was aspirated. This did not appear purulent. There was no immediate complications. Post thoracentesis radiograph showed no evidence of pneumothorax. The aspirate was given to lab which was on site for the procedure IMPRESSION: Uneventful diagnostic ultrasound-guided thoracentesis of the left pleural effusion Dictated by: Fady Franco MD 06/26/2020 19:34 Fady Franco MD in [place] 06/26/2020 19:34
--- NOTE | 2020-06-26 09:23 | PC.NURSE ---
PER Remi MAHARAJ SAP TECHNICAL ARCHITECT WAS CALLED AND TOLD PT WAS HEADED DOWN FOR THORACENTESIS THEY ARE AWARE THEY NEED TO BE DOWN THERE TO COLLECT FLUID.
--- NOTE | 2020-06-26 09:26 | PC.NURSE ---
MD STATED TO ORDER PATIENT 1MG IV MORPHINE TIMES ONE DOSE FOR BEFORE THORACENTESIS. PATIENT JUST LEFT FOR PROCEDURE. LAB WAS MADE AWARE THAT PATIENT WAS LEAVING FLOOR AND THEY NEEDED TO BE AT BEDSIDE. ULTRASOUND STATED THEY WOULD ALSO CALL WHEN THEY GOT DOWNSTAIRS BEFORE THE PROCEDURE.
--- NOTE | 2020-06-26 09:55 | XR_ITS ---
PROCEDURE: XR CHEST 2V CLINICAL HISTORY: R/O PNEUMOTHORAX Follow-up thoracentesis COMPARISON: CR XR CHEST AP from 06/22/2020 CR XR CHEST AP from 06/22/2020 CR XR CHEST PORTABLE PICC PLAC from 06/23/2020 CR XR CHEST 2V from 06/25/2020 FINDINGS: Cardiomegaly without failure. No evidence of pneumothorax. PICC line remains in place from left subclavian approach. There remains consolidation in the left lower lobe with small left pleural effusion not significantly changed. Trace right effusion also noted. There is increased density in the right lower lobe suggesting underlying atelectasis or infiltrate not significantly changed. IMPRESSION: Cardiomegaly with left basilar consolidation left effusion trace right effusion with right basilar atelectasis or infiltrate overall not significantly changed Dictated by: Fady Franco MD 06/26/2020 10:44 Fady Franco MD in [place] 06/26/2020 10:44
--- NOTE | 2020-06-26 10:51 | HMH.ACPN ---
Internal Medicine - PN: Subj *Date: 06/26/20 *Time: 10:51 Exam Vital signs and Labs for Last 24 Hours: Temp Pulse Resp BP Pulse Ox 97.7 F 87 17 111/74 94 L 06/26/20 07:36 06/26/20 07:36 06/26/20 07:36 06/26/20 07:36 06/26/20 07:36 Laboratory Results - last 24 hr 06/22/20 13:30: Fluid Source Pleural fluid, Fluid Volume 600, Fluid Appearance Bloody, Fluid RBC (Auto) 59614, Fld Tot Nucleated Cell 4521, Fld Polynuclear WBCs % , Fld Mononuclear WBCs % 06/25/20 11:52: POC Glucose 184 H 06/25/20 16:47: POC Glucose 165 H 06/25/20 20:08: POC Glucose 232 H 06/26/20 05:31: POC Glucose 204 H 06/26/20 05:42: WBC 20.6 H*, RBC 2.96 L, Hgb 8.8 L, Hct 28.0 L, MCV 94.8, MCH 29.9, MCHC 31.6 L, RDW 14.1, Plt Count 611 H, MPV 6.9 L, Neut % (Auto) 92.0 H, Lymph % (Auto) 1.9 L, [place] % (Auto) 5.4, Eos % (Auto) 0.5, Baso % (Auto) 0.2, Neut # (Auto) 19.0 H, Lymph # (Auto) 0.4 L, [place] # (Auto) 1.1 H, Eos # (Auto) 0.1, Baso # (Auto) 0.1, Total Counted 100, Neutrophils % (Manual) 92 H, Lymphocytes % (Manual) 4 L, Monocytes % (Manual) 2, Eosinophils % (Manual) 2, Platelet Estimate Marked increase, RBC Morphology Normal 06/26/20 05:42: Sodium 126 L, Potassium 4.7, Chloride 96 L, Carbon Dioxide 21 L, Anion Gap 13.7, BUN 77 H, Creatinine 2.40 H D, Estimated Creat Clear 22, Estimated GFR 20 L, Est GFR ( Amer) 25 L D, Glucose 184 H, Calcium 8.2 L I & O for Last 24 hours: Intake & Output 06/23/20 06/24/20 06/25/20 09/22/20 23:59 23:59 23:59 23:59 Intake Total 750 / 750 1620 / 1620 650 / 650 320 / 320 Output Total 620 / 620 675 / 675 Balance 130 / 130 945 / 945 650 / 650 320 / 320 Weight 137.5 kg 137.4 kg 137 kg 138.5 kg Microbiology Reports for the Last 24 Hours: Microbiology 06/22/20 13:30 Thoracic Fluid Gram Stain - Final 06/22/20 13:30 Thoracic Fluid Body Fluid Culture - Preliminary NO GROWTH AFTER 72 HOURS Assessment and Plan (1) Pneumonia Current visit: Yes Status: Acute Qualifiers: Pneumonia type: due to unspecified organism Laterality: left Lung location: lower lobe of lung Qualified Code(s): J18.9 - Pneumonia, unspecified organism Category: Medical Code(s): J18.9 - Pneumonia, unspecified organism (2) Acute kidney injury Current visit: No Status: Resolved Category: Medical Code(s): N17.9 - Acute kidney failure, unspecified (3) Obstructive sleep apnea Current visit: No Status: Chronic Category: Medical Code(s): G47.33 - Obstructive sleep apnea (adult) (pediatric) (4) Type 2 diabetes mellitus Current visit: No Status: Chronic Qualifiers: Diabetes mellitus long term care pharmacist insulin use: with long term care pharmacist use Diabetes mellitus complication status: with neurologic complications Diabetes mellitus complication detail: with polyneuropathy Qualified Code(s): E11.42 - Type 2 diabetes mellitus with diabetic polyneuropathy; Z79.4 - care home (current) use of insulin Category: Medical Code(s): E11.9 - Type 2 diabetes mellitus without complications (5) Pedal edema Current visit: Yes Status: Acute Category: Medical Code(s): R60.0 - Localized edema (6) Edema Current visit: No Status: Acute Qualifiers: Edema type: localized Qualified Code(s): R60.0 - Localized edema Category: Medical Code(s): R60.9 - Edema, unspecified (7) Diabetes mellitus with polyneuropathy Current visit: No Status: Chronic Qualifiers: Diabetes mellitus type: type 1 Qualified Code(s): E10.42 - Type 1 diabetes mellitus with diabetic polyneuropathy Category: Medical Code(s): E11.42 - Type 2 diabetes mellitus with diabetic polyneuropathy (8) HHD (hypertensive heart disease) Current visit: No Status: Chronic Qualifiers: Heart failure presence: with heart failure Heart failure type: diastolic Heart failure chronicity: acute Qualified Code(s): I11.0 - Hypertensive heart disease with heart failure Category: Medic
[2020-06-26 10:57] LABS: Appearance,Body Fld. Bloody; Source, Body Fld. THORACENTESIS
[2020-06-26 11:00] LABS: RBC,Body Fluid 95 cells/uL (< 10 X 10^3); TNC,Body Fluid 4487 cells/uL (< 1000); Volume,Body Fld. 6 mL
[2020-06-26 12:02] LABS: Mononuclear WBCs,Body Fluid 19 %; Polynuclear WBC,Body Fluid 81 %
--- NOTE | 2020-06-26 13:50 | HMH.CNCARD ---
History of Present Illness Consult date: 06/26/20 Requesting physician: Juan Sexton Consult reason: congestive heart failure Chief complaint: SOA Additional Medical History:: 1. CAD A. History of RCA stent B. Abnormal stress myoview, 11/2015, anterior ischemia with EF 68% C. Cardiac cath, 11/2015, The left main artery normal. 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 The circumflex artery nondominant and normal. The right coronary artery is a dominant vessel and has a stent in the proximal segment which is widely patent free of in-stent restenosis. D. NSTEMI, 12/2018, with cardiac cath, [place] to RCA. E. LHC, 05/2020, [facility] MAY 2020 The left main artery Normal The left anterior descending artery Has a smooth eccentric 10 to 20% stenosis immediately proximal to the first diagonal artery. The remaining LAD and diagonal artery is free of atherosclerosis. The mid LAD does have a myocardial bridge which compresses to 50 to 60% during systole. The circumflex artery Small nondominant normal The right coronary artery Is large and dominant with a stent in the proximal segment which is widely patent with minimal 20% in-stent restenosis. Distally there is a 20% stenosis along a tortuous bend The DELEON ventriculogram reveals Normal 65% The left ventricular end-diastolic pressure 10 mmHg Right atrial pressure 5 mmHg Pulmonary pressure 25/10 mmHg Pulmonary occlusion pressure 10 mmHg Right atrial saturation 72% Pulmonary artery saturation 73% IMPRESSION Coronary artery disease as described above Normal ejection fraction Essentially normal intra-cardiopulmonary filling pressures PLAN 1. Medical management 2. Consider empiric treatment for endothelial dysfunction 3. The myocardial bridge is clinically insignificant. 2. DM type 2 3. Obesity 4. History of supraventricular tachycardia, controlled on beta edyta therapy 5. Hyperlipidemia 6. Pulmonary problems, on steroids for one year, 2018 A. CTA of chest, 09/2018, No pulmonary embolism evident. Satisfactory enhancement & appearance of pulmonary arteries Aorta satisfactory as well No pneumonia evident. Borderline airway thickening could reflect mild bronchitis. cardiomegaly again observed Only minor subtle vascular engorgement. No overt CHF . No pleural effusion. Scant stable pericardial effusion again noted History of present illness: 64-year-old white female admitted for worsening shortness of breath in the setting of pneumonia and pleural effusion. Please see admission H&P for further details. Patient has undergone 2 thoracentesis during her stay, 1 for therapeutic purposes and the second for diagnostic purposes. The results are pending at this time. Patient is on broad-spectrum antibiotics with some improvement in her shortness of breath. Cardiology consulted for recommendations regarding lower extremity edema with the patient's history of coronary disease and diastolic dysfunction/diastolic congestive heart failure. Recent right and left heart catheterization last month showed only mild coronary artery disease with patent stent in the RCA. Right pulmonary pressures noted occluding pulmonary artery occlusion pressure of 10 mmHg. Medical therapy recommended for endothelial dysfunction. Echocardiogram this admission shows no significant change in the patient's left ventricular ejection fraction. She does have a small pericardial effusion. Diuretics have been given intermittently during her stay with rise in her creatinine to 2.4 currently with BUN 77 and GFR of 20. Albumin and total protein noted to be lower than normal [facility] History Medical History: Reports:: Arrhythmia, Atherosclerotic Heart Disease, Atrial Fibrillation, Congestive Heart Failure, Chronic Obstructive Pulmonary Disease (
--- NOTE | 2020-06-26 14:00 | XR_ITS ---
PROCEDURE: XR CHEST PORTABLE CLINICAL HISTORY: r/o pneumo, post thoracentesis COMPARISON: CT CT CHEST WO CON from 06/22/2020 CR XR CHEST PORTABLE PICC PLAC from 06/23/2020 CR XR CHEST 2V from 06/25/2020 DX XR CHEST 2V from 06/26/2020 FINDINGS: An AP portable view of the chest is obtained in expiration showing no evidence of pneumothorax. Left subclavian PICC line is present with the tip in the region of the brachiocephalic vein and has distracted somewhat compared to the previous exam. There is cardiomegaly with atelectatic change or infiltrate in the right lung base with trace right effusion and small left effusion. IMPRESSION: No evidence of pneumothorax. Bibasilar airspace disease with trace right and small left effusion unchanged Dictated by: Fady Franco MD 06/26/2020 16:56 Fady Franco MD in [place] 06/26/2020 16:56
--- NOTE | 2020-06-26 15:52 | HMH.PULMPN ---
Internal Medicine - PN: Subj *Date: 06/26/20 *Time: 16:02 Interval history: Events overnight. Patient's respiratory status remained stable, on room air. Patient had a diagnostic thoracentesis performed this morning. Exam Vital signs and Labs for Last 24 Hours: Temp Pulse Resp BP Pulse Ox 98.1 F 76 18 106/55 L 94 L 06/26/20 11:30 06/26/20 14:30 06/26/20 14:30 06/26/20 14:30 06/26/20 14:30 Laboratory Results - last 24 hr 06/22/20 13:30: Fluid Source Pleural fluid, Fluid Volume 600, Fluid Appearance Bloody, Fluid RBC (Auto) 84358, Fld Tot Nucleated Cell 4521, Fld Polynuclear WBCs % , Fld Mononuclear WBCs % 06/25/20 16:47: POC Glucose 165 H 06/25/20 20:08: POC Glucose 232 H 06/26/20 05:31: POC Glucose 204 H 06/26/20 05:42: WBC 20.6 H*, RBC 2.96 L, Hgb 8.8 L, Hct 28.0 L, MCV 94.8, MCH 29.9, MCHC 31.6 L, RDW 14.1, Plt Count 611 H, MPV 6.9 L, Neut % (Auto) 92.0 H, Lymph % (Auto) 1.9 L, [place] % (Auto) 5.4, Eos % (Auto) 0.5, Baso % (Auto) 0.2, Neut # (Auto) 19.0 H, Lymph # (Auto) 0.4 L, [place] # (Auto) 1.1 H, Eos # (Auto) 0.1, Baso # (Auto) 0.1, Total Counted 100, Neutrophils % (Manual) 92 H, Lymphocytes % (Manual) 4 L, Monocytes % (Manual) 2, Eosinophils % (Manual) 2, Platelet Estimate Marked increase, RBC Morphology Normal 06/26/20 05:42: Sodium 126 L, Potassium 4.7, Chloride 96 L, Carbon Dioxide 21 L, Anion Gap 13.7, BUN 77 H, Creatinine 2.40 H D, Estimated Creat Clear 22, Estimated GFR 20 L, Est GFR ( Amer) 25 L D, Glucose 184 H, Calcium 8.2 L 06/26/20 09:52: Fluid Source Thoracentesis, Fluid Volume 6, Fluid Appearance Bloody, Fluid RBC (Auto) 95, Fld Tot Nucleated Cell 4487, Fld Polynuclear WBCs % 81, Fld Mononuclear WBCs % 19 I & O for Last 24 hours: Intake & Output 06/23/20 06/24/20 06/25/20 06/26/20 23:59 23:59 23:59 23:59 Intake Total 750 / 750 1620 / 1620 650 / 650 870 / 870 Output Total 620 / 620 675 / 675 Balance 130 / 130 945 / 945 650 / 650 870 / 870 Weight 303 lb 2.17 oz 302 lb 14.642 oz 302 lb 0.533 oz 305 lb 5.443 oz Microbiology Reports for the Last 24 Hours: Microbiology 06/22/20 13:30 Thoracic Fluid Gram Stain - Final 06/22/20 13:30 Thoracic Fluid Body Fluid Culture - Preliminary NO GROWTH AFTER 4 DAYS 06/26/20 09:52 Thoracic Fluid Gram Stain - Final - *Routine HEENT Exam Head: Present: normocephalic, atraumatic - *Routine Neck Exam Present: supple, full ROM. Absent: JVD - *Routine Respiratory Exam Present: rhonchi. Absent: accessory muscle use Comments: Rhonchi heard on the left lower lung bases. Right lung braswell sound clear - *Routine Cardiovascular Exam Present: Normal S1, Normal S2 - *Routine Abdominal Exam Present: soft, normoactive bowel sounds, obese - *Routine Extremities Exam Present: edema. Absent: cyanosis, clubbing Comments: Bilateral Lower extremity 3+ symmetric edema Assessment and Plan (1) Pneumonia Current visit: Yes Status: Acute Qualifiers: Pneumonia type: due to unspecified organism Laterality: left Lung location: lower lobe of lung Qualified Code(s): J18.9 - Pneumonia, unspecified organism Category: Medical Code(s): J18.9 - Pneumonia, unspecified organism (2) Obstructive sleep apnea Current visit: No Status: Chronic Category: Medical Code(s): G47.33 - Obstructive sleep apnea (adult) (pediatric) (3) Type 2 diabetes mellitus Current visit: No Status: Chronic Qualifiers: Diabetes mellitus fpc 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
[2020-06-26 16:27] LABS: POC Glucose,Bedside 179 (70-110)
[2020-06-26 16:27] LABS: POC Glucose,Bedside 148 (70-110)
--- NOTE | 2020-06-26 16:56 | PC.NURSE ---
DR YUAN AWARE OF DECREASED URINE OUTPUT
--- NOTE | 2020-06-26 16:56 | PC.NURSE ---
3+ PITTING EDEMA NOTED IN BLE, BLE WEEPING NOTED, LUNG SOUNDS DIMINISHED, NO C/O SOA, PT WAS UP TO CHAIR FOR 3 HOURS THIS AFTERNOON, THORACENTESIS PERFORMED, PT TOLERATED WELL NO C/O PAIN OR SOA FOLLOWING PROCEDURE, PT DID REQUEST NC 1LPM WHILE LAYING IN THE BED, PT HAS NOT REQUIRED PAIN MEDICATION THIS SHIFT. DECREASED URINE OUTPUT T/O SHIFT, 24 HOUR URINE COLLECTION ORDERED BUT PT HAS NO URINATED THUS FAR.
[2020-06-26 18:32] LABS: Chloride 98 mmol/L (98-107); Potassium 4.4 mmoL/L (3.5-5.1); Sodium 127 mmol/L (136-145)
[2020-06-26 18:34] LABS: Alanine Aminotransferase 62 U/L (12-78); Aspartate Amino Transferase 85 U/L (14-36); Creatinine Clearance Estimated 23 mL/min (50-200); Estimated Glomerular Filt Rate 21 ml/min (>60); GFR (African American) 26 ML/MIN (>60)
[2020-06-26 18:35] LABS: Albumin Level 2.3 g/dl (3.5-5.0); Albumin/Globulin Ratio 0.9 (1.1-1.8); Alkaline Phosphatase 167 U/L (38-126); Anion Gap 11.4 mEq/L (5-15); Bilirubin,Total 0.3 mg/dl (0.2-1.3); Carbon Dioxide 22 mmol/L (22.0-30.0); Globulin 2.7 g/dL (1.3-3.2); Glucose 181 mg/dl (74-100)
[2020-06-26 18:36] LABS: Blood Urea Nitrogen 79 mg/dl (7-17)
--- NOTE | 2020-06-26 18:50 | PC.NURSE ---
MD RODRIGUEZ NOTIFIED BY PHONE BUN 79
[2020-06-26 19:01] LABS: Lactate Dehydrogenase 188 U/L (313-618)
[2020-06-26 22:31] LABS: POC Glucose,Bedside 168 (70-110)
[2020-06-27] VITALS: BP 108/79; PULSE 97; RESP 25; TEMP 37.5; O2SAT 96
--- NOTE | 2020-06-27 01:05 | PC.NURSE ---
Report given to Carmita Pineda RN
[2020-06-27 04:00] VITALS: BP 113/49; PULSE 82; RESP 22; TEMP 36.7; O2SAT 92
[2020-06-27 05:00] VITALS: BMI 47.7
[2020-06-27 06:07] LABS: POC Glucose,Bedside 179 (70-110)
[2020-06-27 06:20] LABS: Basophils # 0.1 K/mm3 (0-0.2); Basophils % 0.3 % (0.1-2.0); Eosinophils # 0.1 K/mm3 (0.0-0.4); Eosinophils % 0.6 % (0.1-12.0); Hematocrit 27.9 % (37.0-47.0); Lymphocytes # 0.4 K/mm3 (0.7-4.5); Lymphocytes % 1.7 % (10-50); Mean Corpuscular HGB Conc 32.3 g/dL (31.8-35.4); Mean Corpuscular Hemoglobin 30.1 pg (27.0-31.2); Mean Corpuscular Volume 93.1 fl (81-99); Mean Platelet Volume 7.6 fl (7.4-10.4); Monocytes # 1.5 K/mm3 (0.1-1.0); Monocytes % 6.7 % (1.7-9.3); Neutrophils # 20.5 K/mm3 (1.8-7.8); Neutrophils % 90.7 % (37.0-80.0); Platelet Count 652 K/mm3 (142-424); Red Blood Count 2.99 M/mm3 (4.20-5.40); White Blood Count 22.6 K/mm3 (4.8-10.8)
[2020-06-27 06:23] LABS: Chloride 97 mmol/L (98-107); Sodium 127 mmol/L (136-145)
[2020-06-27 06:24] LABS: Potassium 4.9 mmoL/L (3.5-5.1)
[2020-06-27 06:26] LABS: Creatinine Clearance Estimated 19 mL/min (50-200); Estimated Glomerular Filt Rate 18 ml/min (>60); GFR (African American) 21 ML/MIN (>60)
[2020-06-27 06:27] LABS: Calcium 8.3 mg/dl (8.4-10.2); Carbon Dioxide 19 mmol/L (22.0-30.0); Glucose 178 mg/dl (74-100)
[2020-06-27 06:28] LABS: Anion Gap 15.9 mEq/L (5-15)
[2020-06-27 06:29] LABS: MANUAL DIFFERENTIAL MANUAL DIFFERENTIAL (MANUAL DIFF)
[2020-06-27 06:30] LABS: Blood Urea Nitrogen 82 mg/dl (7-17)
--- NOTE | 2020-06-27 06:36 | PC.NURSE ---
shift summary, no acute changes since prior nurse's assessment, pt on room air at 0400 with an O2 sat of 92%, no complaints of SOA, pt has remained in chair most of this shift, PICC line flushes and draws blood well, pt did complain of sore throat, treated with acetaminophen, 0600 FSBS 179
[2020-06-27 07:09] LABS: Lymphocytes % 3 % (10-50); Monocytes % 9 % (2-9); Neutrophils % 88 % (42-76); Platelet Estimate Marked Increase; Total Cells Counted 100
[2020-06-27 07:10] LABS: RBC Morphology Normal
--- NOTE | 2020-06-27 07:55 | HMH.ACPN2 ---
Internal Medicine - PN: Subj *Date: 06/27/20 *Time: 07:55 Interval history: Patient expresses some dismay and frustration this morning. She is now been in the hospital for approximately 10 days. She wants to go home. Her edema worsened overnight resulting in weeping of the lower extremities and development of an erythematous rash that is nonpruritic. She denies shortness of breath and has maintained O2 sats in the low to mid 90s on room air. Patient had diagnostic thoracentesis yesterday. Pleural fluid hematocrit was low thus ruling out hemothorax. Patient has been ambulating but admits pain in her feet limits her activity. She denies symptoms of other infection except for diarrhea which is only developed within the last 48 hours. Cardiology was consulted yesterday for the patient due to her edema and history of diastolic heart failure and coronary artery disease. 24-hour urine collection was ordered which began yesterday evening. Patient is only put out 150 mL's of urine. Since collection began. She is put out less than 500 mL's of urine in the last 24 hours. On further questioning patient has no prior history or previous physicians have not suspected renal disease. Spot urine protein was elevated at 30 g/dL Exam Vital signs and Labs for Last 24 Hours: Temp Pulse Resp BP Pulse Ox 98.0 F 82 22 113/49 L 92 L 06/27/20 04:00 06/27/20 04:00 06/27/20 04:00 06/27/20 04:00 06/27/20 04:00 Laboratory Results - last 24 hr 06/26/20 05:42: Total Counted 100, Neutrophils % (Manual) 92 H, Lymphocytes % (Manual) 4 L, Monocytes % (Manual) 2, Eosinophils % (Manual) 2, Platelet Estimate Marked increase, RBC Morphology Normal 06/26/20 09:52: Fluid Source Thoracentesis, Fluid Volume 6, Fluid Appearance Bloody, Fluid RBC (Auto) 95, Fld Tot Nucleated Cell 4487, Fld Polynuclear WBCs % 81, Fld Mononuclear WBCs % 19 06/26/20 11:32: POC Glucose 179 H 06/26/20 16:20: POC Glucose 148 H 06/26/20 17:30: Urine Total Protein 30.0 H 06/26/20 18:24: Sodium 127 L, Potassium 4.4, Chloride 98, Carbon Dioxide 22, Anion Gap 11.4, BUN 79 H, Creatinine 2.30 H, Estimated Creat Clear 23, Estimated GFR 21 L, Est GFR ( Amer) 26 L, Glucose 181 H, Calcium 8.0 L, Total Bilirubin 0.3, AST 85 H, ALT 62, Alkaline Phosphatase 167 H, Lactate Dehydrogenase 188 L, Total Protein 5.0 L, Albumin 2.3 L, Globulin 2.7, Albumin/Globulin Ratio 0.9 L 06/26/20 22:23: POC Glucose 168 H 06/27/20 05:58: WBC 22.6 H*, RBC 2.99 L, Hgb 9.0 L, Hct 27.9 L, MCV 93.1, MCH 30.1, MCHC 32.3, RDW 14.0, Plt Count 652 H, MPV 7.6, Neut % (Auto) 90.7 H, Lymph % (Auto) 1.7 L, [place] % (Auto) 6.7, Eos % (Auto) 0.6, Baso % (Auto) 0.3, Neut # (Auto) 20.5 H, Lymph # (Auto) 0.4 L, [place] # (Auto) 1.5 H, Eos # (Auto) 0.1, Baso # (Auto) 0.1, Total Counted 100, Neutrophils % (Manual) 88 H, Lymphocytes % (Manual) 3 L, Monocytes % (Manual) 9, Platelet Estimate Marked increase, RBC Morphology Normal 06/27/20 05:58: Sodium 127 L, Potassium 4.9, Chloride 97 L, Carbon Dioxide 19 L, Anion Gap 15.9 H, BUN 82 H, Creatinine 2.70 H, Estimated Creat Clear 19, Estimated GFR 18 L*, Est GFR ( Amer) 21 L, Glucose 178 H, Calcium 8.3 L 06/27/20 05:59: POC Glucose 179 H I & O for Last 24 hours: Intake & Output 06/24/20 06/25/20 06/26/20 06/27/20 11:59 11:59 11:59 11:59 Intake Total 750 / 750 1670 / 1670 560 / 560 600 / 600 Output Total 620 / 620 675 / 675 150 / 150 Balance 130 / 130 995 / 995 560 / 560 450 / 450 Weight 302 lb 14.642 oz 302 lb 0.533 oz 305 lb 5.443 oz 304 lb 3.806 oz Microbiology Reports for the Last 24 Hours: Microbiology 06/22/20 13:30 Thoracic Fluid Gram Stain - Final 06/22/20 13:30 Thoracic Fluid Body Fluid Culture - Preliminary NO GROWTH AFTER 4 DAYS 06/26/20 09:52 Thoracic Fluid Gram Stain - Final - Constitutional no acute distress - *Routine Cardiovascular Exam Present: RRR Comments: Diminished breath sounds left base with rales -
[2020-06-27 08:00] VITALS: BP 115/47; PULSE 75; RESP 19; TEMP 36.6; O2SAT 94
--- NOTE | 2020-06-27 08:14 | HMH.DCSUM ---
General - General Admission date:: 06/17/20 Discharge date: 06/27/20 HPI HPI: 64-year-old female with recent hospitalization from June 08 to June 12 at this facility for community-acquired pneumonia of the right lower lobe that progressed to the left lower lobe presented to the emergency department with increasing weakness and fatigue as well as increasing shortness of breath on exertion with low-grade fevers. Patient had been discharged from this facility on June 12 in stable condition. In follow-up in my office on June 15 patient reported low-grade fevers of unknown degree as well as periods of weakness. White blood cell count had risen compared to discharge from the hospital at that time. Antibiotic adjustments were made. On June 17 patient's weakness and shortness of breath had progressed and she returned to the hospital. Chest x-ray and CT scanning shows a left lower lobe pneumonia with clearing of the right lower lobe pneumonia seen previously. Left lower lobe pneumonia also had a parapneumonic effusion. White count had increased to 20,000. Patient reports little to no sputum production. Shortness of breath is present on exertion. Patient was also found to have acute kidney injury again. Patient had acute kidney injury on prior admission that responded to IV fluids after bolusing due to meeting sepsis criteria. Hospital Course Hospital Course: For patient's left lower lobe pneumonia with parapneumonic effusion she was admitted and placed on IV cefepime, vancomycin and levofloxacin. Vancomycin and levofloxacin were renally dosed. White count responded for the first 4 days of hospitalization and then began to rise raising concern for empyema. Pulmonology service was consulted and agreed with proceeding with thoracentesis. On June 22 patient underwent a therapeutic thoracentesis which removed 600 mL's of bloody fluid. Pleural fluid studies including LDH and protein were consistent with an exudative effusion. Ultimately fluid Gram stain and culture was negative. Due to some lab processing hematocrit was unable to be performed. Therapeutic thoracentesis had no impact on the patient's elevated white blood cell count. Fluid reaccumulated within 48 hours and on June 26 patient underwent repeat diagnostic thoracentesis. Pleural fluid hemoglobin was 0.2 with hematocrit of 0.9, thus ruling out hemothorax. Despite the patient's persistently elevated white count patient had noted improvement during the course of hospitalization in regards to her dyspnea. On June 26 patient's white blood cell count remained elevated at 20,000. She was not requiring supplemental O2 support maintaining her room air sats at 92 to 94%. Left pleural effusion persisted but as this was felt to not be an empyema patient's course of antibiotics was considered adequate. For the remainder of hospitalization she remained on cefepime but vancomycin and Levaquin were discontinued due to adequate course of treatment and developing acute kidney injury. When patient was readmitted to the hospital she had acute kidney injury. This responded to holding of patient's angiotensin receptor edyta and her diuretics. Creatinine had decreased from 2.7 on admission (June 17) to a low of 1.4 on June 20. After June 20 patient's creatinine began a slow rise as did her BUN. Patient was also hypotensive on admission. As hospitalization progressed patient's blood pressure began to rise and she was restarted on first her ARB and later her diuretic. Patient initially had good response to her diuretic but due to developing hypotension diuretic was once again held. Patient's renal function began to decline. On June 27 patient's creatinine karely to 2.7 with BUN of 82. Patient developed oliguria and over the preceding 24 hours on June 27 patient had urine output of less than 500 mL's. Due to incontinence is likely this was less than
--- NOTE | 2020-06-27 09:49 | PC.NURSE ---
received call from Dr. Sexton. He reports that pt is on a waiting list @ [facility] in [place]. [facility] in [place] has accepted her (Dr. Pabon) and will call back when bed is available. [facility] is checking to see if a bed is available now. I called charge (Izzy) and updated her. Updated Remi Andres as well.
--- NOTE | 2020-06-27 10:03 | PC.NURSE ---
received update from Dr. Sexton that [facility] in [place] has a bed available and will call shortly for report. Updated Remi Andres and pt. not @ BS @ this time. Pt verbalized understanding.
--- NOTE | 2020-06-27 10:12 | PC.NURSE ---
pt ambulated in hallway with walker aprox 30' before telling me that she has to have a BM. Pt ambulated back to bathroom.
--- NOTE | 2020-06-27 10:51 | PC.NURSE ---
attempted to call report to [facility] in [place] on [facility]. Pt's nurse will be Saray. She is unable to take report at this time and will call [facility] back when she has time to take report from me
--- NOTE | 2020-06-27 11:03 | PC.NURSE ---
report given to [facility]. Spoke to Saray. Pt will transfer by ambulance.
--- NOTE | 2020-06-27 11:11 | HMH.PULMPN ---
Internal Medicine - PN: Subj *Date: 06/27/20 *Time: 11:11 Interval history: No acute events overnight. Patient respiratory status remained stable, on room air with no respiratory distress Exam Vital signs and Labs for Last 24 Hours: Temp Pulse Resp BP Pulse Ox 97.8 F 75 19 115/47 L 94 L 06/27/20 08:00 06/27/20 08:00 06/27/20 08:00 06/27/20 08:00 06/27/20 08:00 Laboratory Results - last 24 hr 06/26/20 09:52: Fld Polynuclear WBCs % 81, Fld Mononuclear WBCs % 19 06/26/20 11:32: POC Glucose 179 H 06/26/20 16:20: POC Glucose 148 H 06/26/20 17:30: Urine Total Protein 30.0 H 06/26/20 18:24: Sodium 127 L, Potassium 4.4, Chloride 98, Carbon Dioxide 22, Anion Gap 11.4, BUN 79 H, Creatinine 2.30 H, Estimated Creat Clear 23, Estimated GFR 21 L, Est GFR ( Amer) 26 L, Glucose 181 H, Calcium 8.0 L, Total Bilirubin 0.3, AST 85 H, ALT 62, Alkaline Phosphatase 167 H, Lactate Dehydrogenase 188 L, Total Protein 5.0 L, Albumin 2.3 L, Globulin 2.7, Albumin/Globulin Ratio 0.9 L 06/26/20 22:23: POC Glucose 168 H 06/27/20 05:58: WBC 22.6 H*, RBC 2.99 L, Hgb 9.0 L, Hct 27.9 L, MCV 93.1, MCH 30.1, MCHC 32.3, RDW 14.0, Plt Count 652 H, MPV 7.6, Neut % (Auto) 90.7 H, Lymph % (Auto) 1.7 L, [place] % (Auto) 6.7, Eos % (Auto) 0.6, Baso % (Auto) 0.3, Neut # (Auto) 20.5 H, Lymph # (Auto) 0.4 L, [place] # (Auto) 1.5 H, Eos # (Auto) 0.1, Baso # (Auto) 0.1, Total Counted 100, Neutrophils % (Manual) 88 H, Lymphocytes % (Manual) 3 L, Monocytes % (Manual) 9, Platelet Estimate Marked increase, RBC Morphology Normal 06/27/20 05:58: Sodium 127 L, Potassium 4.9, Chloride 97 L, Carbon Dioxide 19 L, Anion Gap 15.9 H, BUN 82 H, Creatinine 2.70 H, Estimated Creat Clear 19, Estimated GFR 18 L*, Est GFR ( Amer) 21 L, Glucose 178 H, Calcium 8.3 L 06/27/20 05:59: POC Glucose 179 H I & O for Last 24 hours: Intake & Output 06/24/20 06/25/20 06/26/20 06/27/20 23:59 23:59 23:59 23:59 Intake Total 1620 / 1620 650 / 650 870 / 870 50 / 50 Output Total 675 / 675 150 / 150 150 / 150 Balance 945 / 945 650 / 650 720 / 720 -100 / -100 Weight 302 lb 14.642 oz 302 lb 0.533 oz 305 lb 5.443 oz 304 lb 3.806 oz Microbiology Reports for the Last 24 Hours: Microbiology 06/22/20 13:30 Thoracic Fluid Gram Stain - Final 06/22/20 13:30 Thoracic Fluid Body Fluid Culture - Preliminary NO GROWTH AFTER 4 DAYS 06/26/20 09:52 Thoracic Fluid Gram Stain - Final - Constitutional mild distress - *Routine HEENT Exam Head: Present: normocephalic, atraumatic. Absent: cushingoid faces - *Routine Neck Exam Present: supple, full ROM - *Routine Respiratory Exam Present: rhonchi, distant breath sounds - *Routine Cardiovascular Exam Present: Normal S1, Normal S2 - *Routine Abdominal Exam Present: soft, obese - *Routine Extremities Exam Present: edema. 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
[2020-06-27 11:15] LABS: POC Glucose,Bedside 232 (70-110)
--- NOTE | 2020-06-27 12:03 | PC.NURSE ---
ambulance transport called
== END 2020-06-27 12:55 | disposition short-term general hospital (02) | DRG 193 ==
LOC: ER 12:55 → 2ND 06-18 06:33
PROVIDERS: Admitting Provider Family Medicine; Emergency Provider Emergency Medicine; PCP Family Medicine; Visit Provider Family Medicine
DX: J18.9 Pneumonia, unspecified organism (principal); J96.01 Acute respiratory failure with hypoxia; I50.33 Acute on chronic diastolic (congestive) heart failure; N17.9 Acute kidney failure, unspecified; I11.0 Hypertensive heart disease with heart failure; Y95 Nosocomial condition; Z72.0 Tobacco use; R34 Anuria and oliguria; E11.42 Type 2 diabetes mellitus with diabetic polyneuropathy; G47.33 Obstructive sleep apnea (adult) (pediatric); R60.9 Edema, unspecified; Z79.890 Hormone replacement therapy; Z79.4 Long term (current) use of insulin; J44.9 Chronic obstructive pulmonary disease, unspecified; E03.9 Hypothyroidism, unspecified; I48.91 Unspecified atrial fibrillation
CPT/HCPCS: 32555; 36415; 36569; 71045; 71046; 71250; 76604; 80048; 80053; 80202; 82042; 82803; 82945; 82962; 83605; 83615; 83880; 84155; 84484; 85007; 85025; 86328; 87040; 87070; 87205; 87506; 88112; 88305; 89051; 93005; 93306; 94640; 94760; 96365; 96366; 96367; 96375; 97110; 97116; 97161; 97530; 99284; C1751; J0692; J1956; J2405; J3370